=== PATIENT | female | born 1965 | race Caucasian/White ===

== ENCOUNTER 2024-09-11 13:36 | Inpatient (IN) | payer BC, SELFPAY ==
[2024-09-11] VITALS (11 sets, daily range): BP systolic 126–180; BP diastolic 78–101; PULSE 67–96; RESP 14–18; TEMP 36.6–36.7; O2SAT 95–100; BMI 44.4
--- NOTE | 2024-09-11 13:32 | XR_ITS ---
PROCEDURE INFORMATION: Exam: XR Chest Exam date and time: 09/11/2024 1:39 PM Age: 59 years old Clinical indication: Pain; Other: Cp; Additional info: Chest pain since 12 p today TECHNIQUE: Imaging protocol: Radiologic exam of the chest. Views: 1 view. COMPARISON: No relevant prior studies available. FINDINGS: Lungs: Unremarkable. No consolidation. Pleural spaces: Unremarkable. No pleural effusion. No pneumothorax. Heart/Mediastinum: Cardiomegaly Bones/joints: Unremarkable. IMPRESSION: No acute findings.
--- NOTE | 2024-09-11 13:33 | ECG_ITS ---
APPROVED REPORT Exam: Resting ECG HR:73 bpm ECG Measurements Heart Rate 73 AXES DE 327 P 44 QRSd 89 QRS 48 QT 392 T 84 QTc 419 Conclusion SINUS RHYTHM WITH FIRST DEGREE AV BLOCK LOW QRS VOLTAGE IN PRECORDIAL LEADS [QRS DEFLECTION < 1.0 mV IN CHEST LEADS] NONSPECIFIC ST & T-WAVE ABNORMALITY No STEMI Electronically signed by : MATT JOHNSON, 09/12/2024 03:59:48
[2024-09-11 13:47] LABS: Basophils # 0.1 K/mm3 (0-0.2); Eosinophils # 0.6 K/mm3 (0.0-0.4); Eosinophils % 5.7 % (0.1-12.0); Hematocrit 37.9 % (37.0-47.0); Hemoglobin 12.5 g/dL (12.2-16.2); Lymphocytes # 3.5 K/mm3 (0.7-4.5); Lymphocytes % 31.6 % (10-50); Mean Corpuscular Hemoglobin 28.5 pg (27.0-31.2); Mean Corpuscular Volume 86.3 fl (81-99); Mean Platelet Volume 10.2 fl (7.4-10.4); Monocytes # 0.8 K/mm3 (0.1-1.0); Monocytes % 6.7 % (1.7-9.3); Neutrophils # 6.1 K/mm3 (1.8-7.8); Neutrophils % 54.6 % (37.0-80.0); Platelet Count 395 K/mm3 (142-424); Red Blood Count 4.39 M/mm3 (4.20-5.40); Red Cell Distribution Width 14.8 % (11.5-17.5); White Blood Count 11.2 K/mm3 (4.8-10.8)
--- NOTE | 2024-09-11 13:48 | PC.NURSE ---
Patient refused nasal swab.
[2024-09-11 13:49] LABS: Albumin Level 3.8 g/dl (3.5-5.0); Chloride 103 mmol/L (98-107); Potassium 3.6 mmoL/L (3.5-5.1); Sodium 136 mmol/L (136-145)
[2024-09-11 13:52] LABS: Alanine Aminotransferase 103 U/L (12-78); Albumin/Globulin Ratio 1.3 (1.1-1.8); Alkaline Phosphatase 70 U/L (38-126); Anion Gap 12.6 mEq/L (5-15); Aspartate Amino Transferase 157 U/L (14-36); Bilirubin,Total 0.7 mg/dl (0.2-1.3); Blood Urea Nitrogen 14 mg/dl (7-17); Carbon Dioxide 24 mmol/L (22.0-30.0); Creatinine Clearance Estimated 40 mL/min (50-200); Estimated Glomerular Filt Rate 85 ml/min (>60); GFR (African American) 103 ML/MIN (>60); Total Protein,Serum 6.8 g/dl (6.3-8.2)
[2024-09-11 13:53] LABS: Calcium 9.4 mg/dl (8.4-10.2); Glucose 139 mg/dl (74-100); Magnesium 1.6 mg/dl (1.6-2.3)
[2024-09-11 14:04] LABS: Troponin I < 0.01 ng/ml (0.00-0.034)
--- NOTE | 2024-09-11 14:06 | HMH.EDGENADL ---
Discharge Plan Disposition Chief Complaint: Chest Pain Referrals Follow up/Referrals: Morena Williamson [Primary Care Provider] - See instructions Clinical Impressions Clinical Impression: Angina pectoris, unstable Print Language Print Language: Urdu Discharge ED Provider: Cristian Velez General Adult HPI General Chief complaint: Chest Pain Stated complaint: Chest Pain since 12p Time Seen by Provider: 09/11/24 13:49 Mode of Arrival: EMS Source of Information: Patient Description of Symptoms (Recalled from ER Triage Doc. by RN): Patient reports right sided chest pain that started approx 1200 today. States it is sharp in nature and radiates up the right side of her neck. History of Present Illness HPI narrative: Patient is a 59-year-old female with past medical history of [id number] diabetes, hypertension who presents emergency department for evaluation of chest pain. Onset was acute, 2 hours prior to arrival, substernal radiating up into her right neck and shoulder. No trauma. No infectious symptoms. No other acute complaints at this time. Of note patient has had an echocardiogram which she was told was reportedly normal and was offered a treadmill stress test which she declined because she was scared , was offered a chemical stress test which she would have to pay 1900 hrs. [id number] and cannot afford. She has been having this chest pain episodes since last summer that are usually exertional, caused her to sweat and resolve after sitting down for a while. Please note that above description of symptoms, in this electronic medical record under categorization of recalled from ER triage doctor by RN are reflective of an initial nursing assessment, however, is not reflective of my full history and physical exam that was personally taken and clarified. Consequentially, this preceding description of symptoms, which may include the patient's categorized chief complaint in the EMR, do not reflect my personal clinical impression, and the ultimate description of history of present illness and patient stated complaints should be deferred to this section of the note. Unless stated otherwise or congruent with this section of the note, additional signs, symptoms, or incongruence should be interpreted as inaccurate with my clinical impression. Related Data Allergies Allergy/AdvReac Type Severity Reaction Status Date / Time No Known Allergies Allergy Verified 09/11/24 13:32 [facility] Disclaimer: The information contained in this section may have been updated after the patient was seen, as this information can be updated by other users. Social History Smoking Status: Never smoker alcohol intake: never current occupational status: other Travel in the last 8 weeks: None ROS Obtained: Yes Systems reviewed as appropriate & no additional complaints except as documented Physical Exam General General appearance: alert and in no apparent distress Head Head exam: atraumatic and normocephalic Eye Eye exam: Present PERRL and EOMI ENT ENT exam: Present mucous membranes moist Neck Neck exam: Present normal inspection Chest Chest inspection: Present normal inspection and symmetric chest wall rise Respiratory Respiratory exam: Present normal lung sounds bilaterally; Absent respiratory distress Cardiovascular Cardiovascular exam: Present regular rate and normal rhythm Abdominal Exam Abdominal exam: Present soft; Absent tenderness Extremities Exam Extremities exam: Present normal inspection Neurological Exam Neurological exam: Present alert Psychiatric Psychiatric exam: Present normal affect Skin Skin exam: Present warm and dry Medical Decision Making Medical Records Screening: Per USPSTF and CDC recommendations, given the prevalence of disease in our region, it is our hospital?s policy to screen for HIV and viral Hepatitis for all patients aged 18 and over and those with ongoing risk factors. Hernán Inquiry Pt receiving controlled substance: No Vital Signs: 09/11/24 13:35 09/11/24 13:37 09/11/24 14:00 Temperature 97.9 F Temperature Source Oral Pulse Rate 78 73 Pulse Rate [Radial] 76 Respiratory Rate 18 17 14 Blood Pressure 136/89 Blood Pressure [Right Arm] 136/89 Blood Pressure Mean [Right Arm] 104 Blood Pressure Source Blood Pressure Source [Right Arm] Automatic Cuff Blood Pressure Position [Right Arm] Sitting 02 Sat by Pulse Oximetry 98 98 99 Oxygen Delivery Method Room Air Room Air Room Air 09/11/24 14:15 09/11/24 14:30 09/11/24 15:00 Temperature Temperature Source Pulse Rate 72 81 67 Pulse Rate [Radial] Respiratory Rate 16 14 16 Blood Pressure 180/90 H 178/101 H 126/78 Blood Pressure [Right Arm] Blood Pressure Mean [Right Arm] Blood Pressure Source Manual Cuff/ Auscultation Blood Pressure Source [Right Arm] Blood Pressure Position [Right Arm] 02 Sat by Pulse Oximetry 99 100 97 Oxygen Delivery Method Room Air Room Air Room Air Lab Data Lab Results 09/11/24 13:31: WBC 11.2 H, RBC 4.39, Hgb 12.5, Hct 37.9, MCV 86.3, MCH 28.5, MCHC 33.0, RDW 14.8, Plt Count 395, MPV 10.2, Neut % (Auto) 54.6, Lymph % (Auto) 31.6, [place] % (Auto) 6.7, Eos % (Auto) 5.7, Baso % (Auto) 1.0, Neut # (Auto) 6.1, Lymph # (Auto) 3.5, [place] # (Auto) 0.8, Eos # (Auto) 0.6 H, Baso # (Auto) 0.1, D-Dimer 0.47, Sodium 136, Potassium 3.6, Chloride 103, Carbon Dioxide 24, Anion Gap 12.6, BUN 14, Creatinine 0.70, Estimated Creat Clear 40, Estimated GFR 85, Est GFR ( Amer) 103, Glucose 139 H, Calcium 9.4, Magnesium 1.6, Total Bilirubin 0.7, AST 157 H, ALT 103 H, Alkaline Phosphatase 70, Troponin I < 0.01, Total Protein 6.8, Albumin 3.8, Globulin 3.0, Albumin/Globulin Ratio 1.3 09/11/24 13:31 09/11/24 13:31 Orders (Tests/Meds): ED MEDICATIONS Generic Name Dose Route Start Last Admin Trade Name Freq PRN Reason Stop Dose Admin Nitroglycerin/Dextrose 250 mls @ 1.5 mls/hr 09/11/24 15:45 Nitroglycerin 50mg/250ml D5w IV 10/11/24 15:44 .Q24H HARSHA Protocol 5 MCG/MIN Nitroglycerin 0.4 mg 09/11/24 14:06 09/11/24 14:26 Nitroglycerin 0.4mg Sl Tablet SL 10/11/24 14:05 0.4 mg Q5MINP PRN Administration Chest Pain Discontinued Medications Generic Name Dose Route Start Last Admin Trade Name Freq PRN Reason Stop Dose Admin Acetaminophen 1,000 mg 09/11/24 15:38 09/11/24 15:46 Acetaminophen 1,000mg/100ml Vial IV 09/11/24 15:39 1,000 mg ONCE ONE Administration Aspirin 324 mg 09/11/24 14:09/11/24 14:26 Aspirin 81mg Chewable Tablet PO 09/11/24 14:06 324 mg ONCE ONE Administration Morphine Sulfate 4 mg 09/11/24 14:09/11/24 14:26 Morphine 4mg/Ml Syringe IV 09/11/24 14:06 4 mg ONCE ONE Administration Ondansetron HCl 4 mg 09/11/24 14:05 09/11/24 14:26 Ondansetron 4mg/2ml Vial IV 09/11/24 14:06 4 mg ONCE ONE Administration ORDERS Category Date Time Status Cardiology Consult [Consult to Cardiology] [CONS] Cons 09/11/24 15:49 Active Routine CXR --portable [XR chest portable] Stat Exams 09/11/24 13:32 Completed Complete Blood Count Auto Diff AMLAB Lab 09/12/24 06:00 Ordered Complete Blood Count Auto Diff Stat Lab 09/11/24 13:31 Completed Comprehensive Metabolic Panel AMLAB Lab 09/12/24 06:00 Ordered Comprehensive Metabolic Panel Stat Lab 09/11/24 13:31 Completed D-Dimer Stat Lab 09/11/24 13:31 Completed HIV Combo Stat Lab 09/11/24 13:40 Ordered Hemoglobin A1C Stat Lab 09/11/24 15:50 Ordered Hepatitis C Ab Qual. W/ RFX Stat Lab 09/11/24 13:40 Ordered Lipid Panel AMLAB Lab 09/12/24 06:00 Ordered Magnesium AMLAB Lab 09/12/24 06:00 Ordered Magnesium Stat Lab 09/11/24 13:31 Completed TSH [Thyroid Stimulating Hormone] Stat Lab 09/11/24 15:50 Ordered Troponin I Q3H Lab 09/11/24 13:31 Completed Troponin I Q3H Lab 09/11/24 16:45 Ordered ECG Data Tracing #1: Independently inter by me rate 73, rhythm is regular, axis is normal, no ST elevation in anatomical contiguous leads, QTc 419. Medical Decision Narrative: In summary patient is a 59-year-old female past medical history described above presents emergency department for evaluation of chest pain. Patient is hemodynamically stable and nontoxic-appearing upon arrival, afebrile. Differential includes ACS, pulmonary embolism, aortic dissection, among others. Workup will be conducted with hematologic labs, chest x-ray, EKG, D-dimer. Initial inventions include aspirin, morphine, Zofran, nitroglycerin. Initial workup reviewed by me, no significant leukocytosis no LI or critical electrolyte abnormality, mild transaminitis with unknown baseline however no evidence of obstructive pattern with normal bilirubin and patient does not have abdominal pain. X-ray informally interpreted by me, low lung volumes, no large dense pulmonary opacities, formal read no acute findings. Given short duration of pain I do not expect troponins to be sufficiently sensitive to rule out ACS and given the quality of pain patient is high risk and has unstable angina. Given the patient had partially resolving symptoms on nitroglycerin patient will be started on nitroglycerin drip. Given this case was discussed with Dr. Nesbitt patient will be admitted to his service for continued evaluation at this time. Critical Care Critical Care Time Critical Care Time: Yes Attestation: On 09/11/24, the high probability of a clinically significant, sudden or life threatening deterioration of the following system(s) required my full and direct attention, intervention and personal management. The time I documented below is in addition to time spent performing reported procedures but includes the following listed in this critical care notation. Total Time Total Critical Care Time: 35
[2024-09-11 14:20] LABS: D-Dimer 0.47 ug/mL (0.0-0.5)
[2024-09-11] MEDS: ASPIRIN 81MG CHEWABLE TABLET 324 MG PO (14:26)
[2024-09-11] MEDS: MORPHINE 4MG/ML SYRINGE 4 MG IV (14:26)
[2024-09-11] MEDS: ONDANSETRON 4MG/2ML VIAL 4 MG IV (14:26)
[2024-09-11] MEDS: NITROGLYCERIN 0.4MG SL TABLET 0.4 MG SL (14:26)
[2024-09-11] MEDS: ACETAMINOPHEN 1,000MG/100ML VIAL 1000 MG IV (15:46)
--- NOTE | 2024-09-11 15:49 | EXP.HP ---
History of Present Illness *Admission Date: 09/11/24 *Reason for visit:: chest pain *History of present illness: Ms. Parker is a 59-year-old female with history of obesity, gastric bypass, diabetes controlled on metformin, hypothyroid, GERD, hypertension. She presents with worsening episodes over the past few months of chest pressure, dyspnea, palpitations with exertion. 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 Those episodes were just fast heart rate with exertion. Was being worked up by cardiology in [place] but had yet to do a stress test due to difficulty with treadmill component and cost of chemical stress test. Presents to the ED with onset of chest pain began today around noon. States that sharp in nature and radiates up the right side of her neck. Denies any nausea or vomiting. Denies any syncope. Does have sweats and pain with exertion that resolves when resting. Workup in the ER with initial troponin less than 0.01. Has an elevated heart score. EKG has nonspecific ST abnormalities but no ST elevation. Due to pressure and heart score and presentation, patient initiated on nitro drip. Cardiology consulted and recommended admission. Medicine consulted for admission. On arrival to the floor, patient is chest pain-free. No ischemic changes on telemetry. No nausea or vomiting. Stable on room air. [facility] Disclaimer: The information contained in this section may have been updated after the patient was seen, as this information can be updated by other users. Medical History (Updated 09/11/24 @ 18:25 by Oni Nesbitt MD) Asthma Bronchitis Pneumonia Migraine Hypothyroid Diabetes mellitus, type 2 Carpal tunnel syndrome on left Surgical History H/O: hysterectomy History of tonsillectomy History of cholecystectomy Gastric bypass status for obesity Family History Other Asthma Diabetes Heart failure Social History Smoking Status: Never smoker alcohol intake: never current occupational status: other Travel in the last 8 weeks: None Have you lived/traveled outside US in past 30 days?: No Contact w/someone who lives/traveled outside US past 30 days?: No Exposure to someone with infectious disease in past 14 days?: No Do you have a fever (greater than 100.4 F or 38 C)?: No Have you tested positive for COVID-19: No Exposed to someone with COVID-19 in past 14 days?: No Do you have a sore throat?: No Do you have a cough?: No Do you have any weakness?: No Are you experiencing any nausea/vomitting?: Yes Do you have any diarrhea?: No Are you experiencing any unusual bleeding?: No Do you have any muscle aches/pain?: No Do you have any abdominal pain?: No Are you experiencing loss of taste or smell?: No Review of Systems Review of Systems Review of systems (narrative): 14 point review of systems performed, pertinent positives and negatives as per HPI Meds Home Medications and Allergies Home Medications ?Medication ?Instructions ?Recorded ?Confirmed ?Type albuterol sulfate 2.5 mg/3 mL 2.5 mg inhalation Q4-6H PRN 09/11/24 09/11/24 History (0.083 %) solution for nebulization Shortness Of Breath Or Wheezing albuterol sulfate 90 mcg/actuation 2 puff inhalation Q6HP PRN 09/11/24 09/11/24 History aerosol inhaler Shortness Of Breath Or Wheezing estradiol 2 mg tablet 2 mg PO DAILY 09/11/24 09/11/24 History fluticasone 113 mcg-salmeterol 14 1 puff inhalation BID 09/11/24 09/11/24 History mcg/actuation breath activated powdr metformin 500 mg tablet 500 mg PO DAILY 09/11/24 09/11/24 History olmesartan 40 mg tablet 40 mg PO DAILY 09/11/24 09/11/24 History omeprazole 40 mg capsule,delayed 40 mg PO DAILY 09/11/24 09/11/24 History release thyroid (pork) 30 mg tablet (SAW OFFBE[employer]ER 30 mg PO DAILY 09/11/24 09/11/24 History Thyroid) New Prescriptions to Start Prescriptions: Allergies Allergy/AdvReac Type Severity Reaction Status Date / Time No Known Allergies Allergy Verified 09/11/24 13:32 Exam Data for Last 24 hours Vital signs and Labs for Last 24 Hours: Temp Pulse Resp BP Pulse Ox O2 Del Method 97.9 F 67 16 126/78 97 Room Air 09/11/24 13:37 09/11/24 15:00 09/11/24 15:00 09/11/24 15:00 09/11/24 15:00 09/11/24 15:00 Laboratory Results - last 24 hr 09/11/24 13:31: WBC 11.2 H, RBC 4.39, Hgb 12.5, Hct 37.9, MCV 86.3, MCH 28.5, MCHC 33.0, RDW 14.8, Plt Count 395, MPV 10.2, Neut % (Auto) 54.6, Lymph % (Auto) 31.6, [place] % (Auto) 6.7, Eos % (Auto) 5.7, Baso % (Auto) 1.0, Neut # (Auto) 6.1, Lymph # (Auto) 3.5, [place] # (Auto) 0.8, Eos # (Auto) 0.6 H, Baso # (Auto) 0.1, D-Dimer 0.47, Sodium 136, Potassium 3.6, Chloride 103, Carbon Dioxide 24, Anion Gap 12.6, BUN 14, Creatinine 0.70, Estimated Creat Clear 40, Estimated GFR 85, Est GFR ( Amer) 103, Glucose 139 H, Calcium 9.4, Magnesium 1.6, Total Bilirubin 0.7, AST 157 H, ALT 103 H, Alkaline Phosphatase 70, Troponin I < 0.01, Total Protein 6.8, Albumin 3.8, Globulin 3.0, Albumin/Globulin Ratio 1.3 I & O for Last 24 hours: Intake & Output 09/08/24 09/09/24 09/10/24 09/11/24 23:59 23:59 23:59 23:59 Weight 99.79 kg Constitutional Constitutional: no acute distress, morbidly obese and cooperative *Routine HEENT Exam Head: Present normocephalic Eye: Present EOMI and PERRL ENT: Present mucous membranes moist *Routine Neck Exam Neck: Present supple; Absent lymphadenopathy *Routine Respiratory Exam Respiratory: Present CTA bilaterally; Absent rhonchi, wheezes or crackles *Routine Cardiovascular Exam Cardiovascular: Present RRR *Routine Abdominal Exam Abdominal: Present soft and normoactive bowel sounds; Absent tenderness *Routine Rectal Exam Rectal:: deferred *Routine Genitalia Exam Genitalia:: deferred *Routine Extremities Exam Extremities: Absent cyanosis, clubbing or edema *Routine Skin Exam Skin: Present warm; Absent rash *Routine Neurological Exam Neurological: Present alert, oriented X3 and moving all extremities; Absent altered mental status Assessment and Plan *Assessment and plan (1) Angina pectoris, unstable: Status: Acute Category: Medical Code(s): I20.0 - Unstable angina (2) Diabetes mellitus, type 2: Status: Acute Category: Medical Code(s): E11.9 - Type 2 diabetes mellitus without complications (3) Hypothyroid: Status: Acute Category: Medical Code(s): E03.9 - Hypothyroidism, unspecified (4) GERD (gastroesophageal reflux disease): Status: Chronic Category: Medical Code(s): K21.9 - Gastro-esophageal reflux disease without esophagitis (5) Morbid obesity with BMI of 40.0-44.9, adult: Status: Chronic Category: Medical Code(s): E66.01 - Morbid (severe) obesity due to excess calories; Z68.41 - Body mass index [BMI] 40.0-44.9, adult (6) Hypertension: Status: Chronic Category: Medical Code(s): I10 - Essential (primary) hypertension Plan 59-year-old female with multiple comorbidities who presents with exertional chest pain. Discussed case with ER physician, request admission for serial troponins and cardiology evaluation. Initiated on nitroglycerin drip. I agreed to admit for further care. Necessitating inpatient care. Monitoring on telemetry. Chest pain better with nitroglycerin drip. Problems addressed as follows: Unstable angina Hypertension -Initial heart score 5, pain exertional. Initial troponin less than 0.01, 3-hour troponin jumped to 1.15. 6-hour pending. EKG with no ST elevations. -Loaded with aspirin in the ED. Continue 81 mg daily -Will initiate nitroglycerin drip due to hypertension and chest pain. Admitted to stepdown on telemetry -Cardiology consult placed, will evaluate the patient in the morning. Anticipate heart cath in the morning. Echo ordered and pending -Repeat CBC, CMP, magnesium ordered for the morning Transaminitis: - bilirubin 0.7, AST 157, ALT 103, alk phos 70. Unclear etiology. Will obtain right upper quadrant ultrasound. -History of gastric bypass. Given metabolic disease, suspect fatty liver. Patient is a nondrinker Diabetes: A1c 6.5. Only on metformin at home. Will consider Jardiance pending echo findings and cath findings. -Glucose on admission of 139, sliding scale insulin with fingersticks ACHS Hypothyroid: TSH pending. Continue [place] Thyroid 30 mg daily Obesity complicates all aspects of her care Full code Diabetic diet, n.p.o. midnight Lovenox 1 mg/kg twice daily
[2024-09-11] MEDS: NITROGLYCERIN IN 5 % DEXTROSE 250 ML 1.5 MG IV (16:19)
--- NOTE | 2024-09-11 16:45 | PC.NURSE ---
Patient used bedside commode
--- NOTE | 2024-09-11 16:55 | PC.NURSE ---
pt retrieved from ER via bed stretcher. Arrived on unit at 1705. Pt has no pain at this time. Pt in bed with call light in reach.
[2024-09-11 18:28] LABS: Hemoglobin A1C 6.5 % (4.0-6.0)
[2024-09-11 18:29] LABS: Troponin I 1.15 ng/ml (0.00-0.034)
[2024-09-11] MEDS: ENOXAPARIN 100MG/ML SYRINGE 100 MG SUBCUT (18:42)
[2024-09-11 18:43] LABS: Thyroid Stimulating Hormone 1.59 uIU/mL (0.465-4.68)
--- NOTE | 2024-09-11 18:43 | ECG_ITS ---
APPROVED REPORT Exam: Resting ECG HR:86 bpm ECG Measurements Heart Rate 86 AXES ME 161 P 191 QRSd 102 QRS 46 QT 374 T -27 QTc 418 Conclusion ECTOPIC ATRIAL RHYTHM LOW QRS VOLTAGE IN PRECORDIAL LEADS [QRS DEFLECTION < 1.0 mV IN CHEST LEADS] Isolated Q in III - new since prior ABNORMAL ECG UNCONFIRMED REPORT Electronically signed by : Hira Cruz MD 09/12/2024 08:22:16
[2024-09-11 19:04] LABS: HIV Combo NEGATIVE (Negative)
[2024-09-11 19:12] LABS: Hepatitis C Ab Qual. W/ RFX NEGATIVE (Negative)
[2024-09-11] MEDS: IRBESARTAN 300MG TABLET 300 MG PO (19:55)
[2024-09-11] MEDS: PANTOPRAZOLE 40MG TABLET 40 MG PO (19:55)
--- NOTE | 2024-09-11 20:07 | EXP.EVENT.NO ---
Patient reported having a headache about 8 out of 10. Noting that the patient is on a nitroglycerin drip Updated patient that I could give her one-time dose of IV Toradol now because it would work quicker and also have regular Tylenol as needed Patient said this would be great, nursing aware going to give at least a dose of IV Toradol now. I will keep the Toradol as needed at the present time but also have ordered p.o. Tylenol
[2024-09-11] MEDS: KETOROLAC 30MG/ML VIAL 15 MG IV (20:29)
[2024-09-12] VITALS (25 sets, daily range): BP systolic 137–196; BP diastolic 82–101; PULSE 87–111; RESP 14–20; TEMP 36.8–36.9; O2SAT 92–99; BMI 44.9
--- NOTE | 2024-09-12 | CA_ITS ---
APPROVED REPORT EXAM: Limited 2D Echocardiogram [place]mith: Radha Strong RDCS Ht: 4 ft 11 in Wt: 220lbs BSA: 1.92 BP: 126/78 mmHg Indications: ACS,CP,HTN,DM,PALPS,SOA,MORBID OBESITY LIMITED EXAM DUE TO BODY HABITUS M-Mode Dimensions RVDd 2.60 cm (0.9-2.6) LA Diam 3.37 cm (1.9-4.0) LVDd 4.35 cm (3.5-5.7) LVDs 2.39 cm (3.5-5.7) IVSd 1.11 cm (0.6-1.1) PWd 1.07 cm (0.6-1.1) EF (Teich) 76.60% FS 45.10% EDV (Teich) 85.40 mL ESV (Teich) 20.00 mL Other Information Study Quality: Technically Difficult. Technically limited study due to body habitus. Conclusion This is a limited TTE due to inability to position patient and due to patient body habitus. Limited windows are obtained. Grossly, the left ventricle is normal in size and function. There is increased LV wall thickness. Regional wall motion cannot be entirely evaluated due to technically difficult study. LVEF is 55-60%. The right ventricle is not well-visualized, but grossly appears mildly dilated with normal RV function. No evidence of significant valvular stenosis or regurgitation in the available views. There is a trivial, circumferential pericardial effusion present. Electronically signed by : Jaimie Jensen MD 09/12/2024 11:50:44
--- NOTE | 2024-09-12 04:58 | ECG_ITS ---
APPROVED REPORT Exam: Resting ECG HR:98 bpm ECG Measurements Heart Rate 98 AXES FL 227 P 24 QRSd 91 QRS 23 QT 365 T -18 QTc 420 Conclusion SINUS RHYTHM WITH FIRST DEGREE AV BLOCK LOW QRS VOLTAGE IN PRECORDIAL LEADS [QRS DEFLECTION < 1.0 mV IN CHEST LEADS] Isolated q in iii ABNORMAL ECG UNCONFIRMED REPORT Electronically signed by : Hira Cruz MD 09/15/2024 09:02:38
--- NOTE | 2024-09-12 06:00 | US_ITS ---
FINAL REPORT CLINICAL HISTORY: transaminitis, suspect fatty liver disease COMPARISON: None FINDINGS: Sonographic images of the right upper quadrant were obtained. The pancreas is partially obscured. There is increased echogenicity of the liver consistent with fatty infiltration of the liver. The gallbladder has been surgically resected. There is no evidence of biliary ductal dilatation.The common duct measures 5.6 mm. Limited images of the right kidney are unremarkable. IMPRESSION: Fatty infiltration of the liver. Post cholecystectomy, without biliary ductal dilatation. Reviewed, Interpreted and Dictated by Denver Blair MD Transcribed by Ofelia Serrato Authenticated and [facility]
[2024-09-12 06:01] LABS: Basophils # 0.1 K/mm3 (0-0.2); Basophils % 0.8 % (0.1-2.0); Eosinophils # 0.1 K/mm3 (0.0-0.4); Eosinophils % 0.8 % (0.1-12.0); Hematocrit 38.3 % (37.0-47.0); Hemoglobin 12.6 g/dL (12.2-16.2); Lymphocytes # 1.8 K/mm3 (0.7-4.5); Lymphocytes % 15.8 % (10-50); Mean Corpuscular HGB Conc 32.9 g/dL (31.8-35.4); Mean Corpuscular Hemoglobin 28.6 pg (27.0-31.2); Mean Corpuscular Volume 86.8 fl (81-99); Mean Platelet Volume 10.6 fl (7.4-10.4); Monocytes # 0.6 K/mm3 (0.1-1.0); Monocytes % 5.3 % (1.7-9.3); Neutrophils # 8.9 K/mm3 (1.8-7.8); Platelet Count 358 K/mm3 (142-424); Red Blood Count 4.41 M/mm3 (4.20-5.40); White Blood Count 11.5 K/mm3 (4.8-10.8)
[2024-09-12 06:11] LABS: Cholesterol 209 mg/dl (140-200); Triglycerides 210 mg/dl (30-150); VLDL Cholesterol 42 mg/dL (0-40)
[2024-09-12 06:12] LABS: Albumin Level 3.8 g/dl (3.5-5.0); Chloride 98 mmol/L (98-107); Chol/HDL Ratio 4.3 (1-3.5); HDL Cholesterol 49 mg/dl (40-60); Sodium 133 mmol/L (136-145)
[2024-09-12 06:14] LABS: Blood Urea Nitrogen 13 mg/dl (7-17); Creatinine Clearance Estimated 40 mL/min (50-200); Estimated Glomerular Filt Rate 85 ml/min (>60); GFR (African American) 103 ML/MIN (>60)
[2024-09-12 06:15] LABS: Alanine Aminotransferase 107 U/L (12-78); Albumin/Globulin Ratio 1.3 (1.1-1.8); Alkaline Phosphatase 50 U/L (38-126); Aspartate Amino Transferase 219 U/L (14-36); Bilirubin,Total 0.7 mg/dl (0.2-1.3); Calcium 8.9 mg/dl (8.4-10.2); Carbon Dioxide 29 mmol/L (22.0-30.0); Glucose 130 mg/dl (74-100); Magnesium 1.4 mg/dl (1.6-2.3); Total Protein,Serum 6.8 g/dl (6.3-8.2)
[2024-09-12 06:23] LABS: Direct LDL Cholesterol 114.73 mg/dL (100-129)
--- NOTE | 2024-09-12 07:28 | HMH.PHAINT1 ---
Pharmacy Intervention Comments: MEDICATION RECONCILIATION COMPLETED ON PATIENT USING EXTERNAL FILL HISTORY FROM PHARMACY. -LESLIE DONOVAN, EDUARD
[2024-09-12] MEDS: MAGNESIUM SULFATE IN WATER 2 GM/50 ML PIGGYBACK IV ×3 (08:12→10:02)
--- NOTE | 2024-09-12 09:38 | PC.NURSE ---
pt is prepped for the heart cath procedure. radial and femoral sites bilaterally are clipped and ready. call light is within reach and no needs are voiced at this time.
--- NOTE | 2024-09-12 10:25 | IR_ITS ---
APPROVED REPORT Patient Location: Inpatient Audio Director: Rodrigo Golden RT (R) PROCEDURES Selective coronary angiogram INDICATION Acute non-ST elevation myocardial infarction Informed consent was obtained prior to the procedure. COMPLICATIONS NONE Estimated Blood Loss: LESS THAN 10 ML TECHNIQUE One percent lidocaine used to anesthetize the right anterior aspect of the wrist. The right radial artery was accessed via the Seldinger technique. A 6 English sheath was placed in the right radial artery. 2.5 mg of Verapamil, 800 mcg of nitroglycerin, 1mg Lidocaine and 5000 U Heparin were given through the arterial sheath. The 6 English JL 3 guide catheter was used to perform selective coronary angiogram. At the end of the procedure the sheath was removed good hemostasis was achieved using Traclet band, patient was transferred to the postop holding area in stable condition. ANGIOGRAPHIC RESULTS The left main artery Normal The left anterior descending artery Has proximal 30 and 40% stenosis with an additional 50% stenosis proximal to a large first diagonal artery which extends into a focal concentric 90% stenosis just distal to the first diagonal artery. There are additional 50% concentric stenoses in the mid LAD. A large first diagonal artery has a proximal and mid vessel 80 to 90% stenosis The circumflex artery Is nondominant gives rise to a large first obtuse marginal artery. Just before the first obtuse marginal artery is a concentric 50% stenosis The right coronary artery Is dominant and has an ostial 60% stenosis followed by a proximal 30% and distal 50% stenosis. The posterior descending artery has a proximal hazy 70% stenosis while the posterior lateral branch has a proximal 90% stenosis just before the bifurcation into 2 medium sized marginal branches The TOPETE ventriculogram reveals Not performed The left ventricular end-diastolic pressure Not measured IMPRESSION Severe coronary artery disease requiring bypass surgery PLAN 1. Contact has been made at [facility] surgery and efforts are being made to transfer patient for surgical revascularization this admission 2. LDL less than 55 to achieve that high intensity statin 3. Continue aspirin 4. Recommend heparin drip until bypass surgery Electronically signed by : Kyler Yee MD 09/12/2024 12:45:55
--- NOTE | 2024-09-12 10:30 | P.CONCA_ITS ---
History of Present Illness History of Present Illness Consult date: 09/12/24 Requesting physician: Oni Nesbitt Consult reason: chest pain Chief complaint: Chest pain History of present illness: This is a 59-year-old white female with past medical history of obesity, gastric bypass, diabetes mellitus, hypothyroid, GERD and hypertension who presented to emergency department with complaints of intermittent chest pressure with shortness of breath off and on for the past few months. Patient reports pain started yesterday around noon and was sharp in nature radiating up to the side of her neck prompting her to go to the emergency department. Initial EKG shows sinus rhythm with a first-degree AV block at a rate of [address] and T wave abnormalities noted. Labs this follow: WBC 11.2, hemoglobin 12.5, D- dimer negative, sodium 136, potassium 3.6, creatinine 0.7, AST 157 and ALT 103, troponin 0.01 trending up to 1.15 and a normal TSH. X-ray is negative for acute cardiopulmonary findings. Patient was admitted for NSTEMI and started on a nitro drip and is currently awaiting left heart catheterization. Echocardiogram is pending. Patient denies chest pain at this time [facility] Disclaimer: The information contained in this section may have been updated after the patient was seen, as this information can be updated by other users. Medical History (Updated 09/12/24 @ 10:37 by Aurora Jennings APRN) Asthma Bronchitis Pneumonia Migraine Hypothyroid Diabetes mellitus, type 2 Carpal tunnel syndrome on left Surgical History H/O: hysterectomy History of tonsillectomy History of cholecystectomy Gastric bypass status for obesity Family History Other Asthma Diabetes Heart failure Social History Smoking Status: Never smoker alcohol intake: never current occupational status: other Travel in the last 8 weeks: None Review of Systems Review of Systems Review of systems:: pertinent systems reviewed and negative unless documented below Constitutional Constitutional: Reports system reviewed and no additional complaints, except as documented *Cardiovascular Cardiovascular: Reports chest pain *Respiratory Respiratory: Reports system reviewed and no additional complaints, except as documented *Gastrointestinal Gastrointestinal: Reports system reviewed and no additional complaints, except as documented *Neurologic Neurologic: Reports system reviewed and no additional complaints, except as documented and Denies confusion Psychiatric Psychiatric: Reports system reviewed and no additional complaints, except as documented and Denies confusion Exam Data for Last 24 hours Vital signs and Labs for Last 24 Hours: Temp Pulse Resp BP Pulse Ox O2 Del Method O2 Flow Rate 98.3 F 107 H 16 145/86 H 97 Nasal Cannula 2 09/12/24 09:05 09/12/24 09:05 09/12/24 09:05 09/12/24 09:05 09/12/24 09:05 09/12/24 09:05 09/12/24 09:05 Laboratory Results - last 24 hr 09/11/24 13:31: WBC 11.2 H, RBC 4.39, Hgb 12.5, Hct 37.9, MCV 86.3, MCH 28.5, MCHC 33.0, RDW 14.8, Plt Count 395, MPV 10.2, Neut % (Auto) 54.6, Lymph % (Auto) 31.6, Collier % (Auto) 6.7, Eos % (Auto) 5.7, Baso % (Auto) 1.0, Neut # (Auto) 6.1, Lymph # (Auto) 3.5, Collier # (Auto) 0.8, Eos # (Auto) 0.6 H, Baso # (Auto) 0.1, D- Dimer 0.47, Sodium 136, Potassium 3.6, Chloride 103, Carbon Dioxide 24, Anion Gap 12.6, BUN 14, Creatinine 0.70, Estimated Creat Clear 40, Estimated GFR 85, Est GFR ( Amer) 103, Glucose 139 H, Hemoglobin A1c 6.5 H, Calcium 9.4, Magnesium 1.6, Total Bilirubin 0.7, AST 157 H, ALT 103 H, Alkaline Phosphatase 70, Troponin I < 0.01, Total Protein 6.8, Albumin 3.8, Globulin 3.0, Albumin/Globulin Ratio 1.3, HCV Ab LIS w/Rflx PCR Qn Negative, HIV Ag/Ab Combo Qual Negative 09/11/24 17:45: Troponin I 1.15 H, TSH 1.59 09/12/24 05:31: WBC 11.5 H, RBC 4.41, Hgb 12.6, Hct 38.3, MCV 86.8, MCH 28.6, MCHC 32.9, RDW 15.0, Plt Count 358, MPV 10.6 H, Neut % (Auto) 77.0, Lymph % (Auto) 15.8, Collier % (Auto) 5.3, Eos % (Auto) 0.8, Baso % (Auto) 0.8, Neut # (Auto) 8.9 H, Lymph # (Auto) 1.8, Collier # (Auto) 0.6, Eos # (Auto) 0.1, Baso # (Auto) 0.1, Sodium 133 L, Potassium 4.0, Chloride 98, Carbon Dioxide 29, Anion Gap 10.0, BUN 13, Creatinine 0.70, Estimated Creat Clear 40, Estimated GFR 85, Est GFR ( Amer) 103, Glucose 130 H, Calcium 8.9, Magnesium 1.4 L D, Total Bilirubin 0.7, AST 219 H D, ALT 107 H, Alkaline Phosphatase 50, Total Protein 6.8, Albumin 3.8, Globulin 3.0, Albumin/Globulin Ratio 1.3, Triglycerides 210 H, Cholesterol 209 H, LDL Cholesterol Direct 114.73, VLDL Cholesterol 42 H, HDL Cholesterol 49, Cholesterol/HDL Ratio 4.3 H I & O for Last 24 hours: Intake & Output 09/09/24 09/10/24 09/11/24 09/12/24 23:59 23:59 23:59 23:59 Intake Total 360 / 360 20.275 / 20.275 Output Total 125 / 125 100 / 100 Balance 235 / 235 -79.725 / -79.725 Weight 220 lb 222 lb 9.6 oz Constitutional Constitutional: no acute distress *Routine Respiratory Exam Respiratory: Present CTA bilaterally and symmetric chest movement *Routine Cardiovascular Exam Cardiovascular: Present RRR, Normal S1 and Normal S2 *Routine Abdominal Exam Abdominal: Present soft and normoactive bowel sounds; Absent tenderness *Routine Extremities Exam Extremities: Present full ROM and normal capillary refill; Absent edema *Routine Skin Exam Skin: Present intact, dry and warm Detailed Neck Exam: Thyroids Thyroid: Absent bruit Meds Home Medications and Allergies Home Medications ?Medication ?Instructions ?Recorded ?Confirmed ?Type albuterol sulfate 2.5 mg/3 mL 2.5 mg inhalation Q4HP PRN 09/11/24 09/12/24 History (0.083 %) solution for nebulization Shortness Of Breath Or Wheezing albuterol sulfate 90 mcg/actuation 2 puff inhalation Q6HP PRN 09/11/24 09/11/24 History aerosol inhaler Shortness Of Breath Or Wheezing estradiol 2 mg tablet 2 mg PO DAILY 09/11/24 09/11/24 History fluticasone 113 mcg-salmeterol 14 1 puff inhalation BID 09/11/24 09/11/24 History mcg/actuation breath activated powdr metformin 500 mg tablet 500 mg PO DAILY 09/11/24 09/11/24 History olmesartan 40 mg tablet 40 mg PO DAILY 09/11/24 09/11/24 History omeprazole 40 mg capsule,delayed 40 mg PO DAILY 09/11/24 09/11/24 History release thyroid (pork) 30 mg tablet (TIP SCOURER 30 mg PO DAILY 09/11/24 09/11/24 History Thyroid) New Prescriptions to Start Prescriptions: Allergies Allergy/AdvReac Type Severity Reaction Status Date / Time No Known Allergies Allergy Verified 09/11/24 13:32 Assessment and Plan *Assessment and plan (1) Hypertension: Status: Chronic Category: Medical Code(s): I10 - Essential (primary) hypertension (2) Diabetes mellitus, type 2: Status: Acute Category: Medical Code(s): E11.9 - Type 2 diabetes mellitus without complications (3) Morbid obesity with BMI of 40.0-44.9, adult: Status: Chronic Category: Medical Code(s): E66.01 - Morbid (severe) obesity due to excess calories; Z68.41 - Body mass index [BMI] 40.0-44.9, adult (4) NSTEMI (non-ST elevated myocardial infarction): Status: Acute Category: Medical Code(s): I21.4 - Non-ST elevation (NSTEMI) myocardial infarction (5) Transaminitis: Status: Acute Category: Medical Code(s): R74.01 - Elevation of levels of liver transaminase levels Plan Chest pain NSTEMI Melisa score 79 Troponin 0.01 trending up to 1.15 in the setting of chest pain and shortness of breath EKG negative for STEMI Pain resolved with nitro drip D-dimer negative Preliminary echo shows a normal ejection fraction. Official read is pending. Will proceed with left heart catheterization to evaluate for coronary artery disease. Discussed risk versus benefits with patient, she is agreeable to proceed. Transaminitis Elevated AST and ALT PCP is obtaining a right upper quadrant ultrasound Patient has a history of gastric bypass Will defer to primary service Diabetes mellitus Obesity Consider addition of Jardiance or Ozempic prior to discharge CV summary 09/12/2024: Echo shows normal ejection fraction. Left heart catheterization is pending.
[2024-09-12 11:11] LABS: POC Glucose,Bedside 141 (70-110)
--- NOTE | 2024-09-12 11:51 | PC.NURSE ---
Pt down for [facility] @ this time.
[2024-09-12] MEDS: HEPARIN 1,000 UNITS/500ML NS (CATH LAB) 3000 UNIT IV (11:59)
[2024-09-12] MEDS: 0.9 % SODIUM CHLORIDE 500 ML 25 ML IV (11:59)
[2024-09-12] MEDS: diphenhydrAMINE 50MG/ML VIAL 50 MG IV (11:59)
[2024-09-12] MEDS: MIDAZOLAM HCL 1MG/ML 5ML VIAL 1 MG IV (12:04)
[2024-09-12] MEDS: NITROGLYCERIN 800MCG/8ML SYR (CATH LAB) 800 MCG IA (12:04)
[2024-09-12] MEDS: FENTANYL 100MCG/2ML VIAL 50 MCG IV (12:04)
[2024-09-12] MEDS: VERAPAMIL 2.5MG/ML 2ML VIAL 2.5 MG IV (12:05)
[2024-09-12] MEDS: HEPARIN 1,000 UNITS/ML 10ML VIAL (CATH LAB) 10000 UNIT IV (12:05)
[2024-09-12] MEDS: LIDOCAINE 1% 10ML MDV 20 ML IJ (12:05)
--- NOTE | 2024-09-12 12:17 | EXP.DC.SUM ---
General Admission date:: 09/11/24 Discharge date: 09/12/24 HPI HPI HPI: Ms. Parker is a 59-year-old female with history of obesity, gastric bypass, diabetes controlled on metformin, hypothyroid, GERD, hypertension. She presents with worsening episodes over the past few months of chest pressure, dyspnea, palpitations with exertion. 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 Those episodes were just fast heart rate with exertion. Was being worked up by cardiology in [place] but had yet to do a stress test due to difficulty with treadmill component and cost of chemical stress test. Presents to the ED with onset of chest pain began today around noon. States that sharp in nature and radiates up the right side of her neck. Denies any nausea or vomiting. Denies any syncope. Does have sweats and pain with exertion that resolves when resting. Workup in the ER with initial troponin less than 0.01. Has an elevated heart score. EKG has nonspecific ST abnormalities but no ST elevation. Due to pressure and heart score and presentation, patient initiated on nitro drip. Cardiology consulted and recommended admission. Medicine consulted for admission. On arrival to the floor, patient is chest pain-free. No ischemic changes on telemetry. No nausea or vomiting. Stable on room air. Hospital Course Hospital Course Hospital Course: 59-year-old female with multiple comorbidities who presents with exertional chest pain. Discussed case with ER physician, request admission for serial troponins and cardiology evaluation. Initiated on nitroglycerin drip and therapy with Lovenox. Evaluated by cardiology. Found to have multivessel disease necessitating transfer for CABG. Initiated on heparin drip awaiting transfer to for higher level of care. Problems addressed as follows: Unstable angina Hypertension CAD -Initial heart score 5, Melisa score 79. Pain with exertion. Initial troponin less than 0.01. Trended up to 1.15 in the setting of chest pain and shortness of breath. Initial EKG was negative for STEMI. Patient was initiated on nitroglycerin drip and Lovenox 1 mg/kg twice daily. Monitored overnight. Was taken to the [facility] for left heart cath. Findings as follows: The left main artery Normal The left anterior descending artery Has proximal 30 and 40% stenosis with an additional 50% stenosis proximal to a large first diagonal artery which extends into a focal concentric 90% stenosis just distal to the first diagonal artery. There are additional 50% concentric stenoses in the mid LAD. A large first diagonal artery has a proximal and mid vessel 80 to 90% stenosis The circumflex artery Is nondominant gives rise to a large first obtuse marginal artery. Just before the first obtuse marginal artery is a concentric 50% stenosis The right coronary artery Is dominant and has an ostial 60% stenosis followed by a proximal 30% and distal 50% stenosis. The posterior descending artery has a proximal hazy 70% stenosis while the posterior lateral branch has a proximal 90% stenosis just before the bifurcation into 2 medium sized marginal branches The TOPETE ventriculogram reveals Not performed The left ventricular end-diastolic pressure Not measured IMPRESSION Severe coronary artery disease requiring bypass surgery PLAN 1. Contact has been made at [facility] CT surgery and efforts are being made to transfer patient for surgical revascularization this admission 2. LDL less than 55 to achieve that high intensity statin 3. Continue aspirin 4. Recommend heparin drip until bypass surgery Preliminary echo shows a normal ejection fraction. Official read is pending. Transaminitis: - bilirubin 0.7, AST 157, ALT 103, alk phos 70. Unclear etiology. Hepatitis panel obtained and pending. Ultrasound obtained 09/12 showing fatty liver. Does have history of gastric bypass. Diabetes: A1c 6.5. Only on metformin at home. Recommend addition of Jardiance. Glucose well-controlled during admission. Hypothyroid: TSH 1.59. Continue [place] Thyroid 30 mg daily Obesity complicates all aspects of her care Stable to discharge to for further management. Total time spent on discharge 45 minutes in counseling, documentation, chart review, and direct care with patient. Exam Data for Last 24 hours Vital signs and Labs for Last 24 Hours: Temp Pulse Resp BP Pulse Ox O2 Del Method O2 Flow Rate 98.3 F 107 H 16 145/86 H 97 Room Air 2 09/12/24 09:05 09/12/24 09:05 09/12/24 09:05 09/12/24 09:05 09/12/24 09:05 09/12/24 11:00 09/12/24 09:05 Laboratory Results - last 24 hr 09/11/24 13:31: WBC 11.2 H, RBC 4.39, Hgb 12.5, Hct 37.9, MCV 86.3, MCH 28.5, MCHC 33.0, RDW 14.8, Plt Count 395, MPV 10.2, Neut % (Auto) 54.6, Lymph % (Auto) 31.6, [place] % (Auto) 6.7, Eos % (Auto) 5.7, Baso % (Auto) 1.0, Neut # (Auto) 6.1, Lymph # (Auto) 3.5, [place] # (Auto) 0.8, Eos # (Auto) 0.6 H, Baso # (Auto) 0.1, D-Dimer 0.47, Sodium 136, Potassium 3.6, Chloride 103, Carbon Dioxide 24, Anion Gap 12.6, BUN 14, Creatinine 0.70, Estimated Creat Clear 40, Estimated GFR 85, Est GFR ( Amer) 103, Glucose 139 H, Hemoglobin A1c 6.5 H, Calcium 9.4, Magnesium 1.6, Total Bilirubin 0.7, AST 157 H, ALT 103 H, Alkaline Phosphatase 70, Troponin I < 0.01, Total Protein 6.8, Albumin 3.8, Globulin 3.0, Albumin/Globulin Ratio 1.3, HCV Ab LIS w/Rflx PCR Qn Negative, HIV Ag/Ab Combo Qual Negative 09/11/24 17:45: Troponin I 1.15 H, TSH 1.59 09/12/24 05:31: WBC 11.5 H, RBC 4.41, Hgb 12.6, Hct 38.3, MCV 86.8, MCH 28.6, MCHC 32.9, RDW 15.0, Plt Count 358, MPV 10.6 H, Neut % (Auto) 77.0, Lymph % (Auto) 15.8, [place] % (Auto) 5.3, Eos % (Auto) 0.8, Baso % (Auto) 0.8, Neut # (Auto) 8.9 H, Lymph # (Auto) 1.8, [place] # (Auto) 0.6, Eos # (Auto) 0.1, Baso # (Auto) 0.1, Sodium 133 L, Potassium 4.0, Chloride 98, Carbon Dioxide 29, Anion Gap 10.0, BUN 13, Creatinine 0.70, Estimated Creat Clear 40, Estimated GFR 85, Est GFR ( Amer) 103, Glucose 130 H, Calcium 8.9, Magnesium 1.4 L D, Total Bilirubin 0.7, AST 219 H D, ALT 107 H, Alkaline Phosphatase 50, Total Protein 6.8, Albumin 3.8, Globulin 3.0, Albumin/Globulin Ratio 1.3, Triglycerides 210 H, Cholesterol 209 H, LDL Cholesterol Direct 114.73, VLDL Cholesterol 42 H, HDL Cholesterol 49, Cholesterol/HDL Ratio 4.3 H 09/12/24 11:04: POC Glucose 141 H I & O for Last 24 hours: Intake & Output 09/09/24 09/10/24 09/11/24 09/12/24 23:59 23:59 23:59 23:59 Intake Total 360 / 360 20.275 / 20.275 Output Total 125 / 125 100 / 100 Balance 235 / 235 -79.725 / -79.725 Weight 99.79 kg 100.97 kg Constitutional Constitutional: mild distress, morbidly obese, chronically ill appearing and cooperative *Routine HEENT Exam Head: Present normocephalic Eye: Present EOMI and PERRL ENT: Present mucous membranes moist *Routine Neck Exam Neck: Present supple; Absent lymphadenopathy *Routine Respiratory Exam Respiratory: Present CTA bilaterally; Absent respiratory distress, rhonchi, stridor or wheezes *Routine Cardiovascular Exam Cardiovascular: Present RRR *Routine Abdominal Exam Abdominal: Present soft and normoactive bowel sounds; Absent tenderness *Routine Rectal Exam Patient deferred: visual exam *Routine Exam Patient deferred: external exam *Routine Extremities Exam Extremities: Absent cyanosis, clubbing or edema *Routine Skin Exam Skin: Present warm; Absent rash *Routine Neurological Exam Neurological: Present alert, oriented X3 and moving all extremities; Absent altered mental status Routine Psychiatric Exam Psychiatric: Present normal affect Results Data Completed and Pending Labs on day of discharge: Labs from last 24 hours 09/12/24 09/12/24 09/11/24 11:04 05:31 17:45 WBC 11.5 H RBC 4.41 Hgb 12.6 Hct 38.3 MCV 86.8 MCH 28.6 MCHC 32.9 RDW 15.0 Plt Count 358 MPV 10.6 H Neut % (Auto) 77.0 Lymph % (Auto) 15.8 [place] % (Auto) 5.3 Eos % (Auto) 0.8 Baso % (Auto) 0.8 Neut # (Auto) 8.9 H Lymph # (Auto) 1.8 [place] # (Auto) 0.6 Eos # (Auto) 0.1 Baso # (Auto) 0.1 D-Dimer Sodium 133 L Potassium 4.0 Chloride 98 Carbon Dioxide 29 Anion Gap 10.0 BUN 13 Creatinine 0.70 Estimated Creat Clear 40 Estimated GFR 85 Est GFR ( Amer) 103 Glucose 130 H POC Glucose 141 H Hemoglobin A1c Calcium 8.9 Magnesium 1.4 L D Total Bilirubin 0.7 AST 219 H D ALT 107 H Alkaline Phosphatase 50 Troponin I 1.15 H Total Protein 6.8 Albumin 3.8 Globulin 3.0 Albumin/Globulin Ratio 1.3 Triglycerides 210 H Cholesterol 209 H LDL Cholesterol Direct 114.73 VLDL Cholesterol 42 H HDL Cholesterol 49 Cholesterol/HDL Ratio 4.3 H TSH 1.59 HCV Ab LIS w/Rflx PCR Qn HIV Ag/Ab Combo Qual 09/11/24 13:31 WBC 11.2 H RBC 4.39 Hgb 12.5 Hct 37.9 MCV 86.3 MCH 28.5 MCHC 33.0 RDW 14.8 Plt Count 395 MPV 10.2 Neut % (Auto) 54.6 Lymph % (Auto) 31.6 [place] % (Auto) 6.7 Eos % (Auto) 5.7 Baso % (Auto) 1.0 Neut # (Auto) 6.1 Lymph # (Auto) 3.5 [place] # (Auto) 0.8 Eos # (Auto) 0.6 H Baso # (Auto) 0.1 D-Dimer 0.47 Sodium 136 Potassium 3.6 Chloride 103 Carbon Dioxide 24 Anion Gap 12.6 BUN 14 Creatinine 0.70 Estimated Creat Clear 40 Estimated GFR 85 Est GFR ( Amer) 103 Glucose 139 H POC Glucose Hemoglobin A1c 6.5 H Calcium 9.4 Magnesium 1.6 Total Bilirubin 0.7 AST 157 H ALT 103 H Alkaline Phosphatase 70 Troponin I < 0.01 Total Protein 6.8 Albumin 3.8 Globulin 3.0 Albumin/Globulin Ratio 1.3 Triglycerides Cholesterol LDL Cholesterol Direct VLDL Cholesterol HDL Cholesterol Cholesterol/HDL Ratio TSH HCV Ab LIS w/Rflx PCR Qn Negative HIV Ag/Ab Combo Qual Negative DS: Diagnosis Discharge Diagnosis (1) Hypertension: Status: Chronic Code(s): I10 - Essential (primary) hypertension (2) Diabetes mellitus, type 2: Status: Acute Code(s): E11.9 - Type 2 diabetes mellitus without complications (3) Morbid obesity with BMI of 40.0-44.9, adult: Status: Chronic Code(s): E66.01 - Morbid (severe) obesity due to excess calories; Z68.41 - Body mass index [BMI] 40.0-44.9, adult (4) NSTEMI (non-ST elevated myocardial infarction): Status: Acute Code(s): I21.4 - Non-ST elevation (NSTEMI) myocardial infarction (5) Transaminitis: Status: Acute Code(s): R74.01 - Elevation of levels of liver transaminase levels Meds Home Medications and Allergies Home Medications ?Medication ?Instructions ?Recorded ?Confirmed ?Type albuterol sulfate 2.5 mg/3 mL 2.5 mg inhalation Q4HP PRN 09/11/24 09/12/24 History (0.083 %) solution for nebulization Shortness Of Breath Or Wheezing albuterol sulfate 90 mcg/actuation 2 puff inhalation Q6HP PRN 09/11/24 09/11/24 History aerosol inhaler Shortness Of Breath Or Wheezing estradiol 2 mg tablet 2 mg PO DAILY 09/11/24 09/11/24 History fluticasone 113 mcg-salmeterol 14 1 puff inhalation BID 09/11/24 09/11/24 History mcg/actuation breath activated powdr metformin 500 mg tablet 500 mg PO DAILY 09/11/24 09/11/24 History olmesartan 40 mg tablet 40 mg PO DAILY 09/11/24 09/11/24 History omeprazole 40 mg capsule,delayed 40 mg PO DAILY 09/11/24 09/11/24 History release thyroid (pork) 30 mg tablet (ELECT[employer]INTENANCE TECHNICIAN 30 mg PO DAILY 09/11/24 09/11/24 History Thyroid) IV with Additives 1,000 units/hr IV 09/12/24 Rx IV with Additives 10 mcg/min IV 09/12/24 Rx New Prescriptions to Start Prescriptions: IV with Additives Heparin Sodium,Porcine/D5w [Heparin 25,000 units in D5W 500mL premix] 500 ml 1,000 units/hr IV IV with Additives Nitroglycerin in 5 % Dextrose [Nitroglycerin 50mg/250mL D5W] 250 ml 10 mcg/min IV Allergies Allergy/AdvReac Type Severity Reaction Status Date / Time No Known Allergies Allergy Verified 09/11/24 13:32 Discharge Plan Disposition Patient Disposition: Xfer Short-Term Hosp Condition: Serious Discharge Order Discharge Orders: Discharge Order (Routine); Ordered 09/12/24 Ordered By: Oni Nesbitt Follow up Plan Follow up with: Tyra Gallegos APRN [Nurse Practitioner] - 09/19/24 4:15 am Morena Williamson [Primary Care Provider] - Enter time for follow up Jay Velazquez II, MD [Staff Physician] - Enter time for follow up (Fatty liver with transaminitis) Prescriptions/Medication Reconciliation: New IV with Additives Heparin Sodium,Porcine/D5w [Heparin 25,000 units in D5W 500mL premix] 500 ML 1000 units/hr IV Ordered By: Oni Nesbitt MD Last Taken: 09/12/24 13:43 20 mls/hr IV with Additives Nitroglycerin in 5 % Dextrose [Nitroglycerin 50mg/250mL D5W] 250 ML 10 mcg/min IV Ordered By: Oni Nesbitt MD Last Taken: 09/12/24 13:30 3 mls/hr Protocol: Nitroglycerin IV drip Condition: Initial dose Dose/Route: 5 mcg/min Instruction: 1.5 ml/hr Condition: Titrate by: Dose/Route: 5 mcg/min (1.5ml/hr) Instruction: Every 3 to 5 min Condition: @20mcg/min, Titrate by: Dose/Route: 10mcg/min (3ml/hr) Instruction: Every 3 to 5 min Condition: Maximum dose Dose/Route: 200 mcg/min Instruction: 60 ml/hr Protocol Text: Conc.= 200 mcg/ml Desired Titration Parameters SBP<160 Continued metformin 500 mg tablet 500 mg PO DAILY Patient Comments: TAKE 1 TABLET BY MOUTH ONCE DAILY albuterol sulfate 2.5 mg /3 mL (0.083 %) solution for nebulization 2.5 mg inhalation Q4HP PRN (Reason: Shortness Of Breath Or Wheezing) Patient Comments: USE 1 VIAL IN NEBULIZER EVERY 4 TO 6 HOURS omeprazole 40 mg capsule,delayed release(DR/EC) 40 mg PO DAILY Patient Comments: TAKE 1 CAPSULE BY MOUTH ONCE DAILY estradiol 2 mg tablet 2 mg PO DAILY Patient Comments: TAKE 1 TABLET BY MOUTH ONCE DAILY albuterol sulfate 90 mcg/actuation HFA aerosol inhaler 2 puff INHALATION Q6HP PRN (Reason: Shortness Of Breath Or Wheezing) Patient Comments: INHALE 2 PUFFS BY MOUTH EVERY 6 HOURS olmesartan 40 mg tablet 40 mg PO DAILY Patient Comments: TAKE 1 TABLET BY MOUTH ONCE DAILY thyroid (pork) [ELECTRICAL MAINTENANCE TECHNICIAN Thyroid] 30 mg tablet 30 mg PO DAILY Patient Comments: TAKE 1 TABLET BY MOUTH ONCE DAILY fluticasone propion-salmeterol 113-14 mcg/actuation aerosol powdr breath activated 1 puff INHALATION BID Patient Comments: INHALE 1 PUFF TWICE DAILY Problem Reconciliation Problems Reviewed?: Yes Patient Discharge Instructions ACTIVITY: Continue current activity DIET: continue same diet and low fat, low cholesterol Stand Alone Forms: Transfer Record Patient Instructions: Angina, DI for Cardiac Catheterization, DI for Surgical Site Infection Print Language: Cook Islander Providers Primary Care Provider: Morena Williamson Admit Provider: Oni Nesbitt Attending Provider: Oni Nesbitt
--- NOTE | 2024-09-12 12:40 | PC.NURSE ---
Report received from Natacha Blackmon RN in medical laboratory technician
--- NOTE | 2024-09-12 13:11 | P.CONPHA_ITS ---
[facility] Pharmacy Heparin Dosing Demographic Data Admission date:: 09/11/24 Date: 09/12/24 Time: 13:11 Allergies Allergy/AdvReac Type Severity Reaction Status Date / Time No Known Allergies Allergy Verified 09/11/24 13:32 Height: 1.5 m Weight: 100.97 kg Indication Medication therapy:: Heparin Current Indications:: MEDIUM DOSE PROTOCOL - PRE-OP ANTICOAGULATION FOR BYPASS Current Active Problems (Updated 09/12/24 @ 10:37 by Aurora Jennings APRN) Transaminitis (Acute) NSTEMI (non-ST elevated myocardial infarction) (Acute) Hypertension (Chronic) Morbid obesity with BMI of 40.0-44.9, adult (Chronic) GERD (gastroesophageal reflux disease) (Chronic) Diabetes mellitus, type 2 (Acute) Hypothyroid (Acute) Angina pectoris, unstable (Acute) CVA?: No Bleeding problem?: No Kidney disease?: No NE?: Yes Additional History:: NSTEMI, HYPERTENSION, TYPE 2 DIABETES MELLITUS Desired PTT range:: 50-75 seconds Comments:: BASELINE PTT: 41.6 SECONDS Labs Anticoagulation Lab Results:: 09/11/24 09/12/24 13:31 05:31 Hgb 12.5 12.6 Hct 37.9 38.3 Plt Count 395 358 Monitoring Dose Monitor 1: Date: 09/12/24 Time: 12:50 PTT Result:: BASELINE PTT: 41.6 SECONDS Infusion Rate:: INITIATE HEPARIN DRIP AT 1000 UNITS/HOUR = 20 ML/HOUR, NO BOLUS PATIENT RECEIVED 8,000 UNITS OF HEPARIN IV IN THE [employer]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 Comment:: PLATELET COUNT: 358,000 Dose Monitor 2: Date: 09/12/24 Time: 19:30 PTT Result:: NOT DRAWN, PATIENT TRANSFERRED TO AT 18:36. Core Measures Is INR > or = 2 at discharge?: No Most Recent Labs:: Laboratory Results - last 24 hr 09/11/24 13:31: WBC 11.2 H, RBC 4.39, Hgb 12.5, Hct 37.9, MCV 86.3, MCH 28.5, MCHC 33.0, RDW 14.8, Plt Count 395, MPV 10.2, Neut % (Auto) 54.6, Lymph % (Auto) 31.6, [place] % (Auto) 6.7, Eos % (Auto) 5.7, Baso % (Auto) 1.0, Neut # (Auto) 6.1, Lymph # (Auto) 3.5, [place] # (Auto) 0.8, Eos # (Auto) 0.6 H, Baso # (Auto) 0.1, D- Dimer 0.47, Sodium 136, Potassium 3.6, Chloride 103, Carbon Dioxide 24, Anion Gap 12.6, BUN 14, Creatinine 0.70, Estimated Creat Clear 40, Estimated GFR 85, Est GFR ( Amer) 103, Glucose 139 H, Hemoglobin A1c 6.5 H, Calcium 9.4, Magnesium 1.6, Total Bilirubin 0.7, AST 157 H, ALT 103 H, Alkaline Phosphatase 70, Troponin I < 0.01, Total Protein 6.8, Albumin 3.8, Globulin 3.0, Albumin/Globulin Ratio 1.3, HCV Ab LIS w/Rflx PCR Qn Negative, HIV Ag/Ab Combo Qual Negative 09/11/24 17:45: Troponin I 1.15 H, TSH 1.59 09/12/24 05:31: WBC 11.5 H, RBC 4.41, Hgb 12.6, Hct 38.3, MCV 86.8, MCH 28.6, MCHC 32.9, RDW 15.0, Plt Count 358, MPV 10.6 H, Neut % (Auto) 77.0, Lymph % (Auto) 15.8, [place] % (Auto) 5.3, Eos % (Auto) 0.8, Baso % (Auto) 0.8, Neut # (Auto) 8.9 H, Lymph # (Auto) 1.8, [place] # (Auto) 0.6, Eos # (Auto) 0.1, Baso # (Auto) 0.1, Sodium 133 L, Potassium 4.0, Chloride 98, Carbon Dioxide 29, Anion Gap 10.0, BUN 13, Creatinine 0.70, Estimated Creat Clear 40, Estimated GFR 85, Est GFR ( Amer) 103, Glucose 130 H, Calcium 8.9, Magnesium 1.4 L D, Total Bilirubin 0.7, AST 219 H D, ALT 107 H, Alkaline Phosphatase 50, Total Protein 6.8, Albumin 3.8, Globulin 3.0, Albumin/Globulin Ratio 1.3, Triglycerides 210 H, Cholesterol 209 H, LDL Cholesterol Direct 114.73, VLDL Cholesterol 42 H, HDL Cholesterol 49, Cholesterol/HDL Ratio 4.3 H 09/12/24 11:04: POC Glucose 141 H Were Heparin and Warfarin started on the same day?: No If not, why?: PATIENT TRANSFERRED ON DRIP TO .
[2024-09-12] MEDS: ONDANSETRON 4MG/2ML VIAL 4 MG IV ×2 (13:24→19:10)
[2024-09-12] MEDS: NITROGLYCERIN IN 5 % DEXTROSE 250 ML 3 MG IV (13:30)
[2024-09-12] MEDS: HEPARIN SODIUM,PORCINE/D5W 500 ML 20 UNIT IV (13:43)
[2024-09-12] MEDS: IOPAMIDOL-370 (76%);100ML BOTTLE 70 ML IV (14:03)
[2024-09-12 14:06] LABS: PTT Heparin (inpatient only) 41.6 Seconds (50-75)
[2024-09-12] MEDS: SODIUM CHLORIDE 3% 15ML NEB 3 ML IH (14:50)
--- NOTE | 2024-09-12 16:56 | PC.NURSE ---
[facility] this shift, awaiting transfer to [facility]. R radial cath site c/d/i. Pt ambulates w/ standby assistance to BSC, tolerating well. Has been up multiple times w/ pt c/o urgency/frequency. V/O for UA to be collected. Remains chest pain free, no other complaints voiced. Currently resting in bed. Nitro and Heparin gtt infusing per AUG. Call banegas w/in reach. Bed alarm in place post sedation. POC ongoing.
[2024-09-12 17:13] LABS: POC Glucose,Bedside 146 (70-110)
[2024-09-12] MEDS: HEPARIN DRIP CONSULT 1 EACH NOTAPPLIC (17:41)
--- NOTE | 2024-09-12 18:17 | PC.NURSE ---
[facility] this shift, awaiting transfer to [facility]. R radial cath site c/d/i. Pt ambulates w/ standby assistance to BSC, tolerating well. Has been up multiple times w/ pt c/o urgency/frequency. Remains chest pain free, no other complaints voiced. Currently resting in bed. Nitro and Heparin gtt infusing per AUG. Call banegas w/in reach. Bed alarm in place post sedation. POC ongoing.
--- NOTE | 2024-09-12 18:26 | PC.NURSE ---
Received call @ 1820 that pt has a bed available at . Bed Assignment: Jak Gary Manzano [place] 1 Bed 137 # to call report Pt and family updated on POC.
--- NOTE | 2024-09-12 18:47 | PC.NURSE ---
Attempted to call report @ [phone]. Nurse in huddle and unable to take report @ this time. Message left w/ call back #.
--- NOTE | 2024-09-12 18:55 | PC.NURSE ---
Report called to Brianna @ [facility]
--- NOTE | 2024-09-12 20:16 | PC.NURSE ---
patient left with EMS at 2015
--- OUTSIDE RECORDS SUMMARY | 2024-09-15 20:03 | XMS_ITS | Data Portability ---
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 Plan of Treatment Reminders Order Date Submit Date Provider Last Modified By Organization Details Last Modified Time Details Appointments None recorded. Lab CBC w/ auto diff 2022 023 [place] [facility], [address], [address], [place], [address], 3 04:08:57 CMP, serum or plasma 2022 023 [place] [facility], [address], [address], [place], [address], 3 04:08:59 amylase + lipase, serum 2022 023 [place] [facility], [address], [address], [place], [address], 3 04:09:01 lipid panel, serum 2022 023 [place] [facility], [address], [address], [place], [address], 3 04:09:00 HbA1c (hemoglobin A1c), blood 2022 023 [place] [facility], [address], [address], [place], [address], 3 06:38:12 thyroid panel, serum 2022 023 [place] [facility], [address], [address], [place], [address], 3 06:38:11 vitamin B12, serum 2022 023 [place] [facility], [address], [address], [place], [address], 3 06:38:14 vitamin D, 25-hydroxy, total, serum 2022 023 [place] [facility], [address], [address], [place], [address], 3 06:38:13 CMP, serum or plasma 2022 023 [place] [facility], [address], [address], [place], [address], 3 06:38:09 CBC w/ auto diff 2022 023 [place] [facility], [address], [address], [place], [address], 3 06:38:08 lipid panel, serum 2022 023 [place] [facility], [address], [address], [place], [address], 3 06:38:10 magnesium, serum or plasma 2022 023 [place] [facility], [address], [address], [place], [address], 3 06:38:14 Referral cardiologis t referral - Wants to establish care. Was seen by a Cardiology Clinic in [place]. 2022 023 [email or web address] 3 Anthony Cai MD, [address] [facility], [place], [address], 17:51:22 Procedures None recorded. Surgeries None recorded. Imaging None recorded. Medication Orders prednisone 20 mg tablet [email or web address] [facility] [place], [address], 11:05:55 Patient TargetsNo targets recorded. Patient Instructions Encounter Date Encounter Id Patient Instructions Last Modified By Organization Details Last Modified Time 08/20/2022 [id number] Patient will return to clinic for fasting labwork in the morning. Will call with results. Not available 08/20/2022 14:31:52 Reason for Referral Support Analyst Referral for Es sential hypertension Wants to establish care. Was seen by a Cardiology Clinic in [place]. Referring Physician: Yuli Starkey, Infectious Disease, Encounter Date: 08/20/2022 Results Created Date Observation Date Name Description Value Unit Range Abnormal Flag Note LastModifiedBy Organization Detail LastModifiedTime 08/22/1908/21/2022 CBC WITH DIFFE RENTI AL/PL ATELE T WBC 8.5 x10e3 /uL 3.4-10 .8 Not Available [facility] ([facility]) [address] [facility], [place], [address], 08/22/2022 06:38:08 08/22/1908/21/2022 CBC WITH DIFFE RENTI AL/PL ATELE T RBC 5.06 x10e6 /uL 3.77-5 .28 Not Available [facility] ([facility]) [address] [facility], [place], [address], 08/22/2022 06:38:08 08/22/19 23 08/21/2022 CBC WITH DIFFE RENTI AL/PL ATELE T hemoglobin 14.1 g/dL 11.1-1 5.9 Not Available [facility] ([facility]) [address] [facility], [place], [address], 08/22/2022 06:38:08 08/22/19 23 08/21/2022 CBC WITH DIFFE RENTI AL/PL ATELE T hematocrit 43.1 % 34.0-4 6.6 Not Available [facility] ([facility]) [address] [place], [address], 08/22/2022 06:38:08 08/22/19 23 08/21/2022 CBC WITH DIFFE RENTI AL/PL ATELE T MCV 85 fL 79-97 Not Available [facility] ([facility]) [address] [place], [address], 08/22/2022 06:38:08 08/22/19 23 08/21/2022 CBC WITH DIFFE RENTI AL/PL ATELE T MCH 27.9 pg 26.6-3 3.0 Not Available [facility] ([facility]) [address] [place], [address], 08/22/2022 06:38:08 08/22/19 23 08/21/2022 CBC WITH DIFFE RENTI AL/PL ATELE T MCHC 32.7 g/dL 31.5-3 5.7 Not Available [facility] ([facility]) [address] [place], [address], 08/22/2022 06:38:08 08/22/19 23 08/21/2022 CBC WITH DIFFE RENTI AL/PL ATELE T RDW 13.5 % 11.7-1 5.4 Not Available [facility] ([facility]) [address] [place], [address], 08/22/2022 06:38:08 08/22/19 23 08/21/2022 CBC WITH DIFFE RENTI AL/PL ATELE T platelets 421 x10e3 /uL 150-45 0 Not Available [facility] ([facility]) [address] [place], [address], 08/22/2022 06:38:08 08/22/19 23 08/21/2022 CBC WITH DIFFE RENTI AL/PL ATELE T neutrophils 57 % not estab. Not Available [facility] ([facility]) [address] [facility], [place], [address], 08/22/2022 06:38:08 08/22/19 23 08/21/2022 CBC WITH DIFFE RENTI AL/PL ATELE T lymphs 24 % not estab. Not Available [facility] ([facility]) [address] [facility], [place], [address], 08/22/2022 06:38:08 08/22/19 23 08/21/2022 CBC WITH DIFFE RENTI AL/PL ATELE T monocytes 6 % not estab. Not Available [facility] ([facility]) [address] [facility], [place], [address], 08/22/2022 06:38:08 08/22/19 23 08/21/2022 CBC WITH DIFFE RENTI AL/PL ATELE T eos 12 % not estab. Not Available [facility] ([facility]) [address] [facility], [place], [address], 08/22/2022 06:38:08 08/22/19 23 08/21/2022 CBC WITH DIFFE RENTI AL/PL ATELE T basos 1 % not estab. Not Available [facility] ([facility]) [address] [facility], [place], [address], 08/22/2022 06:38:08 08/22/19 23 08/21/2022 CBC WITH DIFFE RENTI AL/PL ATELE T immature cells PRIVATE BRANCH EXCHANGE SERVICE ADVISOR Not Available [facility] ([facility]) [address] [facility], [place], [address], 08/22/2022 06:38:08 08/22/19 23 08/21/2022 CBC WITH DIFFE RENTI AL/PL ATELE T neutrophils (absolute) 4.9 x10e3 /uL 1.4-7. 0 Not Available [facility] ([facility]) [address] [facility], [place], [address], 08/22/2022 06:38:08 08/22/19 23 08/21/2022 CBC WITH DIFFE RENTI AL/PL ATELE T lymphs (absolute) 2.1 x10e3 /uL 0.7-3. 1 Not Available [facility] ([facility]) [address] [facility], [place], [address], 08/22/2022 06:38:08 08/22/19 23 08/21/2022 CBC WITH DIFFE RENTI AL/PL ATELE T monocytes(ab solute) 0.5 x10e3 /uL 0.1-0. 9 Not Available [facility] ([facility]) [address] [place], [address], 08/22/2022 06:38:08 08/22/19 23 08/21/2022 CBC WITH DIFFE RENTI AL/PL ATELE T eos (absolute) 1.0 x10e3 /uL 0.0-0. 4 above high normal Not Available [facility] ([facility]) [address] [facility], [place], [address], 08/22/2022 06:38:08 08/22/19 23 08/21/2022 CBC WITH DIFFE RENTI AL/PL ATELE T baso (absolute) 0.1 x10e3 /uL 0.0-0. 2 Not Available [facility] ([facility]) [address] [place], [address], 08/22/2022 06:38:08 08/22/19 23 08/21/2022 CBC WITH DIFFE RENTI AL/PL ATELE T immature granulocytes 0 % not estab. Not Available [facility] ([facility]) [address] [place], [address], 08/22/2022 06:38:08 08/22/19 23 08/21/2022 CBC WITH DIFFE RENTI AL/PL ATELE T immature grans (abs) 0.0 x10e3 /uL 0.0-0. 1 Not Available [facility] ([facility]) [address] [facility], [place], [address], 08/22/2022 06:38:08 08/22/19 23 08/21/2022 CBC WITH DIFFE RENTI AL/PL ATELE T NRBC PRIVATE BRANCH EXCHANGE SERVICE ADVISOR Not Available [facility] ([facility]) [address] [facility], [place], [address], 08/22/2022 06:38:08 08/22/19 23 08/21/2022 CBC WITH DIFFE RENTI AL/PL ATELE T hematology comments: PRIVATE BRANCH EXCHANGE SERVICE ADVISOR Not Available [facility] ([facility]) [address] [facility], [place], [address], 08/22/2022 06:38:08 08/22/19 23 08/22/2022 COMP. METAB OLIC PANEL (14) glucose 93 mg/dL 70-99 Not Available [facility] ([facility]) [address] [facility], [place], [address], 08/22/2022 06:38:09 08/22/19 23 08/22/2022 COMP. METAB OLIC PANEL (14) BUN 20 mg/dL 6-24 Not Available [facility] ([facility]) [address] [facility], [place], [address], 08/22/2022 06:38:09 08/22/19 23 08/22/2022 COMP. METAB OLIC PANEL (14) creatinine 0.77 mg/dL 0.57-1 .00 Not Available [facility] ([facility]) [address] [facility], [place], [address], 08/22/2022 06:38:09 08/22/19 23 08/22/2022 COMP. METAB OLIC PANEL (14) eGFR 89 mL/mi n/1.7 3 >59 Not Available [facility] ([facility]) [address] [place] [place], [address], 08/22/2022 06:38:09 08/22/19 23 08/22/2022 COMP. METAB OLIC PANEL (14) BUN/creatini ne ratio 26 9-23 above high normal Not Available [facility] ([facility]) [address] [place] [place], [address], 08/22/2022 06:38:09 08/22/19 23 08/22/2022 COMP. METAB OLIC PANEL (14) sodium 139 mmol/ L 134-14 4 Not Available [facility] ([facility]) [address] [place], [address], 08/22/2022 06:38:09 08/22/19 23 08/22/2022 COMP. METAB OLIC PANEL (14) potassium 3.9 mmol/ L 3.5-5. 2 Not Available [facility] ([facility]) [address] [place], [address], 08/22/2022 06:38:09 08/22/19 23 08/22/2022 COMP. METAB OLIC PANEL (14) chloride 99 mmol/ L 96-106 Not Available [facility] ([facility]) [address] [place], [address], 08/22/2022 06:38:09 08/22/19 23 08/22/2022 COMP. METAB OLIC PANEL (14) carbon dioxide, total 25 mmol/ L 20-29 Not Available [facility] ([facility]) [address] [place], [address], 08/22/2022 06:38:09 08/22/19 23 08/22/2022 COMP. METAB OLIC PANEL (14) calcium 9.9 mg/dL 8.7-10 .2 Not Available [facility] ([facility]) [address] [place], [address], 08/22/2022 06:38:09 08/22/19 23 08/22/2022 COMP. METAB OLIC PANEL (14) protein, total 7.0 g/dL 6.0-8. 5 Not Available [facility] ([facility]) [address], [place], [address], 08/22/2022 06:38:09 08/22/19 23 08/22/2022 COMP. METAB OLIC PANEL (14) albumin 4.3 g/dL 3.8-4. 9 Not Available [facility] ([facility]) [address] [place], [address], 08/22/2022 06:38:09 08/22/19 23 08/22/2022 COMP. METAB OLIC PANEL (14) globulin, total 2.7 g/dL 1.5-4. 5 Not Available [facility] ([facility]) [address], [place], [address], 08/22/2022 06:38:09 08/22/19 23 08/22/2022 COMP. METAB OLIC PANEL (14) A/G ratio 1.6 1.2-2. 2 Not Available [facility] ([facility]) [address], [place], [address], 08/22/2022 06:38:09 08/22/19 23 08/22/2022 COMP. METAB OLIC PANEL (14) bilirubin, total 0.3 mg/dL 0.0-1. 2 Not Available [facility] ([facility]) [address] [place], [address], 08/22/2022 06:38:09 08/22/19 23 08/22/2022 COMP. METAB OLIC PANEL (14) alkaline phosphatase 68 IU/L 44-121 Not Available [facility]) [address], [place], [address], 08/22/2022 06:38:09 08/22/19 23 08/22/2022 COMP. METAB OLIC PANEL (14) AST (SGOT) 32 IU/L 0-40 Not Available [facility] ([facility]) [address] [place], [address], 08/22/2022 06:38:09 08/22/19 23 08/22/2022 COMP. METAB OLIC PANEL (14) ALT (SGPT) 22 IU/L 0-32 Not Available [facility] ([facility]) [address] [place], [address], 08/22/2022 06:38:09 08/22/19 23 08/22/2022 LIPID PANEL cholesterol, total 206 mg/dL 100-19 9 above high normal Not Available [facility] ([facility]) [address] [place], [address], 08/22/2022 06:38:10 08/22/19 23 08/22/2022 LIPID PANEL triglyceride s 74 mg/dL 0-149 Not Available [facility] ([facility]) [address] [place], [address], 08/22/2022 06:38:10 08/22/19 23 08/22/2022 LIPID PANEL HDL cholesterol 64 mg/dL >39 Not Available [facility]) [address] [place], [address], 08/22/2022 06:38:10 08/22/19 23 08/22/2022 LIPID PANEL VLDL cholesterol susi 13 mg/dL 5-40 Not Available [facility] ([facility]) [address] [place], [address], 08/22/2022 06:38:10 08/22/19 23 08/22/2022 LIPID PANEL LDL chol calc ([facility]) 129 mg/dL 0-99 above high normal Not Available [facility] ([facility]) [address] [facility], [place], [address], 08/22/2022 06:38:10 08/22/1908/22/2022 LIPID PANEL comment: PRIVATE BRANCH EXCHANGE SERVICE ADVISOR Not Available [facility] ([facility]) [address] [facility], [place], [address], 08/22/2022 06:38:10 08/22/19 23 08/22/2022 THYRO ID PROFI LE II TSH 3.980 uIU/m L 0.450- 4.500 Not Available [facility] ([facility]) [address] [facility], [place], [address], 08/22/2022 06:38:11 08/22/19 23 08/22/2022 THYRO ID PROFI LE II thyroxine (T4) 9.1 ug/dL 4.5-12 .0 Not Available [facility] ([facility]) [address] [facility], [place], [address], 08/22/2022 06:38:11 08/22/19 23 08/22/2022 THYRO ID PROFI LE II T3 uptake 28 % 24-39 Not Available [facility] ([facility]) [address] [facility], [place], [address], 08/22/2022 06:38:11 08/22/19 23 08/22/2022 THYRO ID PROFI LE II free thyroxine index 2.5 1.2-4. 9 Not Available [facility] ([facility]) [address] [facility], [place], [address], 08/22/2022 06:38:11 08/22/1908/22/2022 THYRO ID PROFI LE II triiodothyro nine (T3) 157 NG/dL 71-180 Not Available [facility] ([facility]) [address] [place], [address], 08/22/2022 06:38:11 08/22/19 23 08/22/2022 HEMOG LOBIN A1C hemoglobin A1C 6.0 % 4.8-5. 6 above high normal Predi abete s: 5.7 - 6.4 Diabe david: >6.4 Glyce lilliana contr ol for adult s with diabe david: <7.0 Not Available [facility] ([facility]) [address] [facility], [place], [address], 08/22/2022 06:38:12 08/22/1908/22/2022 VITAM IN D, 25-HY DROXY vitamin D, 25-hydroxy 39.9 NG/mL 30.0-1 00.0 Vitam in D defic iency has been defin ed by the Insti tute of Medic ine and an Endoc rine Socie ty pract ice guide line as a level of serum 25-OH vitam in D less than 20 ng/mL (1,2) . The Endoc rine Socie ty went on to furth er defin e vitam in D insuf ficie ncy as a level betwe en 21 and 29 ng/mL (2). 1. IOM (Inst itute of Medic ine). 2010. Dieta ry refer ence intak es for calci um and D. Deepa brewer [place]: [facility] Press . 2. Beryl rivera MF, Eliana lanier [place], Elvia off-F errar i DRAKE, et al. Evalu ation , treat ment, and preve ntion of vitam in D defic iency : an Endoc rine Socie ty clini susi pract ice guide line. JCEM. 2010; 96(7) :1911 -30. Not Available [facility] ([facility]) [address] [facility], [place], [address], 08/22/2022 06:38:13 08/22/19 23 08/22/2022 VITAM IN B12 vitamin B12 471 pg/mL 232-12 45 Not Available [facility] ([facility]) [address] [facility], [place], [address], 08/22/2022 06:38:14 08/22/1908/22/2022 MAGNE SIUM magnesium 1.8 mg/dL 1.6-2. 3 Not Available [facility] ([facility]) [address], [place], [address], 08/22/2022 06:38:14 08/22/19 23 08/21/2022 urina lysis , dipst ick Leukocytes (reference range) negati ve Not Available [facility] - [address], [place], [address], 08/21/2022 09:26:09 08/22/19 23 08/21/2022 urina lysis , dipst ick Nitrite (reference range:) negati ve Not Available [facility] - [address], [place], [address], 08/21/2022 09:26:09 08/22/19 23 08/21/2022 urina lysis , dipst ick Urobilinogen (reference range) 0.2 Not Available [facility] - [address], [place], [address], 08/21/2022 09:26:09 08/22/19 23 08/21/2022 urina lysis , dipst ick Protein (reference range) negati ve Not Available [facility] - [address], [place], [address], 08/21/2022 09:26:09 08/22/19 23 08/21/2022 urina lysis , dipst ick pH (reference range 5-8.5) 6.0 Not Available [facility] - [address], [place], [address], 08/21/2022 09:26:09 08/22/19 23 08/21/2022 urina lysis , dipst ick Blood (reference range:) negati ve Not Available [facility] - [address], [place], [address], 08/21/2022 09:26:09 08/22/19 23 08/21/2022 urina lysis , dipst ick Specific [place] (reference range) 1.030 Not Available [facility] - [address], [place], [address], 08/21/2022 09:26:09 08/22/19 23 08/21/2022 urina lysis , dipst ick Ketone (reference range) negati ve Not Available [facility] - [address], [place], [address], 08/21/2022 09:26:09 08/22/19 23 08/21/2022 urina lysis , dipst ick Bilirubin (reference range) negati ve Not Available [facility] - [address], [place], [address], 08/21/2022 09:26:09 08/22/19 23 08/21/2022 urina lysis , dipst ick Glucose (reference range) negati ve Not Available [facility] - [address], [place], [address], 08/21/2022 09:26:09 08/22/19 23 08/21/2022 urina lysis , dipst ick Color (reference range: yellow-brown ) Yellow Not Available [facility] [place] [address], [place], [address], 08/21/2022 09:26:09 03/27/20 23 03/28/2023 CBC WITH DIFFE RENTI AL/PL ATELE T WBC 8.3 x10e3 /uL 3.4-10 .8 Not Available [facility] ([facility]) [address] [facility], [place], [address], 03/28/2023 04:08:57 03/27/2003/28/2023 CBC WITH DIFFE RENTI AL/PL ATELE T RBC 4.65 x10e6 /uL 3.77-5 .28 Not Available [facility] ([facility]) [address] [facility], [place], [address], 03/28/2023 04:08:57 03/27/2003/28/2023 CBC WITH DIFFE RENTI AL/PL ATELE T hemoglobin 13.2 g/dL 11.1-1 5.9 Not Available [facility] ([facility]) [address] [facility], [place], [address], 03/28/2023 04:08:57 03/27/2003/28/2023 CBC WITH DIFFE RENTI AL/PL ATELE T hematocrit 39.7 % 34.0-4 6.6 Not Available [facility] ([facility]) [address] [facility], [place], [address], 03/28/2023 04:08:57 03/27/2003/28/2023 CBC WITH DIFFE RENTI AL/PL ATELE T MCV 85 fL 79-97 Not Available [facility] ([facility]) [address] [facility], [place], [address], 03/28/2023 04:08:57 03/27/2003/28/2023 CBC WITH DIFFE RENTI AL/PL ATELE T MCH 28.4 pg 26.6-3 3.0 Not Available [facility] ([facility]) [address] [place], [address], 03/28/2023 04:08:57 03/27/20 23 03/28/2023 CBC WITH DIFFE RENTI AL/PL ATELE T MCHC 33.2 g/dL 31.5-3 5.7 Not Available [facility] ([facility]) [address] [facility], [place], [address], 03/28/2023 04:08:57 03/27/2003/28/2023 CBC WITH DIFFE RENTI AL/PL ATELE T RDW 13.3 % 11.7-1 5.4 Not Available [facility] ([facility]) [address] [facility], [place], [address], 03/28/2023 04:08:57 03/27/2003/28/2023 CBC WITH DIFFE RENTI AL/PL ATELE T platelets 419 x10e3 /uL 150-45 0 Not Available [facility] ([facility]) [address] [facility], [place], [address], 03/28/2023 04:08:57 03/27/2003/28/2023 CBC WITH DIFFE RENTI AL/PL ATELE T neutrophils 57 % not estab. Not Available [facility] ([facility]) [address] [facility], [place], [address], 03/28/2023 04:08:57 03/27/2003/28/2023 CBC WITH DIFFE RENTI AL/PL ATELE T lymphs 25 % not estab. Not Available [facility] ([facility]) [address] [facility], [place], [address], 03/28/2023 04:08:57 03/27/2003/28/2023 CBC WITH DIFFE RENTI AL/PL ATELE T monocytes 6 % not estab. Not Available [facility] ([facility]) [address] [facility], [place], [address], 03/28/2023 04:08:57 03/27/2003/28/2023 CBC WITH DIFFE RENTI AL/PL ATELE T eos 11 % not estab. Not Available [facility] ([facility]) [address] [facility], [place], [address], 03/28/2023 04:08:57 03/27/20 23 03/28/2023 CBC WITH DIFFE RENTI AL/PL ATELE T basos 1 % not estab. Not Available [facility] ([facility]) [address] [facility], [place], [address], 03/28/2023 04:08:57 03/27/20 23 03/28/2023 CBC WITH DIFFE RENTI AL/PL ATELE T immature cells PRIVATE BRANCH EXCHANGE SERVICE ADVISOR Not Available [facility]) [address] [place], [address], 03/28/2023 04:08:57 03/27/2003/28/2023 CBC WITH DIFFE RENTI AL/PL ATELE T neutrophils (absolute) 4.7 x10e3 /uL 1.4-7. 0 Not Available [facility] ([facility]) [address] [place], [address], 03/28/2023 04:08:57 03/27/20 23 03/28/2023 CBC WITH DIFFE RENTI AL/PL ATELE T lymphs (absolute) 2.1 x10e3 /uL 0.7-3. 1 Not Available [facility] ([facility]) [address] [place], [address], 03/28/2023 04:08:57 03/27/20 23 03/28/2023 CBC WITH DIFFE RENTI AL/PL ATELE T monocytes(ab solute) 0.5 x10e3 /uL 0.1-0. 9 Not Available [facility] ([facility]) [address] [place], [address], 03/28/2023 04:08:57 03/27/20 23 03/28/2023 CBC WITH DIFFE RENTI AL/PL ATELE T eos (absolute) 0.9 x10e3 /uL 0.0-0. 4 above high normal Not Available [facility] ([facility]) [address] [place], [address], 03/28/2023 04:08:57 03/27/20 23 03/28/2023 CBC WITH DIFFE RENTI AL/PL ATELE T baso (absolute) 0.1 x10e3 /uL 0.0-0. 2 Not Available [facility] ([facility]) [address] [facility], [place], [address], 03/28/2023 04:08:57 03/27/2003/28/2023 CBC WITH DIFFE RENTI AL/PL ATELE T immature granulocytes 0 % not estab. Not Available [facility] ([facility]) [address] [facility], [place], [address], 03/28/2023 04:08:57 03/27/2003/28/2023 CBC WITH DIFFE RENTI AL/PL ATELE T immature grans (abs) 0.0 x10e3 /uL 0.0-0. 1 Not Available [facility] ([facility]) [address] [facility], [place], [address], 03/28/2023 04:08:57 03/27/2003/28/2023 CBC WITH DIFFE RENTI AL/PL ATELE T NRBC PRIVATE BRANCH EXCHANGE SERVICE ADVISOR Not Available [facility] ([facility]) [address] [facility], [place], [address], 03/28/2023 04:08:57 03/27/2003/28/2023 CBC WITH DIFFE RENTI AL/PL ATELE T hematology comments: PRIVATE BRANCH EXCHANGE SERVICE ADVISOR Not Available [facility]) [address] [facility], [place], [address], 03/28/2023 04:08:57 03/27/2003/28/2023 COMP. METAB OLIC PANEL (14) glucose 90 mg/dL 70-99 Not Available [facility] ([facility]) [address] [facility], [place], [address], 03/28/2023 04:08:59 03/27/20 23 03/28/2023 COMP. METAB OLIC PANEL (14) BUN 20 mg/dL 6-24 Not Available [facility] ([facility]) [address] [place], [address], 03/28/2023 04:08:59 03/27/20 23 03/28/2023 COMP. METAB OLIC PANEL (14) creatinine 0.79 mg/dL 0.57-1 .00 Not Available [facility] ([facility]) [address] [place], [address], 03/28/2023 04:08:59 03/27/2003/28/2023 COMP. METAB OLIC PANEL (14) eGFR 86 mL/mi n/1.7 3 >59 Not Available [facility] ([facility]) [address] [facility], [place], [address], 03/28/2023 04:08:59 03/27/20 23 03/28/2023 COMP. METAB OLIC PANEL (14) BUN/creatini ne ratio 25 9-23 above high normal Not Available [facility] ([facility]) [address] [place], [address], 03/28/2023 04:08:59 03/27/20 23 03/28/2023 COMP. METAB OLIC PANEL (14) sodium 140 mmol/ L 134-14 4 Not Available [facility] ([facility]) [address] [place], [address], 03/28/2023 04:08:59 03/27/20 23 03/28/2023 COMP. METAB OLIC PANEL (14) potassium 4.2 mmol/ L 3.5-5. 2 Not Available [facility] ([facility]) [address] [place], [address], 03/28/2023 04:08:59 03/27/20 23 03/28/2023 COMP. METAB OLIC PANEL (14) chloride 100 mmol/ L 96-106 Not Available [facility] ([facility]) [address] [place], [address], 03/28/2023 04:08:59 03/27/20 23 03/28/2023 COMP. METAB OLIC PANEL (14) carbon dioxide, total 26 mmol/ L 20-29 Not Available [facility] ([facility]) [address] [facility], [place], [address], 03/28/2023 04:08:59 03/27/20 23 03/28/2023 COMP. METAB OLIC PANEL (14) calcium 9.6 mg/dL 8.7-10 .2 Not Available [facility] ([facility]) [address] [facility], [place], [address], 03/28/2023 04:08:59 03/27/20 23 03/28/2023 COMP. METAB OLIC PANEL (14) protein, total 6.7 g/dL 6.0-8. 5 Not Available [facility] ([facility]) [address] [place], [address], 03/28/2023 04:08:59 03/27/20 23 03/28/2023 COMP. METAB OLIC PANEL (14) albumin 3.9 g/dL 3.8-4. 9 Not Available [facility] ([facility]) [address] [place], [address], 03/28/2023 04:08:59 03/27/20 23 03/28/2023 COMP. METAB OLIC PANEL (14) globulin, total 2.8 g/dL 1.5-4. 5 Not Available [facility] ([facility]) [address] [place], [address], 03/28/2023 04:08:59 03/27/20 23 03/28/2023 COMP. METAB OLIC PANEL (14) A/G ratio 1.4 1.2-2. 2 Not Available [facility] ([facility]) [address] [place], [address], 03/28/2023 04:08:59 03/27/2003/28/2023 COMP. METAB OLIC PANEL (14) bilirubin, total <0.2 mg/dL 0.0-1. 2 Not Available [facility] ([facility]) [address] [place], [address], 03/28/2023 04:08:59 03/27/2003/28/2023 COMP. METAB OLIC PANEL (14) alkaline phosphatase 54 IU/L 44-121 Not Available [facility] ([facility]) [address] [place], [address], 03/28/2023 04:08:59 03/27/20 23 03/28/2023 COMP. METAB OLIC PANEL (14) AST (SGOT) 25 IU/L 0-40 Not Available [facility] ([facility]) [address] [facility], [place], [address], 03/28/2023 04:08:59 03/27/2003/28/2023 COMP. METAB OLIC PANEL (14) ALT (SGPT) 20 IU/L 0-32 Not Available [facility] ([facility]) [address] [place], [address], 03/28/2023 04:08:59 03/27/20 23 03/28/2023 LIPID PANEL AND CHOL/ HDL RATIO cholesterol, total 182 mg/dL 100-19 9 Not Available [facility] ([facility]) [address] [place], [address], 03/28/2023 04:09:00 03/27/2003/28/2023 LIPID PANEL AND CHOL/ HDL RATIO triglyceride s 121 mg/dL 0-149 Not Available [facility] ([facility]) [address] [place], [address], 03/28/2023 04:09:00 03/27/20 23 03/28/2023 LIPID PANEL AND CHOL/ HDL RATIO HDL cholesterol 55 mg/dL >39 Not Available [facility] ([facility]) [address] [place], [address], 03/28/2023 04:09:00 03/27/20 23 03/28/2023 LIPID PANEL AND CHOL/ HDL RATIO VLDL cholesterol susi 22 mg/dL 5-40 Not Available [facility] ([facility]) [address] [place], [address], 03/28/2023 04:09:00 03/27/2003/28/2023 LIPID PANEL AND CHOL/ HDL RATIO LDL chol calc ([facility]) 105 mg/dL 0-99 above high normal Not Available [facility] ([facility]) [address] [place], [address], 03/28/2023 04:09:00 03/27/2003/28/2023 LIPID PANEL AND CHOL/ HDL RATIO comment: [employer] SERVICE ADVISOR Not Available [facility] ([facility]) [address] [place], [address], 03/28/2023 04:09:00 03/27/20 23 03/28/2023 LIPID PANEL AND CHOL/ HDL RATIO T. chol/HDL ratio 3.3 ratio 0.0-4. 4 T. Chol/ HDL Ratio Men Women 1/2 Avg.R isk 3.4 3.3 Avg.R isk 5.0 4.4 2X Avg.R isk 9.6 7.1 3X Avg.R isk 23.4 11.0 Not Available [facility] ([facility]) [address] [place], [address], 03/28/2023 04:09:00 03/27/20 23 03/28/2023 ABRAHAN+L IPASE amylase 43 U/L 31-110 Not Available [facility] ([facility]) [address] [place], [address], 03/28/2023 04:09:01 03/27/20 23 03/28/2023 ABRAHAN+L IPASE lipase 17 U/L 14-72 Not Available [facility] ([facility]) [address], [place], [address], 03/28/2023 04:09:01 Result Notes None recorded. Procedures Surgical History Date Name Laterality Status Provider Name and Address Organization Details Recorded Time 06/08/19 11 Gastric bypass for obesity completed Talya Sg [place] - [facility] - [place] & [place] 03/25/2023 10:34:54 06/08/19 10 Hysterectomy completed Talya Sg [place] [facility] [place] [facility] [place] 03/25/2023 10:36:05 06/08/18 97 excision of uvula completed [facility] [place] - [facility] - [place] & [place] 03/25/2023 10:35:23 06/08/18 97 tonsillectomy completed [facility] [place] [facility] [place] & [place] 03/25/2023 10:35:35 06/08/18 90 Carpal tunnel surgery completed [facility] [place] [facility] [place] & [place] 03/25/2023 10:36:32 cholecystectomy completed Talya Sg [place] - [facility] [place] & [place] 03/25/2023 10:34:37 Imaging Results None recorded. Procedure Notes None recorded. Medical Equipment None Reported. Allergies No known drug allergies Medications Name Sig Start Date Stop Date Status Note LastModified by Organization Details LastModified Time cyclobenzap rine 10 mg tablet Take 1 tablet(s) 3 times a day by oral route. active Not Available Not Available No t Available sucralfate 1 gram tablet TAKE 1 TABLET BY MOUTH 4 TIMES DAILY NEEDED FOR 15 DAYS active Not Available Not Available No t Available prednisone 20 mg tablet TAKE 1 TABLET BY MOUTH ONCE DAILY DIRECTED FOR 5 DAYS active Not Available Not Available No t Available omeprazole 40 mg capsule,del ayed release TAKE 1 CAPSULE BY MOUTH ONCE DAILY FOR 30 MINUTES PRIOR TO MORNING MEAL active Not Available Not Available No t Available alprazolam 0.25 mg tablet Take 1 tablet 3 times a day by oral route. active Not Available Not Available No t Available naproxen sodium 550 mg tablet TAKE 1 TABLET BY MOUTH EVERY 12 HOURS NEEDED 2022 active Not Available Not Available Not Avai lable estradiol 2 mg tablet Take 1 tablet by mouth once daily 2022 active Not Available Not Available Not Avai lable hydrochloro thiazide 25 mg tablet Take 1 tablet every day by oral route. active Not Available Not Available No t Available albuterol sulfate HFA 90 mcg/actuati on aerosol inhaler Inhale 2 puffs every 4 hours by inhalatio n route. active Not Available Not Available No t Available fluticasone propionate 50 mcg/actuati on nasal spray,suspe nsion [place] 1 spray(s) every day by intranasa l route. active Not Available Not Available No t Available omeprazole ER 40 mg capsule,ext ended release Take by oral route. 12/12 completed Not Available Not Available Not Available olmesartan 40 mg tablet Take 1 tablet by mouth once daily 2022 active Not Available Not Available Not Avai lable [employer] Thyroid 30 mg tablet Take 1 tablet by mouth once daily 2022 active Not Available Not Available Not Avai lable fluticasone 113 mcg-salmete rol 14 mcg/actuati on breath activated powdr INHALE 1 PUFF TWICE DAILY DIRECTED 2022 active Not Available Not Available Not Avai lable aspirin 81 mg capsule Take 1 capsule every day by oral route. active Not Available Not Available No t Available Vitals Date Recorded Body weight Body temperature Body mass index (BMI) Body height Oxygen saturation Oxygen saturation in Arterial blood by Pulse oximetry Heart rate Provider Name and Address Organization Details Last Updated DateTime 3 89001.8 g 97.1 [degF] 42.5 kg/m2 149.86 cm 96 % 96 % 83 /min FRANCIA LOZA [facility] & [place] 3 14:06:13 Date Recorded Body height Body mass index (BMI) Body weight Body temperature Oxygen saturation Oxygen saturation in Arterial blood by Pulse oximetry Heart rate Systolic blood pressure Diastolic blood pressure Provider Name and Address Organization Details Last Updated DateTime 3 149.86 cm 44.3 kg/m2 50609.5 3 g 97.1 [degF] 98 % 98 % 79 /min 128 mm[Hg] 96 mm[Hg] Talya Pantoja [facility] & [place] 10:32:45 Social History Question Answer Notes LastModified by Organizat ion Details LastModified Time Tobacco Smoking Status Never Smoker Talya kim, CHUNG Pantoja [facility] & [place] 03/25/2023 10:34:03 What Is Your Level Of Alcohol Consumption? 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 No Information not available 03/25/2023 Sex: Female Functional Status None recorded. Mental Status None recorded. Family History Relationship Description Onset Age of this Age Resolved Age Notes LastModified by Organization Details LastModified Time Father Myocardial infarction pt. added direct ly (03/24) [email or web address] Not available 03/24/2023 12:31:49 Father Hypertensive disorder pt. added direct ly (03/24) [email or web address] Not available 03/24/2023 12:33:16 Paternal Grandmother Myocardial infarction pt. added direct ly (03/24) [email or web address] Not available 03/24/2023 12:31:49 Mother Disorder of endocrine system pt. added direct ly (03/24) [email or web address] Not available 03/24/2023 12:32:27 Mother Hypertensive disorder pt. added direct ly (03/24) [email or web address] Not available 03/24/2023 12:33:16 Daughter Disorder of endocrine system pt. added direct ly (03/24) [email or web address] Not available 03/24/2023 12:32:27 Daughter Hypertensive disorder pt. added direct ly (03/24) [email or web address] Not available 03/24/2023 12:33:16 Daughter Headache pt. added direct ly (03/24) [email or web address] Not available 03/24/2023 12:33:34 Daughter Sleep disorder pt. added direct ly (03/24) [email or web address] Not available 03/24/2023 12:34:08 Son Sleep disorder pt. added direct ly (03/24) [email or web address] Not available 03/24/2023 12:34:08 Medical History No medical history recorded. Gynecological HistoryNo gynecological history recorded. Obstetrics History GPAL:G 0 P 0 0 0 0 Immunizations Vaccine Type Date Status Note Provider Nam e and Address Organization Details Recorded Time MMR 12/09/2007 completed FRANCIA DAGO CHUNG kim [facility] & [place] 08/20/2022 14:03:22 Hep B, adult 12/09/2007 completed FRANCIA kim CHUNG PATEL [facility] & [place] 08/20/2022 14:03:22 Past Encounters Encounter ID Performer Location Encounter Start Date Encounter Closed Date Diagnosis/Indication Diagnosis SNOMED-CT Code Diagnosis ICD10 Code Diagnosis Note [id number] Yuli Miller [address] [place] [address] 08/20/2022 13:59:34 08/23/2022 05:42:35 Essential hypertension 02946640 I10 Type 2 tamika betes mellitus 31292318 E11.9 Thyroid di sorder screening 693087328 Z13.29 [id number] Yuli Miller [address] [place] [address] 08/21/2022 08:02:28 08/21/2022 08:28:43 [id number] Yuli Miller [address] [place] [address] 03/25/2023 10:24:45 03/25/2023 11:04:29 Strain of abdominal muscle 358430517 S39.011A Advised to use heat as tolerated. Take steroids as directed. Avoid naproxen use while taking prednisone .Light stretches. Advised movement.P atient will RTC thursday for fasting lab work. [id number] Yuli Miller [address] [place] [address] 03/27/2023 10:19:31 03/27/2023 10:43:56 Health Concerns Section Related Observation LastModified by Organization Detai ls LastModified Time None Recorded Concern Status LastModified by Organization Details LastModified Time None Recorded Advance Directives Directive None Recorded Payers Encounter Date Sequence Insurance Name Policy Number Policy Castrejon Covered Member ID Castrejon Member ID Guarantor Name 08/20/2022 1 [place] [id number] 5 Catina L Elena [id number] Yrn J Elena 08/21/2022 1 [place] [id number] Catina L Elena [id number] Yrn J Elena 03/25/2023 1 [place] [id number] 5 Catina L Elena [id number] Yrn J Elena 03/27/2023 1 [place] [id number] 5 Catina L Elena [id number] Yrn J Elena Notes Date Note Type Note Provider Name and Address Organization Details Recorded Time 08/20/2022 text/html patient presents to clinic to establish care. She has been seen by [facility]. The clinic was in [place]. They are originally from [place], [place]. She has hypertension. She has Type 2 Diabetes. She had lost some weight and was no longer requiring metformin. She checks her BP every morning.Last echo showed hardening of her arteries. Dad of 42 of [place]. Paternal Grandmother of [place].She had Gastric Bypass surgery almost 20 years ago. She has gained 30 pounds back since March. Last mammogram was a couple years ago. She is due for it. Denies any family history of cancer. Her mother did have skin cancer a couple times. She has not had a colonoscopy. She is due for it. She has not had the Covid vaccines. She has not had a flu shot. She does not want either vaccine. She wears reading glasses. Her last eye exam was normal. Was in July.She is not up to date on dental visits. She has some complaints on tooth erosion today. Denies any gum pain or tooth pain. Yuli Starkey, SENSORY SCIENTIST [address], [place], [address], [place] [facility] [place] 08/21/2022 14:46:04 03/25/2023 text/html patient presents to clinic for abdominal pain. She states that 3 weeks ago she felt a right sided muscle pain. She states it got better. She states that it hurts when she lays down on it. She denies any urinary symptoms. She denies any GI symptoms. She denies any worsening with movement. Denies any worsening with food. Reports an ache with movement. She does not have a gallbladder. Yuli Starkey APRN [address], [place], [address], [place] [facility] [place] 03/25/2023 11:06:02 OBGyn Episode No OBEpisode recorded.
== END 2024-09-12 20:15 | disposition short-term general hospital (02) | DRG 281 ==
LOC: ER 14:17 → 2ND 09-12 01:45
PROVIDERS: Internal Medicine; Admitting Provider Internal Medicine Adolescent Medicine; Emergency Provider Emergency Medicine; PCP Family Medicine; Visit Provider Internal Medicine Adolescent Medicine
PROC: B2111ZZ Fluoroscopy of Multiple Coronary Arteries using Low Osmolar Contrast (ICD-10-PCS; principal; 2024-09-12 14:45)
DX: I21.4 Non-ST elevation (NSTEMI) myocardial infarction (principal); Z68.41 Body mass index [BMI] 40.0-44.9, adult; R74.01 Elevation of levels of liver transaminase levels; E11.9 Type 2 diabetes mellitus without complications; K76.0 Fatty (change of) liver, not elsewhere classified; I25.10 Atherosclerotic heart disease of native coronary artery without angina pectoris; K21.9 Gastro-esophageal reflux disease without esophagitis; E66.01 Morbid (severe) obesity due to excess calories; E03.9 Hypothyroidism, unspecified; I10 Essential (primary) hypertension; Z79.890 Hormone replacement therapy; Z79.84 Long term (current) use of oral hypoglycemic drugs; Z82.5 Family history of asthma and other chronic lower respiratory diseases; Z83.3 Family history of diabetes mellitus; Z82.49 Family history of ischemic heart disease and other diseases of the circulatory system; Z98.84 Bariatric surgery status
CPT/HCPCS: 36415; 71045; 76705; 80053; 80061; 82962; 83036; 83735; 84443; 84484; 85025; 85378; 85730; 86803; 87070; 87205; 87389; 93005; 93306; 93454; 94640; 99152; 99291; C1725; C1769; J0131; J1200; J1644; J1650; J1885; J2250; J2270; J2405; J3010; J3475; Q9967

== ENCOUNTER 2024-10-16 03:14 | Emergency (ER) | payer BC, SELFPAY ==
[2024-10-16 03:20] VITALS: BP 163/134; PULSE 168; RESP 16; TEMP 36.5; O2SAT 94; BMI 43.6
--- NOTE | 2024-10-16 03:21 | ECG_ITS ---
APPROVED REPORT Exam: Resting ECG HR:160 bpm ECG Measurements Heart Rate 160 AXES QRSd 118 QRS 31 QT 256 T -30 QTc 345 Conclusion ATRIAL FLUTTER/TACHYCARDIA WITH RAPID VENTRICULAR RESPONSE LOW QRS VOLTAGE IN PRECORDIAL LEADS [QRS DEFLECTION < 1.0 mV IN CHEST LEADS] INCOMPLETE RIGHT BUNDLE BRANCH BLOCK [90+ ms QRS DURATION, TERMINAL R IN V1/V2, 40+ ms S IN I/aVL/V4/V5/V6] PROBABLE ANTERIOR MYOCARDIAL INFARCTION , OF INDETERMINATE AGE [35 ms Q WAVE IN V3/V4] INFERIOR MYOCARDIAL INFARCTION , OF INDETERMINATE AGE [40+ ms Q WAVE AND/OR ST/T ABNORMALITY IN II/aVF] CRITICAL TEST RESULT Electronically signed by : VIVIENNE SCHWARTZ, 10/18/2024 20:51:50
--- OUTSIDE RECORDS SUMMARY | 2024-10-16 03:22 | XMS_ITS | Data Portability ---
Author Organization [facility] & AMANDA Pierre ADMIN Address [address] [place] [id number] Care Team Providers Care Business Services Officer Name Role Phone ANTHONY RAE [employer] Unavailable YULI STARKEY Primary Care Provider [phone] Assessment No assessment recorded. Plan of Treatment Reminders Order Date Submit Date Provider Last Modified By Organization Details Last Modified Time Details Appointments New Patient Visit 30 min 2024 10:00A M M MD Sally Not available Not available Not available Lab CBC w/ auto diff 2022 023 [facility], [address], [address], [place], [address], 03/28/2023 04:08:57 CMP, serum or plasma 2022 023 [facility], [address], [address], [place], [address], 03/28/2023 04:08:59 amylase + lipase, serum 2022 023 [facility], [address], [address], [place], [address], 03/28/2023 04:09:01 lipid panel, serum 2022 023 [facility], [address], [address], [place], [address], 03/28/2023 04:09:00 HbA1c (hemoglob in A1c), blood 2022 023 [facility], [address], [address], [place], [address], 08/22/2022 06:38:12 thyroid panel, serum 2022 023 [facility], [address], [address], [place], [address], 08/22/2022 06:38:11 vitamin B12, serum 2022 023 [facility], [address], [address], [place], [address], 08/22/2022 06:38:14 vitamin D, 25-hydrox y, total, serum 2022 023 [facility], [address], [address], [place], [address], 08/22/2022 06:38:13 CMP, serum or plasma 2022 023 [facility], [address], [address], [place], [address], 08/22/2022 06:38:09 CBC w/ auto diff 2022 023 [facility], [address], [address], [place], [address], 08/22/2022 06:38:08 lipid panel, serum 2022 023 [facility], [address], [address], [place], [address], 08/22/2022 06:38:10 magnesium , serum or plasma 2022 023 [facility], [address], [address], [place], [address], 08/22/2022 06:38:14 Referral cardiolog ist referral - Wants to establish care. Was seen by a Cardiolog y Clinic in [place] . 2022 023 [id number] Anthony Rae MD, [address] , [place], [address], 10/07/2022 17:51:22 Procedures None recorded. Surgeries None recorded. Imaging None recorded. Medication Orders prednison e 20 mg tablet 2022 023 [email or web address] [facility] [address] [place], [address], 03/25/2023 11:05:55 Patient TargetsNo targets recorded. Patient Instructions Encounter Date Encounter Id Patient Instructions Last Modified By Organization Details Last Modified Time 08/20/2022 [id number] Patient will return to clinic for fasting labwork in the morning. Will call with results. Not available 08/20/2022 14:31:52 Reason for Referral [employer] Referral for Es sential hypertension Wants to establish care. Was seen by a Cardiology Clinic in [place]. Referring Physician: Yuli Starkey, Infectious Disease, Encounter Date: 08/20/2022 Results Created Date Observation Date Name Description Value Unit Range Abnormal Flag Note LastModifiedBy Organization Detail LastModifiedTime 08/22/1908/21/2022 CBC WITH DIFFE RENTI AL/PL ATELE T WBC 8.5 x10e3 /uL 3.4-10 .8 Not Available [facility] ([facility]) [address] [facility], [place], [address], 08/22/2022 06:38:08 08/22/19 23 08/21/2022 CBC WITH DIFFE RENTI AL/PL ATELE T RBC 5.06 x10e6 /uL 3.77-5 .28 Not Available [facility] ([facility]) [address] [facility], [place], [address], 08/22/2022 06:38:08 08/22/19 23 08/21/2022 CBC WITH DIFFE RENTI AL/PL ATELE T hemoglobin 14.1 g/dL 11.1-1 5.9 Not Available [facility] ([facility]) [address] [place], [address], 08/22/2022 06:38:08 08/22/19 23 08/21/2022 CBC WITH DIFFE RENTI AL/PL ATELE T hematocrit 43.1 % 34.0-4 6.6 Not Available [facility] ([facility]) [address] [facility], [place], [address], 08/22/2022 06:38:08 08/22/19 23 08/21/2022 CBC WITH DIFFE RENTI AL/PL ATELE T MCV 85 fL 79-97 Not Available [facility] ([facility]) [address] [place], [address], 08/22/2022 06:38:08 08/22/19 23 08/21/2022 CBC WITH DIFFE RENTI AL/PL ATELE T MCH 27.9 pg 26.6-3 3.0 Not Available [facility] ([facility]) [address] [place], [address], 08/22/2022 06:38:08 08/22/1908/21/2022 CBC WITH DIFFE RENTI AL/PL ATELE T MCHC 32.7 g/dL 31.5-3 5.7 Not Available [facility] ([facility]) [address] [place], [address], 08/22/2022 06:38:08 08/22/19 23 08/21/2022 CBC WITH DIFFE RENTI AL/PL ATELE T RDW 13.5 % 11.7-1 5.4 Not Available [facility] ([facility]) [address] [place], [address], 08/22/2022 06:38:08 08/22/19 23 08/21/2022 CBC WITH DIFFE RENTI AL/PL ATELE T platelets 421 x10e3 /uL 150-45 0 Not Available [facility] ([facility]) [address] [facility], [place], [address], 08/22/2022 06:38:08 08/22/19 23 08/21/2022 CBC WITH DIFFE RENTI AL/PL ATELE T neutrophils 57 % not estab. Not Available [facility] ([facility]) [address] [facility], [place], [address], 08/22/2022 06:38:08 08/22/19 23 08/21/2022 CBC WITH DIFFE RENTI AL/PL ATELE T lymphs 24 % not estab. Not Available [facility] ([facility]) [address] [facility], [place], [address], 08/22/2022 06:38:08 08/22/19 23 08/21/2022 CBC WITH DIFFE RENTI AL/PL ATELE T monocytes 6 % not estab. Not Available [facility] ([facility]) [address] [facility], [place], [address], 08/22/2022 06:38:08 08/22/19 23 08/21/2022 CBC WITH DIFFE RENTI AL/PL ATELE T eos 12 % not estab. Not Available [facility] ([facility]) [address] [facility], [place], [address], 08/22/2022 06:38:08 08/22/19 23 08/21/2022 CBC WITH DIFFE RENTI AL/PL ATELE T basos 1 % not estab. Not Available [facility] ([facility]) [address] [facility], [place], [address], 08/22/2022 06:38:08 08/22/19 23 08/21/2022 CBC WITH DIFFE RENTI AL/PL ATELE T immature cells INVESTMENT ASSOCIATE Not Available [facility] ([facility]) [address] [facility], [place], [address], 08/22/2022 06:38:08 08/22/19 23 08/21/2022 CBC WITH DIFFE RENTI AL/PL ATELE T neutrophils (absolute) 4.9 x10e3 /uL 1.4-7. 0 Not Available [facility] ([facility]) [address] [facility], [place], [address], 08/22/2022 06:38:08 08/22/19 23 08/21/2022 CBC WITH DIFFE RENTI AL/PL ATELE T lymphs (absolute) 2.1 x10e3 /uL 0.7-3. 1 Not Available [facility] ([facility]) [address] [facility], [place], [address], 08/22/2022 06:38:08 08/22/19 23 08/21/2022 CBC WITH DIFFE RENTI AL/PL ATELE T monocytes(ab solute) 0.5 x10e3 /uL 0.1-0. 9 Not Available [facility] ([facility]) [address] [facility], [place], [address], 08/22/2022 06:38:08 08/22/19 23 08/21/2022 CBC WITH DIFFE RENTI AL/PL ATELE T eos (absolute) 1.0 x10e3 /uL 0.0-0. 4 above high normal Not Available [facility] ([facility]) [address] [facility], [place], [address], 08/22/2022 06:38:08 08/22/19 23 08/21/2022 CBC WITH DIFFE RENTI AL/PL ATELE T baso (absolute) 0.1 x10e3 /uL 0.0-0. 2 Not Available [facility] ([facility]) [address] [place], [address], 08/22/2022 06:38:08 08/22/19 23 08/21/2022 CBC WITH DIFFE RENTI AL/PL ATELE T immature granulocytes 0 % not estab. Not Available [facility] ([facility]) [address], [place], [address], 08/22/2022 06:38:08 08/22/19 23 08/21/2022 CBC WITH DIFFE RENTI AL/PL ATELE T immature grans (abs) 0.0 x10e3 /uL 0.0-0. 1 Not Available [facility] ([facility]) [address] [facility], [place], [address], 08/22/2022 06:38:08 08/22/19 23 08/21/2022 CBC WITH DIFFE RENTI AL/PL ATELE T NRBC INVESTMENT ASSOCIATE Not Available [facility] ([facility]) [address] [facility], [place], [address], 08/22/2022 06:38:08 08/22/19 23 08/21/2022 CBC WITH DIFFE RENTI AL/PL ATELE T hematology comments: INVESTMENT ASSOCIATE Not Available [facility] ([facility]) [address] [facility], [place], [address], 08/22/2022 06:38:08 08/22/19 23 08/22/2022 COMP. METAB OLIC PANEL (14) glucose 93 mg/dL 70-99 Not Available [facility] ([facility]) [address] [facility], [place], [address], 08/22/2022 06:38:09 08/22/19 23 08/22/2022 COMP. METAB OLIC PANEL (14) BUN 20 mg/dL 6-24 Not Available [facility] ([facility]) [address] [facility], [place], [address], 08/22/2022 06:38:09 08/22/19 23 08/22/2022 COMP. METAB OLIC PANEL (14) creatinine 0.77 mg/dL 0.57-1 .00 Not Available [facility] ([facility]) [address] [facility], [place], [address], 08/22/2022 06:38:09 08/22/19 23 08/22/2022 COMP. METAB OLIC PANEL (14) eGFR 89 mL/mi n/1.7 3 >59 Not Available [facility] ([facility]) [address] [place], [address], 08/22/2022 06:38:09 08/22/19 23 08/22/2022 COMP. METAB OLIC PANEL (14) BUN/creatini ne ratio 26 9-23 above high normal Not Available [facility] ([facility]) [address] [place], [address], 08/22/2022 06:38:09 08/22/19 23 08/22/2022 COMP. METAB OLIC PANEL (14) sodium 139 mmol/ L 134-14 4 Not Available [facility] ([facility]) [address] [place], [address], 08/22/2022 06:38:09 08/22/19 23 08/22/2022 COMP. METAB OLIC PANEL (14) potassium 3.9 mmol/ L 3.5-5. 2 Not Available [facility] ([facility]) [address] [place], [address], 08/22/2022 06:38:09 08/22/19 23 08/22/2022 COMP. METAB OLIC PANEL (14) chloride 99 mmol/ L 96-106 Not Available [facility] ([facility]) [address] [place], [address], 08/22/2022 06:38:09 08/22/19 23 08/22/2022 COMP. METAB OLIC PANEL (14) carbon dioxide, total 25 mmol/ L 20-29 Not Available [facility] ([facility]) [address] [place], [address], 08/22/2022 06:38:09 08/22/19 23 08/22/2022 COMP. METAB OLIC PANEL (14) calcium 9.9 mg/dL 8.7-10 .2 Not Available [facility] ([facility]) [address] [facility] [place], [address], 08/22/2022 06:38:09 08/22/19 23 08/22/2022 COMP. METAB OLIC PANEL (14) protein, total 7.0 g/dL 6.0-8. 5 Not Available [facility] ([facility]) [address] [facility] [place], [address], 08/22/2022 06:38:09 08/22/19 23 08/22/2022 COMP. METAB OLIC PANEL (14) albumin 4.3 g/dL 3.8-4. 9 Not Available [facility] ([facility]) [address] [place], [address], 08/22/2022 06:38:09 08/22/19 23 08/22/2022 COMP. METAB OLIC PANEL (14) globulin, total 2.7 g/dL 1.5-4. 5 Not Available [facility] ([facility]) [address] [place], [address], 08/22/2022 06:38:09 08/22/19 23 08/22/2022 COMP. METAB OLIC PANEL (14) A/G ratio 1.6 1.2-2. 2 Not Available [facility] ([facility]) [address] [place], [address], 08/22/2022 06:38:09 08/22/19 23 08/22/2022 COMP. METAB OLIC PANEL (14) bilirubin, total 0.3 mg/dL 0.0-1. 2 Not Available [facility] ([facility]) [address] [place], [address], 08/22/2022 06:38:09 08/22/19 23 08/22/2022 COMP. METAB OLIC PANEL (14) alkaline phosphatase 68 IU/L 44-121 Not Available [facility] ([facility]) [address] [place], [address], 08/22/2022 06:38:09 08/22/19 23 08/22/2022 COMP. METAB OLIC PANEL (14) AST (SGOT) 32 IU/L 0-40 Not Available [facility] ([facility]) [address] [place], [address], 08/22/2022 06:38:09 08/22/19 23 08/22/2022 COMP. METAB OLIC PANEL (14) ALT (SGPT) 22 IU/L 0-32 Not Available [facility] ([facility]) [address] [place], [address], 08/22/2022 06:38:09 08/22/19 23 08/22/2022 LIPID PANEL cholesterol, total 206 mg/dL 100-19 9 above high normal Not Available [facility] ([facility]) [address] [place], [address], 08/22/2022 06:38:10 08/22/19 23 08/22/2022 LIPID PANEL triglyceride s 74 mg/dL 0-149 Not Available [facility] ([facility]) [address] [place], [address], 08/22/2022 06:38:10 08/22/19 23 08/22/2022 LIPID PANEL HDL cholesterol 64 mg/dL >39 Not Available [facility] ([facility]) [address] [place], [address], 08/22/2022 06:38:10 08/22/19 23 08/22/2022 LIPID PANEL VLDL cholesterol susi 13 mg/dL 5-40 Not Available [facility] ([facility]) [address] [place], [address], 08/22/2022 06:38:10 08/22/19 23 08/22/2022 LIPID PANEL LDL chol calc ([facility]) 129 mg/dL 0-99 above high normal Not Available [facility] ([facility]) [address] [place], [address], 08/22/2022 06:38:10 08/22/19 23 08/22/2022 LIPID PANEL comment: INVESTMENT ASSOCIATE Not Available [facility] ([facility]) [address] [place], [address], 08/22/2022 06:38:10 08/22/19 23 08/22/2022 THYRO ID PROFI LE II TSH 3.980 uIU/m L 0.450- 4.500 Not Available [facility] ([facility]) [address] [place], [address], 08/22/2022 06:38:11 08/22/19 23 08/22/2022 THYRO ID PROFI LE II thyroxine (T4) 9.1 ug/dL 4.5-12 .0 Not Available [facility] ([facility]) [address] [place], [address], 08/22/2022 06:38:11 08/22/1908/22/2022 THYRO ID PROFI LE II T3 uptake 28 % 24-39 Not Available [facility] ([facility]) [address] [place], [address], 08/22/2022 06:38:11 08/22/19 23 08/22/2022 THYRO ID PROFI LE II free thyroxine index 2.5 1.2-4. 9 Not Available [facility] ([facility]) [address] [place], [address], 08/22/2022 06:38:11 08/22/19 23 08/22/2022 THYRO ID PROFI LE II triiodothyro nine (T3) 157 NG/dL 71-180 Not Available [facility] ([facility]) [address] [place], [address], 08/22/2022 06:38:11 08/22/19 23 08/22/2022 HEMOG LOBIN A1C hemoglobin A1C 6.0 % 4.8-5. 6 above high normal Predi abete s: 5.7 - 6.4 Diabe david: >6.4 Glyce lilliana contr ol for adult s with diabe david: <7.0 Not Available [facility] ([facility]) [address] [facility], [place], [address], 08/22/2022 06:38:12 08/22/19 23 08/22/2022 VITAM IN D, 25-HY DROXY vitamin D, [...] 1. IOM (Inst itute of Medic ine). 2009. Dieta ry refer ence intak es for calci um and D. Deepa brewer [place]: [facility] . 2. Beryl rivera MF, Eliana lanier [place], Elvia off-F errar i DRAKE, et al. Evalu ation , treat ment, and preve ntion of vitam in D defic iency : an Endoc rine Socie ty clini susi pract ice guide line. JCEM. 2010; 96(7) :1911 -30. Not Available [facility] ([facility]) [address] [facility], [place], [address], 08/22/2022 06:38:13 08/22/19 23 08/22/2022 VITAM IN B12 vitamin B12 471 pg/mL 232-12 45 Not Available [facility] ([facility]) [address] [place], [address], 08/22/2022 06:38:14 08/22/19 23 08/22/2022 MAGNE SIUM magnesium 1.8 mg/dL 1.6-2. 3 Not Available [facility] ([facility]) [address] [facility], [place], [address], 08/22/2022 06:38:14 08/22/19 23 08/21/2022 urina lysis , dipst ick Leukocytes (reference range) negati ve Not Available [facility] - [address], [place], [address], 08/21/2022 09:26:09 08/22/19 23 08/21/2022 urina lysis , dipst ick Nitrite (reference range:) negati ve Not Available [facility] - [address], [place], [address], 08/21/2022 09:26:09 08/22/19 23 08/21/2022 urina lysis , dipst ick Urobilinogen (reference range) 0.2 Not Available [address], [place], [address], 08/21/2022 09:26:09 08/22/19 23 08/21/2022 urina lysis , dipst ick Protein (reference range) negati ve Not Available [address], [place], [address], 08/21/2022 09:26:09 08/22/19 23 08/21/2022 urina lysis , dipst ick pH (reference range 5-8.5) 6.0 Not Available [facility] - [address], [place], [address], 08/21/2022 09:26:09 08/22/19 23 08/21/2022 urina lysis , dipst ick Blood (reference range:) negati ve Not Available [facility] - [address], [place], [address], 08/21/2022 09:26:09 08/22/19 23 08/21/2022 urina lysis , dipst ick Specific [place] (reference range) 1.030 Not Available [facility] - [address], [place], [address], 08/21/2022 09:26:09 08/22/19 23 08/21/2022 urina lysis , dipst ick Ketone (reference range) negati ve Not Available [facility] - [address], [place], [address], 08/21/2022 09:26:09 08/22/19 23 08/21/2022 urina lysis , dipst ick Bilirubin (reference range) negati ve Not Available [facility] - [address], [place], [address], 08/21/2022 09:26:09 08/22/19 23 08/21/2022 urina lysis , dipst ick Glucose (reference range) negati ve Not Available [facility] - [address], [place], [address], 08/21/2022 09:26:09 08/22/19 23 08/21/2022 urina lysis , dipst ick Color (reference range: yellow-brown ) Yellow Not Available [facility] - [address], [place], [address], 08/21/2022 09:26:09 03/27/20 23 03/28/2023 CBC WITH DIFFE RENTI AL/PL ATELE T WBC 8.3 x10e3 /uL 3.4-10 .8 Not Available [facility] ([facility]) [address] [place], [address], 03/28/2023 04:08:57 03/27/2003/28/2023 CBC WITH DIFFE RENTI AL/PL ATELE T RBC 4.65 x10e6 /uL 3.77-5 .28 Not Available [facility] ([facility]) [address] [place], [address], 03/28/2023 04:08:57 03/27/2003/28/2023 CBC WITH DIFFE RENTI AL/PL ATELE T hemoglobin 13.2 g/dL 11.1-1 5.9 Not Available [facility] ([facility]) [address] [place], [address], 03/28/2023 04:08:57 03/27/2003/28/2023 CBC WITH DIFFE RENTI AL/PL ATELE T hematocrit 39.7 % 34.0-4 6.6 Not Available [facility] ([facility]) [address] [place], [address], 03/28/2023 04:08:57 03/27/2003/28/2023 CBC WITH DIFFE RENTI AL/PL ATELE T MCV 85 fL 79-97 Not Available [facility] ([facility]) [address] [place], [address], 03/28/2023 04:08:57 03/27/2003/28/2023 CBC WITH DIFFE RENTI AL/PL ATELE T MCH 28.4 pg 26.6-3 3.0 Not Available [facility] ([facility]) [address] [place] [address], [address], 03/28/2023 04:08:57 03/27/2003/28/2023 CBC WITH DIFFE RENTI AL/PL ATELE T MCHC 33.2 g/dL 31.5-3 5.7 Not Available [facility] ([facility]) [address] [facility], [place], [address], 03/28/2023 04:08:57 03/27/2003/28/2023 CBC WITH DIFFE RENTI AL/PL ATELE T RDW 13.3 % 11.7-1 5.4 Not Available [facility] ([facility]) [address] [facility], [place], [address], 03/28/2023 04:08:57 03/27/2003/28/2023 CBC WITH DIFFE RENTI AL/PL ATELE T platelets 419 x10e3 /uL 150-45 0 Not Available [facility] ([facility]) [address] [facility], [place], [address], 03/28/2023 04:08:57 03/27/2003/28/2023 CBC WITH DIFFE RENTI AL/PL ATELE T neutrophils 57 % not estab. Not Available [facility] ([facility]) [address] [facility], [place], [address], 03/28/2023 04:08:57 03/27/2003/28/2023 CBC WITH DIFFE RENTI AL/PL ATELE T lymphs 25 % not estab. Not Available [facility] ([facility]) [address] [facility], [place], [address], 03/28/2023 04:08:57 03/27/2003/28/2023 CBC WITH DIFFE RENTI AL/PL ATELE T monocytes 6 % not estab. Not Available [facility] ([facility]) [address] [facility], [place], [address], 03/28/2023 04:08:57 03/27/2003/28/2023 CBC WITH DIFFE RENTI AL/PL ATELE T eos 11 % not estab. Not Available [facility] ([facility]) [address] [facility], [place], [address], 03/28/2023 04:08:57 03/27/2003/28/2023 CBC WITH DIFFE RENTI AL/PL ATELE T basos 1 % not estab. Not Available [facility] ([facility]) [address] [facility], [place], [address], 03/28/2023 04:08:57 03/27/2003/28/2023 CBC WITH DIFFE RENTI AL/PL ATELE T immature cells INVESTMENT ASSOCIATE Not Available [facility] ([facility]) [address] [facility], [place], [address], 03/28/2023 04:08:57 03/27/20 23 03/28/2023 CBC WITH DIFFE RENTI AL/PL ATELE T neutrophils (absolute) 4.7 x10e3 /uL 1.4-7. 0 Not Available [facility] ([facility]) [address] [facility], [place], [address], 03/28/2023 04:08:57 03/27/2003/28/2023 CBC WITH DIFFE RENTI AL/PL ATELE T lymphs (absolute) 2.1 x10e3 /uL 0.7-3. 1 Not Available [facility] ([facility]) [address] [place], [address], 03/28/2023 04:08:57 03/27/2003/28/2023 CBC WITH DIFFE RENTI AL/PL ATELE T monocytes(ab solute) 0.5 x10e3 /uL 0.1-0. 9 Not Available [facility] ([facility]) [address] [place], [address], 03/28/2023 04:08:57 03/27/20 23 03/28/2023 CBC WITH DIFFE RENTI AL/PL ATELE T eos (absolute) 0.9 x10e3 /uL 0.0-0. 4 above high normal Not Available [facility] ([facility]) [address] [facility], [place], [address], 03/28/2023 04:08:57 03/27/20 23 03/28/2023 CBC WITH DIFFE RENTI AL/PL ATELE T baso (absolute) 0.1 x10e3 /uL 0.0-0. 2 Not Available [facility] ([facility]) [address] [facility], [place], [address], 03/28/2023 04:08:57 03/27/2003/28/2023 CBC WITH DIFFE RENTI AL/PL ATELE T immature granulocytes 0 % not estab. Not Available [facility] ([facility]) [address] [facility], [place], [address], 03/28/2023 04:08:57 03/27/2003/28/2023 CBC WITH DIFFE RENTI AL/PL ATELE T immature grans (abs) 0.0 x10e3 /uL 0.0-0. 1 Not Available [facility] ([facility]) [address] [facility], [place], [address], 03/28/2023 04:08:57 03/27/20 23 03/28/2023 CBC WITH DIFFE RENTI AL/PL ATELE T NRBC INVESTMENT ASSOCIATE Not Available [facility] ([facility]) [address] [facility], [place], [address], 03/28/2023 04:08:57 03/27/20 23 03/28/2023 CBC WITH DIFFE RENTI AL/PL ATELE T hematology comments: INVESTMENT ASSOCIATE Not Available [facility] ([facility]) [address] [facility], [place], [address], 03/28/2023 04:08:57 03/27/20 23 03/28/2023 COMP. METAB OLIC PANEL (14) glucose 90 mg/dL 70-99 Not Available [facility] ([facility]) [address] [place], [address], 03/28/2023 04:08:59 03/27/20 23 03/28/2023 COMP. METAB OLIC PANEL (14) BUN 20 mg/dL 6-24 Not Available [facility] ([facility]) [address] [place], [address], 03/28/2023 04:08:59 03/27/20 23 03/28/2023 COMP. METAB OLIC PANEL (14) creatinine 0.79 mg/dL 0.57-1 .00 Not Available [facility] ([facility]) [address] [place], [address], 03/28/2023 04:08:59 03/27/20 23 03/28/2023 COMP. METAB OLIC PANEL (14) eGFR 86 mL/mi n/1.7 3 >59 Not Available [facility] ([facility]) [address] [place], [address], 03/28/2023 04:08:59 03/27/20 23 03/28/2023 COMP. METAB OLIC PANEL (14) BUN/creatini ne ratio 25 9-23 above high normal Not Available [facility] ([facility]) [address] [place], [address], 03/28/2023 04:08:59 03/27/20 23 03/28/2023 COMP. METAB OLIC PANEL (14) sodium 140 mmol/ L 134-14 4 Not Available [facility] ([facility]) [address] [place], [address], 03/28/2023 04:08:59 03/27/20 23 03/28/2023 COMP. METAB OLIC PANEL (14) potassium 4.2 mmol/ L 3.5-5. 2 Not Available [facility] ([facility]) [address] [place], [address], 03/28/2023 04:08:59 03/27/20 23 03/28/2023 COMP. METAB OLIC PANEL (14) chloride 100 mmol/ L 96-106 Not Available [facility] ([facility]) [address] [facility], [place], [address], 03/28/2023 04:08:59 03/27/20 23 03/28/2023 COMP. METAB OLIC PANEL (14) carbon dioxide, total 26 mmol/ L 20-29 Not Available [facility] ([facility]) [address] [facility], [place], [address], 03/28/2023 04:08:59 03/27/2003/28/2023 COMP. METAB OLIC PANEL (14) calcium 9.6 mg/dL 8.7-10 .2 Not Available [facility] ([facility]) [address] [facility], [place], [address], 03/28/2023 04:08:59 03/27/2003/28/2023 COMP. METAB OLIC PANEL (14) protein, total 6.7 g/dL 6.0-8. 5 Not Available [facility] ([facility]) [address] [facility], [place], [address], 03/28/2023 04:08:59 03/27/20 23 03/28/2023 COMP. METAB OLIC PANEL (14) albumin 3.9 g/dL 3.8-4. 9 Not Available [facility] ([facility]) [address] [facility], [place], [address], 03/28/2023 04:08:59 03/27/20 23 03/28/2023 COMP. METAB OLIC PANEL (14) globulin, total 2.8 g/dL 1.5-4. 5 Not Available [facility] ([facility]) [address] [facility], [place], [address], 03/28/2023 04:08:59 03/27/2003/28/2023 COMP. METAB OLIC PANEL (14) A/G ratio 1.4 1.2-2. 2 Not Available [facility] ([facility]) [address] [place], [address], 03/28/2023 04:08:59 03/27/20 23 03/28/2023 COMP. METAB OLIC PANEL (14) bilirubin, total <0.2 mg/dL 0.0-1. 2 Not Available [facility] ([facility]) [address] [place], [address], 03/28/2023 04:08:59 03/27/2003/28/2023 COMP. METAB OLIC PANEL (14) alkaline phosphatase 54 IU/L 44-121 Not Available [facility] ([facility]) [address] [place], [address], 03/28/2023 04:08:59 03/27/20 23 03/28/2023 COMP. METAB OLIC PANEL (14) AST (SGOT) 25 IU/L 0-40 Not Available [facility] ([facility]) [address] [place], [address], 03/28/2023 04:08:59 03/27/20 23 03/28/2023 COMP. METAB OLIC PANEL (14) ALT (SGPT) 20 IU/L 0-32 Not Available [facility] ([facility]) [address] [place], [address], 03/28/2023 04:08:59 03/27/20 23 03/28/2023 LIPID PANEL AND CHOL/ HDL RATIO cholesterol, total 182 mg/dL 100-19 9 Not Available [facility] ([facility]) [address] [place], [address], 03/28/2023 04:09:00 03/27/20 23 03/28/2023 LIPID PANEL AND CHOL/ HDL RATIO triglyceride s 121 mg/dL 0-149 Not Available [facility] ([facility]) [address] [place], [address], 03/28/2023 04:09:00 03/27/2003/28/2023 LIPID PANEL AND CHOL/ HDL RATIO HDL cholesterol 55 mg/dL >39 Not Available [facility] ([facility]) [address] [place], [address], 03/28/2023 04:09:00 03/27/2003/28/2023 LIPID PANEL AND CHOL/ HDL RATIO VLDL cholesterol susi 22 mg/dL 5-40 Not Available [facility] ([facility]) [address] [place], [address], 03/28/2023 04:09:00 03/27/2003/28/2023 LIPID PANEL AND CHOL/ HDL RATIO LDL chol calc ([facility]) 105 mg/dL 0-99 above high normal Not Available [facility] ([facility]) [address] [place], [address], 03/28/2023 04:09:00 03/27/2003/28/2023 LIPID PANEL AND CHOL/ HDL 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 chol/HDL ratio 3.3 ratio 0.0-4. 4 T. Chol/ HDL Ratio Men Women 1/2 Avg.R isk 3.4 3.3 Avg.R isk 5.0 4.4 2X Avg.R isk 9.6 7.1 3X Avg.R isk 23.4 11.0 Not Available [facility] ([facility]) [address] [place], [address], 03/28/2023 04:09:00 03/27/20 23 03/28/2023 ABRAHAN+L IPASE amylase 43 U/L 31-110 Not Available [facility] ([facility]) [address] [facility], [place], [address], 03/28/2023 04:09:01 03/27/20 23 03/28/2023 ABRAHAN+L IPASE lipase 17 U/L 14-72 Not Available [facility] ([facility]) [address] [facility], [place], [address], 03/28/2023 04:09:01 Result Notes None recorded. Procedures Surgical History Date Name Laterality Status Provider Name and Address Organization Details Recorded Time 06/08/19 11 Gastric bypass for obesity completed [facility] [place] - [facility] [place] 03/25/2023 10:34:54 06/08/19 10 Hysterectomy completed [facility] [place] [facility] [place] 03/25/2023 10:36:05 06/08/18 97 excision of uvula completed [facility] [place] [facility] [place] 03/25/2023 10:35:23 06/08/18 97 tonsillectomy completed [facility] [place] [facility] [place] 03/25/2023 10:35:35 06/08/18 90 Carpal tunnel surgery completed [facility] [place] 03/25/2023 10:36:32 cholecystectomy completed [facility] [place] [facility] [place] 03/25/2023 10:34:37 Imaging Results None recorded. Procedure Notes None recorded. Medical Equipment None Reported. Allergies No known drug allergies Medications Name Sig Start Date Stop Date Status Note LastModified by Organization Details LastModified Time cyclobenzap rine 10 mg tablet Take 1 tablet(s) 3 times a day by oral route. active Not Available Not Available No t Available metformin 500 mg tablet TAKE 1 TABLET BY MOUTH ONCE DAILY active Not Available Not Available No t Available prednisone 10 mg tablet TAKE 4 TABLETS BY MOUTH ONCE DAILY FOR 3 DAYS, THEN TAKE 3 TABLETS ONCE DAILY FOR 3 DAYS, THEN TAKE 2 TABLETS ONCE DAILY FOR 3 DAYS, THEN TAKE 1 TABLETONC E DAILY FOR 3 DAYS active Not Available Not Available No t Available albuterol sulfate 2.5 mg/3 mL (0.083 %) solution for nebulizatio n USE 1 VIAL IN NEBULIZER EVERY 4 TO 6 HOURS active Not Available Not Available No t Available azithromyci n 250 mg tablet TAKE 2 TABLETS BY MOUTH ON DAY 1, AND THEN TAKE 1 TABLET BY MOUTH ONCE A DAY ON DAY 2 THROUGH DAY 5 active Not Available Not Available No t Available sucralfate 1 gram tablet TAKE 1 TABLET BY MOUTH 4 TIMES DAILY NEEDED FOR 15 DAYS active Not Available Not Available No t Available prednisone 20 mg tablet TAKE 1 TABLET BY MOUTH ONCE DAILY FOR 5 DAYS active Not Available Not Available No t Available omeprazole 40 mg capsule,del ayed release TAKE 1 CAPSULE BY MOUTH ONCE DAILY active Not Available Not Available No t Available alprazolam 0.25 mg tablet Take 1 tablet 3 times a day by oral route. active Not Available Not Available No t Available naproxen sodium 550 mg tablet TAKE 1 TABLET BY MOUTH TWICE DAILY active Not Available Not Available No t Available estradiol 2 mg tablet TAKE 1 TABLET BY MOUTH ONCE DAILY active Not Available Not Available No t Available hydrochloro thiazide 25 mg tablet Take 1 tablet every day by oral route. active Not Available Not Available No t Available albuterol sulfate HFA 90 mcg/actuati on aerosol inhaler INHALE 2 PUFFS BY MOUTH EVERY 6 HOURS active Not Available Not Available No t Available fluticasone propionate 50 mcg/actuati on nasal spray,suspe nsion [place] 1 spray(s) every day by intranasa l route. active Not Available Not Available No t Available omeprazole ER 40 mg capsule,ext ended release Take by oral route. 12/12 completed Not Available Not Available Not Available olmesartan 40 mg tablet TAKE 1 TABLET BY MOUTH ONCE DAILY active Not Available Not Available No t Available INVESTMENT ASSOCIATE Thyroid 30 mg tablet TAKE 1 TABLET BY MOUTH ONCE DAILY active Not Available Not Available No t Available fluticasone 113 mcg-salmete rol 14 mcg/actuati on breath activated powdr INHALE 1 PUFF TWICE DAILY active Not Available Not Available No t Available aspirin 81 mg capsule Take 1 capsule every day by oral route. active Not Available Not Available No t Available Vitals Date Recorded Body weight Body temperature Body mass index (BMI) Body height Oxygen saturation Oxygen saturation in Arterial blood by Pulse oximetry Heart rate Provider Name and Address Organization Details Last Updated DateTime 3 95098.8 g 97.1 [degF] 42.5 kg/m2 149.86 cm 96 % 96 % 83 /min FRANCIA Pantoja [facility] & [place] 3 14:06:13 Date Recorded Body height Body mass index (BMI) Body weight Body temperature Oxygen saturation Oxygen saturation in Arterial blood by Pulse oximetry Heart rate Systolic blood pressure Diastolic blood pressure Provider Name and Address Organization Details Last Updated DateTime 3 149.86 cm 44.3 kg/m2 06202.5 3 g 97.1 [degF] 98 % 98 % 79 /min 128 mm[Hg] 96 mm[Hg] [facility] [place] 3 10:32:45 Social History Question Answer Notes LastModified by Organizat ion Details LastModified Time Tobacco Smoking Status Never Smoker Talya kim, [facility] [place] 03/25/2023 10:34:03 What Is Your Level Of Alcohol Consumption? 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 [email or web address] Information not available 09/23/2024 Do You Use Any Illicit Or Recreational [...] Organization Details Recorded Time MMR 12/09/2007 completed [facility] [place] 08/20/2022 14:03:22 Hep B, adult 12/09/2007 completed [facility] [place] 08/20/2022 14:03:22 Past Encounters Encounter ID Performer Location Encounter Start Date Encounter Closed Date Diagnosis/Indication Diagnosis SNOMED-CT Code Diagnosis ICD10 Code Diagnosis Note [id number] Yuli Miller [address] [place] [address] 08/20/2022 13:59:34 08/23/2022 05:42:35 Essential hypertension 92347426 I10 Type 2 tamika betes mellitus 55847396 E11.9 Thyroid di sorder screening 038235822 Z13.29 [id number] Yuli Miller [address] [place] [address] 08/21/2022 08:02:28 08/21/2022 08:28:43 [id number] Yuli Miller [address] [place] [address] 03/25/2023 10:24:45 03/25/2023 11:04:29 Strain of abdominal muscle 441520630 S39.011A Advised to use heat as tolerated. Take steroids as directed. Avoid naproxen use while taking prednisone .Light stretches. Advised movement.P atient will RTC thursday for fasting lab work. 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 [facility] [address] [place] [address] 03/27/2023 10:19:31 03/27/2023 10:43:56 Health Concerns Section Related Observation LastModified by Organization Detai ls LastModified Time None Recorded Concern Status LastModified by Organization Details LastModified Time None Recorded Advance Directives Directive None Recorded Payers Insurance Date Sequence Insurance Name Policy Number Policy Castrejon Covered Member ID Castrejon Member ID Guarantor Name 03/31/2023 1 [employer]: [place] (PPO) [id number] Catina Parker [id number] Catina Parker Notes Date Note Type Note Provider Name and Address Organization Details Recorded Time 08/20/2022 text/html patient presents to clinic to establish care. She has been seen by [facility]. The clinic was in [place]. They are originally from [place], [place]. She has hypertension. She has Type 2 Diabetes. She had lost some weight and was no longer requiring metformin. She checks her BP every morning.Last echo showed hardening of her arteries. Dad of 42 of [place]. Paternal Grandmother of [place].She had Gastric Bypass surgery almost 20 years [...] gum pain or tooth pain. Yuli Starkey, BUHR MILL OPERATOR [address], [place], [address], [facility] [place] 08/21/2022 14:46:04 03/25/2023 text/html patient presents to [...] She does not have a gallbladder. Yuli Starkey, BUHR MILL OPERATOR [address] [facility], [place], [address], [place] - [facility] - [place] & [place] 03/25/2023 11:06:02 OBGyn Episode No OBEpisode recorded.
--- NOTE | 2024-10-16 03:30 | ECG_ITS ---
APPROVED REPORT Exam: Resting ECG HR:118 bpm ECG Measurements Heart Rate 118 [address] [place] 182 P 54 QRSd 96 QRS 22 QT 341 T 35 QTc 411 Conclusion SINUS TACHYCARDIA LOW QRS VOLTAGE IN PRECORDIAL LEADS [QRS DEFLECTION < 1.0 mV IN CHEST LEADS] INCOMPLETE RIGHT BUNDLE BRANCH BLOCK [90+ ms QRS DURATION, TERMINAL R IN V1/V2, 40+ ms S IN I/aVL/V4/V5/V6] PROBABLE INFERIOR MYOCARDIAL INFARCTION , OF INDETERMINATE AGE [35 ms Q WAVE IN II/aVF] ABNORMAL ECG UNCONFIRMED REPORT Electronically signed by : ELZBIETA VILLEDA, 10/16/2024 23:42:24
--- NOTE | 2024-10-16 03:32 | XR_ITS ---
PROCEDURE INFORMATION: Exam: XR Chest Exam date and time: 10/16/2024 3:38 AM Age: 59 years old Clinical indication: Other: Svt, recent cabg TECHNIQUE: Imaging protocol: Radiologic exam of the chest. Views: 1 view. COMPARISON: CR XR CHEST PORTABLE 09/11/2024 1:39 PM FINDINGS: Lungs: Unremarkable. No consolidation. Pleural spaces: Elevation right hemidiaphragm. No pleural effusion. No pneumothorax. Heart/Mediastinum: Unremarkable. No cardiomegaly. Postsurgical change median sternotomy. Bones/joints: Unremarkable. IMPRESSION: No acute findings.
--- NOTE | 2024-10-16 03:34 | ED_ITS ---
Discharge Plan Disposition Patient Disposition: Home, Self-Care Prescriptions Prescriptions: No Action metformin 500 mg tablet 500 mg PO DAILY Patient Comments: TAKE 1 TABLET BY MOUTH ONCE DAILY albuterol sulfate 2.5 mg /3 mL (0.083 %) solution for nebulization 2.5 mg inhalation Q4HP PRN (Reason: Shortness Of Breath Or Wheezing) Patient Comments: USE 1 VIAL IN NEBULIZER EVERY 4 TO 6 HOURS omeprazole 40 mg capsule,delayed release(DR/EC) 40 mg PO DAILY Patient Comments: TAKE 1 CAPSULE BY MOUTH ONCE DAILY estradiol 2 mg tablet 2 mg PO DAILY Patient Comments: TAKE 1 TABLET BY MOUTH ONCE DAILY albuterol sulfate 90 mcg/actuation HFA aerosol inhaler 2 puff INHALATION Q6HP PRN (Reason: Shortness Of Breath Or Wheezing) Patient Comments: INHALE 2 PUFFS BY MOUTH EVERY 6 HOURS olmesartan 40 mg tablet 40 mg PO DAILY Patient Comments: TAKE 1 TABLET BY MOUTH ONCE DAILY thyroid (pork) [COUNTY ORDINARY Thyroid] 30 mg tablet 30 mg PO DAILY Patient Comments: TAKE 1 TABLET BY MOUTH ONCE DAILY fluticasone propion-salmeterol 113-14 mcg/actuation aerosol powdr breath activated 1 puff INHALATION BID Patient Comments: INHALE 1 PUFF TWICE DAILY IV with Additives Heparin Sodium,Porcine/D5w [Heparin 25,000 units in D5W 500mL premix] 500 ML 1000 units/hr IV Ordered By: Oni Nesbitt MD Last Taken: Unknown IV with Additives Nitroglycerin in 5 % Dextrose [Nitroglycerin 50mg/250mL D5W] 250 ML 10 mcg/min IV Ordered By: Oni Nesbitt MD Last Taken: Unknown Protocol: Nitroglycerin IV drip Condition: Initial dose Dose/Route: 5 mcg/min Instruction: 1.5 ml/hr Condition: Titrate by: Dose/Route: 5 mcg/min (1.5ml/hr) Instruction: Every 3 to 5 min Condition: @20mcg/min, Titrate by: Dose/Route: 10mcg/min (3ml/hr) Instruction: Every 3 to 5 min Condition: Maximum dose Dose/Route: 200 mcg/min Instruction: 60 ml/hr Protocol Text: Conc.= 200 mcg/ml Desired Titration Parameters SBP<160 Referrals Follow up/Referrals: Provider,Referral, [Primary Care Provider] - See instructions Activity Restrictions/Add. Instructions Additional Instructions/Restrictions: Please follow-up with your cardiology team and primary care doctor. Please return to the emergency department if you develop any new or worsening symptoms or become concerned for your health. Clinical Impressions Clinical Impression: Paroxysmal supraventricular tachycardia Print Language Print Language: Northern Irish Discharge ED Provider: Pavan Bess General Adult HPI General Chief complaint: Arrhythmia/Palpitations Stated complaint: racing heart Time Seen by Provider: 10/16/24 03:34 History of Present Illness HPI narrative: 59-year-old female with history of recent 5 vessel CABG presents for tachycardia. She reports that her heart has been racing since 6 PM yesterday, approximately 10 hours ago. She reports no chest pain or shortness of breath. She reports that she is been eating and drinking normally. Denies any fever chills or systemic symptoms. She reports that she has had some tachycardia in the past but this is faster and longer than normal. Related Data Home Medications ?Medication ?Instructions ?Recorded ?Confirmed albuterol sulfate 2.5 mg/3 mL 2.5 mg inhalation Q4HP PRN 09/11/24 09/12/24 (0.083 %) solution for nebulization Shortness Of Breath Or Wheezing albuterol sulfate 90 mcg/actuation 2 puff inhalation Q6HP PRN 09/11/24 09/11/24 aerosol inhaler Shortness Of Breath Or Wheezing estradiol 2 mg tablet 2 mg PO DAILY 09/11/24 09/11/24 fluticasone 113 mcg-salmeterol 14 1 puff inhalation BID 09/11/24 09/11/24 mcg/actuation breath activated powdr metformin 500 mg tablet 500 mg PO DAILY 09/11/24 09/11/24 olmesartan 40 mg tablet 40 mg PO DAILY 09/11/24 09/11/24 omeprazole 40 mg capsule,delayed 40 mg PO DAILY 09/11/24 09/11/24 release thyroid (pork) 30 mg tablet (COUNTY ORDINARY 30 mg PO DAILY 09/11/24 09/11/24 Thyroid) Previous Rx's ?Medication ?Instructions ?Recorded IV with Additives 1,000 units/hr IV 09/12/24 IV with Additives 10 mcg/min IV 09/12/24 Allergies Allergy/AdvReac Type Severity Reaction Status Date / Time No Known Allergies Allergy Verified 09/11/24 13:32 [facility] Disclaimer: The information contained in this section may have been updated after the patient was seen, as this information can be updated by other users. Medical History (Updated 10/16/24 @ 04:30 by Pavan Bess MD) Asthma Bronchitis Pneumonia Migraine Hypothyroid Diabetes mellitus, type 2 Carpal tunnel syndrome on left Surgical History H/O: hysterectomy History of tonsillectomy History of cholecystectomy Gastric bypass status for obesity Family History Other Asthma Diabetes Heart failure Social History Smoking Status: Never smoker alcohol intake: never current occupational status: other Travel in the last 8 weeks?: None Have you lived/traveled outside US in past 30 days?: No Contact w/someone who lives/traveled outside US past 30 days?: No Exposure to someone with infectious disease in past 14 days?: No Do you have a fever (greater than 100.4 F or 38 C)?: No Have you tested positive for COVID-19?: No Exposed to someone with COVID-19 in past 14 days?: No Do you have a sore throat?: No Do you have a cough?: No Do you have any weakness?: No Do you have any diarrhea?: No Are you experiencing any unusual bleeding?: No Do you have any muscle aches/pain?: No Do you have any abdominal pain?: No Are you experiencing loss of taste or smell?: No Other Medical History Have you received the Flu Vaccine for this season: No Have you received the Pneumonia Vaccine: No ROS Obtained: Yes All systems reviewed & no additional complaints except as documented Physical Exam General General appearance: alert and in no apparent distress Head Head exam: atraumatic and normocephalic Eye Eye exam: Present normal appearance, PERRL and EOMI ENT ENT exam: Present normal oropharynx and normal external ear exam Neck Neck exam: Present normal inspection and full ROM Chest Chest inspection: Present symmetric chest wall rise and other (Healing incision); Absent tenderness Respiratory Respiratory exam: Present normal lung sounds bilaterally; Absent respiratory distress Cardiovascular Cardiovascular exam: Present tachycardia Abdominal Exam Abdominal exam: Present soft; Absent distention, tenderness or guarding Extremities Exam Extremities exam: Present normal inspection; Absent edema or joint swelling Back Exam Back exam: Present normal inspection; Absent tenderness Neurological Exam Neurological exam: Present alert and oriented X3; Absent motor sensory deficit Psychiatric Psychiatric exam: Present normal affect and normal mood Skin Skin exam: Present warm, dry and normal color Lymphatic Lymphatic Findings: no adenopathy Medical Decision Making Medical Records Medical records reviewed: Yes I reviewed the patient's medical records. Screening: Per USPSTF and CDC recommendations, given the prevalence of disease in our region, it is our hospital?s policy to screen for HIV and viral Hepatitis for all patients aged 18 and over and those with ongoing risk factors. Hernán Inquiry Pt receiving controlled substance: No Hernán was queried for this patient: No Vital Signs: 10/16/24 03:20 10/16/24 04:00 10/16/24 04:42 Temperature 97.7 F 98 F Temperature Source Oral Pulse Rate 103 H 103 H Pulse Rate [Radial] 168 H Respiratory Rate 16 11 L 16 Blood Pressure 141/101 H 164/86 H Blood Pressure [Right Arm] 163/134 H Blood Pressure Mean [Right Arm] 143 Blood Pressure Position Sitting Blood Pressure Position [Right Arm] Sitting 02 Sat by Pulse Oximetry 94 L 96 Oxygen Delivery Method Room Air Room Air Lab Data Lab results reviewed: Yes I reviewed the patient's lab results. Lab Results 10/16/24 03:25: WBC 10.5, RBC 3.99 L, Hgb 10.5 L, Hct 33.4 L, MCV 83.7, MCH 26.3 L, MCHC 31.4 L, RDW 15.9, Plt Count 536 H, MPV 9.7, Neut % (Auto) 51.2, Lymph % (Auto) 25.7, [place] % (Auto) 7.3, Eos % (Auto) 14.5 H, Baso % (Auto) 1.1, Neut # (Auto) 5.4, Lymph # (Auto) 2.7, [place] # (Auto) 0.8, Eos # (Auto) 1.5 H, Baso # (Auto) 0.1, Sodium 138, Potassium 3.3 L, Chloride 105, Carbon Dioxide 26, Anion Gap 10.3, BUN 17, Creatinine 0.80, Estimated Creat Clear 40, Estimated GFR 73, Est GFR ( Amer) 88, Glucose 156 H, Calcium 9.3, Magnesium 1.5 L, Total Bilirubin 0.4, AST 39 H, ALT 32, Alkaline Phosphatase 81, Troponin I 0.01, Total Protein 7.1, Albumin 4.2, Globulin 2.9, Albumin/Globulin Ratio 1.4 10/16/24 03:25 10/16/24 03:25 Orders (Tests/Meds): ED MEDICATIONS Discontinued Medications Generic Name Dose Route Start Last Admin Trade Name Freq PRN Reason Stop Dose Admin Magnesium Sulfate 2 gm in 50 mls @ 150 mls/hr 10/16/24 03:44 10/16/24 04:04 Magnesium Sulfate 2gm/50ml Premix IV 10/16/24 04:03 150 mls/hr ONCE ONE Administration Potassium Chloride 40 meq 10/16/24 03:44 10/16/24 04:05 Potassium Chloride 20meq Tab PO 10/16/24 03:45 40 meq ONCE ONE Administration ORDERS Category Date Time Status CXR --portable [XR chest portable] Stat Exams 10/16/24 03:32 Completed CBC w/Auto Diff [Complete Blood Count Auto Diff] Stat Lab 10/16/24 03:25 Completed CMP [Comprehensive Metabolic Panel] Stat Lab 10/16/24 03:25 Completed Magnesium Stat Lab 10/16/24 03:25 Completed Troponin I Q3H Lab 10/16/24 03:25 Completed ECG Data Tracing #1: I reviewed this ECG and interpreted as documented below: SVT with ventricular rate of 160. Less than [address] depression in the high lateral leads. Relatively low voltage QRS. ECG initial impression date: 10/16/24 ECG initial impression time: 03:21 Tracing #2: I reviewed this ECG and interpreted as documented below: Sinus tachycardia with ventricular rate of 118. Occasional PVCs noted. No significant ST changes. Previously noted SVT is resolved. ECG initial impression date: 10/16/24 ECG initial impression time: 03:28 HEART Score History (anamnesis): Slightly suspicious ECG: Non-specific disturbance Age: 45-65 years Risk factors: Atherosclerosis history Troponin: </= normal limit HEART Score: 4 Medical Decision Narrative: 59-year-old female with history of 5 vessel CABG 3 weeks ago presents for tachycardia. Found to be in SVT on arrival.. History was obtained via interactive discussion with patient, chart review. On arrival, patient is [afebrile, normotensive, satting appropriately, alert, oriented x4, GCS 15], moving all extremities spontaneously. Full physical exam performed and significant for no significant physical exam abnormalities besides SVT with rate of 160. Vagal maneuvers were performed with successful return to sinus tachycardia with rate of 118. Differential includes but is not limited to SVT, A-fib RVR, electrolyte derangement, NSTEMI.. Workup initiated including CBC CMP mag troponin EKG chest x-ray. On re-evaluation, patient [remains afebrile, HD stable.] Remains in sinus rhythm and completely asymptomatic. Laboratory workup independently interpreted by me and significant for mild hypokalemia and hypomagnesemia which were repleted p.o. and IV respectively, negative initial troponin (since she was in an abnormal rhythm for the last 10 or so hours, I do not think a second troponin was indicated).. Imaging independently interpreted by me and significant for clear lungs bilaterally without focal opacity.. See radiology read for full review of final results. Admission was considered, but deemed unnecessary due to negative, normal vital signs. Given patient history, exam and workup, patient's presentation most likely represents paroxysmal SVT that resolved with vagal maneuvers. Patient was instructed to follow-up with her team for further assessment. Strict return precautions given. Procedures Risk/Benefits of Procedure(s) Were Explained: Yes Critical Care Critical Care Time Critical Care Time: Yes Attestation: On 10/16/24, the high probability of a clinically significant, sudden or life threatening deterioration of the following system(s) required my full and direct attention, intervention and personal management. The time I documented below is in addition to time spent performing reported procedures but includes the following listed in this critical care notation. Total Time Total Critical Care Time: 45
[2024-10-16 03:38] LABS: Basophils # 0.1 K/mm3 (0-0.2); Basophils % 1.1 % (0.1-2.0); Eosinophils # 1.5 Kmm3 (0.0-0.4); Eosinophils % 14.5 % (0.1-12.0); Hematocrit 33.4 % (37.0-47.0); Hemoglobin 10.5 g/dL (12.2-16.2); Immature Granulocytes # 0.02 10^3uL; Immature Granulocytes % 0.2 %; Lymphocytes # 2.7 K/mm3 (0.7-4.5); Lymphocytes % 25.7 % (10-50); Mean Corpuscular HGB Conc 31.4 g/dL (31.8-35.4); Mean Corpuscular Hemoglobin 26.3 pg (27.0-31.2); Mean Corpuscular Volume 83.7 fl (81-99); Mean Platelet Volume 9.7 fl (7.4-10.4); Monocytes # 0.8 K/mm3 (0.1-1.0); Monocytes % 7.3 % (1.7-9.3); Neutrophils # 5.4 K/mm3 (1.8-7.8); Neutrophils % 51.2 % (37.0-80.0); Nucleated Red Blood Cells # 0 10^3/uL; Nucleated Red Blood Cells % 0 %; Platelet Count 536 K/mm3 (142-424); Red Blood Count 3.99 M/mm3 (4.20-5.40); Red Cell Distribution Width 15.9 % (11.5-17.5); Red Cell Distribution Width-SD 47.9 fL; White Blood Count 10.5 K/mm3 (4.8-10.8)
[2024-10-16 03:39] LABS: Albumin Level 4.2 g/dl (3.5-5.0); Chloride 105 mmol/L (98-107); Potassium 3.3 mmoL/L (3.5-5.1); Sodium 138 mmol/L (136-145)
--- NOTE | 2024-10-16 03:40 | PC.NURSE ---
7852 vagel maneuver complete with this RN, Fanny Ferreira, Pavan Bess at bedside with successful conversion to sinus tach
[2024-10-16 03:42] LABS: Alanine Aminotransferase 32 U/L (12-78); Albumin/Globulin Ratio 1.4 (1.1-1.8); Alkaline Phosphatase 81 U/L (38-126); Anion Gap 10.3 mEq/L (5-15); Aspartate Amino Transferase 39 U/L (14-36); Bilirubin,Total 0.4 mg/dl (0.2-1.3); Blood Urea Nitrogen 17 mg/dl (7-17); Calcium 9.3 mg/dl (8.4-10.2); Carbon Dioxide 26 mmol/L (22.0-30.0); Creatinine Clearance Estimated 40 mL/min (50-200); Estimated Glomerular Filt Rate 73 ml/min (>60); GFR (African American) 88 ML/MIN (>60); Globulin 2.9 g/dL (1.3-3.2); Glucose 156 mg/dl (74-100); Total Protein,Serum 7.1 g/dl (6.3-8.2)
[2024-10-16 03:43] LABS: Magnesium 1.5 mg/dl (1.6-2.3)
[2024-10-16 04:00] VITALS: BP 141/101; PULSE 103; RESP 11; O2SAT 96
[2024-10-16 04:00] LABS: Troponin I 0.01 ng/ml (0.00-0.034)
[2024-10-16] MEDS: MAGNESIUM SULFATE IN WATER 2 GM/50 ML PIGGYBACK IV (04:04)
[2024-10-16] MEDS: POTASSIUM CHLORIDE 20MEQ TAB 40 MEQ PO (04:05)
[2024-10-16 04:42] VITALS: BP 164/86; PULSE 103; RESP 16; TEMP 36.6; O2SAT 94
== END 2024-10-16 04:43 | disposition home or self-care (01) ==
PROVIDERS: Emergency Provider Emergency Medicine
DX: I47.10 Supraventricular tachycardia, unspecified (principal); E87.6 Hypokalemia; E83.42 Hypomagnesemia; I10 Essential (primary) hypertension
CPT/HCPCS: 71045; 80053; 83735; 84484; 85025; 93005; 96365; 96366; 99291; J3475

== ENCOUNTER 2024-11-28 18:00 | Inpatient (IN) | payer BC, SELFPAY ==
--- OUTSIDE RECORDS SUMMARY | 2024-11-01 08:35 | XMS_ITS | Encounter Summary ---
Author Organization Healthcare Address [address] [place] [address] Care Team Providers Care Miniature Set Builder Name Role Phone Morena Williamson Primary Care Provider [phone] Encounter Details Date Type Department Care Team (Latest Contact Info) Description 11/01/2024 8:35 AM EDT - 11/01/2024 11:59 PM EDT [facility] Encounter [place] [facility] [address] [place] [id number] Coronary artery disease of [place] artery of [place] heart with stable angina pectoris ([facility]) Discharge Disposition: Home or Self Care Social History Tobacco Use Types Packs/Day Years Used Date Smoking Tobacco: Never Smokeless Tobacco: Never Alcohol Use Standard Drinks/Week Comments Never 0 (1 standard drink = 0.6 oz pur e alcohol) Humiliation, Afraid, Rape, and Kick questionnair e Answer Date Recorded Within the last year, have y ou been afraid of your partner or ex-partner? No 09/13/2024 Within the last year, have y ou been humiliated or emotionally abused in other ways by your partner or ex-partner? No Within the last year, have y ou been kicked, hit, slapped, or otherwise physically hurt by your partner or ex-partner? No 09/13/2024 Within the last year, have y ou been raped or forced to have any kind of sexual activity by your partner or ex-partner? No 09/13/2024 Social Connection and Isolation Panel Answer Date Recorded In a typical week, how many times do you talk on the phone with family, friends, or neighbors? More than three times a week 09/13/2024 How often do you get togethe r with friends or relatives? More than three times a week 09/13/2024 How often do you attend chur ch or pentecostalism services? Never 09/13/2024 Do you belong to any clubs o r organizations such as holiness groups, unions, fraternal or athletic groups, or school groups? No 09/13/2024 How often do you attend meet ings of the clubs or organizations you belong to? Never 09/13/2024 Are you , , di vorced, , never , or living with a partner? 09/13/2024 AUDIT-C Answer Date Recorded Q1: How often do you have a drink containing alcohol? Never 09/13/2024 Q2: How many drinks containi ng alcohol do you have on a typical day when you are drinking? Patient does not drink Q3: How often do you have si x or more drinks on one occasion? Never 09/13/2024 Overall Financial Resource Strain (CARDIA) Answe r Date Recorded How hard is it for you to pa y for the very basics like food, housing, medical care, and heating? Not very hard 09/13/2024 PHQ-2 Answer Date Recorded Patient Health Questionnaire-2 Score 1 09/13/2024 [facility] - Occupational Stress Questionnaire Answer Date Recorded Do you feel stress - tense, restless, nervous, or anxious, or unable to sleep at night because your mind is troubled all the time - these days? Only a little 09/13/2024 Exercise Vital Sign Answer Date Recorde d On average, how many days pe r week do you engage in moderate to strenuous exercise (like a brisk walk)? 7 days 09/13/2024 On average, how many minutes do you engage in exercise at this level? 20 min 09/13/2024 Hunger Vital Sign Answer Date Recorded Within the past 12 months, y ou worried that your food would run out before you got the money to buy more. Never true 09/14/19 25 Within the past 12 months, t he food you bought just didn't last and you didn't have money to get more. Never true 09/13/2024 PRAPARE - Transportation Answer Date Re corded In the past 12 months, has l ack of transportation kept you from medical appointments or from getting medications? No 01/2025 In the past 12 months, has l ack of transportation kept you from meetings, work, or from getting things needed for daily living? No 09/13/2024 PHQ-9 Answer Date Recorded Patient Health Questionnaire-9 Score 2 09/13/2024 Housing Stability Vital Sign Answer Manish e Recorded In the last 12 months, was t here a time when you were not able to pay the mortgage or rent on time? No 09/13/2024 Number of Times Moved in the Last Year Not on fi le 09/13/2024 At any time in the past 12 m [facility], were you homeless or living in a [place] [facility] [place] facility (including now)? No 09/13/2024 Utilities Answer Date Recorded In the past 12 months has th e [employer], gas, oil, or water company threatened to shut off services in your home? No 09/13/2024 Comments No Sex and Gender Information Value Date Recorded Sex Assigned at Not on file Legal Sex Female 8:55 PM EDT Gender Identity Not on file Sexual Orientation Not on file documented as of this encounter Medications at Time of Discharge albuterol 108 (90 Base) MCG/ACT inhaler Inhale 2 puffs every 4 to 6 hours as needed. aspirin 81 MG EC tablet Take 1 tablet by mouth every evening. atorvastatin (Lipitor) 80 MG tablet Take 1 tablet by mouth nightly. 90 tablet 09/24/2024 coenzyme Q-10 100 MG capsule Take 1 capsule by mouth every evening. estradiol (Estrace) 2 MG tablet Take 1 tablet by mouth every evening. Fluticasone-Salme terol 113-14 MCG/ACT aerosol powder Inhale 1 puff daily. metFORMIN (Glucophage) 500 MG tablet Take 1 tablet by mouth every evening. methocarbamol (Robaxin) 750 MG tablet Take 1 tablet by mouth 4 (four) times a day. 30 tablet 09/24/2024 metoprolol tartrate (Lopressor) 25 MG tablet Take 1 tablet by mouth 2 (two) times a day. 180 tablet 09/24/2024 multivitamin (Theragran-M) tablet Take 1 tablet by mouth every evening. naproxen sodium (Anaprox) 550 MG tablet Take 1 tablet by mouth 2 times a day. omeprazole (PriLOSEC) [address] capsule TAKE 1 CAPSULE BY MOUTH ONCE DAILY FOR 30 MINUTES PRIOR TO MORNING MEAL thyroid (Niva Thyroid) 30 MG tablet Take 1 tablet by mouth every evening. Vitamins-Lipotrop ics (Lipoflavonoid) tablet Take 1 tablet by mouth every evening. documented as of this encounter Plan of Treatment Not on file documented as of this encounter Procedures Procedure Name Priority Date/Time Associated Diagnosis Comments XR CHEST 2 VIEWS Routine 11/01/2024 8:44 AM EDT Coronary artery disease of [place] artery of [place] tribe heart with stable angina pectoris ([facility]) documented in this encounter Results * XR Chest 2 Views (11/01/2024 8:44 AM EDT) Anatomical Region Laterality Modality Chest Digital Radiogra phy Impressions 11/01/2024 12:02 PM EDT No acute findings. CRITICAL RESULT: No. COMMUNICATION: Per this written report. By electronically signing this report, I, the attending physician, attest that I have personally reviewed the images/data for the above examination(s) and agree with the final edited report. Drafted by Toby Mckeon MD on 11/01/2024 9:51 AM Final report signed by Hira Steel MD on 11/01/2024 12:02 PM Narrative 11/01/2024 12:02 PM EDT CLINICAL INDICATION: cad TECHNIQUE: XR CHEST 2 VIEWS COMPARISON: September 24, 2024 FINDINGS: Stable cardiomediastinal silhouette. No new consolidation. No pneumothorax or pleural effusion. Procedure Note Hira Steel MD - 11/01/2024 CLINICAL INDICATION: cad TECHNIQUE: XR CHEST 2 VIEWS COMPARISON: September 24, 2024 FINDINGS: Stable cardiomediastinal silhouette. No new consolidation. No pneumothoraxor pleural effusion. IMPRESSION: No acute findings. CRITICAL RESULT: No. COMMUNICATION: Per this written report. By electronically signing this report, I, the attending physician, attestthat I have personally reviewed the images/data for the aboveexamination(s) and agree with the final edited report. 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
--- OUTSIDE RECORDS SUMMARY | 2024-11-01 08:35 | XMS_ITS | Encounter Summary ---
Author Organization Healthcare Address [address] [place] [address] Care Team Providers Care [employer] Name Role Phone Morena Williamson Primary Care Provider [phone] Encounter Details Date Type Department Care Team (Latest Contact Info) Description 11/01/2024 8:35 AM EDT - 11/01/2024 11:59 PM EDT [facility] Encounter [facility] [address], [address] [place] [phone] Coronary artery disease of [place] artery of [place] heart with stable angina pectoris ([facility]) Discharge Disposition: Home or Self Care Social [...] often do you attend chur ch or islam services? Never 09/13/2024 Do you belong to any clubs o r organizations such as mormon groups, unions, fraternal or athletic groups, or [...] Recorded Patient Health Questionnaire-2 Score 1 09/13/2024 [facility] - Occupational Stress [...] any time in the past 12 m [facility], were you homeless or living in a correction (including now)? No 09/13/2024 Utilities Answer Date Recorded In the past 12 months has th e [employer], gas, oil, or water company threatened to [...] 8:44 AM EDT Coronary artery disease of [place] artery of [place] heart with stable angina pectoris ([facility]) documented in this encounter Results * XR [...] Visit Diagnoses Diagnosis Coronary artery disease of [place] artery of [place] heart with stable angina pectoris (CMS/HCC) documented [...] documented as of this encounter Care Teams [employer] Relationship Specialty Start Date End Date Morena Williamson DO [address] [place] [address] PCP - General 08/13/24 documented as of this encounter
--- OUTSIDE RECORDS SUMMARY | 2024-11-01 09:45 | XMS_ITS | Encounter Summary ---
Author Organization Healthcare Address [address] 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 Never 09/13/2024 Do you belong to any clubs o r organizations such as latter day groups, unions, fraternal or athletic groups, or [...] Recorded Patient Health Questionnaire-2 Score 1 09/13/2024 [facility] - Occupational Stress [...] any time in the past 12 m [facility], were you homeless or living in a assisted (including now)? No 09/13/2024 Utilities Answer Date Recorded In the past 12 months has th e electric, gas, oil, or water company threatened to shut off services in your home? No 09/13/2024 Comments No Sex and Gender Information Value Date Recorded Sex Assigned at Not on file Legal Sex Female 8:55 PM EDT Gender Identity Not on file Sexual Orientation Not on file documented as of this encounter Last Filed Vital Signs Vital Sign Reading Time Taken Comments Blood Pressure 150/101 11/01/2024 9:24 AM EDT Pulse 110 11/01/2024 9:24 AM EDT Temperature - - Respiratory Rate - - Oxygen Saturation 97% 11/01/2024 9:24 AM EDT Inhaled Oxygen Concentration - - Weight 96.9 kg (213 lb 10 oz) 11/01/2024 9:24 AM EDT Height - - Body Mass Index 43.15 09/12/2024 9:35 PM EDT documented in this encounter Miscellaneous Notes * Progress Notes - Mai Ceballos MD - 11/01/2024 9:45 AM EDT Reason for visit / Chief Complaint: Post-operative visit History of present illness: Catina Parker is a 59 y.o. female with NSTEMI, mvCAD, HTN, obesity (BMI 43), SHAHEED, anemia, COPD, asthma, and HLD, s/p CABG x5 (JC to LAD, RSV to OM, RSV to D, RSV to PDA to PL sequentially) and BLE ASIFVDeisy presents for post-operative visit. She is doing very well. She went to the ED in [facility] on Mother's day that broke using a Valsalva maneuver. She says her heart rate went up to 150s- 160s while in SVT. She has been eating welland BP well controlled with SBP 479u=333x with a few recordings in 160s since surgery. She is on asa, atorvastatin , and metoprolol. She has been increasing her activity during the week and around the house. She has no complaints of pain. She is scheduled to see her finance advisor in [place] in November and cardiac rehab reached out to her but she will call them back. She has not yet made an appointment with her PCP. Medical History Past Medical History: Diagnosis Date H/O: pneumonia 09/13/2024 Hypercholesteremia 09/13/2024 Hypertriglyceridemia 09/13/2024 On mechanically assisted ventilation ([facility]) 09/19/2024 - arrived intubated post-op - fast track extubation as able Surgical History Surgical History[1] Social History: Tobacco: Tobacco Use: Low Risk (11/01/2024) Patient History Smoking Tobacco Use: Never Smokeless Tobacco Use: Never Passive Exposure: Not on file Alcohol: Alcohol Use: Not At Risk (09/13/2024) AUDIT-C Frequency of Alcohol Consumption: Never Average Number of Drinks: Patient does not drink Frequency of Binge Drinking: Never Illicit drug use: Social History Substance and Sexual Activity Drug Use Never Family History: family history is not on file. Allergies: Allergies[2] Medications: Prior to Admission medications Medication Sig Start Date End Date Taking? Authorizing Provider albuterol 108 (90 Base) MCG/ACT inhaler Inhale 2 puffs every 4 to 6 hours as needed. Yes Stacey Strickland MD aspirin 81 MG EC tablet Take 1 tablet by mouth every evening. Yes Stacey Strickland MD atorvastatin (Lipitor) 80 MG tablet Take 1 tablet by mouth nightly. 09/24/24 Yes Herman Childers PA coenzyme Q-10 100 MG capsule Take 1 capsule by mouth every evening. Yes Stacey Strickland MD estradiol (Estrace) 2 MG tablet Take 1 tablet by mouth every evening. Yes Provider Historical, MD Fluticasone-Salmeterol 113-14 MCG/ACT aerosol powder Inhale 1 puff daily. Yes Stacey Strickland MD metFORMIN (Glucophage) 500 MG tablet Take 1 tablet by mouth every evening. Yes Stacey Strickland MD methocarbamol (Robaxin) 750 MG tablet Take 1 tablet by mouth 4 (four) times a day. 09/24/24 Yes Herman Childers PA metoprolol tartrate (Lopressor) 25 MG tablet Take 1 tablet by mouth 2 (two) times a day. 09/24/24 Yes Herman Childers PA multivitamin (Theragran-M) tablet Take 1 tablet by mouth every evening. Yes Stacey Strickland MD omeprazole (PriLOSEC) [address] capsule TAKE 1 CAPSULE BY MOUTH ONCE DAILY FOR 30 MINUTES PRIOR TO MORNING MEAL Yes Stacey Strickland MD thyroid (Niva Thyroid) 30 MG tablet Take 1 tablet by mouth every evening. Yes Stacey Strickland MD Vitamins-Lipotropics (Lipoflavonoid) tablet Take 1 tablet by mouth every evening. Yes Stacey Strickland MD naproxen sodium (Anaprox) 550 MG tablet Take 1 tablet by mouth 2 times a day. ProviderStacey MD Review of systems: ROS Visit Vitals BP (!) 150/101 Pulse 110 SpO2 97% Physical exam: GENERAL: WD, WN, NAD. EYES: No scleral icterus or conjunctivitis HENT: Atraumatic, normocephalic, nares patent, mucus membranes moist NECK: Supple, no JVD, no evidence of bruit bilaterally RESP/CHEST: Symmetric expansion; non labored. CTA bilaterally. Sternum Stable CARD: RRR, S1/S2 distinct. No murmur, rubs, or gallop. cap refill < 2 secs Extremities: No edema. No cyanosis or clubbing. Pedal pulses palpable +2. GI: No organomegaly or masses. Soft, Nontender, nondistended. BS present and normoactive x 4 quadrants SKIN: No rash, sores, lesions or subcutaneous nodules. Midsternal incision CDI NEURO: AAOx3. Motor intact and no focal deficits PSYCH: Mood and affect congruent and appropriate to situation. Sternal Incision: well-healing Leg Incission: well-healing wihtout sings infection Labs in last 18 hours CBC WBC 11.80 (H) Hb 10.1 (L) Plt 684 (H) Hct 34.0 ANC ?? INR ??, PTT ??, Anti-Xa ?? BMP Na ?? Cl ?? BUN ?? Glu ?? K ?? Co2 ?? Cr ?? Ca ?? iCa ?? Mg ??, Phos ?? Lactate ?? LFT AST ?? AlkPhos ?? T Prot ?? ALK ?? Bili ?? Alb ?? D.Bili ?? Impression: 59 y.o. female with NSTERMI, mvCAD, HTN, obesity (BMI 43), SHAHEED, anemia, COPD, asthma, and HLD, s/p CABG x5 (JC to LAD, RSV to OM, RSV to D, RSV to PDA to PL sequentially) and BLE ESVH presents for post-operative visit. She is doing very well. She went to the ED in [facility] on Mother's day that broke using a Valsalva maneuver. She says her heart rate went up to 150s- 160s while in SVT. She has been eating welland BP well controlled with SBP 969k=[id number] with a few recordings in 160s since surgery. She is on asa, atorvastatin , and metoprolol. She has been increasing her activity during the week and around the house. She has no complaints of pain. She is scheduled to see her finance advisor in [place] in November and cardiac rehab reached out to her but she will call them back. She has not yet made an appointment with her PCP. 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 ([facility]) Expected: 11/01/2024, Expires: 10/28/2025 Magnesium, Plasma Lab Routine 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 ([facility]) Expected: 11/01/2024 (Approximate), Expires: 05/04/2026 documented as of this encounter Results * (ABNORMAL) Basic Metabolic Panel, Plasma (11/01/2024 8:54 AM EDT) Glucose, Plasma 134(H) 74 - 99 mg/dL 11/01/2024 10:32 AM EDT [facility] BUN, Plasma 16 8 - 23 mg/dL 11/01/2024 10:32 AM EDT [facility] Creatinine, Plasma 0.81 0.60 - 1.10 mg/dL 11/01/2024 10:32 AM EDT [facility] BUN/Creatinine Ratio 20 11/01/2024 10:32 AM EDT [facility] Sodium, Plasma 140 136 - 145 mmol/L 11/01/2024 10:32 AM EDT [facility] Potassium, Plasma 3.1(L) 3.6 - 4.9 mmol/L 11/01/2024 10:32 AM EDT [facility] Chloride, Plasma 100 97 - 107 mmol/L 11/01/2024 10:32 AM EDT [facility] CO2, Plasma 25 22 - 29 mmol/L 11/01/2024 10:32 AM EDT [facility] Anion Gap 15 6 - 16 mmol/L 11/01/2024 10:32 AM EDT [facility] Total Calcium, Plasma 9.6 8.9 - 10.2 mg/dL 11/01/2024 10:32 AM EDT [facility] eGFRcr 82.7 mL/min/1.7 3m*2 11/01/2024 10:32 AM EDT [facility] Comment:Reported eGFRcr in m L/min/1.73m2 is based the CKD-EPI 2020 equation that does not use a race coefficient. Blood Venous blood specimen / Unknown Venipuncture / Unknown 11/01/2024 8:54 AM EDT 11/01/2024 8:54 AM EDT us Mai Ceballos MD LAB BLOOD ORDERABLES Silva l Result [facility] [address] [place] [address] * (ABNORMAL) CBC W/O Differential (11/01/2024 8:54 AM EDT) WBC Count 11.80(H) 3.70 - 10.30 10*3/uL LAB HEMATOLOGY METHOD 11/01/2024 9:38 AM EDT [facility] RBC Count 4.10 3.90 - 5.20 10*6/uL LAB HEMATOLOGY METHOD 11/01/2024 9:38 AM EDT [facility] HGB 10.1(L) 11.2 - 15.7 g/dL LAB HEMATOLOGY METHOD 11/01/2024 9:38 AM EDT [facility] HCT 34.0 34.0 - 45.0 % LAB HEMATOLOGY METHOD 11/01/2024 9:38 AM EDT [facility] Platelet Count 684(H) 155 - 369 10*3/uL LAB HEMATOLOGY METHOD 11/01/2024 9:38 AM EDT [facility] MCV 83 79 - 98 fL LAB HEMATOLOGY METHOD 11/01/2024 9:38 AM EDT [facility] MCH 24.6(L) 26.0 - 32.0 pg LAB HEMATOLOGY METHOD 11/01/2024 9:38 AM EDT [facility] MCHC 29.7(L) 30.7 - 35.5 g/dL LAB HEMATOLOGY METHOD 11/01/2024 9:38 AM EDT [facility] RDW 16.7(H) 11.5 - 14.5 % LAB HEMATOLOGY METHOD 11/01/2024 9:38 AM EDT [facility] MPV 10.3 8.8 - 12.5 fL LAB HEMATOLOGY METHOD 11/01/2024 9:38 AM EDT [facility] nRBC 0.0 <=0.0 per 100 WBCs LAB HEMATOLOGY METHOD 11/01/2024 9:38 AM EDT [facility] Blood Venous blood specimen / Unknown Venipuncture / Unknown 11/01/2024 8:54 AM EDT 11/01/2024 8:54 AM EDT us Mai Ceballos MD LAB BLOOD ORDERABLES Silva l Result [facility] [address] [place] [address] * XR Chest 2 Views (11/01/2024 8:44 [...] Steel MD on 11/01/2024 12:02 PM Mai Ceballos MD IMG XR PROCEDURES Final R esult documented in this encounter Visit Diagnoses Diagnosis 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
--- OUTSIDE RECORDS SUMMARY | 2024-11-01 09:45 | XMS_ITS | Encounter Summary ---
Author Organization Healthcare Address [address] 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 Never 09/13/2024 Do you belong to any clubs o r organizations such as worship groups, unions, fraternal or athletic groups, or [...] Recorded Patient Health Questionnaire-2 Score 1 09/13/2024 [facility] Occupat ional Health - [...] any time in the past 12 m [facility], were you homeless or living in a group home (including now)? No 09/13/2024 Utilities Answer Date [...] COPD, asthma, and HLD, s/p CABG x5 (CJ to LAD, RSV to OM, RSV to D, RSV to PDA to PL sequentially) and BLE ASIFVDeisy presents for post-operative visit. She is doing very well. She went to the ED in [facility] on Mother's day that broke using a Valsalva maneuver. She says her heart rate went up to 150s- 160s while in SVT. She has been eating welland BP well controlled with SBP 607v=926x with a few recordings in 160s since surgery. She is on asa, atorvastatin , and metoprolol. She has been increasing her activity during the week and around the house. She has no complaints of pain. She is scheduled to see her track laminating machine tender in [place] in November and cardiac rehab reached out to her but she will call them back. She has not yet made an appointment with her PCP. Medical History Past Medical History: Diagnosis Date H/O: pneumonia 09/13/2024 Hypercholesteremia 09/13/2024 Hypertriglyceridemia 09/13/2024 On mechanically assisted ventilation ([facility] 09/19/2024 - arrived intubated post-op [...] well. She went to the ED in [facility] on Mother's day that broke using a Valsalva maneuver. She says her heart rate went up to 150s- 160s while in SVT. She has been eating welland BP well controlled with SBP 757b=238k with a few recordings in 160s since surgery. She is on asa, atorvastatin , and metoprolol. She has been increasing her activity during the week and around the house. She has no complaints of pain. 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 ([facility]) Expected: 11/01/2024 (Approximate), Expires: 05/04/2026 documented as of this encounter Results * (ABNORMAL) Basic Metabolic Panel, Plasma (11/01/2024 8:54 AM EDT) Glucose, Plasma 134(H) 74 - 99 mg/dL 11/01/2024 10:32 AM EDT [facility] BUN, Plasma 16 8 - 23 mg/dL 11/01/2024 10:32 AM EDT [facility] Creatinine, Plasma 0.81 0.60 - 1.10 mg/dL 11/01/2024 10:32 AM EDT [facility] BUN/Creatinine Ratio 20 11/01/2024 10:32 AM EDT [facility] Sodium, Plasma 140 136 - 145 mmol/L 11/01/2024 10:32 AM EDT [facility] Potassium, Plasma 3.1(L) 3.6 - 4.9 mmol/L 11/01/2024 10:32 AM EDT [facility] Chloride, Plasma 100 97 - 107 mmol/L 11/01/2024 10:32 AM EDT [facility] CO2, Plasma 25 22 - 29 mmol/L 11/01/2024 10:32 AM EDT [facility] Anion Gap 15 6 - 16 mmol/L 11/01/2024 10:32 AM EDT [facility] Total Calcium, Plasma 9.6 8.9 - 10.2 mg/dL 11/01/2024 10:32 AM EDT [facility] eGFRcr 82.7 mL/min/1.7 3m*2 11/01/2024 10:32 AM EDT [facility] Comment:Reported eGFRcr in m L/min/1.73m2 is based the CKD-EPI 2020 equation that does not use a race coefficient. Blood Venous blood specimen / Unknown Venipuncture / Unknown 11/01/2024 8:54 AM EDT 11/01/2024 8:54 AM EDT us Mai Ceballos MD LAB BLOOD ORDERABLES Silva l Result [facility] [address] [place] [address] * (ABNORMAL) CBC W/O Differential (11/01/2024 8:54 AM EDT) WBC Count 11.80(H) 3.70 - 10.30 10*3/uL LAB HEMATOLOGY METHOD 11/01/2024 9:38 AM EDT [facility] RBC Count 4.10 3.90 - 5.20 10*6/uL LAB HEMATOLOGY METHOD 11/01/2024 9:38 AM EDT [facility] HGB 10.1(L) 11.2 - 15.7 g/dL LAB HEMATOLOGY METHOD 11/01/2024 9:38 AM EDT [facility] HCT 34.0 34.0 - 45.0 % LAB HEMATOLOGY METHOD 11/01/2024 9:38 AM EDT [facility] Platelet Count 684(H) 155 - 369 10*3/uL LAB HEMATOLOGY METHOD 11/01/2024 9:38 AM EDT [facility] MCV 83 79 - 98 fL LAB HEMATOLOGY METHOD 11/01/2024 9:38 AM EDT [facility] MCH 24.6(L) 26.0 - 32.0 pg LAB HEMATOLOGY METHOD 11/01/2024 9:38 AM EDT [facility] MCHC 29.7(L) 30.7 - 35.5 g/dL LAB HEMATOLOGY METHOD 11/01/2024 9:38 AM EDT [facility] RDW 16.7(H) 11.5 - 14.5 % LAB HEMATOLOGY METHOD 11/01/2024 9:38 AM EDT [facility] MPV 10.3 8.8 - 12.5 fL LAB HEMATOLOGY METHOD 11/01/2024 9:38 AM EDT [facility] nRBC 0.0 <=0.0 per 100 WBCs LAB HEMATOLOGY METHOD 11/01/2024 9:38 AM EDT [facility] Blood Venous blood specimen / Unknown Venipuncture / Unknown 11/01/2024 8:54 AM EDT 11/01/2024 8:54 AM EDT us Mai Ceballos MD LAB BLOOD ORDERABLES Silva l Result [facility] [address] [place] [address] * XR Chest 2 Views (11/01/2024 8:44 [...] Visit Diagnoses Diagnosis 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
[2024-11-28] VITALS (7 sets, daily range): BP systolic 144–173; BP diastolic 84–107; PULSE 106–118; RESP 18–20; TEMP 36.6–37.8; O2SAT 89–98; BMI 42.6; BMI 42.7
--- NOTE | 2024-11-28 18:02 | ECG_ITS ---
APPROVED REPORT Exam: Resting ECG HR:113 bpm ECG Measurements Heart Rate 113 AXES NC 177 P 54 QRSd 101 QRS 65 QT 315 T 36 QTc 382 Conclusion SINUS TACHYCARDIA POSSIBLE LEFT ATRIAL ENLARGEMENT [-0.1mV P-WAVE IN V1/V2] LOW QRS VOLTAGE IN PRECORDIAL LEADS [QRS DEFLECTION < 1.0 mV IN CHEST LEADS] INCOMPLETE RIGHT BUNDLE BRANCH BLOCK [90+ ms QRS DURATION, TERMINAL R IN V1/V2, 40+ ms S IN I/aVL/V4/V5/V6] PROBABLE ANTERIOR MYOCARDIAL INFARCTION , PROBABLY OLD [35 ms Q WAVE IN V3/V4] POSSIBLE INFERIOR MYOCARDIAL INFARCTION , OF INDETERMINATE AGE [30 ms Q WAVE IN II/aVF] No STEMI Electronically signed by : KATE PRICE, 11/28/2024 21:19:02
--- OUTSIDE RECORDS SUMMARY | 2024-11-28 18:06 | XMS_ITS | Encounter Summary ---
Author Organization Healthcare Address [address] [place] [address] Care Team Providers Care Roster Clerk Name Role Phone Morena Williamson DO Primary Care Provider [phone] Encounter Details Date Type Department Care Team (Latest Contact Info) Description 11/01/2024 Travel Social History Tobacco Use Types Packs/Day Years [...] 09/13/2024 How often do you attend chur or spiritism services? Never 09/13/2024 Do you belong to any clubs o r organizations such as tenriism groups, unions, fraternal or athletic groups, or [...] Recorded Patient Health Questionnaire-2 Score 1 09/13/2024 [facility] - Occupational Stress Questionnaire Answer Date Recorded [...] any time in the past 12 m [facility], were you homeless or living in a residential (including now)? No 09/13/2024 Utilities Answer Date [...] on file documented as of this encounter Plan of Treatment Not on file documented as of this encounter Visit Diagnoses Not on filedocumented in this encounter Additional Health Concerns Assessment Noted Time PHQ-9 Depression Total Score: 2 09/14/19 25 1:41 PM EDT A fall risk assessment has been complete d for the patient 11/01/2024 9:34 AM EDT A Body Mass Index follow-up plan has been documented for the patient 11/01/2024 11:14 AM EDT documented as of this encounter Care Teams Roster Clerk Relationship Specialty Start Date End Date Morena Williamson DO [address] [place] [address] [place] [address] PCP - General 08/13/24 documented as of this encounter
--- OUTSIDE RECORDS SUMMARY | 2024-11-28 18:07 | XMS_ITS | Encounter Summary ---
Author Organization Healthcare Address [address] [id number] Care Team Providers Care Staff Interpreter Name Role Phone AlvaroMorena reyes DO Primary Care Provider [phone] Encounter Details Date Type Department Care Team (Late st Contact Info) Description 11/03/2024 Telephone [facility] [address], [address] [place] [address] Kemi Sullivan RN [id number] [address] [place] [id number] Social History Tobacco Use Types Packs/Day Years [...] often do you attend chur ch or rastafari services? Never 09/13/2024 Do you belong to any clubs o r organizations such as anabaptism groups, unions, fraternal or athletic groups, or [...] Questionnaire-2 Score 1 09/13/2024 [facility] of Occupat ional Health - [...] any time in the past 12 m [facility], were you homeless or living in a mcc (including now)? No 09/13/2024 Utilities Answer Date [...] on file documented as of this encounter Miscellaneous Notes * Telephone Encounter - Kemi Sullivan RN - 11/03/2024 2:57 PM EDT Potassium 3.1, pt has OTC potassium supplements she is starting and will f/u with her PCP on Thursday, Labs routed to PCP documented in this encounter Plan of Treatment Not on [...] documented as of this encounter Care Teams Staff Interpreter Relationship Specialty Start Date End Date Morena Williamson DO [address] [place], [place] [address] [place] [address] PCP - General 08/13/24 documented as of this encounter
--- OUTSIDE RECORDS SUMMARY | 2024-11-28 18:07 | XMS_ITS | Data Portability ---
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 Plan of Treatment Reminders Order Date Submit Date Provider Last Modified By Organization Details Last Modified Time Details Appointments OV EST 15 2024 09:30A Meghann Zavala MD Not available Not available Not available Lab CBC w/ auto diff 2022 023 [facility], [address], [address], [place], [address], 03/28/2023 04:08:57 CMP, serum or plasma 2022 023 [facility], [address], [address], [place], [address], 03/28/2023 04:08:59 amylase + lipase, serum 2022 023 [facility], [address], [address], [place], [address], 03/28/2023 04:09:01 lipid panel, serum 2022 023 [facility], [address], [address], [place], [address], 03/28/2023 04:09:00 HbA1c (hemoglob in A1c), blood 2022 023 [facility], [address], [address], [place], [address], 08/22/2022 06:38:12 thyroid panel, serum 2022 023 [facility], [address], [address], [place], [address], 08/22/2022 06:38:11 vitamin B12, serum 2022 023 [facility], [address], [address], [place], [address], 08/22/2022 06:38:14 vitamin D, 25-hydrox y, total, serum 2022 023 [facility], [address], [address], [place], [address], 08/22/2022 06:38:13 CMP, serum or plasma 2022 023 [facility], [address], [address], [place], [address], 08/22/2022 06:38:09 CBC w/ auto diff 2022 023 [facility], [address], [address], [place], [address], 08/22/2022 06:38:08 lipid panel, serum 2022 023 [facility], [address], [address], [place], [address], 08/22/2022 06:38:10 magnesium , serum or plasma 2022 023 [facility], [address], [address], [place], [address], 08/22/2022 06:38:14 Referral cardiolog ist referral - Wants to establish care. Was seen by a Cardiolog y Clinic in [place] . 2022 023 [email or web address] Anthony Cai MD, [address] [facility], [place], [address], 10/07/2022 17:51:22 Procedures None recorded. Surgeries None recorded. Imaging None recorded. Medication Orders prednison e 20 mg tablet 2022 023 [facility], [address] [place], [address], 11/25/2024 09:54:07 Patient TargetsNo targets recorded. Patient Instructions Encounter Date Encounter Id Patient Instructions Last Modified By Organization Details Last Modified Time 08/20/2022 [id number] Patient will return to clinic for fasting labwork in the morning. Will call with results. [email or web address] Not available 08/20/2022 14:31:52 Reason for Referral Rackman Referral for Es sential hypertension Wants to establish care. Was seen by a Cardiology Clinic in [place]. Referring Physician: Elsi Antoine, Infectious Disease, Encounter Date: 08/20/2022 Results Created Date Observation Date Name Description Value Unit Range Abnormal Flag Note LastModifiedBy Organization Detail LastModifiedTime 08/22/1908/21/2022 CBC WITH DIFFE RENTI AL/PL ATELE T WBC 8.5 x10e3 /uL 3.4-10 .8 Not Available [facility] ([facility]) [address] [facility], [place], [address], 08/22/2022 06:38:08 08/22/19 23 08/21/2022 CBC WITH DIFFE RENTI AL/PL ATELE T RBC 5.06 x10e6 /uL 3.77-5 .28 Not Available [facility] ([facility]) [address] [facility], [place], [address], 08/22/2022 06:38:08 08/22/19 23 08/21/2022 CBC WITH DIFFE RENTI AL/PL ATELE T hemoglobin 14.1 g/dL 11.1-1 5.9 Not Available [facility] ([facility]) [address] [place], [address], 08/22/2022 06:38:08 08/22/19 23 08/21/2022 CBC WITH DIFFE RENTI AL/PL ATELE T hematocrit 43.1 % 34.0-4 6.6 Not Available [facility] ([facility]) [address] [facility], [place], [address], 08/22/2022 06:38:08 08/22/19 23 08/21/2022 CBC WITH DIFFE RENTI AL/PL ATELE T MCV 85 fL 79-97 Not Available [facility] ([facility]) [address] [place], [address], 08/22/2022 06:38:08 08/22/19 23 08/21/2022 CBC WITH DIFFE RENTI AL/PL ATELE T MCH 27.9 pg 26.6-3 3.0 Not Available [facility] ([facility]) [address] [place], [address], 08/22/2022 06:38:08 08/22/19 23 08/21/2022 CBC WITH DIFFE RENTI AL/PL ATELE T MCHC 32.7 g/dL 31.5-3 5.7 Not Available [facility] ([facility]) [address] [place], [address], 08/22/2022 06:38:08 08/22/19 23 08/21/2022 CBC WITH DIFFE RENTI AL/PL ATELE T RDW 13.5 % 11.7-1 5.4 Not Available [facility] ([facility]) [address] [place], [address], 08/22/2022 06:38:08 08/22/19 23 08/21/2022 CBC WITH DIFFE RENTI AL/PL ATELE T platelets 421 x10e3 /uL 150-45 0 Not Available [facility] ([facility]) [address] [facility], [place], [address], 08/22/2022 06:38:08 08/22/19 23 08/21/2022 CBC WITH DIFFE RENTI AL/PL ATELE T neutrophils 57 % not estab. Not Available [facility] ([facility]) [address] [facility], [place], [address], 08/22/2022 06:38:08 08/22/19 23 08/21/2022 CBC WITH DIFFE RENTI AL/PL ATELE T lymphs 24 % not estab. Not Available [facility] ([facility]) [address] [facility], [place], [address], 08/22/2022 06:38:08 08/22/19 23 08/21/2022 CBC WITH DIFFE RENTI AL/PL ATELE T monocytes 6 % not estab. Not Available [facility] ([facility]) [address] [facility], [place], [address], 08/22/2022 06:38:08 08/22/19 23 08/21/2022 CBC WITH DIFFE RENTI AL/PL ATELE T eos 12 % not estab. Not Available [facility] ([facility]) [address] [facility], [place], [address], 08/22/2022 06:38:08 08/22/19 23 08/21/2022 CBC WITH DIFFE RENTI AL/PL ATELE T basos 1 % not estab. Not Available [facility] ([facility]) [address] [facility], [place], [address], 08/22/2022 06:38:08 08/22/19 23 08/21/2022 CBC WITH DIFFE RENTI AL/PL ATELE T immature cells LEAD PAINTER Not Available [facility] ([facility]) [address] [facility], [place], [address], 08/22/2022 06:38:08 08/22/19 23 08/21/2022 CBC WITH DIFFE RENTI AL/PL ATELE T neutrophils (absolute) 4.9 x10e3 /uL 1.4-7. 0 Not Available [facility] ([facility]) [address] [facility], [place], [address], 08/22/2022 06:38:08 08/22/19 23 08/21/2022 CBC WITH DIFFE RENTI AL/PL ATELE T lymphs (absolute) 2.1 x10e3 /uL 0.7-3. 1 Not Available [facility] ([facility]) [address] [place], [address], 08/22/2022 06:38:08 08/22/19 23 08/21/2022 CBC WITH DIFFE RENTI AL/PL ATELE T monocytes(ab solute) 0.5 x10e3 /uL 0.1-0. 9 Not Available [facility] ([facility]) [address] [facility], [place], [address], 08/22/2022 06:38:08 08/22/19 23 08/21/2022 CBC WITH DIFFE RENTI AL/PL ATELE T eos (absolute) 1.0 x10e3 /uL 0.0-0. 4 above high normal Not Available [facility] ([facility]) [address] [facility], [place], [address], 08/22/2022 06:38:08 08/22/19 23 08/21/2022 CBC WITH DIFFE RENTI AL/PL ATELE T baso (absolute) 0.1 x10e3 /uL 0.0-0. 2 Not Available [facility] ([facility]) [address] [place], [address], 08/22/2022 06:38:08 08/22/19 23 08/21/2022 CBC WITH DIFFE RENTI AL/PL ATELE T immature granulocytes 0 % not estab. Not Available [facility] ([facility]) [address] [facility], [place], [address], 08/22/2022 06:38:08 08/22/19 23 08/21/2022 CBC WITH DIFFE RENTI AL/PL ATELE T immature grans (abs) 0.0 x10e3 /uL 0.0-0. 1 Not Available [facility] ([facility]) [address] [facility], [place], [address], 08/22/2022 06:38:08 08/22/19 23 08/21/2022 CBC WITH DIFFE RENTI AL/PL ATELE T NRBC LEAD PAINTER Not Available [facility] ([facility]) [address] [facility], [place], [address], 08/22/2022 06:38:08 08/22/19 23 08/21/2022 CBC WITH DIFFE RENTI AL/PL ATELE T hematology comments: LEAD PAINTER Not Available [facility] ([facility]) [address] [facility], [place], [address], 08/22/2022 06:38:08 08/22/19 23 08/22/2022 COMP. METAB OLIC PANEL (14) glucose 93 mg/dL 70-99 Not Available [facility] ([facility]) [address] [facility], [place], [address], 08/22/2022 06:38:09 08/22/19 23 08/22/2022 COMP. METAB OLIC PANEL (14) BUN 20 mg/dL 6-24 Not Available [facility] ([facility]) [address] [facility], [place], [address], 08/22/2022 06:38:09 08/22/19 23 08/22/2022 COMP. METAB OLIC PANEL (14) creatinine 0.77 mg/dL 0.57-1 .00 Not Available [facility] ([facility]) [address] [facility], [place], [address], 08/22/2022 06:38:09 08/22/19 23 08/22/2022 COMP. METAB OLIC PANEL (14) eGFR 89 mL/mi n/1.7 3 >59 Not Available [facility] ([facility]) [address] [place], [address], 08/22/2022 06:38:09 08/22/19 23 08/22/2022 COMP. METAB OLIC PANEL (14) BUN/creatini ne ratio 26 9-23 above high normal Not Available [facility] ([facility]) [address] [place], [address], 08/22/2022 06:38:09 08/22/19 23 08/22/2022 COMP. METAB OLIC PANEL (14) sodium 139 mmol/ L 134-14 4 Not Available [facility] ([facility]) [address] [place], [address], 08/22/2022 06:38:09 08/22/19 23 08/22/2022 COMP. METAB OLIC PANEL (14) potassium 3.9 mmol/ L 3.5-5. 2 Not Available [facility] ([facility]) [address] [place], [address], 08/22/2022 06:38:09 08/22/19 23 08/22/2022 COMP. METAB OLIC PANEL (14) chloride 99 mmol/ L 96-106 Not Available [facility] ([facility]) [address] [place], [address], 08/22/2022 06:38:09 08/22/19 23 08/22/2022 COMP. METAB OLIC PANEL (14) carbon dioxide, total 25 mmol/ L 20-29 Not Available [facility] ([facility]) [address] [place], [address], 08/22/2022 06:38:09 08/22/19 23 08/22/2022 COMP. METAB OLIC PANEL (14) calcium 9.9 mg/dL 8.7-10 .2 Not Available [facility] ([facility]) [address] [facility] [place], [address], 08/22/2022 06:38:09 08/22/19 23 08/22/2022 COMP. METAB OLIC PANEL (14) protein, total 7.0 g/dL 6.0-8. 5 Not Available [facility] ([facility]) [address] [facility] [place], [address], 08/22/2022 06:38:09 08/22/19 23 08/22/2022 COMP. METAB OLIC PANEL (14) albumin 4.3 g/dL 3.8-4. 9 Not Available [facility] ([facility]) [address] [facility] [place], [address], 08/22/2022 06:38:09 08/22/19 23 08/22/2022 COMP. METAB OLIC PANEL (14) globulin, total 2.7 g/dL 1.5-4. 5 Not Available [facility] ([facility]) [address] [facility] [place], [address], 08/22/2022 06:38:09 08/22/19 23 08/22/2022 COMP. METAB OLIC PANEL (14) A/G ratio 1.6 1.2-2. 2 Not Available [facility] ([facility]) [address] [facility] [place], [address], 08/22/2022 06:38:09 08/22/19 23 08/22/2022 COMP. METAB OLIC PANEL (14) bilirubin, total 0.3 mg/dL 0.0-1. 2 Not Available [facility] ([facility]) [address] [facility] [place], [address], 08/22/2022 06:38:09 08/22/19 23 08/22/2022 COMP. METAB OLIC PANEL (14) alkaline phosphatase 68 IU/L 44-121 Not Available [facility] ([facility]) [address] [facility] [place], [address], 08/22/2022 06:38:09 08/22/19 23 08/22/2022 COMP. METAB OLIC PANEL (14) AST (SGOT) 32 IU/L 0-40 Not Available [facility] ([facility]) [address] [facility] [place], [address], 08/22/2022 06:38:09 08/22/19 23 08/22/2022 COMP. METAB OLIC PANEL (14) ALT (SGPT) 22 IU/L 0-32 Not Available [facility] ([facility]) [address] [facility] [place], [address], 08/22/2022 06:38:09 08/22/19 23 08/22/2022 LIPID PANEL cholesterol, total 206 mg/dL 100-19 9 above high normal Not Available [facility] ([facility]) [address] [facility] [place], [address], 08/22/2022 06:38:10 08/22/19 23 08/22/2022 LIPID PANEL triglyceride s 74 mg/dL 0-149 Not Available [facility] ([facility]) [address] [facility] [place], [address], 08/22/2022 06:38:10 08/22/19 23 08/22/2022 LIPID PANEL HDL cholesterol 64 mg/dL >39 Not Available [facility] ([facility]) [address] [facility] [place], [address], 08/22/2022 06:38:10 08/22/19 23 08/22/2022 LIPID PANEL VLDL cholesterol susi 13 mg/dL 5-40 Not Available [facility] ([facility]) [address] [facility] [place], [address], 08/22/2022 06:38:10 08/22/19 23 08/22/2022 LIPID PANEL LDL chol calc ([facility]) 129 mg/dL 0-99 above high normal Not Available [facility] ([facility]) [address] [place], [address], 08/22/2022 06:38:10 08/22/19 23 08/22/2022 LIPID PANEL comment: LEAD PAINTER Not Available [facility] ([facility]) [address] [place], [address], 08/22/2022 06:38:10 08/22/19 23 08/22/2022 THYRO ID PROFI LE II TSH 3.980 uIU/m L 0.450- 4.500 Not Available [facility] ([facility]) [address] [place], [address], 08/22/2022 06:38:11 08/22/19 23 08/22/2022 THYRO ID PROFI LE II thyroxine (T4) 9.1 ug/dL 4.5-12 .0 Not Available [facility] ([facility]) [address] [place], [address], 08/22/2022 06:38:11 08/22/19 23 08/22/2022 THYRO ID PROFI LE II T3 uptake 28 % 24-39 Not Available [facility] ([facility]) [address] [place], [address], 08/22/2022 06:38:11 08/22/1908/22/2022 THYRO ID PROFI LE II free thyroxine index 2.5 1.2-4. 9 Not Available [facility] ([facility]) [address] [place], [address], 08/22/2022 06:38:11 08/22/19 23 08/22/2022 THYRO ID PROFI LE II triiodothyro nine (T3) 157 NG/dL 71-180 Not Available [facility] ([facility]) [address] [place], [address], 08/22/2022 06:38:11 08/22/19 23 08/22/2022 HEMOG LOBIN A1C hemoglobin A1C 6.0 % 4.8-5. 6 above high normal Predi abete s: 5.7 - 6.4 Diabe david: >6.4 Glyce lilliana contr ol for adult s with diabe david: <7.0 Not Available [facility] ([facility]) [address] [facility], [place], [address], 08/22/2022 06:38:12 08/22/19 23 08/22/2022 VITAM IN [...] um and D. Deepa brewer [place]: [facility] . 2. Beryl rivera [place], Eliana lanier [place], Elvia off-F errar i DRAKE, et al. Evalu ation , treat ment, and preve ntion of vitam in D defic iency : an Endoc rine Socie ty clini susi pract ice guide line. JCEM. 2010; 96(7) :1911 -30. Not Available [facility] ([facility]) [address] [facility], [place], [address], 08/22/2022 06:38:13 08/22/19 23 08/22/2022 VITAM IN B12 vitamin B12 471 pg/mL 232-12 45 Not Available [facility] ([facility]) [address] [facility], [place], [address], 08/22/2022 06:38:14 08/22/19 23 08/22/2022 MAGNE SIUM magnesium 1.8 mg/dL 1.6-2. 3 Not Available [facility] ([facility]) [address], [place], [address], 08/22/2022 06:38:14 08/22/19 23 08/21/2022 urina lysis , dipst ick Leukocytes (reference range) negati ve Not Available [facility] - [address], [place], [address], 08/21/2022 09:26:09 08/22/19 23 08/21/2022 urina lysis , dipst ick Nitrite (reference range:) negati ve Not Available [facility] - [address], [place], [address], 08/21/2022 09:26:09 08/22/19 23 08/21/2022 urina lysis , dipst ick Urobilinogen (reference range) 0.2 Not Available [address], [place], [address], 08/21/2022 09:26:09 08/22/19 23 08/21/2022 urina lysis , dipst ick Protein (reference range) negati ve Not Available [address], [place], [address], 08/21/2022 09:26:09 08/22/19 23 08/21/2022 urina lysis , dipst ick pH (reference range 5-8.5) 6.0 Not Available [facility] - [address], [place], [address], 08/21/2022 09:26:09 08/22/19 23 08/21/2022 urina lysis , dipst ick Blood (reference range:) negati ve Not Available [facility] - [address], [place], [address], 08/21/2022 09:26:09 08/22/19 23 08/21/2022 urina lysis , dipst ick Specific [place] (reference range) 1.030 Not Available [facility] - [address], [place], [address], 08/21/2022 09:26:09 08/22/19 23 08/21/2022 urina lysis , dipst ick Ketone (reference range) negati ve Not Available [facility] - [address], [place], [address], 08/21/2022 09:26:09 08/22/19 23 08/21/2022 urina lysis , dipst ick Bilirubin (reference range) negati ve Not Available [facility] - [address], [place], [address], 08/21/2022 09:26:09 08/22/19 23 08/21/2022 urina lysis , dipst ick Glucose (reference range) negati ve Not Available [facility] - [address], [place], [address], 08/21/2022 09:26:09 08/22/19 23 08/21/2022 urina lysis , dipst ick Color (reference range: yellow-brown ) Yellow Not Available [facility] - [address], [place], [address], 08/21/2022 09:26:09 03/27/20 23 03/28/2023 CBC WITH DIFFE RENTI AL/PL ATELE T WBC 8.3 x10e3 /uL 3.4-10 .8 Not Available [facility] ([facility]) [address] [place], [address], 03/28/2023 04:08:57 03/27/2003/28/2023 CBC WITH DIFFE RENTI AL/PL ATELE T RBC 4.65 x10e6 /uL 3.77-5 .28 Not Available [facility] ([facility]) [address] [place], [address], 03/28/2023 04:08:57 03/27/2003/28/2023 CBC WITH DIFFE RENTI AL/PL ATELE T hemoglobin 13.2 g/dL 11.1-1 5.9 Not Available [facility] ([facility]) [address] [place], [address], 03/28/2023 04:08:57 03/27/2003/28/2023 CBC WITH DIFFE RENTI AL/PL ATELE T hematocrit 39.7 % 34.0-4 6.6 Not Available [facility] ([facility]) [address] [place], [address], 03/28/2023 04:08:57 03/27/2003/28/2023 CBC WITH DIFFE RENTI AL/PL ATELE T MCV 85 fL 79-97 Not Available [facility] ([facility]) [address] [place], [address], 03/28/2023 04:08:57 03/27/2003/28/2023 CBC WITH DIFFE RENTI AL/PL ATELE T MCH 28.4 pg 26.6-3 3.0 Not Available [facility] ([facility]) [address] [place], [address], 03/28/2023 04:08:57 03/27/2003/28/2023 CBC WITH DIFFE RENTI AL/PL ATELE T MCHC 33.2 g/dL 31.5-3 5.7 Not Available [facility] ([facility]) [address] [facility], [place], [address], 03/28/2023 04:08:57 03/27/2003/28/2023 CBC WITH DIFFE RENTI AL/PL ATELE T RDW 13.3 % 11.7-1 5.4 Not Available [facility] ([facility]) [address] [facility], [place], [address], 03/28/2023 04:08:57 03/27/2003/28/2023 CBC WITH DIFFE RENTI AL/PL ATELE T platelets 419 x10e3 /uL 150-45 0 Not Available [facility] ([facility]) [address] [facility], [place], [address], 03/28/2023 04:08:57 03/27/2003/28/2023 CBC WITH DIFFE RENTI AL/PL ATELE T neutrophils 57 % not estab. Not Available [facility] ([facility]) [address] [facility], [place], [address], 03/28/2023 04:08:57 03/27/2003/28/2023 CBC WITH DIFFE RENTI AL/PL ATELE T lymphs 25 % not estab. Not Available [facility] ([facility]) [address] [facility], [place], [address], 03/28/2023 04:08:57 03/27/2003/28/2023 CBC WITH DIFFE RENTI AL/PL ATELE T monocytes 6 % not estab. Not Available [facility] ([facility]) [address] [facility], [place], [address], 03/28/2023 04:08:57 03/27/20 23 03/28/2023 CBC WITH DIFFE RENTI AL/PL ATELE T eos 11 % not estab. Not Available [facility] ([facility]) [address] [facility], [place], [address], 03/28/2023 04:08:57 03/27/2003/28/2023 CBC WITH DIFFE RENTI AL/PL ATELE T basos 1 % not estab. Not Available [facility] ([facility]) [address] [facility], [place], [address], 03/28/2023 04:08:57 03/27/2003/28/2023 CBC WITH DIFFE RENTI AL/PL ATELE T immature cells LEAD PAINTER Not Available [facility] ([facility]) [address] [facility], [place], [address], 03/28/2023 04:08:57 03/27/20 23 03/28/2023 CBC WITH DIFFE RENTI AL/PL ATELE T neutrophils (absolute) 4.7 x10e3 /uL 1.4-7. 0 Not Available [facility] ([facility]) [address] [facility], [place], [address], 03/28/2023 04:08:57 03/27/2003/28/2023 CBC WITH DIFFE RENTI AL/PL ATELE T lymphs (absolute) 2.1 x10e3 /uL 0.7-3. 1 Not Available [facility] ([facility]) [address] [place], [address], 03/28/2023 04:08:57 03/27/2003/28/2023 CBC WITH DIFFE RENTI AL/PL ATELE T monocytes(ab solute) 0.5 x10e3 /uL 0.1-0. 9 Not Available [facility] ([facility]) [address] [place], [address], 03/28/2023 04:08:57 03/27/20 23 03/28/2023 CBC WITH DIFFE RENTI AL/PL ATELE T eos (absolute) 0.9 x10e3 /uL 0.0-0. 4 above high normal Not Available [facility] ([facility]) [address] [facility], [place], [address], 03/28/2023 04:08:57 03/27/20 23 03/28/2023 CBC WITH DIFFE RENTI AL/PL ATELE T baso (absolute) 0.1 x10e3 /uL 0.0-0. 2 Not Available [facility] ([facility]) [address] [facility], [place], [address], 03/28/2023 04:08:57 03/27/2003/28/2023 CBC WITH DIFFE RENTI AL/PL ATELE T immature granulocytes 0 % not estab. Not Available [facility] ([facility]) [address] [facility], [place], [address], 03/28/2023 04:08:57 03/27/2003/28/2023 CBC WITH DIFFE RENTI AL/PL ATELE T immature grans (abs) 0.0 x10e3 /uL 0.0-0. 1 Not Available [facility] ([facility]) [address] [facility], [place], [address], 03/28/2023 04:08:57 03/27/20 23 03/28/2023 CBC WITH DIFFE RENTI AL/PL ATELE T NRBC LEAD PAINTER Not Available [facility] ([facility]) [address] [facility], [place], [address], 03/28/2023 04:08:57 03/27/20 23 03/28/2023 CBC WITH DIFFE RENTI AL/PL ATELE T hematology comments: LEAD PAINTER Not Available [facility] ([facility]) [address] [facility], [place], [address], 03/28/2023 04:08:57 03/27/20 23 03/28/2023 COMP. METAB OLIC PANEL (14) glucose 90 mg/dL 70-99 Not Available [facility] ([facility]) [address] [facility] [place], [address], 03/28/2023 04:08:59 03/27/20 23 03/28/2023 COMP. METAB OLIC PANEL (14) BUN 20 mg/dL 6-24 Not Available [facility] ([facility]) [address] [facility] [place], [address], 03/28/2023 04:08:59 03/27/20 23 03/28/2023 COMP. METAB OLIC PANEL (14) creatinine 0.79 mg/dL 0.57-1 .00 Not Available [facility] ([facility]) [address] [facility] [place], [address], 03/28/2023 04:08:59 03/27/20 23 03/28/2023 COMP. METAB OLIC PANEL (14) eGFR 86 mL/mi n/1.7 3 >59 Not Available [facility] ([facility]) [address] [place], [address], 03/28/2023 04:08:59 03/27/20 23 03/28/2023 COMP. METAB OLIC PANEL (14) BUN/creatini ne ratio 25 9-23 above high normal Not Available [facility] ([facility]) [address] [place], [address], 03/28/2023 04:08:59 03/27/20 23 03/28/2023 COMP. METAB OLIC PANEL (14) sodium 140 mmol/ L 134-14 4 Not Available [facility] ([facility]) [address] [place], [address], 03/28/2023 04:08:59 03/27/20 23 03/28/2023 COMP. METAB OLIC PANEL (14) potassium 4.2 mmol/ L 3.5-5. 2 Not Available [facility] ([facility]) [address] [place], [address], 03/28/2023 04:08:59 03/27/20 23 03/28/2023 COMP. METAB OLIC PANEL (14) chloride 100 mmol/ L 96-106 Not Available [facility] ([facility]) [address] [facility], [place], [address], 03/28/2023 04:08:59 03/27/20 23 03/28/2023 COMP. METAB OLIC PANEL (14) carbon dioxide, total 26 mmol/ L 20-29 Not Available [facility] ([facility]) [address] [facility], [place], [address], 03/28/2023 04:08:59 03/27/2003/28/2023 COMP. METAB OLIC PANEL (14) calcium 9.6 mg/dL 8.7-10 .2 Not Available [facility] ([facility]) [address] [facility], [place], [address], 03/28/2023 04:08:59 03/27/2003/28/2023 COMP. METAB OLIC PANEL (14) protein, total 6.7 g/dL 6.0-8. 5 Not Available [facility] ([facility]) [address] [facility], [place], [address], 03/28/2023 04:08:59 03/27/20 23 03/28/2023 COMP. METAB OLIC PANEL (14) albumin 3.9 g/dL 3.8-4. 9 Not Available [facility] ([facility]) [address] [facility], [place], [address], 03/28/2023 04:08:59 03/27/2003/28/2023 COMP. METAB OLIC PANEL (14) globulin, total 2.8 g/dL 1.5-4. 5 Not Available [facility] ([facility]) [address] [facility], [place], [address], 03/28/2023 04:08:59 03/27/2003/28/2023 COMP. METAB OLIC PANEL (14) A/G ratio 1.4 1.2-2. 2 Not Available [facility] ([facility]) [address] [place], [address], 03/28/2023 04:08:59 03/27/20 23 03/28/2023 COMP. METAB OLIC PANEL (14) bilirubin, total <0.2 mg/dL 0.0-1. 2 Not Available [facility] ([facility]) [address] [place], [address], 03/28/2023 04:08:59 03/27/2003/28/2023 COMP. METAB OLIC PANEL (14) alkaline phosphatase 54 IU/L 44-121 Not Available [facility] ([facility]) [address] [facility], [place], [address], 03/28/2023 04:08:59 03/27/20 23 03/28/2023 COMP. METAB OLIC PANEL (14) AST (SGOT) 25 IU/L 0-40 Not Available [facility] ([facility]) [address] [place], [address], 03/28/2023 04:08:59 03/27/20 23 03/28/2023 COMP. METAB OLIC PANEL (14) ALT (SGPT) 20 IU/L 0-32 Not Available [facility] ([facility]) [address] [place], [address], 03/28/2023 04:08:59 03/27/20 23 03/28/2023 LIPID PANEL AND CHOL/ HDL RATIO cholesterol, total 182 mg/dL 100-19 9 Not Available [facility] ([facility]) [address] [place], [address], 03/28/2023 04:09:00 03/27/20 23 03/28/2023 LIPID PANEL AND CHOL/ HDL RATIO triglyceride s 121 mg/dL 0-149 Not Available [facility] ([facility]) [address] [place], [address], 03/28/2023 04:09:00 03/27/2003/28/2023 LIPID PANEL AND CHOL/ HDL RATIO HDL cholesterol 55 mg/dL >39 Not Available [facility] ([facility]) [address] [place], [address], 03/28/2023 04:09:00 03/27/20 23 03/28/2023 LIPID PANEL AND CHOL/ HDL RATIO VLDL cholesterol susi 22 mg/dL 5-40 Not Available [facility] ([facility]) [address] [place], [address], 03/28/2023 04:09:00 03/27/2003/28/2023 LIPID PANEL AND CHOL/ HDL RATIO LDL chol calc ([facility]) 105 mg/dL 0-99 above high normal Not Available [facility] ([facility]) [address] [place], [address], 03/28/2023 04:09:00 03/27/2003/28/2023 LIPID PANEL AND CHOL/ HDL 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 chol/HDL ratio 3.3 ratio 0.0-4. 4 T. Chol/ HDL Ratio Men Women 1/2 Avg.R isk 3.4 3.3 Avg.R isk 5.0 4.4 2X Avg.R isk 9.6 7.1 3X Avg.R isk 23.4 11.0 Not Available [facility] ([facility]) [address] [place], [address], 03/28/2023 04:09:00 03/27/20 23 03/28/2023 ABRAHAN+L IPASE amylase 43 U/L 31-110 Not Available [facility] ([facility]) [address] [facility], [place], [address], 03/28/2023 04:09:01 03/27/20 23 03/28/2023 ABRAHAN+L IPASE lipase 17 U/L 14-72 Not Available [facility] ([facility]) [address] [facility], [place], [address], 03/28/2023 04:09:01 11/26/19 25 elect rocjanine diogr am No observ ation record ed. [email or web address] [address] [place], [place], [address], 11/25/2024 10:06:59 Result Notes None recorded. Procedures Surgical History Date Name Laterality Status Provider Name and Address Organization Details Recorded Time 06/08/19 11 Gastric bypass for obesity completed Talya Sg [place] - [facility] 03/25/2023 10:34:54 06/08/19 10 Hysterectomy completed Talya Sg [place] - [facility] 03/25/2023 10:36:05 06/08/18 97 excision of uvula completed Talya Sg [place] - [facility] 03/25/2023 10:35:23 06/08/18 97 tonsillectomy completed Talya Sg [place] - [facility] [place] 03/25/2023 10:35:35 06/08/18 90 Carpal tunnel surgery completed Talya Sg [place] - [facility] [place] 03/25/2023 10:36:32 cholecystectomy completed Talya Sg [place] - [facility] [place] 03/25/2023 10:34:37 Imaging Results None recorded. Procedure Notes None recorded. Medical Equipment None Reported. Allergies No known drug allergies Medications Name Sig Start Date Stop Date Status Note LastModified by Organization Details LastModified Time cyclobenzap rine 10 mg tablet Take 1 tablet 3 times a day by oral route. 11/25 completed Not Available Not Available Not Available metformin 500 mg tablet TAKE 1 TABLET BY MOUTH ONCE DAILY active Not Available Not Available No t Available atorvastati n 80 mg tablet Take 1 tablet every day by oral route. active Not Available Not Available No t Available ascorbic acid (vitamin C) 1,000 mg tablet TAKE 1 TABLET BY MOUTH ONCE DAILY active Not Available Not Available No t Available prednisone 10 mg tablet TAKE 4 TABLETS BY MOUTH ONCE DAILY FOR 3 DAYS, THEN TAKE 3 TABLETS ONCE DAILY FOR 3 DAYS, THEN TAKE 2 TABLETS ONCE DAILY FOR 3 DAYS, THEN TAKE 1 TABLETONC E DAILY FOR 3 DAYS 11/25 completed Not Available Not Available Not Available albuterol sulfate 2.5 mg/3 mL (0.083 %) solution for nebulizatio n USE 1 VIAL IN NEBULIZER EVERY 4 TO 6 HOURS 11/25 completed Not Available Not Available Not Available Coreg 3.125 mg tablet Take 1 tablet twice a day by oral route. 2024 active Not Available Not Available Not Avai lable azithromyci n 250 mg tablet TAKE 2 TABLETS BY MOUTH ON DAY 1, AND THEN TAKE 1 TABLET BY MOUTH ONCE A DAY ON DAY 2 THROUGH DAY 5 11/25 completed Not Available Not Available Not Available sucralfate 1 gram tablet TAKE 1 TABLET BY MOUTH 4 TIMES DAILY NEEDED FOR 15 DAYS 11/25 completed Not Available Not Available Not Available prednisone 20 mg tablet TAKE 1 TABLET BY MOUTH ONCE DAILY FOR 5 DAYS 11/25 completed Not Available Not Available Not Available omeprazole 40 mg capsule,del ayed release TAKE 1 CAPSULE BY MOUTH ONCE DAILY active Not Available Not Available No t Available alprazolam 0.25 mg tablet Take 1 tablet 3 times a day by oral route. 11/25 completed Not Available Not Available Not Available naproxen sodium 550 mg tablet TAKE 1 TABLET BY MOUTH TWICE DAILY 11/25 completed Not Available Not Available Not Available estradiol 2 mg tablet TAKE 1 TABLET BY MOUTH ONCE DAILY active Not Available Not Available No t Available hydrochloro thiazide 25 mg tablet Take 1 tablet every day by oral route. 11/25 completed Not Available Not Available Not Available albuterol sulfate HFA 90 mcg/actuati on aerosol inhaler INHALE 2 PUFFS BY MOUTH EVERY 6 HOURS active Not Available Not Available No t Available fluticasone propionate 50 mcg/actuati on nasal spray,suspe nsion Alcova 1 spray every day by intranasa l route. 11/25 completed Not Available Not Available Not Available omeprazole ER 40 mg capsule,ext ended release Take by oral route. 12/12 completed Not Available Not Available Not Available olmesartan 40 mg tablet TAKE 1 TABLET BY MOUTH ONCE DAILY 11/25 completed Not Available Not Available Not Available Co Q-10 100 mg capsule Take by oral route. active Not Available Not Available No t Available FeroSul 325 mg (65 mg iron) tablet TAKE 1 TABLET BY MOUTH ONCE DAILY active Not Available Not Available No t Available LE[employer] Thyroid 30 mg tablet TAKE 1 TABLET [...] Address Organization Details Last Updated DateTime 3 30951.8 g 97.1 [degF] 42.5 kg/m2 149.86 cm 96 % 96 % 83 /min FRANCIA LOZA [facility] [place] 3 14:06:13 Date Recorded Body weight Body mass index (BMI) Body height Oxygen saturation Oxygen saturation in Arterial blood by Pulse oximetry Heart rate Systolic blood pressure Diastolic blood pressure Provider Name and Address Organization Details Last Updated DateTime 5 70775.7 7 g 43.2 kg/m2 149.86 cm 97 % 97 % 50 /min 156 mm[Hg] 85 mm[Hg] Chela Gerardo [facility] [place] 5 09:58:36 Date Recorded Body height Body mass index (BMI) Body weight Body temperature Oxygen saturation Oxygen saturation in Arterial blood by Pulse oximetry Heart rate Systolic blood pressure Diastolic blood pressure Provider Name and Address Organization Details Last Updated DateTime 3 149.86 cm 44.3 kg/m2 25917.5 3 g 97.1 [degF] 98 % 98 % 79 /min 128 mm[Hg] 96 mm[Hg] Talya Bettencourt [place] - [facility] [place] [facility] [place] 10:32:45 Social History None recorded. Functional Status Question Answer Note LastModified by Organizat ion Details LastModified Time Do you use any illicit or recreational drugs? No Information not available 03/25/2023 What is your level of alcohol consumption? 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 Family History Relationship [...] Details Recorded Time MMR 12/09/2007 completed FRANCIA CISNEROSNIN CHUNG kim - [facility] - [place] [facility] [place] 08/20/2022 14:03:22 Hep B, adult 12/09/2007 completed FRANCIA CISNEROSNIN julio, [facility] PAT[facility] - [place] [facility] [place] 08/20/2022 14:03:22 Past Encounters Encounter ID Performer Location Encounter Start Date Encounter Closed Date Diagnosis/Indication Diagnosis SNOMED-CT Code Diagnosis ICD10 Code Diagnosis Note [id number] Elsi [facility] [address] [place] [address] 08/20/2022 13:59:34 08/23/2022 05:42:35 Essential hypertension 17458925 I10 Type 2 tamika betes mellitus 68231980 E11.9 Thyroid di sorder screening 235864777 Z13.29 [id number] Elsi [facility] [address] [place] [address] 08/21/2022 08:02:28 08/21/2022 08:28:43 [id number] Elsi Miller [address] [place] [address] 03/25/2023 10:24:45 03/25/2023 11:04:29 Strain of abdominal muscle 788859416 S39.011A Advised to use heat as tolerated. Take steroids as directed. Avoid naproxen use while taking prednisone .Light stretches. Advised movement.P atient will RTC thursday for fasting lab work. [id number] Elsisonali [facility] [address] [place] [address] 03/27/2023 10:19:31 03/27/2023 10:43:56 [id number] Bea Zavala MD [address] [place] [address] 11/25/2024 09:46:43 11/25/2024 10:22:33 History of coronary artery bypass grafting 433623935 Z95.1 Hypertensive disorder 38 405692 I10 Health Concerns Section Related Observation LastModified by Organization Detai ls LastModified Time None Recorded Concern Status LastModified by Organization Details LastModified Time None Recorded Advance Directives Directive None Recorded Payers Insurance Date Sequence Insurance Name Policy Number Policy Castrejon Covered Member ID Castrejon Member ID Guarantor Name 11/22/2024 1 [place] [id number] Catina Parker [id number] Catina Fergusonliff Notes Date Note Type Note Provider Name and Address Organization Details Recorded Time 08/20/2022 text/html patient presents to clinic to establish care. She has been seen by [facility]. The clinic was in [place]. They are originally from [place], [place]. She has hypertension. She has Type 2 Diabetes. She had lost some weight and was no longer requiring metformin. She checks her BP every morning.Last echo showed hardening of her arteries. Dad of 42 of [place]. Paternal Grandmother of [place].She had Gastric Bypass surgery almost 20 years [...] Denies any gum pain or tooth pain. Elsi Antoine, [employer] [address] [facility], [place], [address], [place] - [facility] - [place] [facility] [place] 08/21/2022 14:46:04 03/25/2023 text/html patient presents to [...] movement. She does not have a gallbladder. Elsi Antoine, [employer] [address], [place], [address], [facility] - [place] - [place] [facility] [place] 03/25/2023 11:06:02 OBGyn Episode No OBEpisode recorded.
--- OUTSIDE RECORDS SUMMARY | 2024-11-28 18:07 | XMS_ITS | Clinical Summary ---
Author Organization Healthcare Address [address] [place] [address] Care Team Providers Care Bed Laster Name Role Phone Morena Williamson Primary Care Provider [phone] Allergies No known active allergies Medications aspirin 81 MG EC tablet Take 1 tablet by mouth every evening. Active omeprazole (PriLOSEC) [address] capsule TAKE 1 CAPSULE BY MOUTH ONCE DAILY FOR 30 MINUTES PRIOR TO MORNING MEAL Active albuterol 108 (90 Base) MCG/ACT inhaler Inhale 2 puffs every 4 to 6 hours as needed. Active multivitamin (Theragran-M) tablet Take 1 tablet by mouth every evening. Active coenzyme Q-10 100 MG capsule Take 1 capsule by mouth every evening. Active Vitamins-Lipotr opics (Lipoflavonoid) tablet Take 1 tablet by mouth every evening. Active metFORMIN (Glucophage) 500 MG tablet Take 1 tablet by mouth every evening. Active thyroid (Niva Thyroid) 30 MG tablet Take 1 tablet by mouth every evening. Active estradiol (Estrace) 2 MG tablet Take 1 tablet by mouth every evening. Active Fluticasone-Shahid meterol 113-14 MCG/ACT aerosol powder Inhale 1 puff daily. Active atorvastatin (Lipitor) 80 MG tablet Take 1 tablet by mouth nightly. 90 tablet 09/24/2024 Active methocarbamol (Robaxin) 750 MG tablet Take 1 tablet by mouth 4 (four) times a day. 30 tablet 09/24/2024 Active metoprolol tartrate (Lopressor) 25 MG tablet Take 1 tablet by mouth 2 (two) times a day. 180 tablet 09/24/2024 Active naproxen sodium (Anaprox) 550 MG tablet Take 1 tablet by mouth 2 times a day. Active Active Problems Problem Noted Date Diagnosed Date Elevated creatine kinase 09/21/2024 Overview (09/23/2024): Trend Improving On supplemental oxygen by nasal cannula 09/21/19 25 Overview (09/21/2024): - extubated post surgery to HFNC, wean as able S/P CABG x 5 09/19/2024 Overview (09/23/2024): - s/p CABG x5 w/ Dr. Henry on 09/19 (JC to LAD, RSV to OM, RSV to D, RSV to PDA to PL sequentially) - asa/statin/Bblocker Electrolyte abnormality 09/19/2024 Overview (09/19/2024): - monitor and replace prn Post-op pain 09/19/2024 Overview (09/19/2024): - [facility] Acute blood loss anemia 09/19/2024 Overview (09/19/2024): - likely in setting of post-op - transfuse Hgb < 8 - CTM Thrombocytosis 09/17/2024 Class III obesity with body mass index (BMI) of 40.0 or higher 09/15/2024 Overview (09/19/2024): - complicates all aspects of care CAD (coronary artery disease) 09/13/2024 Overview (09/23/2024): - now s/p 5vCABG with Dr. Henry -ASA, Statin, Starting 12.5 Metoprolol Leukocytosis 09/13/2024 Overview (09/19/2024): - likely reactive post-op - CTM with daily labs Transaminitis 09/13/2024 Atrioventricular block, first degree 09/13/2024 Hypertension 09/13/2024 Overview (09/20/2024): - on inotropes still, start bblocker when able - restart home meds when able Hyperlipidemia 09/13/2024 Overview (09/21/2024): - Atorvastatin Medically noncompliant 09/13/2024 GERD (gastroesophageal reflux disease) Overview (09/20/2024): - Continue PO protonix SHAHEED (obstructive sleep apnea) 09/13/2024 Overview (09/20/2024): - wears home CPAP, ordered nightly while inpatient Asthma 09/13/2024 Overview (09/20/2024): - restarted home inhalers Hypothyroid 09/13/2024 Overview (09/20/2024): - resume home thyroid meds Type 2 diabetes mellitus, wi thout long-term current use of insulin 09/13/2024 Overview (09/20/2024): - on insulin gtt post-op - transitioned to SSI NSTEMI (non-ST elevated myocardial infarction) 0 09/12/2024 Overview (09/20/2024): 09/19: 5vCABG with Dr. Henry Palpitations 01/05/2024 Resolved Problems Problem Noted Date Diagnosed Date Resolved Date On mechanically assisted ventilation 09/19/2024 09/20/2024 Overview (09/19/2024): - arrived intubated post-op - fast track extubation as able Low cardiac output syndrome 09/19/2024 09/23/2024 Overview (09/21/2024): - arrived on Epi and Milrinone with Biventricular failure post CABG Milrinone halved 09/21 Hypomagnesemia 09/17/2024 09/19/2024 H/O: pneumonia 09/13/2024 09/20/2024 Encounters Date Type Department Care Team Description 11/03/2024 Telephone [facility] Cardiothoracic [address], [address] [place] [address] Kemi Sullivan RN 11/01/2024 9:45 AM EDT Office Visit [facility] Cardiothoracic [address], [address] [place] [address] Mai Ceballos MD Coronary artery disease of bois forte artery of bois forte heart with stable angina pectoris (CMS/HCC) (Primary Dx) 11/01/2024 8:35 AM EDT - 11/01/2024 11:59 PM EDT Hospital Encounter [facility] Radiology [address], [address] [place] [address] Coronary artery disease of bois forte artery of bois forte heart with stable angina pectoris (CMS/HCC) Discharge Disposition: Home or Self Care 11/01/2024 Travel 09/26/2024 Telephone [facility] [address] [place] [address] Keira Oro 09/24/2024 Travel 09/23/2024 Travel 09/22/2024 Travel 09/21/2024 Travel 09/20/2024 Travel 09/19/2024 7:35 AM EDT Anesthesia Event [facility] [address] [place] [address] Jane Back MD McClanahan, Easton D, DO 09/19/2024 7:30 AM EDT - 09/19/2024 2:55 PM EDT Surgery [facility] [address] [place] [address] Mai Ceballos MD CABG, 2 OR MORE VESSELS 09/19/2024 Orders Only External Location [address] [place] [address] Provider, External 09/19/2024 Travel 09/18/2024 Travel 09/16/2024 Travel 09/14/2024 Travel 09/13/2024 Travel 09/12/2024 9:23 PM EDT - 09/24/2024 2:46 PM EDT Hospital Encounter [facility] [address] [place] [address] [facility] Hypomagnesemia (Primary Dx); Type 2 diabetes mellitus with other specified complication, without long-term current use of insulin ([facility]); SHAHEED (obstructive sleep apnea); H/O: pneumonia; Hypercholesteremia; Atrioventricular block, first degree; Angina pectoris; Thrombocytosis; Acquired hypothyroidism; Gastroesophageal reflux disease, unspecified whether esophagitis present; Medically noncompliant; Hyperlipidemia, unspecified hyperlipidemia type; Transaminitis; Coronary artery disease of bois forte artery of bois forte heart with stable angina pectoris ([facility]); Class III obesity with body mass index (BMI) of 40.0 or higher ([facility]); Asthma, unspecified asthma severity, unspecified whether complicated, unspecified whether persistent; Class 3 severe obesity due to excess calories with serious comorbidity and body mass index (BMI) of 40.0 to 44.9 in adult; Hypertriglyceridemia; Primary hypertension; Leukocytosis, unspecified type; NSTEMI (non-ST elevated myocardial infarction) ([facility]); Anemia, unspecified type; Post-op pain; Electrolyte abnormality; Low cardiac output syndrome ([facility]); On mechanically assisted ventilation ([facility]); S/P CABG x 5; On supplemental oxygen by nasal cannula; Class 3 severe obesity with serious comorbidity and body mass index (BMI) of 40.0 to 44.9 in adult, unspecified obesity type Discharge Disposition: Home or Self Care 09/12/2024 Travel from Last 3 Months Immunizations Immunization Administration Dates Next Due Hep B, adult 12/09/2007 MMR 12/09/2007 Social History Tobacco Use Types Packs/Day Years Used Date Smoking Tobacco: Never Smokeless Tobacco: Never Tobacco Cessation:Counseling Given: Not Answered Alcohol Use Standard Drinks/Week Comments Never 0 [...] often do you attend chur ch or zoroastrian services? Never 09/13/2024 Do you belong to any clubs o r organizations such as shinto groups, unions, fraternal or athletic groups, or [...] Recorded Patient Health Questionnaire-2 Score 1 09/13/2024 [facility] - Occupational [...] any time in the past 12 m [facility], were you homeless or living in a snf (including now)? No 09/13/2024 Utilities Answer Date Recorded In the past 12 months has th e electric, gas, oil, or water company threatened to shut off services in your home? No 09/13/2024 Comments No Sex and Gender Information Value Date Recorded Sex Assigned at Not on file Legal Sex Female 8:55 PM EDT Gender Identity Not on file Sexual Orientation Not on file Last Filed Vital Signs Vital Sign Reading Time Taken Comments Blood Pressure 150/101 11/01/2024 9:24 AM EDT Pulse 110 11/01/2024 9:24 AM EDT Temperature 37 C (98.6 F) 09/24/2024 12:15 PM EDT Respiratory Rate 18 09/24/2024 12:15 PM EDT Oxygen Saturation 97% 11/01/2024 9:24 AM EDT Inhaled Oxygen Concentration - - Weight 96.9 kg (213 lb 10 oz) 11/01/2024 9:24 AM EDT Height 149.9 cm (4' 11 ) 09/12/2024 9:35 PM EDT Body Mass Index 43.15 09/12/2024 9:35 PM EDT Plan of Treatment Health Maintenance Due Date Last Done Comments [facility]-HIV Screening 1965 [facility]-Hepatitis C Screening 1963 [facility]-Infant/Child/Adol SDOH Screenings 1963 Diabetes: Dental Exam 1973 [facility]-DTaP,Tdap,and Td Vaccine s (1 - Tdap) 1982 [facility]-Pneumococcal Vaccine: 50 + Years (1 of 2 - PCV) 1982 CT Colonography 2008 Colonoscopy 2008 FIT-DNA 2008 FIT 2008 FOBT 2008 Sigmoidoscopy 2008 [facility]-Colorectal Cancer Screening 2008 [facility]-Breast Cancer Screening 2013 [facility]-Zoster Vaccines (1 of 2) 2013 [facility]-RSV Vaccine: 60+ Years o r (1 - Risk 60-74 years 1-dose series) 2023 [id number] Vaccine ( - 2023- season) 2024 [facility]-Influenza Vaccine (Seaso n Ended) 2025 [facility]-Diabetes: Hemoglobin A1C 03/12/2025 09/12/2024 [facility]- SDOH Screenings 03/15/2025 [facility]-Adult SDOH Screenings 03/15/2025 09/13/2024 [facility]-Depression Screening 09/13/2025 025, 09/13/2024 [facility]-Obesity Intervention Completed 025, 09/12/2024 HPV Vaccines Aged Out No longer eligi ble based on patient's age to complete this topic [facility]-HIB Vaccines Aged Out No longer e ligible based on patient's age to complete this topic [facility]-Hepatitis A Vaccines Aged Out No longer eligible based on patient's age to complete this topic [facility]-IPV Vaccines Aged Out No longer e ligible based on patient's age to complete this topic [facility]-Rotavirus Vaccines Aged Out No lo nger eligible based on patient's age to complete this topic Procedures Procedure Name Priority Date/Time Associated Diagnosis Comments CBC W/O DIFFERENTIAL Routine 11/01/2024 8:54 AM EDT Coronary artery disease of bois forte artery of bois forte heart with stable angina pectoris (CMS/HCC) BASIC METABOLIC PANEL, PLASMA Routine 11/01/2024 8:54 AM EDT Coronary artery disease of bois forte artery of bois forte heart with stable angina pectoris (CMS/HCC) XR CHEST 2 VIEWS Routine 11/01/2024 8:44 AM EDT Coronary artery disease of bois forte artery of bois forte heart with stable angina pectoris (CMS/HCC) POCT GLUCOSE METER UNSOLICITED RESULTS Routine 09/24/2024 12:17 PM EDT POCT GLUCOSE METER UNSOLICITED RESULTS Routine 09/24/2024 8:29 AM EDT XR CHEST 1 VIEW Routine 09/24/2024 5:42 AM EDT BASIC METABOLIC PANEL, PLASMA Routine 09/24/2024 2:42 AM EDT CBC W/O DIFFERENTIAL Routine 09/24/2024 2:42 AM EDT PHOSPHORUS, PLASMA Routine 09/24/2024 2: 42 AM EDT MAGNESIUM, PLASMA Routine 09/24/2024 2:4 2 AM EDT POCT GLUCOSE METER UNSOLICITED RESULTS Routine 09/23/2024 8:11 PM EDT POCT GLUCOSE METER UNSOLICITED RESULTS Routine 09/23/2024 4:57 PM EDT POCT GLUCOSE METER UNSOLICITED RESULTS Routine 09/23/2024 8:02 AM EDT OXYGEN THERAPY Routine 09/23/2024 8:00 AM EDT NON-INVASIVE VENTILATION Routine 09/23/2024 8:00 AM EDT XR CHEST 1 VIEW Routine 09/23/2024 2:58 AM EDT PHOSPHORUS, PLASMA Routine 09/23/2024 1: 46 AM EDT MAGNESIUM, PLASMA Routine 09/23/2024 1:4 6 AM EDT CBC W/O DIFFERENTIAL Routine 09/23/2024 1:46 AM EDT BASIC METABOLIC PANEL, PLASMA Routine 09/23/2024 1:46 AM EDT CREATINE KINASE, TOTAL, PLASMA Routine 09/23/2024 1:46 AM EDT POCT GLUCOSE METER UNSOLICITED RESULTS Routine 09/22/2024 8:26 PM EDT OXYGEN THERAPY Routine 09/22/2024 8:00 PM EDT NON-INVASIVE VENTILATION Routine 09/22/2024 8:00 PM EDT POCT GLUCOSE METER UNSOLICITED RESULTS Routine 09/22/2024 4:35 PM EDT BLOOD GAS PANEL, VENOUS STAT 09/22/2024 1:15 PM EDT POCT GLUCOSE METER UNSOLICITED RESULTS Routine 09/22/2024 11:34 AM EDT POCT GLUCOSE METER UNSOLICITED RESULTS Routine 09/22/2024 8:03 AM EDT OXYGEN THERAPY Routine 09/22/2024 8:00 AM EDT NON-INVASIVE VENTILATION Routine 09/22/2024 8:00 AM EDT XR CHEST 1 VIEW Routine 09/22/2024 2:23 AM EDT BLOOD GAS PANEL WITH OXIMETRY, MIXED VENOUS Pending Discharge 09/22/2024 2:16 AM EDT CBC W/O DIFFERENTIAL Routine 09/22/2024 2:16 AM EDT BASIC METABOLIC PANEL, PLASMA Routine 09/22/2024 2:16 AM EDT CREATINE KINASE, TOTAL, PLASMA Routine 09/22/2024 2:16 AM EDT PHOSPHORUS, PLASMA Routine 09/22/2024 2: 16 AM EDT MAGNESIUM, PLASMA Routine 09/22/2024 2:1 6 AM EDT POCT GLUCOSE METER UNSOLICITED RESULTS Routine 09/21/2024 8:52 PM EDT OXYGEN THERAPY Routine 09/21/2024 8:00 PM EDT NON-INVASIVE VENTILATION Routine 09/21/2024 8:00 PM EDT POCT GLUCOSE METER UNSOLICITED RESULTS Routine 09/21/2024 5:11 PM EDT DC CRITICAL CARE, E/M 30-74 MINUTES Routine 09/21/2024 4:28 PM EDT Type 2 diabetes mellitus with other specified complication, without long-term current use of insulin ([facility]) Coronary artery disease of bo[place] forte artery of bois forte heart with stable angina pectoris ([facility]) Electrolyte abnormality S/P CABG x 5 On supplemental oxygen by nasal cannula BLOOD GAS PANEL WITH OXIMETRY, MIXED VENOUS Routine 09/21/2024 1:14 PM EDT CREATINE KINASE, TOTAL, PLASMA Routine 09/21/2024 12:38 PM EDT RENAL FUNCTION PANEL, PLASMA Routine 09/21/2024 12:38 PM EDT POCT GLUCOSE METER UNSOLICITED RESULTS Routine 09/21/2024 11:36 AM EDT OXYGEN THERAPY Routine 09/21/2024 8:00 AM EDT NON-INVASIVE VENTILATION Routine 09/21/2024 8:00 AM EDT POCT GLUCOSE METER UNSOLICITED RESULTS Routine 09/21/2024 7:51 AM EDT BLOOD GAS PANEL WITH OXIMETRY, MIXED VENOUS Routine 09/21/2024 3:38 AM EDT XR CHEST 1 VIEW Routine 09/21/2024 3:11 AM EDT EXTRA TUBE LAVENDER TOP Routine 09/21/2024 1:06 AM EDT EXTRA TUBE LIGHT GREEN TOP Routine 09/21/2024 1:06 AM EDT EXTRA TUBES Routine 09/21/2024 1:06 AM EDT LACTATE, VENOUS Routine 09/21/2024 1:06 AM EDT CREATINE KINASE, TOTAL, PLASMA Routine 09/21/2024 1:06 AM EDT PHOSPHORUS, PLASMA Routine 09/21/2024 1: 06 AM EDT MAGNESIUM, PLASMA Routine 09/21/2024 1:0 6 AM EDT CBC W/O DIFFERENTIAL Routine 09/21/2024 1:06 AM EDT BASIC METABOLIC PANEL, PLASMA Routine 09/21/2024 1:06 AM EDT PEP THERAPY Routine 09/21/2024 12:00 AM EDT POCT GLUCOSE METER UNSOLICITED RESULTS Routine 09/20/2024 8:51 PM EDT OXYGEN THERAPY Routine 09/20/2024 8:00 PM EDT NON-INVASIVE VENTILATION Routine 09/20/2024 8:00 PM EDT PEP THERAPY Routine 09/20/2024 8:00 PM EDT OXYGEN THERAPY Routine 09/20/2024 6:56 PM EDT OXYGEN THERAPY Routine 09/20/2024 6:56 PM EDT POCT GLUCOSE METER UNSOLICITED RESULTS Routine 09/20/2024 5:22 PM EDT PEP THERAPY Routine 09/20/2024 4:00 PM EDT BLOOD GAS PANEL WITH OXIMETRY, MIXED VENOUS Routine 09/20/2024 2:47 PM EDT DC CRITICAL CARE, E/M 30-74 MINUTES Routine 09/20/2024 2:16 PM EDT Type 2 diabetes mellitus with other specified complication, without long-term current use of insulin ([facility]) SHAHEED (obstructive sleep apnea) Acquired hypothyroidism Gastroesophageal reflux disease, unspecified whether esophagitis present Hyperlipidemia, unspecified hyperlipidemia type Coronary artery disease of bois forte artery of bois forte heart with stable angina pectoris ([facility]) Asthma, unspecified asthma severity, unspecified whether complicated, unspecified whether persistent Class 3 severe obesity due to excess calories with serious comorbidity and body mass index (BMI) of 40.0 to 44.9 in adult Hypertriglyceridemia Primary hypertension Leukocytosis, unspecified type Anemia, unspecified type Post-op pain Electrolyte abnormality Low cardiac output syndrome ([facility]) S/P CABG x 5 On supplemental oxygen by nasal cannula Class 3 severe obesity with serious comorbidity and body mass index (BMI) of 40.0 to 44.9 in adult, unspecified obesity type CREATINE KINASE, TOTAL, PLASMA STAT 09/20/2024 2:07 PM EDT LACTATE, VENOUS Routine 09/20/2024 2:07 PM EDT MAGNESIUM, PLASMA Routine 09/20/2024 2:0 7 PM EDT RENAL FUNCTION PANEL, PLASMA Routine 09/20/2024 2:07 PM EDT HEMOGLOBIN AND HEMATOCRIT, BLOOD Routine 09/20/2024 2:07 PM EDT POCT GLUCOSE METER UNSOLICITED RESULTS Routine 09/20/2024 12:05 PM EDT PEP THERAPY Routine 09/20/2024 12:00 PM EDT POCT GLUCOSE METER UNSOLICITED RESULTS Routine 09/20/2024 10:22 AM EDT NON-INVASIVE VENTILATION Routine 09/20/2024 9:20 AM EDT NON-INVASIVE VENTILATION Routine 09/20/2024 9:20 AM EDT NON-INVASIVE VENTILATION Routine 09/20/2024 9:20 AM EDT PEP THERAPY Routine 09/20/2024 9:00 AM EDT POCT GLUCOSE METER UNSOLICITED RESULTS Routine 09/20/2024 8:24 AM EDT PEP THERAPY Routine 09/20/2024 7:30 AM EDT PEP THERAPY Routine 09/20/2024 7:30 AM EDT PEP THERAPY Routine 09/20/2024 7:30 AM EDT PEP THERAPY Routine 09/20/2024 7:30 AM EDT PEP THERAPY Routine 09/20/2024 7:30 AM EDT POCT GLUCOSE METER UNSOLICITED RESULTS Routine 09/20/2024 5:55 AM EDT POCT GLUCOSE METER UNSOLICITED RESULTS Routine 09/20/2024 4:34 AM EDT ECG ADULT Routine 09/20/2024 4:01 AM EDT BLOOD GAS PANEL WITH OXIMETRY, MIXED VENOUS Routine 09/20/2024 3:56 AM EDT BLOOD GAS PANEL, ARTERIAL Routine 09/20/2024 3:54 AM EDT PHOSPHORUS, PLASMA Routine 09/20/2024 3: 53 AM EDT MAGNESIUM, PLASMA Routine 09/20/2024 3:5 3 AM EDT BASIC METABOLIC PANEL, PLASMA Routine 09/20/2024 3:53 AM EDT CBC W/O DIFFERENTIAL Routine 09/20/2024 3:53 AM EDT POTASSIUM, PLASMA Timed 09/20/2024 3:5 3 AM EDT HEMATOCRIT, BLOOD Timed 09/20/2024 3:5 3 AM EDT HEMOGLOBIN Timed 09/20/2024 3:53 AM EDT POCT GLUCOSE METER UNSOLICITED RESULTS Routine 09/20/2024 3:17 AM EDT XR CHEST 1 VIEW Routine 09/20/2024 2:24 AM EDT OXYGEN THERAPY Routine 09/20/2024 2:15 AM EDT EXTUBATION Routine 09/20/2024 1:50 AM EDT POCT GLUCOSE METER UNSOLICITED RESULTS Routine 09/20/2024 12:07 AM EDT POTASSIUM, PLASMA Timed 09/19/2024 11:56 PM EDT HEMATOCRIT, BLOOD Timed 09/19/2024 11:56 PM EDT HEMOGLOBIN Timed 09/19/2024 11:56 PM EDT BLOOD GAS PANEL, ARTERIAL Timed 09/19/2024 11:55 PM EDT POCT GLUCOSE METER UNSOLICITED RESULTS Routine 09/19/2024 10:18 PM EDT BASIC METABOLIC PANEL, PLASMA Routine 09/19/2024 9:10 PM EDT CBC W/O DIFFERENTIAL Routine 09/19/2024 9:10 PM EDT POTASSIUM, PLASMA Timed 09/19/2024 9:1 0 PM EDT HEMATOCRIT, BLOOD Timed 09/19/2024 9:1 0 PM EDT HEMOGLOBIN Timed 09/19/2024 9:10 PM EDT BLOOD GAS PANEL, ARTERIAL Timed 09/19/2024 9:10 PM EDT POCT GLUCOSE METER UNSOLICITED RESULTS Routine 09/19/2024 8:02 PM EDT ANURADHA AURIS SURVEILLANCE BY PCR Routine 09/19/2024 6:24 PM EDT MULTI DRUG RESISTANCE TEST Routine 09/19/2024 6:24 PM EDT XR CHEST 1 VIEW STAT 09/19/2024 6:10 PM EDT BLOOD GAS PANEL, ARTERIAL STAT 09/19/2024 5:49 PM EDT APTT STAT 09/19/2024 5:48 PM EDT PROTHROMBIN TIME(PT) / INR STAT 09/19/2024 5:48 PM EDT PHOSPHORUS, PLASMA STAT 09/19/2024 5: 48 PM EDT MAGNESIUM, PLASMA STAT 09/19/2024 5:4 8 PM EDT BASIC METABOLIC PANEL, PLASMA STAT 09/19/2024 5:48 PM EDT CBC W/O DIFFERENTIAL STAT 09/19/2024 5:48 PM EDT DC CRITICAL CARE, ADDL 30 MIN Routine 09/19/2024 5:40 PM EDT Type 2 diabetes mellitus with other specified complication, without long-term current use of insulin ([facility]) SHAHEED (obstructive sleep apnea) Hyperlipidemia, unspecified hyperlipidemia type Coronary artery disease of bois forte artery of bois forte heart with stable angina pectoris ([facility]) Class III obesity with body mass index (BMI) of 40.0 or higher ([facility]) Asthma, unspecified asthma severity, unspecified whether complicated, unspecified whether persistent Primary hypertension Leukocytosis, unspecified type Anemia, unspecified type Post-op pain Electrolyte abnormality Low cardiac output syndrome ([facility]) On mechanically assisted ventilation ([facility]) S/P CABG x 5 ECG ADULT STAT 09/19/2024 5:24 PM EDT PEP THERAPY Routine 09/19/2024 5:06 PM EDT PEP THERAPY Routine 09/19/2024 5:06 PM EDT PEP THERAPY Routine 09/19/2024 5:06 PM EDT POCT ARTERIAL BLOOD GAS GEM UNSOLICITED RESULTS Routine 09/19/2024 4:27 PM EDT QPLUS Routine 09/19/2024 3:24 PM EDT POCT ARTERIAL BLOOD GAS GEM UNSOLICITED RESULTS Routine 09/19/2024 3:23 PM EDT POCT ACT UNSOLICITED RESULTS Routine 09/19/2024 3:21 PM EDT POCT ARTERIAL BLOOD GAS GEM UNSOLICITED RESULTS Routine 09/19/2024 2:36 PM EDT POCT ACT UNSOLICITED RESULTS Routine 09/19/2024 2:31 PM EDT POCT ARTERIAL BLOOD GAS GEM UNSOLICITED RESULTS Routine 09/19/2024 2:05 PM EDT POCT ACT UNSOLICITED RESULTS Routine 09/19/2024 2:02 PM EDT POCT ARTERIAL BLOOD GAS GEM UNSOLICITED RESULTS Routine 09/19/2024 1:34 PM EDT POCT ACT UNSOLICITED RESULTS Routine 09/19/2024 1:30 PM EDT POCT ARTERIAL BLOOD GAS GEM UNSOLICITED RESULTS Routine 09/19/2024 1:05 PM EDT POCT ACT UNSOLICITED RESULTS Routine 09/19/2024 1:00 PM EDT POCT ARTERIAL BLOOD GAS GEM UNSOLICITED RESULTS Routine 09/19/2024 12:31 PM EDT POCT ACT UNSOLICITED RESULTS Routine 09/19/2024 12:27 PM EDT POCT ARTERIAL BLOOD GAS GEM UNSOLICITED RESULTS Routine 09/19/2024 11:59 AM EDT POCT ACT UNSOLICITED RESULTS Routine 09/19/2024 11:51 AM EDT POCT ACT UNSOLICITED RESULTS Routine 09/19/2024 11:38 AM EDT POCT ACT UNSOLICITED RESULTS Routine 09/19/2024 11:27 AM EDT POCT ACT UNSOLICITED RESULTS Routine 09/19/2024 11:18 AM EDT POCT VENOUS BLOOD GAS GEM UNSOLICITED RESULTS Routine 09/19/2024 11:14 AM EDT POCT ACT UNSOLICITED RESULTS Routine 09/19/2024 11:07 AM EDT PB POINT OF CARE IMAGING PLACEHOLDER Routine 09/19/2024 9:43 AM EDT DC INSERT/PLACE FLOW DIRECT CATH Routine 09/19/2024 9:43 AM EDT ANESTHESIA ULTRASOUND GUIDED Routine 09/19/2024 9:43 AM EDT PB ANESTHESIA NON-TIMED PROCEDURE PLACEHOLDER Routine 09/19/2024 9:43 AM EDT DC AN CENTRAL LINE TRIPLE LUMEN Routine 09/19/2024 9:43 AM EDT PB POINT OF CARE IMAGING PLACEHOLDER Routine 09/19/2024 9:41 AM EDT PB ANESTHESIA NON-TIMED PROCEDURE PLACEHOLDER Routine 09/19/2024 9:41 AM EDT ANESTHESIA PERIPHERAL IV PLACEMENT Routine 09/19/2024 9:39 AM EDT POCT ARTERIAL BLOOD GAS GEM UNSOLICITED RESULTS Routine 09/19/2024 8:52 AM EDT POCT ACT UNSOLICITED RESULTS Routine 09/19/2024 8:46 AM EDT PB ANESTHESIA PLACEHOLDER Routine 09/19/2024 8:23 AM EDT DC AN ELECTIVE ENDOTRACHEAL AIRWAY Routine 09/19/2024 8:23 AM EDT PREPARE RBC STAT 09/19/2024 7:49 AM EDT CABG, 2 OR MORE VESSELS 09/19/2024 7:19 AM EDT Hypomagnesemia Type 2 diabetes mellitus with other specified complication, without long-term current use of insulin ([facility]) SHAHEED (obstructive sleep apnea) H/O: pneumonia Hypercholesteremia Atrioventricular block, first degree Angina pectoris Thrombocytosis Acquired hypothyroidism Gastroesophageal reflux disease, unspecified whether esophagitis present Medically noncompliant Hyperlipidemia, unspecified hyperlipidemia type Transaminitis Coronary artery disease of bois forte artery of bois forte heart with stable angina pectoris ([facility]) Morbid obesity with body mass index (BMI) of 40.0 or higher ([facility]) Asthma, unspecified asthma severity, unspecified whether complicated, unspecified whether persistent Class 3 severe obesity due to excess calories with serious comorbidity and body mass index (BMI) of 40.0 to 44.9 in adult Hypertriglyceridemia Primary hypertension Leukocytosis, unspecified type NSTEMI (non-ST elevated myocardial infarction) ([facility]) POCT GLUCOSE METER UNSOLICITED RESULTS Routine 09/19/2024 6:31 AM EDT EXTRA TUBE LIGHT GREEN TOP Routine 09/19/2024 12:03 AM EDT EXTRA TUBES Routine 09/19/2024 12:03 AM EDT CBC W/O DIFFERENTIAL Routine 09/19/2024 12:03 AM EDT POC ULTRASOUND 09/19/2024 POCT GLUCOSE METER UNSOLICITED RESULTS Routine 09/18/2024 8:39 PM EDT POCT GLUCOSE METER UNSOLICITED RESULTS Routine 09/18/2024 5:02 PM EDT ANTI XA LEVEL UNFRACTIONATED HEPARIN Timed 09/18/2024 2:30 PM EDT TYPE AND SCREEN Routine 09/18/2024 2:30 PM EDT XR CHEST 2 VIEWS Routine 09/18/2024 12:40 PM EDT ANTI XA LEVEL UNFRACTIONATED HEPARIN Timed 09/18/2024 8:36 AM EDT POCT GLUCOSE METER UNSOLICITED RESULTS Routine 09/18/2024 8:21 AM EDT NON-INVASIVE VENTILATION Routine 09/18/2024 8:00 AM EDT OXYGEN THERAPY Routine 09/18/2024 8:00 AM EDT ANTI XA LEVEL UNFRACTIONATED HEPARIN Timed 09/18/2024 12:57 AM EDT MAGNESIUM, PLASMA Routine 09/18/2024 12:57 AM EDT COMPREHENSIVE METABOLIC PANEL, PLASMA Routine 09/18/2024 12:57 AM EDT CBC W/O DIFFERENTIAL Routine 09/18/2024 12:57 AM EDT POCT GLUCOSE METER UNSOLICITED RESULTS Routine 09/17/2024 8:42 PM EDT NON-INVASIVE VENTILATION Routine 09/17/2024 8:00 PM EDT OXYGEN THERAPY Routine 09/17/2024 8:00 PM EDT POCT GLUCOSE METER UNSOLICITED RESULTS Routine 09/17/2024 5:17 PM EDT POCT GLUCOSE METER UNSOLICITED RESULTS Routine 09/17/2024 12:38 PM EDT POCT GLUCOSE METER UNSOLICITED RESULTS Routine 09/17/2024 8:22 AM EDT NON-INVASIVE VENTILATION Routine 09/17/2024 8:00 AM EDT OXYGEN THERAPY Routine 09/17/2024 8:00 AM EDT ANTI XA LEVEL UNFRACTIONATED HEPARIN Timed 09/17/2024 1:24 AM EDT MAGNESIUM, PLASMA Routine 09/17/2024 1:2 4 AM EDT BASIC METABOLIC PANEL, PLASMA Routine 09/17/2024 1:24 AM EDT CBC W/O DIFFERENTIAL Routine 09/17/2024 1:24 AM EDT POCT GLUCOSE METER UNSOLICITED RESULTS Routine 09/16/2024 8:31 PM EDT NON-INVASIVE VENTILATION Routine 09/16/2024 8:00 PM EDT OXYGEN THERAPY Routine 09/16/2024 8:00 PM EDT POCT GLUCOSE METER UNSOLICITED RESULTS Routine 09/16/2024 5:[address] CHEST WO IV CONTRAST Routine 09/16/2024 4:54 PM EDT POCT GLUCOSE METER UNSOLICITED RESULTS Routine 09/16/2024 12:45 PM EDT POCT GLUCOSE METER UNSOLICITED RESULTS Routine 09/16/2024 8:36 AM EDT OXYGEN THERAPY Routine 09/16/2024 8:00 AM EDT ANTI XA LEVEL UNFRACTIONATED HEPARIN Routine 09/16/2024 5:34 AM EDT CBC W/O DIFFERENTIAL Routine 09/16/2024 5:34 AM EDT POCT GLUCOSE METER UNSOLICITED RESULTS Routine 09/15/2024 8:11 PM EDT NON-INVASIVE VENTILATION Routine 09/15/2024 8:00 PM EDT OXYGEN THERAPY Routine 09/15/2024 8:00 PM EDT POCT GLUCOSE METER UNSOLICITED RESULTS Routine 09/15/2024 5:09 PM EDT POCT GLUCOSE METER UNSOLICITED RESULTS Routine 09/15/2024 12:43 PM EDT POCT GLUCOSE METER UNSOLICITED RESULTS Routine 09/15/2024 8:52 AM EDT NON-INVASIVE VENTILATION Routine 09/15/2024 8:00 AM EDT OXYGEN THERAPY Routine 09/15/2024 8:00 AM EDT ANTI XA LEVEL UNFRACTIONATED HEPARIN Timed 09/15/2024 5:08 AM EDT CBC W/O DIFFERENTIAL Routine 09/15/2024 5:08 AM EDT ANTI XA LEVEL UNFRACTIONATED HEPARIN Timed 09/14/2024 9:44 PM EDT POCT GLUCOSE METER UNSOLICITED RESULTS Routine 09/14/2024 8:23 PM EDT NON-INVASIVE VENTILATION Routine 09/14/2024 8:00 PM EDT OXYGEN THERAPY Routine 09/14/2024 8:00 PM EDT POCT GLUCOSE METER UNSOLICITED RESULTS Routine 09/14/2024 6:11 PM EDT ANTI XA LEVEL UNFRACTIONATED HEPARIN Timed 09/14/2024 12:48 PM EDT POCT GLUCOSE METER UNSOLICITED RESULTS Routine 09/14/2024 11:56 AM EDT ECHO, ADULT TRANSTHORACIC COMPLETE Routine 09/14/2024 10:22 AM EDT POCT GLUCOSE METER UNSOLICITED RESULTS Routine 09/14/2024 8:55 AM EDT NON-INVASIVE VENTILATION Routine 09/14/2024 8:00 AM EDT OXYGEN THERAPY Routine 09/14/2024 8:00 AM EDT ANTI XA LEVEL UNFRACTIONATED HEPARIN Timed 09/14/2024 6:23 AM EDT MAGNESIUM, PLASMA Routine 09/14/2024 12:07 AM EDT COMPREHENSIVE METABOLIC PANEL, PLASMA Routine 09/14/2024 12:07 AM EDT CBC W/O DIFFERENTIAL Routine 09/14/2024 12:07 AM EDT ANTI XA LEVEL UNFRACTIONATED HEPARIN Timed 09/14/2024 12:07 AM EDT POCT GLUCOSE METER UNSOLICITED RESULTS Routine 09/13/2024 8:15 PM EDT NON-INVASIVE VENTILATION Routine 09/13/2024 8:00 PM EDT OXYGEN THERAPY Routine 09/13/2024 8:00 PM EDT ANTI XA LEVEL UNFRACTIONATED HEPARIN Timed 09/13/2024 5:48 PM EDT POCT GLUCOSE METER UNSOLICITED RESULTS Routine 09/13/2024 5:23 PM EDT POCT GLUCOSE METER UNSOLICITED RESULTS Routine 09/13/2024 12:39 PM EDT VAS US CAROTID DUPLEX BILATERAL Routine 09/13/2024 11:15 AM EDT VAS US VENOUS DUPLEX LOWER EXTREMITY BILATERAL Routine 09/13/2024 11:02 AM EDT HC EVAL OF BRONCHOSPASM Routine 09/13/2024 10:36 AM EDT ANTI XA LEVEL UNFRACTIONATED HEPARIN Timed 09/13/2024 9:09 AM EDT POCT GLUCOSE METER UNSOLICITED RESULTS Routine 09/13/2024 8:27 AM EDT NON-INVASIVE VENTILATION Routine 09/13/2024 8:00 AM EDT OXYGEN THERAPY Routine 09/13/2024 8:00 AM EDT ECG ADULT STAT 09/12/2024 11:52 PM EDT CBC W/O DIFFERENTIAL Routine 09/12/2024 11:22 PM EDT ANTI XA LEVEL UNFRACTIONATED HEPARIN Timed 09/12/2024 11:21 PM EDT NON-INVASIVE VENTILATION Routine 09/12/2024 11:09 PM EDT NON-INVASIVE VENTILATION Routine 09/12/2024 11:09 PM EDT NON-INVASIVE VENTILATION Routine 09/12/2024 11:09 PM EDT XR CHEST 1 VIEW STAT 09/12/2024 9:56 PM EDT PROTHROMBIN TIME(PT) / INR Add-On 09/12/2024 9:50 PM EDT HEMOGLOBIN A1C Add-On 09/12/2024 9:50 PM EDT EXTRA TUBE LIGHT BLUE TOP Routine 09/12/2024 9:50 PM EDT EXTRA TUBES Routine 09/12/2024 9:50 PM EDT N-TERMINAL PROBNP, PLASMA STAT 09/12/2024 9:50 PM EDT MAGNESIUM, PLASMA STAT 09/12/2024 9:5 0 PM EDT COMPREHENSIVE METABOLIC PANEL, PLASMA STAT 09/12/2024 9:50 PM EDT CBC W/O DIFFERENTIAL STAT 09/12/2024 9:50 PM EDT OXYGEN THERAPY Routine 09/12/2024 9:35 PM EDT OXYGEN THERAPY Routine 09/12/2024 9:35 PM EDT OXYGEN THERAPY Routine 09/12/2024 9:35 PM EDT from Last 3 Months Results * (ABNORMAL) CBC W/O Differential (11/01/2024 8:54 AM EDT) Only the most recent of16 resultswithin the time period is included. [facility] Signature WBC Count 11.80(H) 3.70 - 10.30 10*3/uL LAB HEMATOLOGY METHOD 11/01/2024 9:38 AM EDT [facility] RBC Count 4.10 3.90 - 5.20 10*6/uL LAB HEMATOLOGY METHOD 11/01/2024 9:38 AM EDT [facility] HGB 10.1(L) 11.2 - 15.7 g/dL LAB HEMATOLOGY METHOD 11/01/2024 9:38 AM EDT [facility] HCT 34.0 34.0 - 45.0 % LAB HEMATOLOGY METHOD 11/01/2024 9:38 AM EDT [facility] Platelet Count 684(H) 155 - 369 10*3/uL LAB HEMATOLOGY METHOD 11/01/2024 9:38 AM EDT [facility] MCV 83 79 - 98 fL LAB HEMATOLOGY METHOD 11/01/2024 9:38 AM EDT [facility] MCH 24.6(L) 26.0 - 32.0 pg LAB HEMATOLOGY METHOD 11/01/2024 9:38 AM EDT [facility] MCHC 29.7(L) 30.7 - 35.5 g/dL LAB HEMATOLOGY METHOD 11/01/2024 9:38 AM EDT [facility] RDW 16.7(H) 11.5 - 14.5 % LAB HEMATOLOGY METHOD 11/01/2024 9:38 AM EDT [facility] MPV 10.3 8.8 - 12.5 fL LAB HEMATOLOGY METHOD 11/01/2024 9:38 AM EDT [facility] nRBC 0.0 <=0.0 per 100 WBCs LAB HEMATOLOGY METHOD 11/01/2024 9:38 AM EDT [facility] Blood Venous blood specimen / Unknown Venipuncture / Unknown 11/01/2024 8:54 AM EDT 11/01/2024 8:54 AM EDT us Mai Ceballos MD LAB BLOOD ORDERABLES Silva agosto Result [facility] [address] [place] [address] * (ABNORMAL) Basic Metabolic Panel, Plasma (11/01/2024 8:54 AM EDT) Only the most recent of9 resultswithin the time period is included. Glucose, Plasma 134(H) 74 - 99 mg/dL 11/01/2024 10:32 AM EDT [facility] BUN, Plasma 16 8 - 23 mg/dL 11/01/2024 10:32 AM EDT [facility] Creatinine, Plasma 0.81 0.60 - 1.10 mg/dL 11/01/2024 10:32 AM EDT [facility] BUN/Creatinine Ratio 20 11/01/2024 10:32 AM EDT [facility] Sodium, Plasma 140 136 - 145 mmol/L 11/01/2024 10:32 AM EDT [facility] Potassium, Plasma 3.1(L) 3.6 - 4.9 mmol/L 11/01/2024 10:32 AM EDT [facility] Chloride, Plasma 100 97 - 107 mmol/L 11/01/2024 10:32 AM EDT [facility] CO2, Plasma 25 22 - 29 mmol/L 11/01/2024 10:32 AM EDT [facility] Anion Gap 15 6 - 16 mmol/L 11/01/2024 10:32 AM EDT [facility] Total Calcium, Plasma 9.6 8.9 - 10.2 mg/dL 11/01/2024 10:32 AM EDT [facility] eGFRcr 82.7 mL/min/1.7 3m*2 11/01/2024 10:32 AM EDT [facility] Comment:Reported eGFRcr in m L/min/1.73m2 is based the CKD-EPI 2020 equation that does not use a race coefficient. Blood Venous blood specimen / Unknown Venipuncture / Unknown 11/01/2024 8:54 AM EDT 11/01/2024 8:54 AM EDT us Mai Ceballos MD LAB BLOOD ORDERABLES Silva l Result [facility] [address] [place] [address] * XR Chest 2 Views (11/01/2024 8:44 AM EDT) Only the most recent of2 resultswithin the time period is included. Anatomical Region Laterality Modality Chest Digital Radiogra [...] DONALD IMG XR PROCEDURES Final R esult * (ABNORMAL) POCT glucose meter (09/24/2024 12:17 PM EDT) Only the most recent of48 resultswithin the time period is included. POCT Glucose 121(H) 74 - 99 mg/dL 09/24/2024 12:25 PM EDT [facility] Comment:Accuracy of a glucos e result obtained from a capillary whole blood specimen relies upon adequate, non-compromised capillary blood flow. If the capillary glucose result is not consistent with the patient's clinical signs and symptoms, glucose testing should be repeated with either an arterial or venous sample on the glucometer or sent to the main labortory for testing. Comment 09/24/2024 12:25 PM EDT [facility] Director Of Healthcare Systems ID Vivian Miranda 12:25 PM EDT [facility] Device ID [id number] 09/24/2024 12:25 PM EDT [facility] Specimen Type POC Capillary 09/24/2024 12:25 PM EDT [facility] Blood Capillary blood specimen / Unknown 09/24/2024 12:17 PM EDT 09/24/2024 12:25 PM EDT Mai Ceballos MD LAB POINT OF CARE TEST DOCKED DEVICE UNSOLICITED RESULTS Final Result [facility] [address] [place] [id number] * XR Chest 1 View (09/24/2024 5:42 AM EDT) Only the most recent of7 resultswithin the time period is included. Anatomical Region Laterality Modality Chest Digital Radiogra phy Impressions 09/24/2024 6:55 AM EDT Stable exam. CRITICAL RESULT: No. COMMUNICATION: Per this written report Drafted by Hira Steel MD on 09/24/2024 6:54 AM Final report signed by Hira Steel MD on 09/24/2024 6:55 AM Narrative 09/24/2024 6:55 AM EDT CLINICAL INDICATION: eval lung tian TECHNIQUE: XR CHEST 1 VIEW COMPARISON: September 23, 2024 FINDINGS: Mediastinal and cardiac contours are stable. No overt edema. Basal atelectasis. Procedure Note Hira Steel MD - 09/24/2024 CLINICAL INDICATION: eval lung tian TECHNIQUE: XR CHEST 1 VIEW COMPARISON: September 23, 2024 FINDINGS: Mediastinal and cardiac contours are stable. No overt edema. Basalatelectasis. IMPRESSION: Stable exam. CRITICAL RESULT: No. COMMUNICATION: Per this written report Drafted by Hira Steel MD on 09/24/2024 6:54 AM Final report signed by Hira Steel MD on 09/24/2024 6:55 AM Vladimir BERRY IMG XR PROCEDURES Final Resu lt * (ABNORMAL) Phosphorus, Plasma (09/24/2024 2:42 AM EDT) Only the most recent of6 resultswithin the time period is included. Phosphorus, Plasma 2.3(L) 2.5 - 4.5 mg/dL 09/24/2024 4:20 AM EDT [facility] Blood Venous blood specimen / Unknown Venipuncture / Unknown 09/24/2024 2:42 AM EDT 09/24/2024 3:49 AM EDT Mai Ceballos MD LAB BLOOD ORDERABLES Silva l Result Performing Organization Address [facility] de Phone Number [facility] [address] [place] [address] * (ABNORMAL) Magnesium (09/24/2024 2:42 AM EDT) Only the most recent of11 resultswithin the time period is included. Magnesium, Plasma 1.8(L) 1.9 - 2.4 mg/dL 09/24/2024 4:20 AM EDT [facility] Blood Venous blood specimen / Unknown Venipuncture / Unknown 09/24/2024 2:42 AM EDT 09/24/2024 3:49 AM EDT Mai Ceballos MD LAB BLOOD ORDERABLES Silva l Result Performing Organization Address City/[facility] Co de Phone Number [address] [address] * (ABNORMAL) Creatine Kinase (CK), Total (09/23/2024 1:46 AM EDT) Only the most recent of5 resultswithin the time period is included. Creatine Kinase, Plasma 248(H) 37 - 168 U/L 09/23/2024 2:20 AM EDT [facility] Blood Venous blood specimen / Unknown Venipuncture / Unknown 09/23/2024 1:46 AM EDT 09/23/2024 1:52 AM EDT Ese Amin APRN LAB BLOOD ORDERABLES Fin al Result [facility] [address] [place] [address] * (ABNORMAL) Blood gas panel, venous (09/22/2024 1:15 PM EDT) pH, Venous 7.39 7.32 - 7.43 LAB HEMATOLOGY METHOD 09/22/2024 1:24 PM EDT [facility] pCO2, Venous 41 37 - 52 mmHg LAB HEMATOLOGY METHOD 09/22/2024 1:24 PM EDT [facility] pO2, Venous 34 25 - 40 mmHg LAB HEMATOLOGY METHOD 09/22/2024 1:24 PM EDT [facility] SO2, Measured, Venous 66 65 - 80 % LAB HEMATOLOGY METHOD 09/22/2024 1:24 PM EDT [facility] Base Excess, Venous -0.2 -2.0 - 3.0 mmol/L LAB HEMATOLOGY METHOD 09/22/2024 1:24 PM EDT [facility] Bicarbonate, Calculated, Venous 25 22 - 26 mmol/L LAB HEMATOLOGY METHOD 09/22/2024 1:24 PM EDT [facility] Hematocrit, Whole Blood 25.5(L) 34.0 - 45.0 % LAB HEMATOLOGY METHOD 09/22/2024 1:24 PM EDT [facility] Sodium, Whole Blood 136 136 - 145 mmol/L LAB HEMATOLOGY METHOD 09/22/2024 1:24 PM EDT [facility] Potassium, Whole Blood 3.8 3.6 - 4.9 mmol/L LAB HEMATOLOGY METHOD 09/22/2024 1:24 PM EDT [facility] Chloride, Whole Blood 105 97 - 107 mmol/L LAB HEMATOLOGY METHOD 09/22/2024 1:24 PM EDT [facility] Glucose, Whole Blood 95 74 - 99 mg/dL LAB HEMATOLOGY METHOD 09/22/2024 1:24 PM EDT [facility] Lactate, Venous, Whole Blood 0.8 0.5 - 2.2 mmol/L LAB HEMATOLOGY METHOD 09/22/2024 1:24 PM EDT [facility] Ionized Calcium, Whole Blood 4.6 4.6 - 5.1 mg/dL LAB HEMATOLOGY METHOD 09/22/2024 1:24 PM EDT [facility] Blood Venous blood specimen / Unknown Venipuncture / Unknown 09/22/2024 1:15 PM EDT 09/22/2024 1:23 PM EDT us Mai Ceballos MD LAB BLOOD ORDERABLES Silva triny Result [facility] [address] [place] [address] * (ABNORMAL) Blood gas panel with oximetry, mixed venous (09/22/2024 2:16 AM EDT) Only the most recent of5 resultswithin the time period is included. pH, Mixed Venous 7.36 7.32 - 7.43 LAB HEMATOLOGY METHOD 09/22/2024 2:33 AM EDT [facility] pCO2, Mixed Venous 40 37 - 52 mmHg LAB HEMATOLOGY METHOD 09/22/2024 2:33 AM EDT [facility] pO2, Mixed Venous 37 25 - 40 mmHg LAB HEMATOLOGY METHOD 09/22/2024 2:33 AM EDT [facility] SO2, Measured, Mixed Venous 71 65 - 80 % LAB HEMATOLOGY METHOD 09/22/2024 2:33 AM EDT [facility] Bicarbonate, Calculated, Mixed Venous 23 22 - 26 mmol/L LAB HEMATOLOGY METHOD 09/22/2024 2:33 AM EDT [facility] Base Excess, Mixed Venous -2.7(L) -2.0 - 3.0 mmol/L LAB HEMATOLOGY METHOD 09/22/2024 2:33 AM EDT [facility] Hematocrit, Whole Blood 23.8(L) 34.0 - 45.0 % LAB HEMATOLOGY METHOD 09/22/2024 2:33 AM EDT [facility] Sodium, Whole Blood 134(L) 136 - 145 mmol/L LAB HEMATOLOGY METHOD 09/22/2024 2:33 AM EDT [facility] Potassium, Whole Blood 3.9 3.6 - 4.9 mmol/L LAB HEMATOLOGY METHOD 09/22/2024 2:33 AM EDT [facility] Chloride, Whole Blood 106 97 - 107 mmol/L LAB HEMATOLOGY METHOD 09/22/2024 2:33 AM EDT [facility] Ionized Calcium, Whole Blood 4.3(L) 4.6 - 5.1 mg/dL LAB HEMATOLOGY METHOD 09/22/2024 2:33 AM EDT [facility] Glucose, Whole Blood 125(H) 74 - 99 mg/dL LAB HEMATOLOGY METHOD 09/22/2024 2:33 AM EDT [facility] Oxyhemoglobin, Mixed Venous, Whole Blood 69.1 40.0 - 70.0 % LAB HEMATOLOGY METHOD 09/22/2024 2:33 AM EDT [facility] Hemoglobin Reduced, Mixed Venous, Whole Blood 28.7 % LAB HEMATOLOGY METHOD 09/22/2024 2:33 AM EDT [facility] Total Hemoglobin, Mixed Venous, Whole Blood 7.8(L) 11.2 - 15.7 g/dL LAB HEMATOLOGY METHOD 09/22/2024 2:33 AM EDT [facility] Blood Mixed venous blood specimen / Unknown 09/22/2024 2:16 AM EDT 09/22/2024 2:29 AM EDT us Mai Ceballos MD LAB BLOOD ORDERABLES Silva l Result Performing Organization Address City/State/[facility] Co de Phone Number [facility] [address] [place] [address] * DC CRITICAL CARE, E/M 30-74 MINUTES (09/21/2024 4:28 PM EDT) Narrative Deborah Thibodeaux APRN - 09/21/2024 4:28 PM EDT Deborah Thibodeaux APRN 09/21/2024 4:43 PM Critical Care Performed by: Deborah Thibodeaux APRN Authorized by: Deborah Thibodeaux APRN Critical care provider statement: Critical care time (minutes): 50 Critical care was time spent personally by me on the following activities: Ordering and review of radiographic studies, ordering and review of laboratory studies, ordering and performing treatments and interventions, evaluation of patient's response to treatment and examination of patient Comments: The patient is critically ill with: s/p 5vCABG ongoing hemodynamic support with low dose Epi and Milrinone drips. Requires frequent assessment of hemodynamics and volume status, in addition to labs. They require complex decision making. The patient was seen on rounds with critical care physician, Dr. Browne and they are in agreement with the plan of care. Pharmacy, respiratory and nursing services were present on rounds. us Deborah Thibodeaux APRN IN CLINIC/BEDSIDE ORDERABL ES Final Result * (ABNORMAL) Renal function panel (09/21/2024 12:38 PM EDT) Only the most recent of2 resultswithin the time period is included. Glucose, Plasma 213(H) 74 - 99 mg/dL 09/21/2024 1:27 PM EDT [facility] BUN, Plasma 14 8 - 23 mg/dL 09/21/2024 1:27 PM EDT [facility] Creatinine, Plasma 0.50(L) 0.60 - 1.10 mg/dL 09/21/2024 1:27 PM EDT [facility] BUN/Creatinine Ratio 28 09/21/2024 1:27 PM EDT [facility] Sodium, Plasma 134(L) 136 - 145 mmol/L 09/21/2024 1:27 PM EDT [facility] Potassium, Plasma 3.9 3.6 - 4.9 mmol/L 09/21/2024 1:27 PM EDT [facility] Chloride, Plasma 108(H) 97 - 107 mmol/L 09/21/2024 1:27 PM EDT [facility] CO2, Plasma 17(L) 22 - 29 mmol/L 09/21/2024 1:27 PM EDT [facility] Anion Gap 9 6 - 16 mmol/L 09/21/2024 1:27 PM EDT [facility] Total Calcium, Plasma 6.7(L) 8.9 - 10.2 mg/dL 09/21/2024 1:27 PM EDT [facility] Phosphorus, Plasma 1.5(L) 2.5 - 4.5 mg/dL 09/21/2024 1:27 PM EDT [facility] Albumin, Plasma 2.5(L) 3.5 - 5.2 g/dL 09/21/2024 1:27 PM EDT [facility] eGFRcr 106.9 mL/min/1.7 3m*2 09/21/2024 1:27 PM EDT [facility] Comment:Reported eGFRcr in m L/min/1.73m2 is based the CKD-EPI 2020 equation that does not use a race coefficient. Blood Blood sample taken from central line / Unknown Venipuncture / Unknown 09/21/2024 12:38 PM EDT 09/21/2024 12:51 PM EDT Deborah Thibodeaux [employer] LAB BLOOD ORDERABLES Final Result Performing Organization Address City/[facility]/ZIP Co de Phone Number [facility] [address] [place] [address] * Lavender Top (09/21/2024 1:06 AM EDT) Extra Hold for add-ons 09/21/2024 4:02 AM EDT [facility] Comment:Auto resulted. Blood Venous blood specimen / Unknown 09/21/2024 1:06 AM EDT 09/21/2024 1:12 AM EDT Mai Ceballos MD LAB BLOOD ORDERABLES Silva l Result Performing Organization Address [facility] Co de Phone Number [facility] [address] [place] [address] * Light Green Top (09/21/2024 1:06 AM EDT) Only the most recent of2 resultswithin the time period is included. Extra Hold for add-ons 09/21/2024 4:02 AM EDT [facility] Comment:Auto resulted. Blood Venous blood specimen / Unknown 09/21/2024 1:06 AM EDT 09/21/2024 1:12 AM EDT Mai Ceballos MD LAB BLOOD ORDERABLES Silva l Result Performing Organization Address City/[facility] Co de Phone Number [facility] [address] [place] [address] * LACTIC ACID, VENOUS (09/21/2024 1:06 AM EDT) Only the most recent of2 resultswithin the time period is included. Lactate, Venous, Whole Blood 1.0 0.5 - 2.2 mmol/L LAB HEMATOLOGY METHOD 09/21/2024 1:13 AM EDT [facility] Blood Venous blood specimen / Unknown Venipuncture / Unknown 09/21/2024 1:06 AM EDT 09/21/2024 1:12 AM EDT Ese Amin APRN LAB BLOOD ORDERABLES Fin al Result [facility] [address] [place] [address] * DC CRITICAL CARE, E/M 30-74 MINUTES (09/20/2024 2:16 PM EDT) Narrative Ese Amin APRN - 09/20/2024 2:16 PM EDT Ese Amin APRN 09/20/2024 2:20 PM Critical Care Performed by: Ese Amin APRN Authorized by: Ese Amin APRN Critical care provider statement: Critical care time (minutes): 56 Critical care was time spent personally by me on the following activities: Development of treatment plan with patient or surrogate, discussions with consultants, discussions with primary provider, evaluation of patient's response to treatment, examination of patient, ordering and performing treatments and interventions, ordering and review of laboratory studies and ordering and review of radiographic studies Comments: The patient is critically ill with: CAD s/p CABG, on supplemental oxygen, electrolyte abnormality, low cardiac output requiring inotropes, HTN, HLD, hypothyroidism, GERD, obesity, asthma, cardiac volume overload, anemia, leukocytosis, DM2 on insulin drip, SHAHEED, and post-op pain. They require complex decision making. The patient was seen on rounds with critical care physician, Dr. Oni Browne and they are in agreement with the plan of care. Pharmacy, respiratory and nursing services were present on rounds. us Ese Amin APRN IN CLINIC/BEDSIDE ORDERA BLES Final Result * (ABNORMAL) Hemoglobin and hematocrit, blood (09/20/2024 2:07 PM EDT) HGB 8.8(L) 11.2 - 15.7 g/dL LAB HEMATOLOGY METHOD 09/20/2024 3:10 PM EDT [facility] HCT 27.6(L) 34.0 - 45.0 % LAB HEMATOLOGY METHOD 09/20/2024 3:10 PM EDT [facility] Blood Venous blood specimen / Unknown Venipuncture / Unknown 09/20/2024 2:07 PM EDT 09/20/2024 2:58 PM EDT us Ese Amin APRN LAB BLOOD ORDERABLES Fin al Result [facility] [address] [place] [address] * ECG Adult - POD 1 (09/20/2024 4:01 AM EDT) Only the most recent of3 resultswithin the time period is included. EKG DIAGNOSIS CLASS Abnormal MUSE ECG Ventricular Rate 99 BPM MUSE ECG Atrial Rate 99 BPM MUSE ECG DC Interval 194 ms MUSE ECG QRSD Interval 92 ms MUSE ECG QT Interval 380 ms MUSE ECG QTC Interval 487 ms MUSE ECG P [place] 41 degrees MUSE ECG R [place] -12 degrees MUSE ECG T Wave [place] 38 degrees MUSE ECG Diagnosis Normal sinus rhythm MUSE ECG Diagnosis Low voltage QRS MUSE ECG Diagnosis Inferior infarct , age undetermined MUSE ECG Diagnosis QTcB >= 480 msec MUSE ECG Diagnosis Abnormal ECG MUSE ECG Diagnosis MUSE ECG Diagnosis Confirmed by Alexandro Field ([id number]) on 09/20/2024 11:23:11 AM MUSE ECG 09/20/2024 4:01 AM EDT 09/20/2024 11:23 AM EDT us Rodrigo Aldana MD ECG ORDERABLES Final Result Performing Organization Address City/[facility]/ZIP Co de Phone Number MUSE ECG * (ABNORMAL) Blood gas, arterial - Post extubation (09/20/2024 3:54 AM EDT) Only the most recent of4 resultswithin the time period is included. pH, Arterial 7.40 7.31 - 7.42 LAB HEMATOLOGY METHOD 09/20/2024 4:12 AM EDT [facility] pCO2, Arterial 36 35 - 48 mmHg LAB HEMATOLOGY METHOD 09/20/2024 4:12 AM EDT [facility] pO2, Arterial 130 >80 mmHg LAB HEMATOLOGY METHOD 09/20/2024 4:12 AM EDT [facility] SO2, Measured, Arterial 100(H) 94 - 98 % LAB HEMATOLOGY METHOD 09/20/2024 4:12 AM EDT [facility] Base Excess, Arterial -2.5(L) -2.0 - 3.0 mmol/L LAB HEMATOLOGY METHOD 09/20/2024 4:12 AM EDT [facility] Bicarbonate, Calculated, Arterial 22 22 - 26 mmol/L LAB HEMATOLOGY METHOD 09/20/2024 4:12 AM EDT [facility] Hematocrit, Whole Blood 25.4(L) 34.0 - 45.0 % LAB HEMATOLOGY METHOD 09/20/2024 4:12 AM EDT [facility] Sodium, Whole Blood 143 136 - 145 mmol/L LAB HEMATOLOGY METHOD 09/20/2024 4:12 AM EDT [facility] Potassium, Whole Blood 5.0(H) 3.6 - 4.9 mmol/L LAB HEMATOLOGY METHOD 09/20/2024 4:12 AM EDT [facility] Chloride, Whole Blood 115(H) 97 - 107 mmol/L LAB HEMATOLOGY METHOD 09/20/2024 4:12 AM EDT [facility] Glucose, Whole Blood 132(H) 74 - 99 mg/dL LAB HEMATOLOGY METHOD 09/20/2024 4:12 AM EDT [facility] Ionized Calcium, Whole Blood 4.5(L) 4.6 - 5.1 mg/dL LAB HEMATOLOGY METHOD 09/20/2024 4:12 AM EDT [facility] Lactate, Arterial, Whole Blood 1.0 0.5 - 1.6 mmol/L LAB HEMATOLOGY METHOD 09/20/2024 4:12 AM EDT [facility] Blood Arterial blood specimen / Unknown Arterial Line / Unknown 09/20/2024 3:54 AM EDT 09/20/2024 4:11 AM EDT us Rodrigo Aldana MD LAB BLOOD ORDERABLES Final R esult [facility] [address] [place] [address] * (ABNORMAL) Hemoglobin (09/20/2024 3:53 AM EDT) Only the most recent of3 resultswithin the time period is included. HGB 8.8(L) 11.2 - 15.7 g/dL LAB HEMATOLOGY METHOD 09/20/2024 4:38 AM EDT [facility] Blood Arterial blood specimen / Unknown Arterial Line / Unknown 09/20/2024 3:53 AM EDT 09/20/2024 4:27 AM EDT Rodrigo Aldana MD LAB BLOOD ORDERABLES Final R esult Performing Organization Address [facility] de Phone Number [facility] [address] [place] [address] * (ABNORMAL) Hematocrit (09/20/2024 3:53 AM EDT) Only the most recent of3 resultswithin the time period is included. HCT 27.1(L) 34.0 - 45.0 % LAB HEMATOLOGY METHOD 09/20/2024 4:38 AM EDT [facility] Blood Arterial blood specimen / Unknown Arterial Line / Unknown 09/20/2024 3:53 AM EDT 09/20/2024 4:27 AM EDT Rodrigo Aldana MD LAB BLOOD ORDERABLES Final R esult Performing Organization Address City/[facility] Co de Phone Number [facility] [address] [place] [address] * Potassium, Plasma (09/20/2024 3:53 AM EDT) Only the most recent of3 resultswithin the time period is included. Potassium, Plasma 4.3 3.6 - 4.9 mmol/L 09/20/2024 4:55 AM EDT [facility] Blood Arterial blood specimen / Unknown Arterial Line / Unknown 09/20/2024 3:53 AM EDT 09/20/2024 4:24 AM EDT Rodrigo Aldana MD LAB BLOOD ORDERABLES Final R esult Performing Organization Address City/[facility]/[place] [address] * Anuradha auris Surveillance by PCR (09/19/2024 6:24 PM EDT) Anuradha auris PCR Result Not Detected Not Detected 09/20/2024 9:41 AM EDT [facility] Swab (Axilla and Groin) Non-blood Collection / Unknown 09/19/2024 6:24 PM EDT 09/19/2024 6:50 PM EDT Narrative [facility] - 09/20/2024 9:41 AM EDT This PCR assay was developed and its performance characteristics determined by [facility] as appropriate for clinical purposes. This assay has not been cleared or approved by the FDA, but is performed in a CLIA regulated laboratory that is qualified to perform high-complexity testing. Rodrigo Aldana MD LAB MICROBIOLOGY - GENERAL O RDERABLES Final Result Performing Organization Address [facility] [place] [address] * Multi Drug Resistance Test (09/19/2024 6:24 PM EDT) [facility] Culture No Multi Drug Resistant Organisms Isolated 09/21/2024 7:07 AM EDT [facility] Swab (Nares and Brionna Rectal) Non-blood Collection / Unknown 09/19/2024 6:24 PM EDT 09/19/2024 6:50 PM EDT Rodrigo Aldana MD LAB MICROBIOLOGY - GENERAL O RDERABLES Final Result Performing Organization Address City/[facility]/ZIP Co de Phone Number [facility] [address] [place] [address] * APTT (09/19/2024 5:48 PM EDT) Pathologist [facility] aPTT 32 25 - 35 sec LAB COAGULATION METHOD 09/19/2024 6:44 PM EDT [facility] Blood Venous blood specimen / Unknown Venipuncture / Unknown 09/19/2024 5:48 PM EDT 09/19/2024 6:13 PM EDT us Rodrigo Aldana MD LAB BLOOD ORDERABLES Final R esult Performing Organization Address City/[facility]/ZIP Co de Phone Number [facility] [address] [place] [address] * (ABNORMAL) Protime-INR (09/19/2024 5:48 PM EDT) Only the most recent of2 resultswithin the time period is included. Prothrombin Time 16.9(H) 12.0 - 14.3 sec LAB COAGULATION METHOD 09/19/2024 6:44 PM EDT [facility] INR 1.3(H) 0.9 - 1.1 LAB COAGULATION METHOD 09/19/2024 6:44 PM EDT [facility] Blood Venous blood specimen / Unknown Venipuncture / Unknown 09/19/2024 5:48 PM EDT 09/19/2024 6:13 PM EDT Narrative [facility] - 09/19/2024 6:44 PM EDT OPTIMAL INR RANGES FOR PATIENT ON ORAL ANTICOAGULANT THERAPY Prevention of venous thromboembolism INR 2.0 to 3.0 In patients with heart disease: Atrial fibrillation INR 2.0 to 3.0 Valvular heart disease INR 2.0 to 3.0 Tissue heart valves INR 2.0 to 3.0 Mechanical prosthetic valves INR 2.5 to 3.5 Prevention of recurrent CA INR 2.5 to 3.5 us Rodrigo Aldana MD LAB BLOOD ORDERABLES Final R esult Performing Organization Address City/[facility]/ZIP Co de Phone Number [facility] [address] [place] [address] * DC CRITICAL CARE, ADDL 30 MIN (09/19/2024 5:40 PM EDT) Narrative Ese Amin APRN - 09/19/2024 5:40 PM EDT Ese Amin APRN 09/19/2024 5:45 PM Critical Care Performed by: Ese Amin APRN Authorized by: Ese Amin APRN Critical care provider statement: Critical care time (minutes): 58 Critical care was time spent personally by me on the following activities: Development of treatment plan with patient or surrogate, discussions with consultants, discussions with primary provider, evaluation of patient's response to treatment, examination of patient, obtaining history from patient or surrogate, ordering and performing treatments and interventions, ordering and review of laboratory studies, ordering and review of radiographic studies, review of old charts and ventilator management I assumed subsequent critical care for this patient from a provider in my division, on the same day: yes Comments: The patient is critically ill with: CAD s/p CABG, on mechanical ventilator, SHAHEED, electrolyte abnormality, leukocytosis, anemia, GERD, Biventricular failure post-op, on inotropic support and vasopressors, HTN, HLD, GERD, post-op pain, and hypothyroid. They require complex decision making. The patient was seen on rounds with critical care physician, Dr. Oni Browne and they are in agreement with the plan of care. Pharmacy, respiratory and nursing services were present on rounds. Ese Amin APRN IN CLINIC/BEDSIDE ORDERA BLES Final Result * (ABNORMAL) POCT arterial blood gas gem (09/19/2024 4:27 PM EDT) Only the most recent of9 resultswithin the time period is included. pH, Arterial 7.33 7.31 - 7.42 09/19/2024 4:28 PM EDT [facility] pCO2, Arterial 40 35 - 48 mm Hg 09/19/2024 4:28 PM EDT [facility] pO2, Arterial 107 >80 mm Hg 09/19/2024 4:28 PM EDT [facility] SO2, Arterial 99(H) 94 - 98 % 09/19/2024 4:28 PM EDT [facility] Base Excess, Arterial -4.5(L) -2 - 3 mmol/L 09/19/2024 4:28 PM EDT [facility] HCO3, Arterial 21.1(L) 22 - 26 mmol/L 09/19/2024 4:28 PM EDT [facility] Total Hemoglobin, Arterial, Whole Blood 9.4(L) 11.2 - 15.7 g/dL 09/19/2024 4:28 PM EDT [facility] Hematocrit, Arterial 28.0(L) 34.0 - 45.0 % 09/19/2024 4:28 PM EDT [facility] Sodium, Arterial 139 136 - 145 mmol/L 09/19/2024 4:28 PM EDT [facility] Potassium, Arterial 4.2 3.6 - 4.9 mmol/L 09/19/2024 4:28 PM EDT [facility] Chloride, Whole Blood 109(H) 97 - 107 mmol/L 09/19/2024 4:28 PM EDT [facility] Glucose, Arterial 189(H) 74 - 99 mg/dL 09/19/2024 4:28 PM EDT [facility] Ionized Calcium, Arterial 4.7 4.6 - 5.1 mg/dL 09/19/2024 4:28 PM EDT [facility] Lactate, Arterial 1.1 0.5 - 1.6 mmol/L 09/19/2024 4:28 PM EDT [facility] Body Temperature 37.0 Celsius 09/19/2024 4:28 PM EDT [facility] pH, Temp Corrected, Arterial 7.33 7.31 - 7.42 09/19/2024 4:28 PM EDT [facility] pCO2, Temp Corrected, Arterial 40 35 - 48 mm Hg 09/19/2024 4:28 PM EDT [facility] pO2, Temp Corrected, Arterial 107 >80 mm Hg 09/19/2024 4:28 PM EDT [facility] Director Of Healthcare Systems ID Aleksandra Johnston 09/19/2024 4:28 PM EDT [facility] Blood, Arterial Whole blood specimen / Unknown 09/19/2024 4:27 PM EDT 09/19/2024 4:28 PM EDT Mai Ceballos MD LAB POINT OF CARE TEST DOCKED DEVICE UNSOLICITED RESULTS Final Result [facility] [address] [place] [address] * (ABNORMAL) QPLUS (09/19/2024 3:24 PM EDT) Clot Time 148 104 - 166 Seconds 09/19/2024 3:39 PM EDT [facility] Clot Time Ratio 1.0 0.8 - 1.2 3:39 PM EDT [facility] Comment:The Clot Time Ratio (CTR) is a calculated parameter. CTR values of 0.8 1.2 are demonstrated to be typical of n ormal patient samples. Samples with CTR values > 1.4 are indicative of prolongation of the intrinsic pathway clotting time, likely due to the influence of unfractionated heparin. POCT Clot Stiffness 27.2 13.0 - 33.2 hectoPascals 09/19/2024 3:39 PM EDT [facility] Platelet Contribution to Clot Stiffnes 23.2 11.9 - 29.8 hectoPascals 09/19/2024 3:39 PM EDT [facility] Fibrinogen Contribution to Clot Stiffness 4.0(H) 1.0 - 3.7 hectoPascals 09/19/2024 3:39 PM EDT [facility] Heparinase Clot Time 141 103 - 153 Seconds 09/19/2024 3:39 PM EDT [facility] Director Of Healthcare Systems ID Jane Back 09/19/2024 3:39 PM EDT [facility] Device ID [id number] 09/19/2024 3:39 PM EDT [facility] Whole Blood 09/19/2024 3:24 PM EDT 09/19/2024 3:39 PM EDT Mai Ceballos MD LAB POINT OF CARE TEST DOCKED DEVICE UNSOLICITED RESULTS Final Result Performing Organization Address City/State/[facility] Co de Phone Number [facility] [address] [place] [address] * POCT ACT (09/19/2024 3:21 PM EDT) Only the most recent of12 resultswithin the time period is included. ACT+ (HIGH RANGE) 145 68 - 600 Seconds 10/04/2024 10:10 AM EDT [facility] Director Of Healthcare Systems ID Soheila Dolan 10/04/2024 10:10 AM EDT [facility] ACT Device ID [id number] 10/04/2024 10:10 AM EDT [facility] Comment 10/04/2024 10:10 AM EDT [facility] Comment: ACT performed by staff at point of care. Results are reported immediately to the physician or primary caregiver. The activated clotting time is performed on patients with diverse clinical characteristics and treatment histories. Therefore, expected values are variable and results must be interpreted in the context of each individual patient. Blood Venous blood specimen / Unknown 09/19/2024 3:21 PM EDT 10/04/2024 10:10 AM EDT Mai Ceballos MD LAB POINT OF CARE TEST DOCKED DEVICE UNSOLICITED RESULTS Final Result [facility] [address] [facility] [address] [place] [address] * (ABNORMAL) POCT venous blood gas gem (09/19/2024 11:14 AM EDT) pH, Venous 7.38 7.32 - 7.43 09/19/2024 11:15 AM EDT [facility] pCO2, Venous 43 37 - 52 mm Hg 09/19/2024 11:15 AM EDT [facility] pO2, Venous 48(H) 25 - 40 mm Hg 09/19/2024 11:15 AM EDT [facility] SO2, Venous 79 65 - 80 % 09/19/2024 11:15 AM EDT [facility] Base Excess/Deficit, Venous 0.1 -2 - 3 mmol/L 09/19/2024 11:15 AM EDT [facility] HCO3, Venous 25.4 22 - 26 mmol/L 09/19/2024 11:15 AM EDT [facility] Hemoglobin, Venous 11.1(L) 11.2 - 15.7 g/dL 09/19/2024 11:15 AM EDT [facility] Hematocrit, Venous 33.0(L) 34.0 - 45.0 % 09/19/2024 11:15 AM EDT [facility] Sodium, Venous 138 136 - 145 mmol/L 09/19/2024 11:15 AM EDT [facility] Potassium, Venous 4.1 3.6 - 4.9 mmol/L 09/19/2024 11:15 AM EDT [facility] POCT Chloride, Venous 102 97 - 107 mmol/L 09/19/2024 11:15 AM EDT [facility] Glucose, Venous 149(H) 74 - 99 mg/dL 09/19/2024 11:15 AM EDT [facility] Ionized Calcium, Venous 4.8 4.6 - 5.1 mg/dL 09/19/2024 11:15 AM EDT [facility] Lactate, Venous 0.7 0.5 - 2.2 mmol/L 09/19/2024 11:15 AM EDT [facility] Body Temperature 37.0 Celsius 09/19/2024 11:15 AM EDT [facility] pH, Temp Corrected, Venous 7.38 7.32 - 7.43 09/19/2024 11:15 AM EDT [facility] pCO2, Temp Corrected, Venous 43 37 - 52 mm Hg 09/19/2024 11:15 AM EDT [facility] pO2, Temp Corrected, Venous 48(H) 25 - 40 mm Hg 09/19/2024 11:15 AM EDT [facility] Director Of Healthcare Systems ID Soheila Dolan 09/19/2024 11:15 AM EDT [facility] Blood, Venous Whole blood specimen / Unknown 09/19/2024 11:14 AM EDT 09/19/2024 11:15 AM EDT Mai Ceballos MD LAB POINT OF CARE TEST DOCKED DEVICE UNSOLICITED RESULTS Final Result Performing Organization Address City/State/[facility] Co de Phone Number [facility] [address] [place] [id number] * DC AN CENTRAL LINE TRIPLE LUMEN, PB ANESTHESIA NON-TIMED PROCEDURE PLACEHOLDER, ANESTHESIA ULTRASOUND GUIDED, DC INSERT/PLACE FLOW DIRECT CATH, PB POINT OF CARE IMAGING PLACEHOLDER (09/19/2024 9:43 AM EDT) Narrative Jane Back MD - 09/19/2024 9:43 AM EDT Jane Back MD 09/19/2024 12:53 PM Central Venous Line: A central venous line was placed in the OR for the following indication(s): central venous access and CVP monitoring. Sterility preparation included the following: provider hand hygiene performed prior to central venous catheter insertion, all 5 sterile barriers used (gloves, gown, cap, mask, large sterile drape) during central venous catheter insertion, antiseptic used during central venous catheter insertion and skin prep agent completely dried prior to procedure. The patient was placed in Trendelenburg position. Right internal jugular vein was prepped. The site was prepped with Chlorhexidine. A 9 Fr (size), 20 (length), introducer triple lumen was placed. This catheter was an oximetric catheter. During the procedure, the following specific steps were taken: target vein identified, needle advanced into vein and blood aspirated and guidewire advanced into vein. Seldinger technique used Procedure performed using ultrasound guidance Sterile gel and probe cover used in ultrasound-guided central venous catheter insertion. Intravenous verification was obtained by ultrasound and venous blood return. Post insertion care included: all ports aspirated, all ports flushed easily, guidewire removed intact, Biopatch applied, line sutured in place and dressing applied. During the procedure the patient experienced: patient tolerated procedure well with no complications. PA Catheter Placed A oximetric, 8 (size) Pulmonary Artery Catheter (PAC) was placed through the Introducer CVL in the right internal jugular vein. The PAC placement was confirmed by pressure tracing changes and NEYMAR. The patient experienced the following events during the procedure: patient tolerated procedure well with no complications. Staffing Performed: Resident Anesthesiologist: Jane Back MD Resident: Cyril Vergara DO Ultrasound was used to visualize vascular needle entry into the internal jugular vessel AND ultrasound image was retained. Ultrasound was used to visualize vascular needle entry into the internal jugular vein AND ultrasound image was retained. Jane Back MD ANESTHESIA ORDERABLES Final Result * PB ANESTHESIA NON-TIMED PROCEDURE PLACEHOLDER, PB POINT OF CARE IMAGING PLACEHOLDER (09/19/2024 9:41 AM EDT) Narrative Jane Back MD - 09/19/2024 9:41 AM EDT Jane Back MD 09/20/2024 12:26 PM Arterial Line: An arterial line was placed. Procedure performed using ultrasound guidance in the OR for the following indication(s): continuous blood pressure monitoring and blood sampling needed. A 20 gauge (size), 1 and 3/4 inch (length), Arrow (type) catheter was placed into the Right Location: ulnar. and secured by tape. Seldinger technique used Additional notes: First two attempts on right radial artery with freeflowing return of pulsatile arterial blood with inability to thread wire successfully. Final attempt at more medial takeoff successful. Staffing Performed: Anesthesiologist Anesthesiologist: Jane Back MD Resident: Cyril Vergara DO Jane Back MD ANESTHESIA ORDERABLES Edited Result - Final * Peripheral IV (09/19/2024 9:39 AM EDT) Narrative Jane Back MD - 09/19/2024 9:39 AM EDT Jane Back MD 09/19/2024 12:53 PM Peripheral IV Inserted by: Jane Back MD (dunia) Placement Needle size: 16 G (Peds IJ catheter in Right basilic vein) Location: arm Local anesthetic: injectable Site prep: alcohol and chlorhexidine Technique: guidewire Attempts: 3 (Peripherial IV attempts x2 via ultrasound) Jane Back MD ANESTHESIA ORDERABLES Final Result * DC AN ELECTIVE ENDOTRACHEAL AIRWAY, PB ANESTHESIA PLACEHOLDER (09/19/2024 8:23 AM EDT) Narrative Jane Back MD - 09/19/2024 8:23 AM EDT Jane Back MD 09/19/2024 12:53 PM Intubation Date/Time: 09/19/2024 8:23 AM Reason: elective Difficult airway General Information and Staff Patient location during procedure: OR Anesthesiologist: Jane Back MD Resident: Cyril Vergara DO Performed: Anesthesiologist Patient Condition Indications for airway management: anesthesia Patient position: sniffing Final Airway Details Final airway type: endotracheal airway Successful airway: ETT Cuffed: yes Successful intubation technique: direct laryngoscopy Adjuncts used in placement: anterior pressure/BURP and Bougie Endotracheal tube insertion site: oral Blade: Denisse Blade size: #3 ETT size (mm): 7.5 Cormack-Lehane Classification: grade III - view of epiglottis only Placement verified by: chest auscultation and capnometry Measured from: teeth ETT to teeth (cm): 22 Additional Comments Atraumatic. No change to dentition. No oral/pharyngeal soft tissue damage noted. Grade 3 View with DL and BURP. Bougie passed posterior to epiglottic tip, ETT slide over Bougie easily without resistance. Secured with tape. Jane Back MD ANESTHESIA ORDERABLES Final Result * POC Imaging (09/19/2024) Anatomical Region Laterality Modality Pelvis Other 09/19/2024 External Provider IMG POINT OF CARE ULTRASOUND F inal Result * Anti Xa Level by Unfractionated Heparin - Heparin Drip Titration (09/18/2024 2:30 PM EDT) Only the most recent of13 resultswithin the time period is included. Anti Xa Level Unfractionated Heparin 0.40 <1.00 IU/mL LAB COAGULATION METHOD 09/18/2024 3:10 PM EDT [facility] Blood Venous blood specimen / Unknown Venipuncture / Unknown 09/18/2024 2:30 PM EDT 09/18/2024 2:39 PM EDT Narrative [facility] - 09/18/2024 3:10 PM EDT Therapeutic Range: UFH Full Dose and ACS/CA protocols*: 0.30 - 0.70 IU/mL UFH Low Dose protocol*: 0.25 - 0.50 IU/mL UFH prophylaxis: Not established Magdy Kee MD LAB BLOOD ORDERABLES Final Result [facility] [address] [place] [address] * Type and screen (09/18/2024 2:30 PM EDT) ABO/Rh B Positive 09/18/2024 9:23 AM EDT BLOOD BANK Antibody Screen Negative 09/18/2024 9:23 AM EDT BLO[facility] BANK Specimen Expiration 09/21/2024 23:59 09/18/2024 9:23 AM EDT [facility]LO[facility] Blood Venous blood specimen / Unknown Venipuncture / Unknown 09/18/2024 2:30 PM EDT 09/18/2024 2:35 PM EDT us Renetta Diop APRN LAB BLOOD BANK TEST ORDERABLES Final Result BLOOD BANK [address] [place] [address], * (ABNORMAL) Comprehensive metabolic panel (09/18/2024 12:57 AM EDT) Only the most recent of3 resultswithin the time period is included. Pathologist [facility] Glucose, Plasma 106(H) 74 - 99 mg/dL 09/18/2024 2:08 AM EDT [facility] BUN, Plasma 14 8 - 23 mg/dL 09/18/2024 2:08 AM EDT [facility] Creatinine, Plasma 0.68 0.60 - 1.10 mg/dL 09/18/2024 2:08 AM EDT [facility] BUN/Creatinine Ratio 21 09/18/2024 2:08 AM EDT [facility] Sodium, Plasma 140 136 - 145 mmol/L 09/18/2024 2:08 AM EDT [facility] Potassium, Plasma 3.9 3.6 - 4.9 mmol/L 09/18/2024 2:08 AM EDT [facility] Chloride, Plasma 103 97 - 107 mmol/L 09/18/2024 2:08 AM EDT [facility] CO2, Plasma 24 22 - 29 mmol/L 09/18/2024 2:08 AM EDT [facility] Anion Gap 13 6 - 16 mmol/L 09/18/2024 2:08 AM EDT [facility] Total Calcium, Plasma 9.3 8.9 - 10.2 mg/dL 09/18/2024 2:08 AM EDT [facility] Total Protein 6.2(L) 6.3 - 7.9 g/dL 09/18/2024 2:08 AM EDT [facility] Albumin, Plasma 3.5 3.5 - 5.2 g/dL 09/18/2024 2:08 AM EDT [facility] AST, Plasma 60(H) 10 - 35 U/L 09/18/2024 2:08 AM EDT [facility] Comment:Hemolyzed, result ma y be falsely increased. ALT, Plasma 59(H) 10 - 35 U/L 09/18/2024 2:08 AM EDT [facility] Alkaline Phosphatase, Plasma 48 46 - 142 U/L 09/18/2024 2:08 AM EDT [facility] Total Bilirubin, Plasma 0.2 0.2 - 1.1 mg/dL 09/18/2024 2:08 AM EDT [facility] eGFRcr 99.2 mL/min/1.7 3m*2 09/18/2024 2:08 AM EDT [facility] Comment:Reported eGFRcr in m L/min/1.73m2 is based the CKD-EPI 2020 equation that does not use a race coefficient. Blood Venous blood specimen / Unknown Venipuncture / Unknown 09/18/2024 12:57 AM EDT 09/18/2024 1:25 AM EDT Renetta Diop APRN LAB BLOOD ORDERABLES Final Res ult [facility] [address] [place] [address] * CT Chest wo IV Contrast (09/16/2024 4:54 PM EDT) Anatomical Region Laterality Modality Chest Computed Tomogra phy Impressions 09/16/2024 5:46 PM EDT No acute findings in the chest. Coronary artery and aortic leaflets calcification. CRITICAL RESULT: No. COMMUNICATION: Per this written report. Drafted by Mattie Osorio MD on 09/16/2024 5:42 PM Final report signed by Mattie Osorio MD on 09/16/2024 5:46 PM Narrative 09/16/2024 5:46 PM EDT CLINICAL INDICATION: Preop CABG evaluation TECHNIQUE: Multiple axial CT images were obtained from thoracic inlet through upper abdomen without the administration of IV contrast. Reformatted images of the abdomen and pelvis in the coronal and sagittal planes were generated from the axial data set to facilitate diagnostic accuracy. Total DLP (Dose-Length Product): 277.47 mGy.cm. Please note: The reported value represents the total of one or more individual components during the CT acquisition on this date and at this time, and as such, the same value may appear in more than one CT report depending on the interpreting/reporting physicians. COMPARISON: Radiograph September 12, 2024. FINDINGS: Chest: Lymph Nodes and Mediastinum: No lymphadenopathy by CT size criteria. No mediastinal mass lesions. No suspicious thyroid findings. Cardiovascular: The heart and thoracic great vessels are normal in caliber. Tortuous descending thoracic aorta. Coronary artery and aortic leaflets calcification. No pericardial effusion. Lungs and Pleura: Central airways are clear. Mild subsegmental atelectasis in the lingula. No airspace disease or consolidation. No suspicious pulmonary nodules. No pleural effusion. Musculoskeletal and Body Wall: No clearly aggressive bone lesions. Upper Abdomen: Mild hepatic steatosis. Prior gastric bypass. Procedure Note Mattie Osorio MD - 09/16/2024 CLINICAL INDICATION: Preop CABG evaluation TECHNIQUE: Multiple axial CT images were obtained from thoracic inlet through upperabdomen without the administration of IV contrast. Reformatted images ofthe abdomen and pelvis in the coronal and sagittal planes were generatedfrom the axial data set to facilitate diagnostic accuracy. Total DLP (Dose-Length Product): 277.47 mGy.cm. Please note: The reportedvalue represents the total of one or more individual components during theCT acquisition on this date and at this time, and as such, the same valuemay appear in more than one CT report depending on theinterpreting/reporting physicians. COMPARISON: Radiograph September 12, 2024. FINDINGS: Chest: Lymph Nodes and Mediastinum: No lymphadenopathy by CT size criteria. Nomediastinal mass lesions. No suspicious thyroid findings. Cardiovascular: The heart and thoracic great vessels are normal incaliber. Tortuous descending thoracic aorta. Coronary artery and aorticleaflets calcification. No pericardial effusion. Lungs and Pleura: Central airways are clear. Mild subsegmental atelectasisin the lingula. No airspace disease or consolidation. No suspiciouspulmonary nodules. No pleural effusion. Musculoskeletal and Body Wall: No clearly aggressive bone lesions. Upper Abdomen: Mild hepatic steatosis. Prior gastric bypass. IMPRESSION: No acute findings in the chest. Coronary artery and aortic leaflets calcification. CRITICAL RESULT: No. COMMUNICATION: Per this written report. Drafted by Mattie Osorio MD on 09/16/2024 5:42 PM Final report signed by Mattie Osorio MD on 09/16/2024 5:46 PM us Vladimir BERRY IMG CT PROCEDURES Final Resu lt * ECHO, ADULT TRANSTHORACIC COMPLETE (09/14/2024 10:22 AM EDT) BSA 1.92 m2 PARKER ISCV Height 149.9 PARKER ISCV Weight 99.3 PARKER ISCV LVIDd 47 mm PARKER ISCV LVIDs 27 mm PARKER ISCV IVSd 10 mm PARKER ISCV LVPWd 9 mm PARKER ISCV LV MASS(C)D 153 g PARKER ISCV LV RWT 0.40 mm PARKER ISCV MV E Vmax 46.6 cm/s PARKER ISCV MV A Vmax 66.0 cm/s PARKER ISCV MV E/A 0.7 cm/s PARKER ISCV PA acc time 120 msec PARKER ISCV mean PAP 25 mmHg PARKER ISCV MV dec time 250 ms PARKER ISCV MV P1/2t 73 ms PARKER ISCV MVA(P1/2t) 3.0 cm2 PARKER ISCV PA DC(ACCEL) 23.7 mmHg PARKER ISCV LV Lat e' Velocity 6.0 cm/s PARKER ISCV Lat E/e' 7.8 PARKER ISCV Anatomical Region Laterality Modality Echocardiography Narrative 09/14/2024 12:01 PM EDT Left Ventricle: The left ventricle is normal size. There is normal left ventricular myocardial thickness and mass. The LVEF is visually estimated at 50 - 60%. Due to poor image quality, regional wall motion was not interpretable. Right Ventricle: The right ventricle is mildly dilated. The right ventricular systolic function is reduced. Pericardium: No pericardial effusion. There is no recent study available for direct dhnp-dk-qjuv comparison. NSTEMI 4/, BMI 44, mvCAD, scheduled for CABG, h/o gastric bypass Left Ventricle The left ventricle is normal size. There is normal left ventricular myocardial thickness and mass. The LVEF is visually estimated at 50 - 60%. Unable to assess diastolic function due to poor image quality. Due to poor image quality, regional wall motion was not interpretable. Right Ventricle The right ventricle is mildly dilated. The right ventricular systolic function is reduced. Unable to estimate the right ventricular systolic pressure (RVSP) due to inadequate TR signal. Left Atrium The left atrial size is normal. The interatrial septum is intact with no evidence for an atrial septal defect. Right Atrium The right atrium was not well visualized. The right atrial size is normal. IVC/SVC The IVC was not well visualized, and an assumed pressure of 8mmHg was used for calculations. Mitral Valve The mitral valve leaflets are normal in appearance with no evidence of mitral valve prolapse. There is no mitral regurgitation. There is no mitral stenosis. Tricuspid Valve The tricuspid valve was not well visualized. There is no tricuspid regurgitation. There is no tricuspid stenosis. Aortic Valve The aortic valve appears grossly normal. There is no valvular regurgitation. There is no hemodynamically significant valvular aortic stenosis. Pulmonic Valve The pulmonic valve was not well visualized. There is physiologic pulmonic regurgitation. There is no pulmonic stenosis. Pericardium No pericardial effusion. Great Vessels The aortic root is normal in size. The main pulmonary artery is not well visualized. Study Details A complete transthoracic echocardiogram using two-dimensional (2D), m-mode, color and spectral flow Doppler imaging was performed. Overall the study quality was poor. The study was technically difficult. The study was technically difficult due to patient's body habitus. Height: 149.9 cm. Weight: 99.3 kg. BSA: 1.92 m2. Study Recommendation There is no recent study available for direct fjjm-vt-xkkr comparison. us Vladimir BERRY CV ECHO PROCEDURES Final Res ult * VAS US Carotid Duplex Bilateral (09/13/2024 11:15 AM EDT) Anatomical Region Laterality Modality Head, Neck, Vascular Ultrasound Impressions 09/13/2024 12:44 PM EDT Right: No significant carotid plaque is demonstrated. Flow is present in the CCA, ICA, and ECA. Elevated velocities are demonstrated in the distal CCA due to tortuosity of the vessel. ICA velocities do not demonstrate evidence of a hemodynamically significant stenosis (less than 50%). Left: Mild heterogenous plaque is demonstrated in the in the carotid bifurcation and proximal ICA. Flow is present in the CCA, ICA, and ECA. ICA velocities do not demonstrate evidence of a hemodynamically significant stenosis (less than 50%). Vertebral artery flow is antegrade, bilaterally. Subclavian artery flow is multiphasic, bilaterally. COMMUNICATION: Per this written report. Preliminary report signed by Taisha Escobedo on 09/13/2024 12:04 PM By electronically signing this report, I, the attending physician, attest that I have personally reviewed the images/data for the above examination(s) and I agree with the final edited report. Drafted by Taisha Escobedo on 09/13/2024 11:27 AM Final report signed by Mark Manriquez MD on 09/13/2024 12:44 PM Narrative 09/13/2024 12:44 PM EDT CLINICAL INDICATION: Surveillance for carotid artery stenosis. TECHNIQUE: Non-invasive, real time duplex exam of the extracranial carotid circulation with Doppler ultrasonic waveform and spectral analysis was performed. COMPARISON: None. FINDINGS: Right: CCA: 159cm/s ECA: 67cm/s ICA: 67/27cm/s Vertebral A: 31cm/s Subclavian A: 126cm/s Left: CCA: 89cm/s ECA: 69cm/s ICA: 87/27cm/s; ICA/CCA ratio 0.9 Vertebral A: 51cm/s Subclavian A: 154cm/s Procedure Note Mark Manriquez MD - 09/13/2024 CLINICAL INDICATION: Surveillance for carotid artery stenosis. TECHNIQUE: Non-invasive, real time duplex exam of the extracranial carotidcirculation with Doppler ultrasonic waveform and spectral analysis wasperformed. COMPARISON: None. FINDINGS: Right: CCA: 159cm/s ECA: 67cm/s ICA: 67/27cm/s Vertebral A: 31cm/s Subclavian A: 126cm/s Left: CCA: 89cm/s ECA: 69cm/s ICA: 87/27cm/s; ICA/CCA ratio 0.9 Vertebral A: 51cm/s Subclavian A: 154cm/s IMPRESSION: Right: No significant carotid plaque is demonstrated. Flow is present inthe CCA, ICA, and ECA. Elevated velocities are demonstrated in the distalCCA due to tortuosity of the vessel. ICA velocities do not demonstrateevidence of a hemodynamically significant stenosis (less than 50%). Left: Mild heterogenous plaque is demonstrated in the in the carotidbifurcation and proximal ICA. Flow is present in the CCA, ICA, and ECA.ICA velocities do not demonstrate evidence of a hemodynamicallysignificant stenosis (less than 50%). Vertebral artery flow is antegrade, bilaterally. Subclavian artery flow is multiphasic, bilaterally. COMMUNICATION: Per this written report. Preliminary report signed by Taisha Escobedo on 09/13/2024 12:04 PM By electronically signing this report, I, the attending physician, attestthat I have personally reviewed the images/data for the aboveexamination(s) and I agree with the final edited report. Drafted by Taisha Escobedo on 09/13/2024 11:27 AM Final report signed by Mark Manriquez MD on 09/13/2024 12:44 PM us Renetta Diop APRN CV VASCULAR PROCEDURES Final R esult * VAS US Venous Duplex Lower Extremity Bilateral (09/13/2024 11:02 AM EDT) Anatomical Region Laterality Modality Lower Extremities Bilateral Ultrasound Impressions 09/13/2024 12:44 PM EDT Right: Normal study. There is no evidence of acute or chronic greater saphenous thrombosis. Greater saphenous dimensions are as described above. Left: Normal study. There is no evidence of acute or chronic greater saphenous thrombosis. Greater saphenous dimensions are as described above. COMMUNICATION: Per this written report. Preliminary report signed by Fuentes Ramsey RVT on 09/13/2024 11:04 AM By electronically signing this report, I, the attending physician, attest that I have personally reviewed the images/data for the above examination(s) and I agree with the final edited report. Drafted by Fuentes Ramsey RVT on 09/13/2024 11:02 AM Final report signed by Mark Manriquez MD on 09/13/2024 12:44 PM Narrative 09/13/2024 12:44 PM EDT CLINICAL INDICATION: preop planning for CABG TECHNIQUE: Non-invasive, real time duplex exam of the lower extremity venous circulation with Doppler ultrasonic waveform and spectral analysis was performed. COMPARISON: None. FINDINGS: Bilateral screening for DVT is negative. Right: The following transverse measurements of the greater saphenous were obtained: At SFJ: 0.70 x 0.84 cm prox thigh: 0.42 x 0.39 cm mid thigh: 0.40 x 0.39 cm distal thigh: 0.40 x 0.39 cm at knee: 0.39 x 0.36 cm prox calf: 0.33 x 0.30 cm mid calf: 0.28 x 0.33 cm distal calf: 0.26 x 0.25 cm Left: The following transverse measurements of the greater saphenous were obtained: At SFJ: 0.85 x 0.89 cm prox thigh: 0.39 x 0.41 cm mid thigh: 0.37 x 0.35 cm distal thigh: 0.34 x 0.35 cm at knee: 0.40 x 0.40 cm prox calf: 0.36 x 0.35 cm mid calf: 0.25 x 0.20 cm distal calf: 0.24 x 0.22 cm Procedure Note Mark Manriquez MD - 09/13/2024 CLINICAL INDICATION: preop planning for CABG TECHNIQUE: Non-invasive, real time duplex exam of the lower extremity venouscirculation with Doppler ultrasonic waveform and spectral analysis wasperformed. COMPARISON: None. FINDINGS: Bilateral screening for DVT is negative. Right: The following transverse measurements of the greater saphenous wereobtained: At SFJ: 0.70 x 0.84 cm prox thigh: 0.42 x 0.39 cm mid thigh: 0.40 x 0.39 cm distal thigh: 0.40 x 0.39 cm at knee: 0.39 x 0.36 cm prox calf: 0.33 x 0.30 cm mid calf: 0.28 x 0.33 cm distal calf: 0.26 x 0.25 cm Left: The following transverse measurements of the greater saphenous wereobtained: At SFJ: 0.85 x 0.89 cm prox thigh: 0.39 x 0.41 cm mid thigh: 0.37 x 0.35 cm distal thigh: 0.34 x 0.35 cm at knee: 0.40 x 0.40 cm prox calf: 0.36 x 0.35 cm mid calf: 0.25 x 0.20 cm distal calf: 0.24 x 0.22 cm IMPRESSION: Right: Normal study. There is no evidence of acute or chronic greatersaphenous thrombosis. Greater saphenous dimensions are as described above. Left: Normal study. There is no evidence of acute or chronic greatersaphenous thrombosis. Greater saphenous dimensions are as described above. COMMUNICATION: Per this written report. Preliminary report signed by Fuentes Ramsey RVT on 09/13/2024 11:04 AM By electronically signing this report, I, the attending physician, attestthat I have personally reviewed the images/data for the aboveexamination(s) and I agree with the final edited report. Drafted by Fuentes Ramsey RVT on 09/13/2024 11:02 AM Final report signed by Mark Manriquez MD on 09/13/2024 12:44 PM us Renetta Diop [employer] CV VASCULAR PROCEDURES Final R esult * (ABNORMAL) Pulmonary function testing (09/13/2024 10:36 AM EDT) DIX5PHCK 1.82(A) 1.97 - 3.27 L VYAIRE PFT PGE5VFX 1.69(A) 1.97 - 3.27 L VYAIRE PFT FVC PRED 2.57 VYAIRE PFT FVC LLN 1.94 VYAIRE PFT FVCPREZSCORE -2.32 VYAIRE PFT FVCPRE%PRED 66 % % VYAIRE PFT FVCPOSTZSCORE -1.98 VYAIRE PFT FVCPOST%PRED 71 % % VYAIRE PFT FVCCHNG 126.00 VYAIRE PFT FVC%CHG 7 % % VYAIRE PFT FVC PREDAUT US_Quanjer GLI (2011) VYAIRE PFT FVC Z-SCORE -2.32 -1.98 VYAIRE PFT CCN84HMQQ 1.34(A) 1.56 - 2.57 L VYAIRE PFT FEV1 PRE 1.13(A) 1.56 - 2.57 L VYAIRE PFT FEV1 PRED 2.05 VYAIRE PFT FEV1 LLN 1.54 VYAIRE PFT NFE0CUFHBOIUB -2.94 VYAIRE PFT FEV1_Pre%Pred 55 % % VYAIRE PFT JIF9RQTJMJPZTH -2.30 VYAIRE PFT FUM2HCKE%PRED 65 % % VYAIRE PFT HCE8UCLX 208.43 VYAIRE PFT FEV1%CHG 19 % % VYAIRE PFT FEV1 PREDAUTBee[facility] Cent[facility] (2011) VYAIRE PFT FEV1 Z-SCORE -2.94 -2.30 VYAIRE PFT JIL7MLD8WOVM 73.40 67.66 - 90.36 % VYAIRE PFT FEV1/FVC PRE 66.55(A) 67.66 - 90.36 % VYAIRE PFT QMJ1RDXJAKC 80 VYAIRE PFT BLE0QXKALA 68 VYAIRE PFT BPP0MYMFMODPMAWQ -1.78 VYAIRE PFT SZU1MVWHBD%PRED 83 % % VYAIRE PFT EHJ8TZMGCORKPOGBA -0.92 VYAIRE PFT HKR6ELSQKIS%PRED 92 % % VYAIRE PFT SXU4HQQEUPK 6,849 VYAIRE PFT CXY9PLD%CHG 10 % % VYAIRE PFT HTC4YYDEKDQO [facility] (2011) VYAIRE PFT UMH8ZHXSUMKYY -2 -1 VYAIRE PFT ECT58-34%_POST 0.96(A) 1.01 - 3.30 L/s VYAIRE PFT LXR37-01% PRE 0.62(A) 1.01 - 3.30 L/s VYAIRE PFT GUL10-17%_Pred 1.97 VYAIRE PFT JRS1517%LLN 1.00 VYAIRE PFT KLU0797%PREZSCORE -2.51 VYAIRE PFT XZY1624%PRE%PRED 32 % % VYAIRE PFT AZQ2253%POSTZSCORE -1.71 VYAIRE PFT VUQ5099%POST%PRED 49 % % VYAIRE PFT HGZ1930%CHNG 342.85 VYAIRE PFT BLZ6729%%CHG 55 % % VYAIRE PFT MRI5203%PREDAUTJackson[facility]ison [facility] (2011) VYAIRE PFT SXY2HMWM 3.26(A) 4.05 - 6.95 L/s VYAIRE PFT PEF PRE 3.45(A) 4.05 - 6.95 L/s VYAIRE PFT PEF PRED 5.45 VYAIRE PFT PEF LLN 4.01 VYAIRE PFT PEFPREZSCORE -2.29 VYAIRE PFT PEFPRE%PRED 63 % % VYAIRE PFT PEFPOSTZSCORE -2.51 VYAIRE PFT PEFPOST%PRED 60 % % VYAIRE PFT PEFCHNG -186.00 VYAIRE PFT PEF%CHG -5 % % VYAIRE PFT PEF PREDAUT [facility] (1998) VYAIRE PFT JNMGNXBJQUODOGHT4MWF 17.85 13.19 - 22.16 ml/(min* mmHg) VYAIRE PFT DLCOSINGLEBREATH PRED 17.08 VYAIRE PFT DLCOSINGLEBREATH LLN 13.07 VYAIRE PFT DLCOSINGLEBREATH Z-SCORE 0.28 VYAIRE PFT DLCOSINGLEBREATH % PRED 104.5 % VYAIRE PFT DLCOSINGLEBREATH PRED[facility] TLCO GLI (2019) VYAIRE PFT DLCOSINGLEBREATH Z-SCORE 0.28 09/13/2024 10:33 AM EDT VYAIRE PFT TRCNSQSBXZSFAKFPW5TU E 18.02 13.19 - 22.16 ml/(min* mmHg) VYAIRE PFT DLCOCSINGLEBREATH PRED 17.08 VYAIRE PFT DLCOCSINGLEBREATH LLN 13.07 VYAIRE PFT DLCOCSINGLEBREATH Z-SCORE 0.34 VYAIRE PFT DLCOCSINGLEBREATH % PRED 105.5 % VYAIRE PFT DLCOCSINGLEBREATH PREDUNC [facility] TL[facility] GLI (2019) VYAIRE PFT FADQXU0LQB 5.41 3.43 - 5.59 ml/(min* mmHg*L) VYAIRE PFT DLCOVAPRED 4.46 VYAIRE PFT DLCOVALLN 3.44 VYAIRE PFT DLCOVAZSCORE 1.38 VYAIRE PFT DLCOVA%PRED 121.5 % VYAIRE PFT DLCOVAPREDCARLSBAD [facility]ICAL [facility]ENTER [facility] TLCO GLI (2019) VYAIRE PFT DLCOVAZSCORE 1.38 09/13/2024 10:33 AM EDT VYAIRE PFT SYXHFPWTJ0FVE 5.47 3.43 - 5.59 ml/(min* mmHg*L) VYAIRE PFT DLCOC SB/VA PRED 4.46 VYAIRE PFT DLCOC SB/VA LLN 3.44 VYAIRE PFT DLCOC SB/VA Z-SCORE 1.45 VYAIRE PFT DLCOC SB/VA % PRED 122.7 % VYAIRE PFT DLCOC SB/VA [facility]ED[facility] (2019) VYAIRE PFT DLCOC SB/VA Z-SCORE 1.45 09/13 10:33 AM EDT VYAIRE PFT WMNDAXOXJVMFPA3BCF 3.30 3.16 - 4.74 L VYAIRE PFT VASINGLEBREATH PRED 3.86 VYAIRE PFT VASINGLEBREATH LLN 3.12 VYAIRE PFT VASINGLEBREATH Z-SCORE -1.25 VYAIRE PFT VASINGLEBREATH % PRED 85.3 % VYAIRE PFT VASINGLEBREATH PREDEC[facility] GL[facility] (2019) VYAIRE PFT VASINGLEBREATH Z-SCORE -1.25 09/13/2024 10:33 AM EDT VYAIRE PFT PHVIEVJADQANAJA8OZQ 2.01 1.97 - 3.27 L VYAIRE PFT IVCSINGLEBREATH PRED 2.57 VYAIRE PFT IVCSINGLEBREATH LLN 1.94 VYAIRE PFT IVCSINGLEBREATH Z-SCORE -1.46 VYAIRE PFT IVCSINGLEBREATH % PRED 78.1 % VYAIRE PFT IVCSINGLEBREATH PREDCARLS[facility] US_[facility]anjer GLI (2011) VYAIRE PFT NORA% VCMAX PRE 100.00 % VYAIRE PFT TLC SB PRE 3.41(A) 3.43 - 5.17 L VYAIRE PFT TLCSINGLEBREATH PRED 4.20 VYAIRE PFT TLCSINGLEBREATH LLN 3.39 VYAIRE PFT TLCSINGLEBREATH Z-SCORE -1.58 VYAIRE PFT TLCSINGLEBREATH % PRED 81.4 % VYAIRE PFT TLCSINGLEBREATH PREDMount [facility] Lung volumes GLI (2019)__ VYAIRE PFT HB PRE 13.10 g(Hb)/dL VYAIRE PFT CKK3UES 3.32(A) 3.43 - 5.17 L VYAIRE PFT TLCPRED 4.20 VYAIRE PFT TLCLLN 3.39 VYAIRE PFT TLCULN 5.10 VYAIRE PFT TLCZSCORE -1.79 VYAIRE PFT TLC%PRED 79.1 % VYAIRE PFT TLCPREDMount [facility] Hospital Lung volumes GLI (2019)__ VYAIRE PFT VC0PRE 1.69(A) 1.97 - 3.27 L VYAIRE PFT VCPRED 2.57 VYAIRE PFT VCLLN 1.94 VYAIRE PFT VCULN 3.23 VYAIRE PFT VCZSCORE -2.32 VYAIRE PFT VC%PRED 65.8 % VYAIRE PFT VCPREDAUT US_[facility]anjer GLI (2011) VYAIRE PFT IC0PRE 1.40 1.40 - 2.76 L VYAIRE PFT ICPRED 2.05 VYAIRE PFT ICLLN 1.38 VYAIRE PFT ICULN 2.73 VYAIRE PFT IC Z-SCORE -1.59 VYAIRE PFT IC%PRED 68.4 % VYAIRE PFT ICPREDAUTOhio[facility] Lung volumes GLI (2019)__ VYAIRE PFT YWTMJOFU0UVO 1.92 1.56 - 3.00 L VYAIRE PFT FRCPLETH PRED 2.17 VYAIRE PFT FRCPLETH LLN 1.54 VYAIRE PFT FRCPLETH ULN 2.96 VYAIRE PFT FRCPLETH Z-SCORE -0.60 VYAIRE PFT FRCPLETH % PRED 88.5 % VYAIRE PFT FRCPLETH PREDMount [facility] Hospital Lung volumes GLI (2019)__ VYAIRE PFT NJH3HDT 0.29 0.22 - 1.30 L VYAIRE PFT ERVPRED 0.64 VYAIRE PFT ERVLLN 0.22 VYAIRE PFT ERVULN 1.27 VYAIRE PFT ERV Z-SCORE -1.29 VYAIRE PFT ERV%PRED 45.2 % VYAIRE PFT ERVPREDAUTH [facility] Lung volumes GLI (2019)__ VYAIRE PFT RV0PRE 1.63 0.89 - 2.21 L VYAIRE PFT RVPRED 1.45 VYAIRE PFT RVLLN 0.88 VYAIRE PFT RVULN 2.18 VYAIRE PFT RVZSCORE 0.44 VYAIRE PFT RV%PRED 112.4 % VYAIRE PFT RVPREDAUTH [facility] Lung volumes GLI (2019)__ VYAIRE PFT RV%RBS5PXM 49.03(A) 22.91 - 45.59 % VYAIRE PFT RV%TLCPRED 34 VYAIRE PFT RV%TLCLLN 23 VYAIRE PFT RV%TLCULN 46 VYAIRE PFT RV%TLCZSCORE 2.11 VYAIRE PFT RV%TLC%PRED 144.8 % VYAIRE PFT RV%TLCPREDAUTH [facility] Lung volumes GLI (2019)__ VYAIRE PFT Anatomical Region Laterality Modality PFT 09/13/2024 9:45 AM EDT Narrative 09/16/2024 9:20 AM EDT Pulmonary Function Testing Report Avelina Parsons 59 y.o. underwent pulmonary function testing today at the [facility]. The patient underwent spirometry, lung volumes by body plethysmography, and diffusion capacity testing. All tests were appropriately administered via ATS/ERS criteria. Spirometry: Test quality: A. Test is acceptable and useable for interpretation. No airflow obstruction based on post-FEV1. Patient did have a significant response to inhaled bronchodilator. Lung Volumes: Test Quality: Appropriate QA standards were met. Mild restrictive defect. Elevated RV/TLC which is suggestive of air trapping. Diffusion Capacity: Test Quality: A. Data meets the highest standards for acceptability. Diffusion capacity corrected for Hb is normal. Trend: There are no prior studies for comparison. us Renetta Diop APRN PFT ORDERABLES Final Result * Light Blue Top (09/12/2024 9:50 PM EDT) Extra Hold for add-ons 09/13/2024 12:02 AM EDT [facility] Comment:Auto resulted. Blood Venous blood specimen / Unknown 09/12/2024 9:50 PM EDT 09/12/2024 9:56 PM EDT us Rodrigo Aldana MD LAB BLOOD ORDERABLES Final R esult Performing Organization Address [facility]/[place] [address] * N-Terminal Probnp (09/12/2024 9:50 PM EDT) Pathologist [facility] N-Terminal, PROBNP, Plasma 537 0 - 899 pg/mL 09/12/2024 10:26 PM EDT [facility] Blood Venous blood specimen / Unknown Venipuncture / Unknown 09/12/2024 9:50 PM EDT 09/12/2024 9:55 PM EDT us Magdy Kee MD LAB BLOOD ORDERABLES Final Result Performing Organization Address [facility] [place] [address] * (ABNORMAL) Hemoglobin A1c (09/12/2024 9:50 PM EDT) Pathologist [facility] Hemoglobin A1c 6.6(H) <5.7 % 09/13/2024 4:47 AM EDT [facility] Blood Venous blood specimen / Unknown Venipuncture / Unknown 09/12/2024 9:50 PM EDT 09/12/2024 9:55 PM EDT Narrative [facility] - 09/13/2024 4:47 AM EDT HA1C Interpretive Data: Diagnosis of Diabetes: Diabetic > or = 6.5% Pre-diabetic 5.7 to 6.4% Non-diabetic < or = 5.6% Glycemic Targets for Type I and Type II Diabetics: Non- Adults <7.0% Adults <6.0% Children and Adolescents <7.5% Source: [place] [employer]. Standards of medical care in diabetes,2017. Diabetes Care.2017:40 (suppl 1):S1-S135. HbA1c assay performed by an ion-exchange chromatography method that is certified traceable to the DCCT. us Magdy Kee MD LAB BLOOD ORDERABLES Final Result [facility] [address] [place] [address] from Last 3 Months Insurance [facility] Advance Directives * Full Code (Latest Code Status on File) Date Activated Date Inactivated Comments 09/19/2024 8:30 AM 09/24/2024 4:51 PM * Full Code Date Activated Date Inactivated Comments 09/12/2024 9:35 PM 09/19/2024 8:30 AM Care Teams Bed Laster Relationship Specialty Start Date End Date Morena Williamson DO [address] [place] [address] PCP - General 08/13/24
--- OUTSIDE RECORDS SUMMARY | 2024-11-28 18:07 | XMS_ITS | Encounter Summary ---
Author Organization Healthcare Address [address] [place] [address] Care Team Providers Care Supervisor Scouring Pads Name Role Phone Morena Williamson DO Primary Care Provider [phone] Encounter Details Date Type Department Care Team ([facility] st Contact Info) Description 09/19/2024 Orders Only External Location [address] [place] [address] Provider, External Social History Tobacco Use Types Packs/Day Years [...] week 09/13/2024 How often do you attend [facility] or [employer] services? Never 09/13/2024 Do you belong to any clubs o r organizations such as pentecostalism groups, unions, fraternal or athletic groups, or [...] Recorded Patient Health Questionnaire-2 Score 1 09/13/2024 [facility] - Occupational Stress [...] were you homeless or living in a jail (including now)? No 09/13/2024 Utilities Answer Date Recorded In the past 12 months has th e electric, gas, oil, or water [employer] threatened to shut off services in your home? No 09/13/2024 Comments No Sex and Gender Information Value Date Recorded Sex Assigned at Not on file Legal Sex Female 8:55 PM EDT Gender Identity Not on file Sexual Orientation Not on file documented as of this encounter Functional Status * Calculated C-SSRS Risk Score (Lifetime/Recent) Answer Date of Assessment Author No Risk Indicated 09/22/2024 8:00 PM EDT Meghann Bian RN * Question Answer Date of Assessment Author 1. Wish to be (Past 1 Month) No 025 8:00 PM EDT Tabatha Bain RN 2. Non-Specific Active Suici denzel Thoughts (Past 1 Month) No 09/22/2024 8:00 PM EDT Tabatha Bain RN 6. Suicidal Behavior (Lifetime) No 8:00 PM EDT Tabatha Bain RN documented as of this encounter Plan of Treatment Not on file documented as of this encounter Procedures Procedure Name Priority Date/Time Associated Diagnosis Comments POC ULTRASOUND 09/19/2024 documented in this encounter Results * POC Imaging (09/19/2024) Anatomical Region Laterality Modality Pelvis Other 09/19/2024 us External Provider IMG POINT OF CARE ULTRASOUND F inal Result documented in this encounter Visit Diagnoses Not on filedocumented in this encounter Additional Health Concerns Assessment Noted Time PHQ-9 Depression Total Score: 2 09/14/19 25 1:41 PM EDT A Body Mass Index follow-up plan has been documented for the patient 09/24/2024 12:23 PM EDT documented as of this encounter Care Teams Supervisor Scouring Pads Relationship Specialty Start Date End Date Morena Williamson DO [address] [place] [address] [address] [place], [place] [id number] PCP - General 08/13/24 documented as of this encounter
--- NOTE | 2024-11-28 18:18 | CT_ITS ---
PROCEDURE INFORMATION: Exam: CTA Chest With Contrast Exam date and time: 11/28/2024 7:08 PM Age: 59 years old Clinical indication: Shortness of breath; Additional info: SOA, resp failure TECHNIQUE: Imaging protocol: Computed tomographic angiography of the chest with contrast. Exam focused on the arteries. 3D rendering (Not supervised by radiologist): MIP and/or 3D reconstructed images were created by the technologist. Radiation optimization: All CT scans at this facility use at least one of these dose optimization techniques: automated exposure control; mA and/or kV adjustment per patient size (includes targeted exams where dose is matched to clinical indication); or iterative reconstruction. Contrast material: ISO 370; Contrast volume: 70 ml; Contrast route: INTRAVENOUS (IV); COMPARISON: CR XR CHEST PORTABLE 10/16/2024 3:38 AM FINDINGS: Pulmonary arteries: Normal. No pulmonary emboli. Aorta: Unremarkable. No aortic aneurysm. No aortic dissection. Lungs: Patchy upper lobe right greater than left airspace disease as well as right lower lobe airspace disease. Pleural spaces: Unremarkable. No pneumothorax. No pleural effusion. Heart: Unremarkable. No cardiomegaly. No pericardial effusion. Coronary arteries: Extensive coronary atherosclerosis. Lymph nodes: Prominent right paratracheal lymph nodes measuring up to 10 mm. Stomach: Prior gastric bypass surgery. Bones/joints: Prior median sternotomy and coronary artery bypass grafting. Soft tissues: Unremarkable. IMPRESSION: 1. No evidence of pulmonary embolus. 2. Patchy right-sided airspace disease likely infiltrate. 3. Prior gastric bypass surgery, prior cholecystectomy. 4. Coronary atherosclerosis, status post CABG.
[2024-11-28] MEDS: MAGNESIUM SULFATE IN WATER 2 GM/50 ML PIGGYBACK IV (18:23)
[2024-11-28] MEDS: LACTATED RINGERS 1000ML 1,000 ML 999 ML IV (18:23)
[2024-11-28] MEDS: METHYLPREDNISOLONE SOD SUCC 125MG VIAL 125 MG IV (18:24)
[2024-11-28] MEDS: IPRATROPIUM/ALBUTEROL 3 ML NEB 9 ML IH (18:24)
[2024-11-28 18:28] LABS: Basophils # 0.1 K/mm3 (0-0.2); Basophils % 1.4 % (0.1-2.0); Eosinophils # 0.1 Kmm3 (0.0-0.4); Eosinophils % 1.1 % (0.1-12.0); Hematocrit 35.1 % (37.0-47.0); Hemoglobin 10.7 g/dL (12.2-16.2); Immature Granulocytes # 0.02 10^3uL; Immature Granulocytes % 0.2 %; Lymphocytes # 1.1 K/mm3 (0.7-4.5); Lymphocytes % 13.9 % (10-50); Mean Corpuscular HGB Conc 30.5 g/dL (31.8-35.4); Mean Corpuscular Hemoglobin 23.9 pg (27.0-31.2); Mean Corpuscular Volume 78.5 fl (81-99); Mean Platelet Volume 9.8 fl (7.4-10.4); Monocytes # 0.5 K/mm3 (0.1-1.0); Monocytes % 6.7 % (1.7-9.3); Neutrophils # 6.2 K/mm3 (1.8-7.8); Neutrophils % 76.7 % (37.0-80.0); Nucleated Red Blood Cells # 0 10^3/uL; Nucleated Red Blood Cells % 0 %; Platelet Count 424 K/mm3 (142-424); Red Blood Count 4.47 M/mm3 (4.20-5.40); Red Cell Distribution Width 22.1 % (11.5-17.5); Red Cell Distribution Width-SD 60.4 fL
[2024-11-28 18:32] LABS: Chloride 100 mmol/L (98-107); Potassium 3.3 mmoL/L (3.5-5.1); Sodium 138 mmol/L (136-145)
[2024-11-28 18:35] LABS: Alanine Aminotransferase 28 U/L (12-78); Albumin/Globulin Ratio 1.1 (1.1-1.8); Alkaline Phosphatase 76 U/L (38-126); Anion Gap 15.3 mEq/L (5-15); Aspartate Amino Transferase 43 U/L (14-36); Bilirubin,Total 0.5 mg/dl (0.2-1.3); Blood Urea Nitrogen 10 mg/dl (7-17); Calcium 8.9 mg/dl (8.4-10.2); Carbon Dioxide 26 mmol/L (22.0-30.0); Creatinine Clearance Estimated 40 mL/min (50-200); Estimated Glomerular Filt Rate 85 ml/min (>60); GFR (African American) 103 ML/MIN (>60); Globulin 3.6 g/dL (1.3-3.2); Glucose 120 mg/dl (74-100); Total Protein,Serum 7.6 g/dl (6.3-8.2)
--- NOTE | 2024-11-28 18:38 | HMH.EDCP ---
Discharge Plan Disposition Patient Disposition: Admitted Condition: Fair Clinical Impressions Clinical Impression: Sepsis due to pneumonia, Acute hypoxic respiratory failure, Asthma exacerbation Discharge ED Provider: Ayana Reyes HPI General Chief Complaint: Shortness of Breath/Dyspnea Stated Complaint: Chest Pain Time Seen by Provider: 11/28/24 18:03 Mode of Arrival: Wheelchair Source of Information: Patient Description of Symptoms (Recalled from ER Triage Doc. by RN): Pt reports she is having SOA with pink colored sputumn for approx 3 days. Pt currently denies any pain. Pt also reports having a CABG x 5 approx 3 months ago at [facility]. History of Present Illness HPI narrative: This patient is a 59-year-old female with a history of hypertension, hypothyroidism, morbid obesity, GERD, type 2 diabetes, paroxysmal SVT, CAD status post CABG presented to the emergency department for evaluation with concern for shortness of breath. Patient reports that she has had issues with recurrent pneumonia in the past and has had fevers, chills, cough with sputum production, shortness of breath, and wheezing for 3 days. She states she has tried doing nebulizer treatments and inhalers at home without any improvement. She notes that her was sick at first and then subsequently got her sick. No other concerns or complaints noted at this time. Related Data Home Medications ?Medication ?Instructions ?Recorded ?Confirmed albuterol sulfate 2.5 mg/3 mL 2.5 mg inhalation Q4HP PRN 09/11/24 09/12/24 (0.083 %) solution for nebulization Shortness Of Breath Or Wheezing albuterol sulfate 90 mcg/actuation 2 puff inhalation Q6HP PRN 09/11/24 09/11/24 aerosol inhaler Shortness Of Breath Or Wheezing estradiol 2 mg tablet 2 mg PO DAILY 09/11/24 09/11/24 fluticasone 113 mcg-salmeterol 14 1 puff inhalation BID 09/11/24 09/11/24 mcg/actuation breath activated powdr metformin 500 mg tablet 500 mg PO DAILY 09/11/24 09/11/24 olmesartan 40 mg tablet 40 mg PO DAILY 09/11/24 09/11/24 omeprazole 40 mg capsule,delayed 40 mg PO DAILY 09/11/24 09/11/24 release thyroid (pork) 30 mg tablet (EPIC KALEIDOSCOPE ANALYST 30 mg PO DAILY 09/11/24 09/11/24 Thyroid) Previous Rx's ?Medication ?Instructions ?Recorded IV with Additives 1,000 units/hr IV 09/12/24 IV with Additives 10 mcg/min IV 09/12/24 Allergies Allergy/AdvReac Type Severity Reaction Status Date / Time No Known Allergies Allergy Verified 09/11/24 13:32 [facility] Disclaimer: The information contained in this section may have been updated after the patient was seen, as this information can be updated by other users. Medical History Asthma Bronchitis Pneumonia Migraine Hypothyroid Diabetes mellitus, type 2 Carpal tunnel syndrome on left Surgical History H/O: hysterectomy History of tonsillectomy History of cholecystectomy Gastric bypass status for obesity Family History Other Asthma Diabetes Heart failure Social History Smoking Status: Never smoker alcohol intake: never current occupational status: other Travel in the last 8 weeks?: None Have you lived/traveled outside [place] in past 30 days?: No Contact w/someone who lives/traveled outside US past 30 days?: No Exposure to someone with infectious disease in past 14 days?: No Do you have a fever (greater than 100.4 F or 38 C)?: No Have you tested positive for COVID-19?: No Exposed to someone with COVID-19 in past 14 days?: No Do you have a sore throat?: No Do you have a cough?: No Do you have any weakness?: No Do you have any diarrhea?: No Are you experiencing any unusual bleeding?: No Do you have any muscle aches/pain?: No Do you have any abdominal pain?: No Are you experiencing loss of taste or smell?: No Other Medical History Have you received the Flu Vaccine for this season: No Have you received the Pneumonia Vaccine: No ROS Obtained: Yes All systems reviewed & no additional complaints except as documented Physical Exam General General appearance: alert and obese Comment: In mild respiratory distress Head Head exam: atraumatic and normocephalic Eye Eye exam: Present normal appearance, PERRL and EOMI ENT ENT exam: Present normal exam, normal oropharynx, mucous membranes moist and normal external ear exam Neck Neck exam: Present normal inspection, full ROM and trachea midline; Absent tenderness Chest Chest inspection: Present normal inspection and symmetric chest wall rise; Absent tenderness Respiratory Respiratory exam: Present respiratory distress, wheezes, accessory muscle use and prolonged expiratory phase; Absent stridor Cardiovascular Cardiovascular exam: Present normal rhythm and tachycardia Abdominal Exam Abdominal exam: Present soft; Absent distention, tenderness or guarding Extremities Exam Extremities exam: Present normal inspection, full ROM and normal capillary refill; Absent tenderness or edema Back Exam Back exam: Present normal inspection and full ROM; Absent tenderness Neurological Exam Neurological exam: Present alert, oriented X3, CN II-XII intact and normal gait; Absent motor sensory deficit Psychiatric Psychiatric exam: Present normal affect and normal mood Skin Skin exam: Present warm and dry HEART Score HEART Score HEART Score assessment performed?: Yes History (anamnesis): Slightly suspicious ECG: Normal Age: 45-65 years Risk factors: Atherosclerosis history Troponin: </= normal limit HEART Score: 3 Critical Care Critical Care Time Critical Care Time: Yes Attestation: On 11/28/24, the high probability of a clinically significant, sudden or life threatening deterioration of the following system(s) required my full and direct attention, intervention and personal management. The time I documented below is in addition to time spent performing reported procedures but includes the following listed in this critical care notation. Total Time Total Critical Care Time: 35 Medical Decision Making Hernán Inquiry Pt receiving controlled substance: No Vital Signs Vital Signs: 11/28/24 18:05 11/28/24 19:15 Temperature 100.1 F H Temperature Source Oral Pulse Rate 109 H Pulse Rate [Left] 118 H Respiratory Rate 20 Blood Pressure 144/84 H Blood Pressure [Right Arm] 173/107 H Blood Pressure Mean [Right Arm] 129 Blood Pressure Source [Right Arm] Automatic Cuff 02 Sat by Pulse Oximetry 91 L 89 L Oxygen Delivery Method Room Air Lab Data Labs: Lab Results 11/28/24 18:15: WBC 8.0, RBC 4.47, Hgb 10.7 L, Hct 35.1 L, MCV 78.5 L, MCH 23.9 L, MCHC 30.5 L, RDW 22.1 H, Plt Count 424, MPV 9.8, Neut % (Auto) 76.7, Lymph % (Auto) 13.9, Imperial % (Auto) 6.7, Eos % (Auto) 1.1, Baso % (Auto) 1.4, Neut # (Auto) 6.2, Lymph # (Auto) 1.1, Imperial # (Auto) 0.5, Eos # (Auto) 0.1, Baso # (Auto) 0.1, Sodium 138, Potassium 3.3 L, Chloride 100, Carbon Dioxide 26, Anion Gap 15.3 H, BUN 10, Creatinine 0.70, Estimated Creat Clear 40, Estimated GFR 85, Est GFR ( Amer) 103, Glucose 120 H, Calcium 8.9, Total Bilirubin 0.5, AST 43 H, ALT 28, Alkaline Phosphatase 76, Troponin I 0.02, NT-Pro-B Natriuret Pep 1590 H, Total Protein 7.6, Albumin 4.0, Globulin 3.6 H, Albumin/Globulin Ratio 1.1, TSH 0.67, Thyroxine (T4) 13.9 H 11/28/24 18:52: VBG pH 7.47 H, VBG pCO2 32.8 L, VBG pO2 87.0 H, VBG HCO3 23.1, VBG Total CO2 24.1, VBG O2 Saturation 97.0 H, VBG Base Excess -0.6, VBG Lactic Acid 1.5 11/28/24 18:15 11/28/24 18:15 Response Orders (Tests/Meds): ED MEDICATIONS Generic Name Dose Route Start Last Admin Trade Name Freq PRN Reason Stop Dose Admin Ceftriaxone Sodium 2 gm/ 100 mls @ 200 mls/hr 11/28/24 20:44 Sodium Chloride IV 11/28/24 21:13 ONCE ONE Azithromycin 500 mg/ Sodium 250 mls @ 250 mls/hr 11/28/24 20:45 Chloride IV 11/28/24 20:46 ONCE ONE Discontinued Medications Generic Name Dose Route Start Last Admin Trade Name Freq PRN Reason Stop Dose Admin Albuterol/Ipratropium 9 ml 11/28/24 18:19 11/28/24 18:24 Ipratropium/Albuterol 3 Ml Neb IH 11/28/24 18:20 9 ml ONCE ONE Administration Lactated Ringer's 1,000 mls @ 999 mls/hr 11/28/24 18:19 11/28/24 18:23 Lactated Ringer's 1000 Ml Bag IV 11/28/24 19:19 999 mls/hr .Q1H1M ONE Administration Magnesium Sulfate 2 gm in 50 mls @ 50 mls/hr 11/28/24 18:19 11/28/24 18:23 Magnesium Sulfate 2gm/50ml Premix IV 11/28/24 19:18 50 mls/hr ONCE ONE Administration Iopamidol 70 ml 11/28/24 19:07 11/28/24 19:08 Iopamidol-370 (76%);100ml Bottle IV 11/28/24 19:08 70 ml ONCE ONE Administration Methylprednisolone Sodium Succinate 125 mg 11/28/24 18:19 11/28/24 18:24 Methylprednisolone Sod Succ 125mg Vial IV 11/28/24 18:20 125 mg ONCE ONE Administration Potassium Chloride 40 meq 11/28/24 18:35 11/28/24 19:10 Potassium Chloride 20meq Tab PO 11/28/24 18:36 40 meq ONCE ONE Administration Sodium Chloride 10 ml 11/28/24 19:07 11/28/24 19:08 Sodium Chloride 0.9% 10ml Syr (Rad Only) IV 11/28/24 19:08 10 ml ONCE ONE Administration Sodium Chloride 50 ml 11/28/24 19:07 11/28/24 19:08 0.9 % Sodium Chloride 50 Ml Vial IV 11/28/24 19:08 50 ml ONCE ONE Administration ORDERS Category Date Time Status CTA Chest [CT angio chest PE protocol] Stat Cat Scan 11/28/24 18:18 Completed BNP [NT Pro Brain Natriuretic Pep.] Stat Lab 11/28/24 18:15 Completed CBC w/Auto Diff [Complete Blood Count Auto Diff] Stat Lab 11/28/24 18:15 Completed CMP [Comprehensive Metabolic Panel] Stat Lab 11/28/24 18:15 Completed T4 (Thyroxine) Stat Lab 11/28/24 18:15 Completed TSH [Thyroid Stimulating Hormone] Stat Lab 11/28/24 18:15 Completed Trop I [Troponin I] Stat Lab 11/28/24 18:15 Completed Troponin I Q3H Lab 11/28/24 21:30 Ordered Troponin I Q3H Lab 11/29/24 00:30 Ordered Blood Culture Stat Micro 11/28/24 18:52 Received VBG [Venous Blood Gas] Stat RT 11/28/24 18:52 Completed ECG Data Tracing #1: Attestation: I reviewed this ECG and interpreted as documented below: ECG Narrative: Sinus tachycardia with a ventricular rate of [address] changes concerning for STEMI. Incomplete right bundle branch block. ECG initial impression date: 11/28/24 ECG initial impression time: 18:03 [facility] Narrative Medical Decision Narrative: In summary, this patient is a 59-year-old female presenting to the Emergency Department for evaluation of cough, fever, shortness of breath, sputum production. Differential diagnoses considered include but are not limited to pneumonia, sepsis, viral syndrome, asthma exacerbation, ACS, PE. Ruling out the most morbid conditions drove assessment. It should be noted patient's history includes obesity, hypertension, hyperlipidemia, type 2 diabetes, asthma, CAD status post CABG which they or may not be at goal therapy. This complicates all aspects of care by increasing patient's risk for morbidity. I reviewed patient's past medical records and noted prior evaluation for paroxysmal SVT in the past after recent CABG. On exam, the patient is lying in bed. She is in mild respiratory distress with an O2 saturation of 89 to 90% on room air. She is tachycardic. She has wheezes and rhonchi noted bilaterally. Workup included broad lab evaluation to evaluate for infectious, metabolic, cardiac derangements as well as CTA PE protocol and EKG. She was given DuoNebs x 3, IV methylprednisolone, and IV magnesium. She was given a bolus of IV fluids. I did not administer a full sepsis bolus, as I felt volume overload would be detrimental to her in the setting of acute respiratory failure. I independently interpreted CT scan prior to the radiologist read and noted no PE, but I do see concerns for right sided pneumonia. Please see their read for final interpretation. Labs were obtained that demonstrated mild anemia. She has a respiratory alkalosis. Chemistry demonstrates mild 4 to repletion was ordered. BNP is elevated but not significantly elevated when compared to prior. Troponin negative.. On reassessment, patient had minimal improvement after administration of interventions above and still has increased work of breathing. She also has an O2 saturation of 87 to 88% on room air requiring 2 L nasal cannula. Given this, I feel she would benefit from admission with concern for acute hypoxic respiratory failure, sepsis, pneumonia, asthma exacerbation. I started the patient on IV Rocephin and azithromycin prior to admission.
--- NOTE | 2024-11-28 18:45 | PC.NURSE ---
pt refused covid and flu swab
[2024-11-28 18:48] LABS: NT Pro Brain Natriuretic Pep. 1590 pg/mL (0-125)
[2024-11-28 18:50] LABS: Troponin I 0.02 ng/ml (0.00-0.034)
[2024-11-28 18:53] LABS: T4 (Thyroxine) 13.9 ug/dl (5.53-11.0)
--- NOTE | 2024-11-28 18:54 | PC.NURSE ---
notified RT of VBG in lab
[2024-11-28 19:04] LABS: Lactate Venous 1.5 mmol/L (0.4-2.0); VBG Base Excess -0.6 mmol/L (-2.4-2.3); VBG HCO3 23.1 mmol/L (23-30); VBG PCO2 32.8 mmol/L (35-51); VBG PH 7.47 mmol/L (7.31-7.41); VBG Total CO2 24.1 mmol/L (23-27)
[2024-11-28 19:06] LABS: Thyroid Stimulating Hormone 0.67 uIU/mL (0.465-4.68)
[2024-11-28] MEDS: 0.9 % SODIUM CHLORIDE 50 ML VIAL IV (19:08)
[2024-11-28] MEDS: IOPAMIDOL-370 (76%);100ML BOTTLE 70 ML IV (19:08)
[2024-11-28] MEDS: SODIUM CHLORIDE 0.9% 10ML SYR (RAD ONLY) 10 ML IV (19:08)
[2024-11-28] MEDS: POTASSIUM CHLORIDE 20MEQ TAB 40 MEQ PO (19:10)
--- NOTE | 2024-11-28 21:42 | P.HP_ITS ---
<Statement entered by Suhas Hull MD - 11/30/24 22:23> Evaluated by the patient and agree with plan of care as outlined by the AUDIO VISUAL ENGINEER. History of Present Illness *Admission Date: 11/28/24 *Reason for visit:: Shortness of breath *History of present illness: This is a 59-year-old female with a past medical history of hypertension, hypothyroidism, morbid obesity, GERD, type 2 diabetes, paroxysmal SVT, CAD status post CABG 3 months ago who presents emergency department today with complaints of shortness of breath. She reports she has recurrent issues with pneumonia in the past and developed fever, chills, and productive sputum over the last 3 days. She also reports that her has had upper respiratory infection this week. She states that she has had some mild blood-tinged sputum production and increased wheezing. She has been using her nebulizers at home without improvement in symptoms. She denies any chest pain. Emergency department workup notable for sepsis with Tmax of 100.2, tachycardia and pneumonia on CT imaging. CT chest negative for PE. She is hypoxic on room air to the 80s requiring new oxygen of 2 L nasal cannula. Laboratory evaluation notable for potassium of 3.3, proBNP of 1500. All other labs stable. Given her new oxygen requirement, sepsis and pneumonia she will be admitted to the hospitalist service. [facility] Disclaimer: The information contained in this section may have been updated after the patient was seen, as this information can be updated by other users. Medical History (Updated 11/28/24 @ 20:45 by Ayana Reyes DO) Asthma Bronchitis Pneumonia Migraine Hypothyroid Diabetes mellitus, type 2 Carpal tunnel syndrome on left Surgical History (Updated 11/28/24 @ 21:46 by Jalyn Tadeo RN) History of open heart surgery H/O: hysterectomy History of tonsillectomy History of cholecystectomy Gastric bypass status for obesity Family History Other Asthma Diabetes Heart failure Social History (Updated 11/28/24 @ 21:46 by Jalyn Tadeo RN) Smoking Status: Never smoker alcohol intake: never current occupational status: other Travel in the last 8 weeks?: None Have you lived/traveled outside [place] in past 30 days?: No Contact w/someone who lives/traveled outside US past 30 days?: No Exposure to someone with infectious disease in past 14 days?: No Do you have a fever (greater than 100.4 F or 38 C)?: No Have you tested positive for COVID-19?: No Exposed to someone with COVID-19 in past 14 days?: No Do you have a sore throat?: No Do you have a cough?: No Do you have any weakness?: No Are you experiencing any nausea/vomitting?: No Do you have any diarrhea?: No Are you experiencing any unusual bleeding?: No Do you have any muscle aches/pain?: No Do you have any abdominal pain?: No Are you experiencing loss of taste or smell?: No Other Medical History Have you received the Flu Vaccine for this season: No Have you received the Pneumonia Vaccine: No Review of Systems Review of Systems Review of systems:: pertinent systems reviewed and negative unless documented below Review of systems (narrative): Negative except for HPI Meds Home Medications and Allergies Home Medications ?Medication ?Instructions ?Recorded ?Confirmed ?Type albuterol sulfate 90 mcg/actuation 2 puff inhalation Q 6HP PRN 09/11/24 11/28/24 History aerosol inhaler Shortness Of Breath Or Wheez ing estradiol 2 mg tablet 2 mg PO DAILY 09/11/2411/28 History fluticasone 113 mcg-salmeterol 14 1 puff inhalation DA PITA 09/11/24 11/28/24 History mcg/actuation breath activated powdr metformin 500 mg tablet 500 mg PO DAILY 09/11/24 History omeprazole 40 mg capsule,delayed 40 mg PO DAILY 11/28/24 History release ascorbic acid (vitamin C) 1,000 mg 1,000 mg PO DAILY 0 11/28/24 11/28/24 History tablet aspirin 81 mg capsule 81 mg PO DAILY 11/28/2411/07 History atorvastatin 80 mg tablet 80 mg PO HS 11/28/24 5 History carvedilol 3.125 mg tablet 3.125 mg PO BID 11/28/24 History coenzyme Q10 100 mg capsule 100 mg PO DAILY 11/28/24 0 11/28/24 History ferrous sulfate 325 mg (65 mg 325 mg PO DAILY 11/28/24 11/28/24 History iron) tablet (FeroSul) metoprolol tartrate 25 mg tablet 25 mg PO BID 11/28/24 11/28/24 History multivitamin 1 tab PO DAILY 11/28/24 06/2 08/30 History thyroid (pork) 30 mg tablet (Niva 30 mg PO DAILY 11/2811/28/24 History Thyroid) vitamins-lipotropics tablet 1 tab PO DAILY 11/28/24 History New Prescriptions to Start Prescriptions: Allergies Allergy/AdvReac Type Severity Reaction Status Date / Time No Known Allergies Allergy Verified 09/11/24 13:32 Exam Data for Last 24 hours Vital signs and Labs for Last 24 Hours: Temp Pulse Resp BP Pulse Ox O2 Del Method O2 Flow Rate 98 F 106 H 18 144/84 H 89 L Nasal Cannula 2 11/28/24 21:21 11/28/24 21:21 11/28/24 21:21 11/28/24 21:21 11/28/24 19:15 11/28/24 21:21 11/28/24 21:21 Laboratory Results - last 24 hr 11/28/24 18:15: WBC 8.0, RBC 4.47, Hgb 10.7 L, Hct 35.1 L, MCV 78.5 L, MCH 23.9 L, MCHC 30.5 L, RDW 22.1 H, Plt Count 424, MPV 9.8, Neut % (Auto) 76.7, Lymph % (Auto) 13.9, [place] % (Auto) 6.7, Eos % (Auto) 1.1, Baso % (Auto) 1.4, Neut # (Auto) 6.2, Lymph # (Auto) 1.1, [place] # (Auto) 0.5, Eos # (Auto) 0.1, Baso # (Auto) 0.1, Sodium 138, Potassium 3.3 L, Chloride 100, Carbon Dioxide 26, Anion Gap 15.3 H, BUN 10, Creatinine 0.70, Estimated Creat Clear 40, Estimated GFR 85, Est GFR ( Amer) 103, Glucose 120 H, Calcium 8.9, Total Bilirubin 0.5, AST 43 H, ALT 28, Alkaline Phosphatase 76, Troponin I 0.02, NT-Pro-B Natriuret Pep 1590 H, Total Protein 7.6, Albumin 4.0, Globulin 3.6 H, Albumin/Globulin Ratio 1.1, TSH 0.67, Thyroxine (T4) 13.9 H 11/28/24 18:52: VBG pH 7.47 H, VBG pCO2 32.8 L, VBG pO2 87.0 H, VBG HCO3 23.1, VBG Total CO2 24.1, VBG O2 Saturation 97.0 H, VBG Base Excess -0.6, VBG Lactic Acid 1.5 I & O for Last 24 hours: Intake & Output 11/25/24 11/26/24 11/27/24 11/28/24 23:59 23:59 23:59 23:59 Weight 95.708 kg Constitutional Constitutional: no acute distress *Routine HEENT Exam Head: Present normocephalic Eye: Present EOMI and PERRL ENT: Present mucous membranes moist *Routine Neck Exam Neck: Present supple; Absent lymphadenopathy *Routine Respiratory Exam Respiratory: Present wheezes *Routine Cardiovascular Exam Cardiovascular: Present RRR *Routine Abdominal Exam Abdominal: Present soft and normoactive bowel sounds; Absent tenderness *Routine Rectal Exam Rectal:: deferred *Routine Genitalia Exam Genitalia:: deferred *Routine Extremities Exam Extremities: Absent cyanosis, clubbing or edema *Routine Skin Exam Skin: Present warm; Absent rash *Routine Neurological Exam Neurological: Present alert and oriented X3 Assessment and Plan *Assessment and plan (1) Sepsis due to pneumonia: Status: Acute Category: Medical Code(s): J18.9 - Pneumonia, unspecified organism; A41.9 - Sepsis, unspecified organism (2) Diabetes mellitus, type 2: Status: Acute Category: Medical Code(s): E11.9 - Type 2 diabetes mellitus without complications (3) Hypothyroid: Status: Acute Category: Medical Code(s): E03.9 - Hypothyroidism, unspecified (4) Morbid obesity with BMI of 40.0-44.9, adult: Status: Chronic Category: Medical Code(s): E66.01 - Morbid (severe) obesity due to excess calories; Z68.41 - Body mass index [BMI] 40.0-44.9, adult (5) Hypertension: Status: Chronic Category: Medical Code(s): I10 - Essential (primary) hypertension (6) Acute hypoxic respiratory failure: Status: Acute Category: Medical Code(s): J96.01 - Acute respiratory failure with hypoxia (7) Asthma exacerbation: Status: Acute Category: Medical Code(s): J45.901 - Unspecified asthma with (acute) exacerbation Plan #Sepsis secondary to pneumonia Meets criteria for fever, tachycardia and pneumonia on CT imaging. Patchy right-sided airspace opacity. 30 mL/kg fluids deferred given cardiac disease Lactic acid Follow-up blood culture Follow-up sputum culture Continue azithromycin and Rocephin #Acute hypoxic respiratory failure #Asthma exacerbation Requiring 2 L nasal cannula to maintain oxygen saturations greater than 88%. New oxygen requirement. Continue bronchodilators. Will defer steroid therapy given acute infection Pulmonary toilet Continue mucolytics #Hemoptysis Reports blood-tinged sputum. Continue to monitor. No PE noted. Not on blood thinners at this time. #Morbid obesity Complicates all aspects of care #CAD Status post CABG approximately 3 months ago Continue home aspirin and statin EKG without acute abnormality today #HTN #HLD Continue home medications #T2DM Hold metformin in the acute phase. Continue sliding scale insulin.
[2024-11-28] MEDS: ACETAMINOPHEN 500MG TAB 1000 MG PO (21:52)
[2024-11-28] MEDS: CEFTRIAXONE SODIUM 2 GM in 0.9 % SODIUM CHLORIDE 100 ML IV (21:52)
[2024-11-28] MEDS: guaiFENesin 600 MG TAB.ER.12H PO (21:59)
[2024-11-28 22:15] LABS: Troponin I 0.02 ng/ml (0.00-0.034)
[2024-11-28] MEDS: AZITHROMYCIN 500 MG in 0.9 % SODIUM CHLORIDE 250 ML 250 MG IV (22:27)
[2024-11-29] VITALS (12 sets, daily range): BP systolic 143–168; BP diastolic 86–111; PULSE 78–108; RESP 17–20; TEMP 36.5–36.9; O2SAT 89–97; BMI 42.7
[2024-11-29 01:47] LABS: Troponin I 0.01 ng/ml (0.00-0.034)
--- NOTE | 2024-11-29 05:02 | PC.NURSE ---
Pt. was admitted overnight with sepsis, pneumonia, acute hypoxic resp. failure. Pt. is alert and orientated x 4. Pt. is on oxygen 2 liters per N/C. Pt. states her breathing is better than when she was in the ED. Pt. has a strong cardiac history including a CABG 3 months ago. type 2 diabetes. Pt. is up independently to bathroom . Pt. refused SCUD's states that she get up and is able to ambulate. Incentive spirometer given to patient. Pt. able to explain how to use and demonstrate use. Said she was given one after her CABG. Lung sounds with crackles to bases. Personal items and call banegas in use. saftey measures in place.
[2024-11-29] MEDS: ACETAMINOPHEN 325MG TAB 650 MG PO ×3 (05:32→23:39)
[2024-11-29] MEDS: IPRATROPIUM/ALBUTEROL 3 ML NEB IH ×5 (05:37→22:17)
[2024-11-29 06:00] LABS: POC Glucose,Bedside 197 (70-110)
[2024-11-29] MEDS: humaLOG 100 UNITS/ML 10ML VIAL (SSI) SUBCUT ×2 (06:05→20:34)
[2024-11-29 06:30] LABS: Basophils % 0.4 % (0.1-2.0); Hematocrit 36.5 % (37.0-47.0); Hemoglobin 10.8 g/dL (12.2-16.2); Immature Granulocytes # 0.03 10^3uL; Immature Granulocytes % 0.6 %; Lymphocytes # 0.6 K/mm3 (0.7-4.5); Lymphocytes % 11.5 % (10-50); Mean Corpuscular HGB Conc 29.6 g/dL (31.8-35.4); Mean Corpuscular Hemoglobin 23.6 pg (27.0-31.2); Mean Corpuscular Volume 79.9 fl (81-99); Monocytes # 0.2 K/mm3 (0.1-1.0); Monocytes % 3.2 % (1.7-9.3); Neutrophils # 4.2 K/mm3 (1.8-7.8); Neutrophils % 84.3 % (37.0-80.0); Nucleated Red Blood Cells # 0 10^3/uL; Nucleated Red Blood Cells % 0 %; Platelet Count 420 K/mm3 (142-424); Red Blood Count 4.57 M/mm3 (4.20-5.40); Red Cell Distribution Width 22.2 % (11.5-17.5); Red Cell Distribution Width-SD 62.1 fL
[2024-11-29 06:48] LABS: Chloride 100 mmol/L (98-107); Sodium 137 mmol/L (136-145)
[2024-11-29 06:49] LABS: Potassium 3.9 mmoL/L (3.5-5.1)
[2024-11-29 06:51] LABS: Blood Urea Nitrogen 9 mg/dl (7-17); Creatinine Clearance Estimated 40 mL/min (50-200); Estimated Glomerular Filt Rate 102 ml/min (>60); GFR (African American) 123 ML/MIN (>60)
[2024-11-29 06:52] LABS: Anion Gap 13.9 mEq/L (5-15); Calcium 8.5 mg/dl (8.4-10.2); Carbon Dioxide 27 mmol/L (22.0-30.0); Chol/HDL Ratio 3.4 (1-3.5); Cholesterol 101 mg/dl (140-200); Glucose 193 mg/dl (74-100); HDL Cholesterol 30 mg/dl (40-60); Triglycerides 84 mg/dl (30-150); VLDL Cholesterol 17 mg/dL (0-40)
[2024-11-29 07:03] LABS: Direct LDL Cholesterol 39.48 mg/dL (100-129)
--- NOTE | 2024-11-29 07:29 | HMH.PHAINT1 ---
Pharmacy Intervention Comments: MEDICATION RECONCILIATION COMPLETED ON PATIENT USING EXTERNAL FILL HISTORY FROM PHARMACY. -LESLIE DONOVAN, EDUARD
[2024-11-29] MEDS: guaiFENesin 600 MG TAB.ER.12H PO ×2 (07:56→20:34)
[2024-11-29 10:28] LABS: Human Rhinovirus Not Detected (NotDetected); Influenza A, PCR Not Detected (NotDetected)
[2024-11-29 10:28] LABS: POC Glucose,Bedside 137 (70-110)
[2024-11-29 10:30] LABS: Coronavirus 19, PCR Not Detected (NotDetected); Influenza B, PCR Not Detected (NotDetected); Respiratory Syncytial Virus Not Detected (NotDetected)
--- OUTSIDE RECORDS SUMMARY | 2024-11-29 11:00 | XMS_ITS | Encounter Summary ---
Author Organization Healthcare Address [address] [place] [address] Care Team Providers Care Reducing Machine Operator Name Role Phone Morena Williamson DO Primary Care Provider Encounter Details Date Type Department Care Team [...] How often do you attend chur or christianity services? Never 09/13/2024 Do you belong to any clubs o r organizations such as adventist groups, unions, fraternal or athletic groups, or [...] [facility] - Occupational Stress Questionnaire Answer Date Recorded [...] time in the past 12 m [facility], were you homeless or living in a intermediate (including now)? No 09/13/2024 Utilities Answer Date [...] documented as of this encounter Care Teams Reducing Machine Operator Relationship Specialty Start Date End Date Morena Williamson DO [address] [place] [address] [place] [address] PCP - General 08/13/24 documented as of this encounter
--- NOTE | 2024-11-29 11:01 | EXP.PULM.CON ---
History of Present Illness History of present illness: Ms. Henderson 59-year-old female significant smoking history, history of asthma using fluticasone inhaler at baseline presented to the ER with progressively worsening respiratory distress coughing and pink frothy phlegm and pulmonary was called for further evaluation and management. Admits sick contacts, was sick the last 2 weeks. Patient has not been needing any oxygen supplementation at baseline [facility] Disclaimer: The information contained in this section may have been updated after the patient was seen, as this information can be updated by other users. Medical History (Updated 11/28/24 @ 20:45 by Ayana Reyes DO) Asthma Bronchitis Pneumonia Migraine Hypothyroid Diabetes mellitus, type 2 Carpal tunnel syndrome on left Surgical History (Updated 11/28/24 @ 21:46 by Jalyn Tadeo RN) History of open heart surgery H/O: hysterectomy History of tonsillectomy History of cholecystectomy Gastric bypass status for obesity Family History Other Asthma Diabetes Heart failure Social History (Updated 11/28/24 @ 21:46 by Jalyn Tadeo RN) Smoking Status: Never smoker alcohol intake: never current occupational status: other Travel in the last 8 weeks?: None Have you lived/traveled outside [place] in past 30 days?: No Contact w/someone who lives/traveled outside US past 30 days?: No Exposure to someone with infectious disease in past 14 days?: No Do you have a fever (greater than 100.4 F or 38 C)?: No Have you tested positive for COVID-19?: No Exposed to someone with COVID-19 in past 14 days?: No Do you have a sore throat?: No Do you have a cough?: No Do you have any weakness?: No Are you experiencing any nausea/vomitting?: No Do you have any diarrhea?: No Are you experiencing any unusual bleeding?: No Do you have any muscle aches/pain?: No Do you have any abdominal pain?: No Are you experiencing loss of taste or smell?: No Review of Systems Constitutional Constitutional: Reports anorexia, Reports body ache(s) and Reports fatigue Eyes Eyes: Denies eye discharge, Denies dry eyes, Denies irritation and Denies itchy eyes ENT Ears, Nose, Mouth, and Throat: Denies epistaxis, Denies facial pain, Denies lip swelling and Denies throat swelling *Cardiovascular Cardiovascular: Reports dyspnea and Reports dyspnea on exertion *Respiratory Respiratory: Reports change in phlegm color, Reports chest congestion, Reports cough, Reports dyspnea, Reports dyspnea on exertion, Reports excessive phlegm production, Reports hemoptysis, Denies pain on inspiration, Denies pain with cough and Reports wheezing *Gastrointestinal Gastrointestinal: Denies abdominal pain, Denies belching and Denies cramping *Musculoskeletal Musculoskeletal: Reports back pain, Reports myalgias and Reports other (No small joint swelling or Pain) Psychiatric Psychiatric: Denies homicidal ideation and Denies suicidal ideation Endocrine Endocrine: Reports fatigue and Denies heat intolerance Hematologic/Lymphatic Hematologic/Lymphatic: Denies easy bleeding and Denies lymphadenopathy Allergic/Immunologic Allergic/Immunologic: Denies itchy eyes, Denies lip swelling, Denies throat swelling and Reports wheezing Pulmonology Exam Inpatient Vital signs and Labs for Last 24 Hours: Temp Pulse Resp BP Pulse Ox O2 Del Method O2 Flow Rate 97.7 F 92 H 18 152/92 H 94 L Nasal Cannula 4 11/29/24 08:00 11/29/24 08:00 11/29/24 08:00 11/29/24 08:00 11/29/24 08:00 11/29/24 08:07 11/29/24 08:07 Laboratory Results - last 24 hr 11/28/24 18:15: WBC 8.0, RBC 4.47, Hgb 10.7 L, Hct 35.1 L, MCV 78.5 L, MCH 23.9 L, MCHC 30.5 L, RDW 22.1 H, Plt Count 424, MPV 9.8, Neut % (Auto) 76.7, Lymph % (Auto) 13.9, [place] % (Auto) 6.7, Eos % (Auto) 1.1, Baso % (Auto) 1.4, Neut # (Auto) 6.2, Lymph # (Auto) 1.1, [place] # (Auto) 0.5, Eos # (Auto) 0.1, Baso # (Auto) 0.1, Sodium 138, Potassium 3.3 L, Chloride 100, Carbon Dioxide 26, Anion Gap 15.3 H, BUN 10, Creatinine 0.70, Estimated Creat Clear 40, Estimated GFR 85, Est GFR ( Amer) 103, Glucose 120 H, Calcium 8.9, Total Bilirubin 0.5, AST 43 H, ALT 28, Alkaline Phosphatase 76, Troponin I 0.02, NT-Pro-B Natriuret Pep 1590 H, Total Protein 7.6, Albumin 4.0, Globulin 3.6 H, Albumin/Globulin Ratio 1.1, TSH 0.67, Thyroxine (T4) 13.9 H 11/28/24 18:52: VBG pH 7.47 H, VBG pCO2 32.8 L, VBG pO2 87.0 H, VBG HCO3 23.1, VBG Total CO2 24.1, VBG O2 Saturation 97.0 H, VBG Base Excess -0.6, VBG Lactic Acid 1.5 11/28/24 21:40: Troponin I 0.02 11/29/24 00:39: Troponin I 0.01 11/29/24 05:38: POC Glucose 197 H 11/29/24 05:44: WBC 5.0 D, RBC 4.57, Hgb 10.8 L, Hct 36.5 L, MCV 79.9 L, MCH 23.6 L, MCHC 29.6 L, RDW 22.2 H, Plt Count 420, MPV 10.0, Neut % (Auto) 84.3 H, Lymph % (Auto) 11.5, [place] % (Auto) 3.2, Eos % (Auto) 0.0 L, Baso % (Auto) 0.4, Neut # (Auto) 4.2, Lymph # (Auto) 0.6 L, [place] # (Auto) 0.2, Eos # (Auto) 0.0, Baso # (Auto) 0.0, Sodium 137, Potassium 3.9, Chloride 100, Carbon Dioxide 27, Anion Gap 13.9, BUN 9, Creatinine 0.60, Estimated Creat Clear 40, Estimated GFR 102, Est GFR ( Amer) 123, Glucose 193 H D, Calcium 8.5, Triglycerides 84, Cholesterol 101 L, LDL Cholesterol Direct 39.48 L, VLDL Cholesterol 17, HDL Cholesterol 30 L, Cholesterol/HDL Ratio 3.4 11/29/24 10:18: POC Glucose 137 H I & O for Labs for Last 24 Hours: Intake & Output 11/26/24 11/27/24 11/28/24 11/29/24 23:59 23:59 23:59 23:59 Intake Total 470 / 470 Output Total 0 / 0 0 / 0 Balance 0 / 350 470 / 470 Weight 212 lb 6 oz 212 lb 1 oz Constitutional: Present moderate distress Head: Present normocephalic and atraumatic ENT: Present normal exam, normal oropharynx and mucous membranes moist Neck: Present normal inspection and full ROM Respiratory: Present prolonged expiratory phase, respiratory distress, wheezes and able to speak in complete sentences Cardiac: Present S1/S2, Tachycardia and radial pulses present GI: Present soft and distention; Absent tenderness or guarding Rectal (female): Present deferred (female): Present deferred Skin: Present intact; Absent cyanosis or jaundice Neuro: Present alert, awake and oriented x 3 Extremities: Present normal inspection; Absent clubbing or cyanosis Psychiatric: Present normal affect and cooperative Meds Home Medications and Allergies Home Medications ?Medication ?Instructions ?Recorded ?Confirmed ?Type albuterol sulfate 90 mcg/actuation 2 puff inhalation Q6HP PRN 09/11/24 11/28/24 History aerosol inhaler Shortness Of Breath Or Wheezing estradiol 2 mg tablet 2 mg PO DAILY 09/11/24 11/28/24 History fluticasone 113 mcg-salmeterol 14 1 puff inhalation BID 09/11/24 11/29/24 History mcg/actuation breath activated powdr omeprazole 40 mg capsule,delayed 40 mg PO DAILY 09/11/24 11/28/24 History release ascorbic acid (vitamin C) 1,000 mg 1,000 mg PO DAILY 11/28/24 11/28/24 History tablet aspirin 81 mg capsule 81 mg PO DAILY 11/28/24 11/28/24 History atorvastatin 80 mg tablet 80 mg PO HS 11/28/24 11/28/24 History carvedilol 3.125 mg tablet 3.125 mg PO BID 11/28/24 11/28/24 History coenzyme Q10 100 mg capsule 100 mg PO DAILY 11/28/24 11/28/24 History ferrous sulfate 325 mg (65 mg 325 mg PO DAILY 11/28/24 11/28/24 History iron) tablet (FeroSul) multivitamin 1 tab PO DAILY 11/28/24 11/28/24 History thyroid (pork) 30 mg tablet (Niva 30 mg PO DAILY 11/28/24 11/28/24 History Thyroid) vitamins-lipotropics tablet 1 tab PO DAILY 11/28/24 11/28/24 History metformin 500 mg tablet 500 mg PO DAILY 11/29/24 11/29/24 History New Prescriptions to Start Prescriptions: Allergies Allergy/AdvReac Type Severity Reaction Status Date / Time No Known Allergies Allergy Verified 09/11/24 13:32 Results Laboratory Findings 11/29/24 05:44 11/29/24 05:44 Abnormal lab findings: Abnormal Labs 11/28/24 11/28/24 11/29/24 18:15 18:52 05:38 Hgb 10.7 L Hct 35.1 L MCV 78.5 L MCH 23.9 L MCHC 30.5 L RDW 22.1 H Neut % (Auto) Eos % (Auto) Lymph # (Auto) VBG pH 7.47 H VBG pCO2 32.8 L VBG pO2 87.0 H VBG O2 Saturation 97.0 H Potassium 3.3 L Anion Gap 15.3 H Glucose 120 H POC Glucose 197 H AST 43 H NT-Pro-B Natriuret Pep 1590 H Globulin 3.6 H Cholesterol LDL Cholesterol Direct HDL Cholesterol Thyroxine (T4) 13.9 H 11/29/24 11/29/24 05:44 10:18 Hgb 10.8 L Hct 36.5 L MCV 79.9 L MCH 23.6 L MCHC 29.6 L RDW 22.2 H Neut % (Auto) 84.3 H Eos % (Auto) 0.0 L Lymph # (Auto) 0.6 L VBG pH VBG pCO2 VBG pO2 VBG O2 Saturation Potassium Anion Gap Glucose 193 H D POC Glucose 137 H AST NT-Pro-B Natriuret Pep Globulin Cholesterol 101 L LDL Cholesterol Direct 39.48 L HDL Cholesterol 30 L Thyroxine (T4) Assessment and Plan *Assessment and plan (1) Asthma exacerbation: Status: Acute Category: Medical Code(s): J45.901 - Unspecified asthma with (acute) exacerbation (2) Acute hypoxic respiratory failure: Status: Acute Category: Medical Code(s): J96.01 - Acute respiratory failure with hypoxia (3) Sepsis due to pneumonia: Status: Acute Category: Medical Code(s): J18.9 - Pneumonia, unspecified organism; A41.9 - Sepsis, unspecified organism Plan Ms. Henderson 59-year-old female significant smoking history, history of asthma using fluticasone inhaler at baseline presented to the ER with progressively worsening respiratory distress coughing and pink frothy phlegm and pulmonary was called for further evaluation and management. Admits sick contacts, was sick the last 2 weeks. Patient has not been needing any oxygen supplementation at baseline CTA PE protocol upon admission no evidence of pulmonary embolism. Bilateral right greater than left patchy airspace disease. No pleural effusions. Tmax of 100.1 upon admission. Hemodynamically stable. No evidence of leukocytosis. Plan: Continue oxygen supplementation to maintain O2 saturation goal of 90% and above. Currently on 4 L. Continue ceftriaxone and azithromycin pending sputum culture results and full respiratory viral PCR panel DuoNebs every 4 hours along with Pulmicort every 12 scheduled Methylprednisolone 40 mg IV daily Monitor clinically for any hemoptysis. Patient complains of pink frothy sputum's. H&H stable. Will follow.
--- OUTSIDE RECORDS SUMMARY | 2024-11-29 11:01 | XMS_ITS | Encounter Summary ---
Author Organization Healthcare Address [address] [place] [address] Care Team Providers Care Foxer Name Role Phone Morena Williamson DO Primary Care Provider [phone] Encounter Details Date Type Department Care Team ([facility] st Contact Info) Description 09/19/2024 Orders Only External Location [address] [place] [address] Provider, External Social History Tobacco Use Types [...] week 09/13/2024 How often do you attend [facility] or religion services? Never 09/13/2024 Do you belong to any clubs o r organizations such as religion groups, unions, fraternal or athletic groups, or [...] Recorded Patient Health Questionnaire-2 Score 1 09/13/2024 [facility] of Occupat ional Health - Occupational [...] any time in the past 12 m [facility], were you homeless or living in a residential (including now)? No 09/13/2024 Utilities Answer Date Recorded In the past 12 months has th e electric, gas, oil, or water [employer] threatened to shut off services in your [...] Risk Indicated 09/22/2024 8:00 PM EDT Meghann Bain RN * Question Answer Date of Assessment [...] documented as of this encounter Care Teams Foxer Relationship Specialty Start Date End Date Morena Williamson DO [address] [place] [address] [address] [place], [place] [address] PCP - General 08/13/24 documented as of this encounter
--- OUTSIDE RECORDS SUMMARY | 2024-11-29 11:01 | XMS_ITS | Encounter Summary ---
Author Organization Healthcare Address [address] [id number] Care Team Providers Care Harbor Department Manager Name Role Phone AlvaroMorena reyes DO Primary Care Provider [phone] Encounter Details Date Type Department Care Team (Late st Contact Info) Description 11/03/2024 Telephone [facility] [address], [address] [place] [address] Kemi Sullivan RN [id number] [address] [phone] Social History Tobacco Use Types Packs/Day Years [...] often do you attend chur ch or orthodox services? Never 09/13/2024 Do you belong to any clubs o r organizations such as gnosticist groups, unions, fraternal or athletic groups, or [...] Recorded Patient Health Questionnaire-2 Score 1 09/13/2024 [facility] of Occupat ional Health - Occupational Stress [...] any time in the past 12 m [facility], were you homeless or living in a detention (including now)? No 09/13/2024 Utilities Answer Date [...] documented as of this encounter Care Teams Harbor Department Manager Relationship Specialty Start Date End Date Morena Williamson DO [address] [place], [place] [address] [address] PCP - General 08/13/24 documented as of this encounter
--- OUTSIDE RECORDS SUMMARY | 2024-11-29 11:01 | XMS_ITS | Clinical Summary ---
Author Organization Healthcare Address [address] [place] [address] Care Team Providers Care Bait Digger Name Role Phone Morena Williamson Primary Care Provider Allergies No known active allergies Medications aspirin [...] prn Post-op pain 09/19/2024 Overview (09/19/2024): - [facility] Acute blood loss anemia 09/19/2024 Overview (09/19/2024): [...] Type Department Care Team Description 11/03/2024 Telephone [facility] Cardiothoracic [address], [address] [place] [address] Kemi Sullivan RN 11/01/2024 9:45 AM EDT Office Visit [facility] Cardiothoracic [address], [address] [place] [address] Mai Ceballos MD 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 (CMS/HCC) (Primary Dx) 11/01/2024 8:35 AM EDT - 11/01/2024 11:59 PM EDT Hospital Encounter [facility] Radiology [address], [address] [place] [address] 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 (CMS/HCC) Discharge Disposition: Home or Self Care 11/01/2024 Travel 09/26/2024 Telephone [facility] [address] [place] [address] Keira Oro 09/24/2024 Travel 09/23/2024 Travel 09/22/2024 Travel 09/21/2024 Travel 09/20/2024 Travel 09/19/2024 7:35 AM EDT Anesthesia Event [facility] [address] [place] [address] Jane Back MD McClanahan, Easton D, DO 09/19/2024 7:30 AM EDT - 09/19/2024 2:55 PM EDT Surgery [facility] [address] [place] [address] Mai Ceballos MD CABG, 2 OR MORE VESSELS 09/19/2024 Orders Only External Location [address] [place] [address] Provider, External 09/19/2024 Travel 09/18/2024 Travel 09/16/2024 Travel 09/14/2024 Travel 09/13/2024 Travel 09/12/2024 9:23 PM EDT - 09/24/2024 2:46 PM EDT Hospital Encounter [facility] [address] [place] [address] [facility] Hypomagnesemia (Primary Dx); Type 2 diabetes mellitus with other specified complication, without long-term current use of insulin ([facility]); SHAHEED (obstructive sleep apnea); H/O: pneumonia; Hypercholesteremia; Atrioventricular block, first degree; Angina pectoris; Thrombocytosis; Acquired hypothyroidism; Gastroesophageal reflux disease, unspecified whether esophagitis present; Medically noncompliant; Hyperlipidemia, unspecified hyperlipidemia type; Transaminitis; 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 ([facility]); Class III obesity with body mass index (BMI) of 40.0 or higher ([facility]); Asthma, unspecified asthma severity, unspecified whether complicated, unspecified whether persistent; Class 3 severe obesity due to excess calories with serious comorbidity and body mass index (BMI) of 40.0 to 44.9 in adult; Hypertriglyceridemia; Primary hypertension; Leukocytosis, unspecified type; NSTEMI (non-ST elevated myocardial infarction) ([facility]); Anemia, unspecified type; Post-op pain; Electrolyte abnormality; Low cardiac output syndrome ([facility]); On mechanically assisted ventilation ([facility]); S/P CABG x 5; On supplemental oxygen [...] often do you attend chur ch or yarsanism services? Never 09/13/2024 Do you belong to any clubs o r organizations such as catholic groups, unions, fraternal or athletic groups, or [...] Recorded Patient Health Questionnaire-2 Score 1 09/13/2024 [facility] of Occupat ional Health - Occupational Stress [...] any time in the past 12 m [facility], were you homeless or living in a nursing home (including now)? 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 (CMS/HCC) POCT [...] UNSOLICITED RESULTS Routine 09/21/2024 5:11 PM EDT [facility] CRITICAL CARE, E/M 30-74 MINUTES Routine 09/21/2024 4:28 PM EDT Type 2 diabetes mellitus with other specified complication, without long-term current use of insulin ([facility]) 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 ([facility]) Electrolyte abnormality S/P CABG x 5 On [...] MIXED VENOUS Routine 09/20/2024 2:47 PM EDT [place] CRITICAL CARE, E/M 30-74 MINUTES Routine 09/20/2024 2:16 PM EDT Type 2 diabetes mellitus with other specified complication, without long-term current use of insulin ([facility]) SHAHEED (obstructive sleep apnea) Acquired hypothyroidism Gastroesophageal reflux disease, unspecified whether esophagitis present Hyperlipidemia, unspecified hyperlipidemia type 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 ([facility]) Asthma, unspecified asthma severity, unspecified whether complicated, unspecified whether persistent Class 3 severe obesity due to excess calories with serious comorbidity and body mass index (BMI) of 40.0 to 44.9 in adult Hypertriglyceridemia Primary hypertension Leukocytosis, unspecified type Anemia, unspecified type Post-op pain Electrolyte abnormality Low cardiac output syndrome ([facility]) S/P CABG x 5 On supplemental oxygen [...] W/O DIFFERENTIAL STAT 09/19/2024 5:48 PM EDT WI CRITICAL CARE, ADDL 30 MIN Routine 09/19/2024 5:40 PM EDT Type 2 diabetes mellitus with other specified complication, without long-term current use of insulin ([facility]) SHAHEED (obstructive sleep apnea) Hyperlipidemia, unspecified hyperlipidemia type 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 ([facility]) Class III obesity with body mass index (BMI) of 40.0 or higher ([facility]) Asthma, unspecified asthma severity, unspecified whether complicated, unspecified whether persistent Primary hypertension Leukocytosis, unspecified type Anemia, unspecified type Post-op pain Electrolyte abnormality Low cardiac output syndrome ([facility]) On mechanically assisted ventilation ([facility]) S/P CABG x 5 ECG ADULT STAT [...] IMAGING PLACEHOLDER Routine 09/19/2024 9:43 AM EDT WI INSERT/PLACE FLOW DIRECT CATH Routine 09/19/2024 9:43 AM EDT ANESTHESIA ULTRASOUND GUIDED Routine 09/19/2024 9:43 AM EDT PB ANESTHESIA NON-TIMED PROCEDURE PLACEHOLDER Routine 09/19/2024 9:43 AM EDT WI AN CENTRAL LINE TRIPLE LUMEN Routine 09/19/2024 [...] ANESTHESIA PLACEHOLDER Routine 09/19/2024 8:23 AM EDT WI AN ELECTIVE ENDOTRACHEAL AIRWAY Routine 09/19/2024 8:23 AM EDT PREPARE RBC STAT 09/19/2024 7:49 AM EDT CABG, 2 OR MORE VESSELS 09/19/2024 7:19 AM EDT Hypomagnesemia Type 2 diabetes mellitus with other specified complication, without long-term current use of insulin ([facility]) SHAHEED (obstructive sleep apnea) H/O: pneumonia Hypercholesteremia Atrioventricular block, first degree Angina pectoris Thrombocytosis Acquired hypothyroidism Gastroesophageal reflux disease, unspecified whether esophagitis present Medically noncompliant Hyperlipidemia, unspecified hyperlipidemia type Transaminitis 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 ([facility]) Morbid obesity with body mass index (BMI) of 40.0 or higher ([facility]) Asthma, unspecified asthma severity, unspecified whether complicated, unspecified whether persistent Class 3 severe obesity due to excess calories with serious comorbidity and body mass index (BMI) of 40.0 to 44.9 in adult Hypertriglyceridemia Primary hypertension Leukocytosis, unspecified type NSTEMI (non-ST elevated myocardial infarction) ([facility]) POCT GLUCOSE METER UNSOLICITED RESULTS Routine 09/19/2024 [...] of16 resultswithin the time period is included. [facility] Signature WBC Count 11.80(H) 3.70 - 10.30 10*3/uL LAB HEMATOLOGY METHOD 11/01/2024 9:38 AM EDT [facility] RBC Count 4.10 3.90 - 5.20 10*6/uL LAB HEMATOLOGY METHOD 11/01/2024 9:38 AM EDT [facility] HGB 10.1(L) 11.2 - 15.7 g/dL LAB HEMATOLOGY METHOD 11/01/2024 9:38 AM EDT [facility] HCT 34.0 34.0 - 45.0 % LAB HEMATOLOGY METHOD 11/01/2024 9:38 AM EDT [facility] Platelet Count 684(H) 155 - 369 10*3/uL LAB HEMATOLOGY METHOD 11/01/2024 9:38 AM EDT [facility] MCV 83 79 - 98 fL LAB HEMATOLOGY METHOD 11/01/2024 9:38 AM EDT [facility] MCH 24.6(L) 26.0 - 32.0 pg LAB HEMATOLOGY METHOD 11/01/2024 9:38 AM EDT [facility] MCHC 29.7(L) 30.7 - 35.5 g/dL LAB HEMATOLOGY METHOD 11/01/2024 9:38 AM EDT [facility] RDW 16.7(H) 11.5 - 14.5 % LAB HEMATOLOGY METHOD 11/01/2024 9:38 AM EDT [facility] MPV 10.3 8.8 - 12.5 fL LAB HEMATOLOGY METHOD 11/01/2024 9:38 AM EDT [facility] nRBC 0.0 <=0.0 per 100 WBCs LAB HEMATOLOGY METHOD 11/01/2024 9:38 AM EDT [facility] Blood Venous blood specimen / Unknown Venipuncture / Unknown 11/01/2024 8:54 AM EDT 11/01/2024 8:54 AM EDT us Mai Ceballos MD LAB BLOOD ORDERABLES Silva agosto Result [facility] [address] [place] [address] * (ABNORMAL) Basic Metabolic Panel, Plasma (11/01/2024 8:54 AM EDT) Only the most recent of9 resultswithin the time period is included. Glucose, Plasma 134(H) 74 - 99 mg/dL 11/01/2024 10:32 AM EDT [facility] BUN, Plasma 16 8 - 23 mg/dL 11/01/2024 10:32 AM EDT [facility] Creatinine, Plasma 0.81 0.60 - 1.10 mg/dL 11/01/2024 10:32 AM EDT [facility] BUN/Creatinine Ratio 20 11/01/2024 10:32 AM EDT [facility] Sodium, Plasma 140 136 - 145 mmol/L 11/01/2024 10:32 AM EDT [facility] Potassium, Plasma 3.1(L) 3.6 - 4.9 mmol/L 11/01/2024 10:32 AM EDT [facility] Chloride, Plasma 100 97 - 107 mmol/L 11/01/2024 10:32 AM EDT [facility] CO2, Plasma 25 22 - 29 mmol/L 11/01/2024 10:32 AM EDT [facility] Anion Gap 15 6 - 16 mmol/L 11/01/2024 10:32 AM EDT [facility] Total Calcium, Plasma 9.6 8.9 - 10.2 mg/dL 11/01/2024 10:32 AM EDT [facility] eGFRcr 82.7 mL/min/1.7 3m*2 11/01/2024 10:32 AM EDT [facility] Comment:Reported eGFRcr in m L/min/1.73m2 is based the CKD-EPI 2020 equation that does not use a race coefficient. Blood Venous blood specimen / Unknown Venipuncture / Unknown 11/01/2024 8:54 AM EDT 11/01/2024 8:54 AM EDT us Mai Ceballos MD LAB BLOOD ORDERABLES Silva l Result [facility] [address] [place] [address] * XR Chest 2 Views (11/01/2024 8:44 [...] 99 mg/dL 09/24/2024 12:25 PM EDT [facility] Comment:Accuracy of a glucos e result [...] 09/24/2024 12:25 PM EDT [facility] Steam Press Tender ID Vivian Miranda 12:25 PM EDT [facility] Device ID [id number] 09/24/2024 12:25 PM EDT [facility] Specimen Type POC Capillary 09/24/2024 12:25 PM EDT [facility]ALTH[facility] Blood Capillary blood specimen / Unknown 09/24/2024 12:17 PM EDT 09/24/2024 12:25 PM EDT Mai Ceballos MD LAB POINT OF CARE TEST DOCKED DEVICE UNSOLICITED RESULTS Final Result [facility] [address] [place] [id number] * XR Chest 1 View (09/24/2024 5:42 [...] - 4.5 mg/dL 09/24/2024 4:20 AM EDT [facility] Blood Venous blood specimen / Unknown Venipuncture / Unknown 09/24/2024 2:42 AM EDT 09/24/2024 3:49 AM EDT Mai Ceballos MD LAB BLOOD ORDERABLES Silva l Result Performing Organization Address [facility] de Phone Number [facility] [address] [place] [address] * (ABNORMAL) Magnesium (09/24/2024 2:42 AM EDT) Only the most recent of11 resultswithin the time period is included. Magnesium, Plasma 1.8(L) 1.9 - 2.4 mg/dL 09/24/2024 4:20 AM EDT [facility] Blood Venous blood specimen / Unknown Venipuncture / Unknown 09/24/2024 2:42 AM EDT 09/24/2024 3:49 AM EDT Mai Ceballos MD LAB BLOOD ORDERABLES Silva l Result Performing Organization Address City/[facility] Co de Phone Number [address] [address] * (ABNORMAL) Creatine Kinase (CK), Total (09/23/2024 1:46 AM EDT) Only the most recent of5 resultswithin the time period is included. Creatine Kinase, Plasma 248(H) 37 - 168 U/L 09/23/2024 2:20 AM EDT [facility] Blood Venous blood specimen / Unknown Venipuncture / Unknown 09/23/2024 1:46 AM EDT 09/23/2024 1:52 AM EDT Ese Amin APRN LAB BLOOD ORDERABLES Fin al Result [facility] [address] [place] [address] * (ABNORMAL) Blood gas panel, venous (09/22/2024 1:15 PM EDT) pH, Venous 7.39 7.32 - 7.43 LAB HEMATOLOGY METHOD 09/22/2024 1:24 PM EDT [facility] pCO2, Venous 41 37 - 52 mmHg LAB HEMATOLOGY METHOD 09/22/2024 1:24 PM EDT [facility] pO2, Venous 34 25 - 40 mmHg LAB HEMATOLOGY METHOD 09/22/2024 1:24 PM EDT [facility] SO2, Measured, Venous 66 65 - 80 % LAB HEMATOLOGY METHOD 09/22/2024 1:24 PM EDT [facility] Base Excess, Venous -0.2 -2.0 - 3.0 mmol/L LAB HEMATOLOGY METHOD 09/22/2024 1:24 PM EDT [facility] Bicarbonate, Calculated, Venous 25 22 - 26 mmol/L LAB HEMATOLOGY METHOD 09/22/2024 1:24 PM EDT [facility] Hematocrit, Whole Blood 25.5(L) 34.0 - 45.0 % LAB HEMATOLOGY METHOD 09/22/2024 1:24 PM EDT [facility] Sodium, Whole Blood 136 136 - 145 mmol/L LAB HEMATOLOGY METHOD 09/22/2024 1:24 PM EDT [facility] Potassium, Whole Blood 3.8 3.6 - 4.9 mmol/L LAB HEMATOLOGY METHOD 09/22/2024 1:24 PM EDT [facility] Chloride, Whole Blood 105 97 - 107 mmol/L LAB HEMATOLOGY METHOD 09/22/2024 1:24 PM EDT [facility] Glucose, Whole Blood 95 74 - 99 mg/dL LAB HEMATOLOGY METHOD 09/22/2024 1:24 PM EDT [facility] Lactate, Venous, Whole Blood 0.8 0.5 - 2.2 mmol/L LAB HEMATOLOGY METHOD 09/22/2024 1:24 PM EDT [facility] Ionized Calcium, Whole Blood 4.6 4.6 - 5.1 mg/dL LAB HEMATOLOGY METHOD 09/22/2024 1:24 PM EDT [facility] Blood Venous blood specimen / Unknown Venipuncture / Unknown 09/22/2024 1:15 PM EDT 09/22/2024 1:23 PM EDT us Mai Ceballos MD LAB BLOOD ORDERABLES Silva triny Result [facility] [address] [place] [address] * (ABNORMAL) Blood gas panel with oximetry, mixed venous (09/22/2024 2:16 AM EDT) Only the most recent of5 resultswithin the time period is included. pH, Mixed Venous 7.36 7.32 - 7.43 LAB HEMATOLOGY METHOD 09/22/2024 2:33 AM EDT [facility] pCO2, Mixed Venous 40 37 - 52 mmHg LAB HEMATOLOGY METHOD 09/22/2024 2:33 AM EDT [facility] pO2, Mixed Venous 37 25 - 40 mmHg LAB HEMATOLOGY METHOD 09/22/2024 2:33 AM EDT [facility] SO2, Measured, Mixed Venous 71 65 - 80 % LAB HEMATOLOGY METHOD 09/22/2024 2:33 AM EDT [facility] Bicarbonate, Calculated, Mixed Venous 23 22 - 26 mmol/L LAB HEMATOLOGY METHOD 09/22/2024 2:33 AM EDT [facility] Base Excess, Mixed Venous -2.7(L) -2.0 - 3.0 mmol/L LAB HEMATOLOGY METHOD 09/22/2024 2:33 AM EDT [facility] Hematocrit, Whole Blood 23.8(L) 34.0 - 45.0 % LAB HEMATOLOGY METHOD 09/22/2024 2:33 AM EDT [facility] Sodium, Whole Blood 134(L) 136 - 145 mmol/L LAB HEMATOLOGY METHOD 09/22/2024 2:33 AM EDT [facility] Potassium, Whole Blood 3.9 3.6 - 4.9 mmol/L LAB HEMATOLOGY METHOD 09/22/2024 2:33 AM EDT [facility] Chloride, Whole Blood 106 97 - 107 mmol/L LAB HEMATOLOGY METHOD 09/22/2024 2:33 AM EDT [facility] Ionized Calcium, Whole Blood 4.3(L) 4.6 - 5.1 mg/dL LAB HEMATOLOGY METHOD 09/22/2024 2:33 AM EDT [facility] Glucose, Whole Blood 125(H) 74 - 99 mg/dL LAB HEMATOLOGY METHOD 09/22/2024 2:33 AM EDT [facility] Oxyhemoglobin, Mixed Venous, Whole Blood 69.1 40.0 - 70.0 % LAB HEMATOLOGY METHOD 09/22/2024 2:33 AM EDT [facility] Hemoglobin Reduced, Mixed Venous, Whole Blood 28.7 % LAB HEMATOLOGY METHOD 09/22/2024 2:33 AM EDT [facility] Total Hemoglobin, Mixed Venous, Whole Blood 7.8(L) 11.2 - 15.7 g/dL LAB HEMATOLOGY METHOD 09/22/2024 2:33 AM EDT [facility] Blood Mixed venous blood specimen / Unknown 09/22/2024 2:16 AM EDT 09/22/2024 2:29 AM EDT us Mai Ceballos MD LAB BLOOD ORDERABLES Silva l Result Performing Organization Address City/State/[facility] Co de Phone Number [facility] [address] [place] [address] * [place] CRITICAL CARE, E/M 30-74 MINUTES (09/21/2024 4:28 [...] - 99 mg/dL 09/21/2024 1:27 PM EDT [facility] BUN, Plasma 14 8 - 23 mg/dL 09/21/2024 1:27 PM EDT [facility] Creatinine, Plasma 0.50(L) 0.60 - 1.10 mg/dL 09/21/2024 1:27 PM EDT [facility] BUN/Creatinine Ratio 28 09/21/2024 1:27 PM EDT [facility] Sodium, Plasma 134(L) 136 - 145 mmol/L 09/21/2024 1:27 PM EDT [facility] Potassium, Plasma 3.9 3.6 - 4.9 mmol/L 09/21/2024 1:27 PM EDT [facility] Chloride, Plasma 108(H) 97 - 107 mmol/L 09/21/2024 1:27 PM EDT [facility] CO2, Plasma 17(L) 22 - 29 mmol/L 09/21/2024 1:27 PM EDT [facility] Anion Gap 9 6 - 16 mmol/L 09/21/2024 1:27 PM EDT [facility] Total Calcium, Plasma 6.7(L) 8.9 - 10.2 mg/dL 09/21/2024 1:27 PM EDT [facility] Phosphorus, Plasma 1.5(L) 2.5 - 4.5 mg/dL 09/21/2024 1:27 PM EDT [facility] Albumin, Plasma 2.5(L) 3.5 - 5.2 g/dL 09/21/2024 1:27 PM EDT [facility] eGFRcr 106.9 mL/min/1.7 3m*2 09/21/2024 1:27 PM EDT [facility] Comment:Reported eGFRcr in m L/min/1.73m2 is based the CKD-EPI 2020 equation that does not use a race coefficient. Blood Blood sample taken from central line / Unknown Venipuncture / Unknown 09/21/2024 12:38 PM EDT 09/21/2024 12:51 PM EDT Deborah Thibodeaux CASH CONTROLLER LAB BLOOD ORDERABLES Final Result Performing Organization Address City/[facility]/ZIP Co de Phone Number [facility] [address] [place] [address] * Lavender Top (09/21/2024 1:06 AM EDT) Extra Hold for add-ons 09/21/2024 4:02 AM EDT [facility] Comment:Auto resulted. Blood Venous blood specimen / Unknown 09/21/2024 1:06 AM EDT 09/21/2024 1:12 AM EDT Mai Ceballos MD LAB BLOOD ORDERABLES Silva l Result Performing Organization Address [facility] Co de Phone Number [facility] [address] [place] [address] * Light Green Top (09/21/2024 1:06 AM EDT) Only the most recent of2 resultswithin the time period is included. Extra Hold for add-ons 09/21/2024 4:02 AM EDT [facility] Comment:Auto resulted. Blood Venous blood specimen / Unknown 09/21/2024 1:06 AM EDT 09/21/2024 1:12 AM EDT Mai Ceballos MD LAB BLOOD ORDERABLES Silva l Result Performing Organization Address City/[facility] Co de Phone Number [facility] [address] [place] [address] * LACTIC ACID, VENOUS (09/21/2024 1:06 AM EDT) Only the most recent of2 resultswithin the time period is included. Lactate, Venous, Whole Blood 1.0 0.5 - 2.2 mmol/L LAB HEMATOLOGY METHOD 09/21/2024 1:13 AM EDT [facility] Blood Venous blood specimen / Unknown Venipuncture / Unknown 09/21/2024 1:06 AM EDT 09/21/2024 1:12 AM EDT Ese Amin APRN LAB BLOOD ORDERABLES Fin al Result [facility] [address] [place] [address] * [place] CRITICAL CARE, E/M 30-74 MINUTES (09/20/2024 2:16 [...] LAB HEMATOLOGY METHOD 09/20/2024 3:10 PM EDT [facility] HCT 27.6(L) 34.0 - 45.0 % LAB HEMATOLOGY METHOD 09/20/2024 3:10 PM EDT [facility] Blood Venous blood specimen / Unknown Venipuncture / Unknown 09/20/2024 2:07 PM EDT 09/20/2024 2:58 PM EDT us Ese Amin APRN LAB BLOOD ORDERABLES Fin al Result [facility] [address] [place] [address] * ECG Adult - POD 1 (09/20/2024 4:01 AM EDT) Only the most recent of3 resultswithin the time period is included. EKG DIAGNOSIS CLASS Abnormal MUSE ECG Ventricular Rate 99 BPM MUSE ECG Atrial Rate 99 BPM MUSE ECG WI Interval 194 ms MUSE ECG QRSD Interval 92 ms MUSE ECG QT Interval 380 ms MUSE ECG QTC Interval 487 ms MUSE ECG P [place] 41 degrees MUSE ECG R [place] -12 degrees MUSE ECG T Wave [place] 38 degrees MUSE ECG Diagnosis Normal sinus [...] ECG ORDERABLES Final Result Performing Organization Address City/[facility]/ZIP Co de Phone Number MUSE ECG * (ABNORMAL) Blood gas, arterial - Post extubation (09/20/2024 3:54 AM EDT) Only the most recent of4 resultswithin the time period is included. pH, Arterial 7.40 7.31 - 7.42 LAB HEMATOLOGY METHOD 09/20/2024 4:12 AM EDT [facility] pCO2, Arterial 36 35 - 48 mmHg LAB HEMATOLOGY METHOD 09/20/2024 4:12 AM EDT [facility] pO2, Arterial 130 >80 mmHg LAB HEMATOLOGY METHOD 09/20/2024 4:12 AM EDT [facility] SO2, Measured, Arterial 100(H) 94 - 98 % LAB HEMATOLOGY METHOD 09/20/2024 4:12 AM EDT [facility] Base Excess, Arterial -2.5(L) -2.0 - 3.0 mmol/L LAB HEMATOLOGY METHOD 09/20/2024 4:12 AM EDT [facility] Bicarbonate, Calculated, Arterial 22 22 - 26 mmol/L LAB HEMATOLOGY METHOD 09/20/2024 4:12 AM EDT [facility] Hematocrit, Whole Blood 25.4(L) 34.0 - 45.0 % LAB HEMATOLOGY METHOD 09/20/2024 4:12 AM EDT [facility] Sodium, Whole Blood 143 136 - 145 mmol/L LAB HEMATOLOGY METHOD 09/20/2024 4:12 AM EDT [facility] Potassium, Whole Blood 5.0(H) 3.6 - 4.9 mmol/L LAB HEMATOLOGY METHOD 09/20/2024 4:12 AM EDT [facility] Chloride, Whole Blood 115(H) 97 - 107 mmol/L LAB HEMATOLOGY METHOD 09/20/2024 4:12 AM EDT [facility] Glucose, Whole Blood 132(H) 74 - 99 mg/dL LAB HEMATOLOGY METHOD 09/20/2024 4:12 AM EDT [facility] Ionized Calcium, Whole Blood 4.5(L) 4.6 - 5.1 mg/dL LAB HEMATOLOGY METHOD 09/20/2024 4:12 AM EDT [facility] Lactate, Arterial, Whole Blood 1.0 0.5 - 1.6 mmol/L LAB HEMATOLOGY METHOD 09/20/2024 4:12 AM EDT [facility] Blood Arterial blood specimen / Unknown Arterial Line / Unknown 09/20/2024 3:54 AM EDT 09/20/2024 4:11 AM EDT us Rodrigo Aldana MD LAB BLOOD ORDERABLES Final R esult [facility] [address] [place] [address] * (ABNORMAL) Hemoglobin (09/20/2024 3:53 AM EDT) Only the most recent of3 resultswithin the time period is included. HGB 8.8(L) 11.2 - 15.7 g/dL LAB HEMATOLOGY METHOD 09/20/2024 4:38 AM EDT [facility] Blood Arterial blood specimen / Unknown Arterial Line / Unknown 09/20/2024 3:53 AM EDT 09/20/2024 4:27 AM EDT Rodrigo Aldana MD LAB BLOOD ORDERABLES Final R esult Performing Organization Address [facility] de Phone Number [facility] [address] [place] [address] * (ABNORMAL) Hematocrit (09/20/2024 3:53 AM EDT) Only the most recent of3 resultswithin the time period is included. HCT 27.1(L) 34.0 - 45.0 % LAB HEMATOLOGY METHOD 09/20/2024 4:38 AM EDT [facility] Blood Arterial blood specimen / Unknown Arterial Line / Unknown 09/20/2024 3:53 AM EDT 09/20/2024 4:27 AM EDT Rodrigo Aldana MD LAB BLOOD ORDERABLES Final R esult Performing Organization Address City/[facility] Co de Phone Number [facility] [address] [place] [address] * Potassium, Plasma (09/20/2024 3:53 AM EDT) Only the most recent of3 resultswithin the time period is included. Potassium, Plasma 4.3 3.6 - 4.9 mmol/L 09/20/2024 4:55 AM EDT [facility] Blood Arterial blood specimen / Unknown Arterial Line / Unknown 09/20/2024 3:53 AM EDT 09/20/2024 4:24 AM EDT Rodrigo Aldana MD LAB BLOOD ORDERABLES Final R esult Performing Organization Address City/[facility]/[place] [address] * Anuradha auris Surveillance by PCR (09/19/2024 6:24 PM EDT) Anuradha auris PCR Result Not Detected Not Detected 09/20/2024 9:[address] [facility] Swab (Axilla and Groin) Non-blood Collection / Unknown 09/19/2024 6:24 PM EDT 09/19/2024 6:50 PM EDT Narrative [facility] - 09/20/2024 9:41 AM EDT This PCR assay was developed and its performance characteristics determined by [facility] as appropriate for clinical purposes. This assay has not been cleared or approved by the FDA, but is performed in a CLIA regulated laboratory that is qualified to perform high-complexity testing. Rodrigo Aldana MD LAB MICROBIOLOGY - GENERAL O RDERABLES Final Result Performing Organization Address [facility] [place] [place] [address] * Multi Drug Resistance Test (09/19/2024 6:24 PM EDT) [facility] Culture No Multi Drug Resistant Organisms Isolated 09/21/2024 7:[address] [facility] Swab (Nares and Brionna Rectal) Non-blood Collection / Unknown 09/19/2024 6:24 PM EDT 09/19/2024 6:50 PM EDT Rodrigo Aldana MD LAB MICROBIOLOGY - GENERAL O RDERABLES Final Result Performing Organization Address City/[facility]/ZIP Co de Phone Number [facility] [address] [place] [address] * APTT (09/19/2024 5:48 PM EDT) Pathologist [facility] aPTT 32 25 - 35 sec LAB COAGULATION METHOD 09/19/2024 6:44 PM EDT [facility] Blood Venous blood specimen / Unknown Venipuncture / Unknown 09/19/2024 5:48 PM EDT 09/19/2024 6:13 PM EDT us Rodrigo Aldana MD LAB BLOOD ORDERABLES Final R esult Performing Organization Address City/[facility]/ZIP Co de Phone Number [facility] [address] [place] [address] * (ABNORMAL) Protime-INR (09/19/2024 5:48 PM EDT) Only the most recent of2 resultswithin the time period is included. Prothrombin Time 16.9(H) 12.0 - 14.3 sec LAB COAGULATION METHOD 09/19/2024 6:44 PM EDT [facility] INR 1.3(H) 0.9 - 1.1 LAB COAGULATION METHOD 09/19/2024 6:44 PM EDT [facility] Blood Venous blood specimen / Unknown Venipuncture / Unknown 09/19/2024 5:48 PM EDT 09/19/2024 6:13 PM EDT Narrative [facility] - 09/19/2024 6:44 PM EDT OPTIMAL INR RANGES FOR PATIENT ON ORAL ANTICOAGULANT THERAPY Prevention of venous thromboembolism INR 2.0 to 3.0 In patients with heart disease: Atrial fibrillation INR 2.0 to 3.0 Valvular heart disease INR 2.0 to 3.0 Tissue heart valves INR 2.0 to 3.0 Mechanical prosthetic valves INR 2.5 to 3.5 Prevention of recurrent AR INR 2.5 to 3.5 us Rodrigo Aldana MD LAB BLOOD ORDERABLES Final R esult Performing Organization Address City/[facility]/ZIP Co de Phone Number [facility] [address] [place] [address] * [place] CRITICAL CARE, ADDL 30 MIN (09/19/2024 5:40 [...] 7.31 - 7.42 09/19/2024 4:28 PM EDT [facility] pCO2, Arterial 40 35 - 48 mm Hg 09/19/2024 4:28 PM EDT [facility] pO2, Arterial 107 >80 mm Hg 09/19/2024 4:28 PM EDT [facility] SO2, Arterial 99(H) 94 - 98 % 09/19/2024 4:28 PM EDT [facility] Base Excess, Arterial -4.5(L) -2 - 3 mmol/L 09/19/2024 4:28 PM EDT [facility] HCO3, Arterial 21.1(L) 22 - 26 mmol/L 09/19/2024 4:28 PM EDT [facility] Total Hemoglobin, Arterial, Whole Blood 9.4(L) 11.2 - 15.7 g/dL 09/19/2024 4:28 PM EDT [facility] Hematocrit, Arterial 28.0(L) 34.0 - 45.0 % 09/19/2024 4:28 PM EDT [facility] Sodium, Arterial 139 136 - 145 mmol/L 09/19/2024 4:28 PM EDT [facility] Potassium, Arterial 4.2 3.6 - 4.9 mmol/L 09/19/2024 4:28 PM EDT [facility] Chloride, Whole Blood 109(H) 97 - 107 mmol/L 09/19/2024 4:28 PM EDT [facility] Glucose, Arterial 189(H) 74 - 99 mg/dL 09/19/2024 4:28 PM EDT [facility] Ionized Calcium, Arterial 4.7 4.6 - 5.1 mg/dL 09/19/2024 4:28 PM EDT [facility] Lactate, Arterial 1.1 0.5 - 1.6 mmol/L 09/19/2024 4:28 PM EDT [facility] Body Temperature 37.0 Celsius 09/19/2024 4:28 PM EDT [facility] pH, Temp Corrected, Arterial 7.33 7.31 - 7.42 09/19/2024 4:28 PM EDT [facility] pCO2, Temp Corrected, Arterial 40 35 - 48 mm Hg 09/19/2024 4:28 PM EDT [facility] pO2, Temp Corrected, Arterial 107 >80 mm Hg 09/19/2024 4:28 PM EDT [facility] Steam Press Tender ID Aleksandra Johnston 09/19/2024 4:28 PM EDT [facility] Blood, Arterial Whole blood specimen / Unknown 09/19/2024 4:27 PM EDT 09/19/2024 4:28 PM EDT Mai Ceballos MD LAB POINT OF CARE TEST DOCKED DEVICE UNSOLICITED RESULTS Final Result [facility] [address] [place] [address] * (ABNORMAL) QPLUS (09/19/2024 3:24 PM EDT) [...] - 29.8 hectoPascals 09/19/2024 3:39 PM EDT [facility] Fibrinogen Contribution to Clot Stiffness 4.0(H) 1.0 - 3.7 hectoPascals 09/19/2024 3:39 PM EDT [facility] Heparinase Clot Time 141 103 - 153 Seconds 09/19/2024 3:39 PM EDT [facility] Steam Press Tender ID Jane Back 09/19/2024 3:39 PM EDT [facility] Device ID [id number] 09/19/2024 3:39 PM EDT [facility] Whole Blood 09/19/2024 3:24 PM EDT 09/19/2024 3:39 PM EDT Mai Ceballos MD LAB POINT OF CARE TEST DOCKED DEVICE UNSOLICITED RESULTS Final Result Performing Organization Address City/State/[facility] Co de Phone Number [facility] [address] [place] [address] * POCT ACT (09/19/2024 3:21 PM EDT) Only the most recent of12 resultswithin the time period is included. ACT+ (HIGH RANGE) 145 68 - 600 Seconds 10/04/2024 10:10 AM EDT [facility] Steam Press Tender ID Soheila Dolan 10/04/2024 10:10 AM EDT [facility] ACT Device ID [id number] 10/04/2024 10:10 AM EDT [facility] Comment 10/04/2024 10:10 AM EDT [facility] Comment: ACT performed by [...] TEST DOCKED DEVICE UNSOLICITED RESULTS Final Result [facility] [address] LAB [address] [place] [address] * (ABNORMAL) POCT venous blood gas gem (09/19/2024 11:14 AM EDT) pH, Venous 7.38 7.32 - 7.43 09/19/2024 11:15 AM EDT [facility] pCO2, Venous 43 37 - 52 mm Hg 09/19/2024 11:15 AM EDT [facility] pO2, Venous 48(H) 25 - 40 mm Hg 09/19/2024 11:15 AM EDT [facility] SO2, Venous 79 65 - 80 % 09/19/2024 11:15 AM EDT [facility] Base Excess/Deficit, Venous 0.1 -2 - 3 mmol/L 09/19/2024 11:15 AM EDT [facility] HCO3, Venous 25.4 22 - 26 mmol/L 09/19/2024 11:15 AM EDT [facility] Hemoglobin, Venous 11.1(L) 11.2 - 15.7 g/dL 09/19/2024 11:15 AM EDT [facility] Hematocrit, Venous 33.0(L) 34.0 - 45.0 % 09/19/2024 11:15 AM EDT [facility] Sodium, Venous 138 136 - 145 mmol/L 09/19/2024 11:15 AM EDT [facility] Potassium, Venous 4.1 3.6 - 4.9 mmol/L 09/19/2024 11:15 AM EDT [facility] POCT Chloride, Venous 102 97 - 107 mmol/L 09/19/2024 11:15 AM EDT [facility] Glucose, Venous 149(H) 74 - 99 mg/dL 09/19/2024 11:15 AM EDT [facility] Ionized Calcium, Venous 4.8 4.6 - 5.1 mg/dL 09/19/2024 11:15 AM EDT [facility] Lactate, Venous 0.7 0.5 - 2.2 mmol/L 09/19/2024 11:15 AM EDT [facility] Body Temperature 37.0 Celsius 09/19/2024 11:15 AM EDT [facility] pH, Temp Corrected, Venous 7.38 7.32 - 7.43 09/19/2024 11:15 AM EDT [facility] pCO2, Temp Corrected, Venous 43 37 - 52 mm Hg 09/19/2024 11:15 AM EDT [facility] pO2, Temp Corrected, Venous 48(H) 25 - 40 mm Hg 09/19/2024 11:15 AM EDT [facility] Steam Press Tender ID Soheila Dolan 09/19/2024 11:15 AM EDT [facility] Blood, Venous Whole blood specimen / Unknown 09/19/2024 11:14 AM EDT 09/19/2024 11:15 AM EDT Mai Ceballos MD LAB POINT OF CARE TEST DOCKED DEVICE UNSOLICITED RESULTS Final Result Performing Organization Address City/State/[facility] Co de Phone Number [facility] [address] [place] [address] * WI AN CENTRAL LINE TRIPLE LUMEN, PB ANESTHESIA NON-TIMED PROCEDURE PLACEHOLDER, ANESTHESIA ULTRASOUND GUIDED, WI INSERT/PLACE FLOW DIRECT CATH, PB POINT OF [...] Back MD ANESTHESIA ORDERABLES Final Result * WI AN ELECTIVE ENDOTRACHEAL AIRWAY, PB ANESTHESIA PLACEHOLDER [...] LAB COAGULATION METHOD 09/18/2024 3:[address] [facility] Blood Venous blood specimen / Unknown Venipuncture / Unknown 09/18/2024 2:30 PM EDT 09/18/2024 2:39 PM EDT Narrative [facility] - 09/18/2024 3:10 PM EDT Therapeutic Range: UFH Full Dose and ACS/AR protocols*: 0.30 - 0.70 IU/mL UFH Low Dose protocol*: 0.25 - 0.50 IU/mL UFH prophylaxis: Not established Magdy Kee MD LAB BLOOD ORDERABLES Final Result [facility] [address] [place] [address] * Type and screen (09/18/2024 2:30 PM [...] TEST ORDERABLES Final Result BLOOD BANK [address] [place] [address], * (ABNORMAL) Comprehensive metabolic panel (09/18/2024 12:57 AM EDT) Only the most recent of3 resultswithin the time period is included. Pathologist [facility] Glucose, Plasma 106(H) 74 - 99 mg/dL 09/18/2024 2:08 AM EDT [facility] BUN, Plasma 14 8 - 23 mg/dL 09/18/2024 2:08 AM EDT [facility] Creatinine, Plasma 0.68 0.60 - 1.10 mg/dL 09/18/2024 2:08 AM EDT [facility] BUN/Creatinine Ratio 21 09/18/2024 2:08 AM EDT [facility] Sodium, Plasma 140 136 - 145 mmol/L 09/18/2024 2:08 AM EDT [facility] Potassium, Plasma 3.9 3.6 - 4.9 mmol/L 09/18/2024 2:08 AM EDT [facility] Chloride, Plasma 103 97 - 107 mmol/L 09/18/2024 2:08 AM EDT [facility] CO2, Plasma 24 22 - 29 mmol/L 09/18/2024 2:08 AM EDT [facility] Anion Gap 13 6 - 16 mmol/L 09/18/2024 2:08 AM EDT [facility] Total Calcium, Plasma 9.3 8.9 - 10.2 mg/dL 09/18/2024 2:08 AM EDT [facility] Total Protein 6.2(L) 6.3 - 7.9 g/dL 09/18/2024 2:08 AM EDT [facility] Albumin, Plasma 3.5 3.5 - 5.2 g/dL 09/18/2024 2:08 AM EDT [facility] AST, Plasma 60(H) 10 - 35 U/L 09/18/2024 2:08 AM EDT [facility] Comment:Hemolyzed, result ma y be falsely increased. ALT, Plasma 59(H) 10 - 35 U/L 09/18/2024 2:08 AM EDT [facility] Alkaline Phosphatase, Plasma 48 46 - 142 U/L 09/18/2024 2:08 AM EDT [facility] Total Bilirubin, Plasma 0.2 0.2 - 1.1 mg/dL 09/18/2024 2:08 AM EDT [facility] eGFRcr 99.2 mL/min/1.7 3m*2 09/18/2024 2:08 AM EDT [facility] Comment:Reported eGFRcr in m L/min/1.73m2 is based the CKD-EPI 2020 equation that does not use a race coefficient. Blood Venous blood specimen / Unknown Venipuncture / Unknown 09/18/2024 12:57 AM EDT 09/18/2024 1:25 AM EDT Renetta Diop APRN LAB BLOOD ORDERABLES Final Res ult [facility] [address] [place] [address] * CT Chest wo IV Contrast (09/16/2024 [...] ISCV MVA(P1/2t) 3.0 cm2 PARKER ISCV PA WI(ACCEL) 23.7 mmHg PARKER ISCV LV Lat e' [...] is no recent study available for direct qbnn-tl-pajz comparison. NSTEMI 4/, BMI 44, mvCAD, scheduled [...] is no recent study available for direct lcee-tx-iavs comparison. us Vladimir BERRY CV ECHO PROCEDURES [...] the final edited report. Drafted by Fuentes Ramsye RVT on 09/13/2024 11:02 AM Final report signed by Mark Manriquez MD on 09/13/2024 12:44 PM us Renetta Diop CASH CONTROLLER CV VASCULAR PROCEDURES Final R esult * (ABNORMAL) Pulmonary function testing (09/13/2024 10:36 AM EDT) [id number] 1.82(A) 1.97 - 3.27 L VYAIRE PFT GVM4KWV 1.69(A) 1.97 - 3.27 L VYAIRE PFT FVC PRED 2.57 VYAIRE PFT FVC LLN 1.94 VYAIRE PFT FVCPREZSCORE -2.32 VYAIRE PFT FVCPRE%PRED 66 % % VYAIRE PFT FVCPOSTZSCORE -1.98 VYAIRE PFT FVCPOST%PRED 71 % % VYAIRE PFT FVCCHNG 126.00 VYAIRE PFT FVC%CHG 7 % % VYAIRE PFT FVC PREDAUT US_Quanjer GLI (2011) VYAIRE PFT FVC Z-SCORE -2.32 -1.98 VYAIRE PFT EXG25PIVX 1.34(A) 1.56 - 2.57 L VYAIRE PFT FEV1 PRE 1.13(A) 1.56 - 2.57 L VYAIRE PFT FEV1 PRED 2.05 VYAIRE PFT FEV1 LLN 1.54 VYAIRE PFT ROW0QNYMBTWFX -2.94 VYAIRE PFT FEV1_Pre%Pred 55 % % VYAIRE PFT ZFN1WXWFHSJJZN -2.30 VYAIRE PFT UHX4NZOG%PRED 65 % % VYAIRE PFT DRN7FONL 208.43 VYAIRE PFT FEV1%CHG 19 % % VYAIRE PFT FEV[facility]AUT[facility] (2011) VYAIRE PFT FEV1 Z-SCORE -2.94 -2.30 VYAIRE PFT KLC4GCZ9HPKL 73.40 67.66 - 90.36 % VYAIRE PFT FEV1/FVC PRE 66.55(A) 67.66 - 90.36 % VYAIRE PFT HTU2VAPBGMK 80 VYAIRE PFT CLQ5ABXTXU 68 VYAIRE PFT IVD4QAYNKRFENMKA -1.78 VYAIRE PFT JPD8SFZUYF%PRED 83 % % VYAIRE PFT BMZ9YHLVMTFCTGHVJ -0.92 VYAIRE PFT RBX5GHDFTXB%PRED 92 % % VYAIRE PFT MKS3LEGADPI 6,849 VYAIRE PFT DXC4IKN%CHG 10 % % VYAIRE PFT KLG2VPMHKXNU [facility] (2011) VYAIRE PFT OXF2UBADNXXIO -2 -1 VYAIRE PFT LVI13-81%_POST 0.96(A) 1.01 - 3.30 L/s VYAIRE PFT HTE70-71% PRE 0.62(A) 1.01 - 3.30 L/s VYAIRE PFT OQW64-94%_Pred 1.97 VYAIRE PFT QZQ8517%LLN 1.00 VYAIRE PFT RIO7809%PREZSCORE -2.51 VYAIRE PFT QUW0959%PRE%PRED 32 % % VYAIRE PFT IBH9035%POSTZSCORE -1.71 VYAIRE PFT OPS5110%POST%PRED 49 % % VYAIRE PFT YRT9947%CHNG 342.85 VYAIRE PFT KKM3795%%CHG 55 % % VYAIRE PFT GLW7490%PREDAUTSt. Johns [facility] (2011) VYAIRE PFT ZNN1WQZV 3.26(A) 4.05 - 6.95 L/s VYAIRE PFT PEF PRE 3.45(A) 4.05 - 6.95 L/s VYAIRE PFT PEF PRED 5.45 VYAIRE PFT PEF LLN 4.01 VYAIRE PFT PEFPREZSCORE -2.29 VYAIRE PFT PEFPRE%PRED 63 % % VYAIRE PFT PEFPOSTZSCORE -2.51 VYAIRE PFT PEFPOST%PRED 60 % % VYAIRE PFT PEFCHNG -186.00 VYAIRE PFT PEF%CHG -5 % % VYAIRE PFT PEF PREDAUT [facility]AN[facility] III (1998) VYAIRE PFT FAPCZXKODUQXQPKT1SKC 17.85 13.19 - 22.16 ml/(min* mmHg) VYAIRE PFT DLCOSINGLEBREATH PRED 17.08 VYAIRE PFT DLCOSINGLEBREATH LLN 13.07 VYAIRE PFT DLCOSINGLEBREATH Z-SCORE 0.28 VYAIRE PFT DLCOSINGLEBREATH % PRED 104.5 % VYAIRE PFT DLCOSINGLEBREATH [facility] TLCO GLI (2019) VYAIRE PFT DLCOSINGLEBREATH Z-SCORE 0.28 09/13/2024 10:33 AM EDT VYAIRE PFT FVFYPHZTZVUIHEIPQ0AY E 18.02 13.19 - 22.16 ml/(min* mmHg) VYAIRE PFT DLCOCSINGLEBREATH PRED 17.08 VYAIRE PFT DLCOCSINGLEBREATH LLN 13.07 VYAIRE PFT DLCOCSINGLEBREATH Z-SCORE 0.34 VYAIRE PFT DLCOCSINGLEBREATH % PRED 105.5 % VYAIRE PFT DLCOCSINGLEBREATH PREDCarolinas ContinueCARE [facility]ovic TLCO GLI (2019) VYAIRE PFT RZFGDS1RIV 5.41 3.43 - 5.59 ml/(min* mmHg*L) VYAIRE PFT DLCOVAPRED 4.46 VYAIRE PFT DLCOVALLN 3.44 VYAIRE PFT DLCOVAZSCORE 1.38 VYAIRE PFT DLCOVA%PRED 121.5 % VYAIRE PFT DLCOVAPREDCHINLE [facility] Stanojevic TLCO GLI (2019) VYAIRE PFT DLCOVAZSCORE 1.38 09/13/2024 10:33 AM EDT VYAIRE PFT MSIZGYEFB9LKQ 5.47 3.43 - 5.59 ml/(min* mmHg*L) VYAIRE PFT DLCOC SB/VA PRED 4.46 VYAIRE PFT DLCOC SB/VA LLN 3.44 VYAIRE PFT DLCOC SB/VA Z-SCORE 1.45 VYAIRE PFT DLCOC SB/VA % PRED 122.7 % VYAIRE PFT DLCOC SB/VA [facility]ED[facility] TLCO GLI (2019) VYAIRE PFT DLCOC SB/VA Z-SCORE 1.45 09/13 10:33 AM EDT VYAIRE PFT HGBWOVVBCLRJFD0UFU 3.30 3.16 - 4.74 L VYAIRE PFT VASINGLEBREATH PRED 3.86 VYAIRE PFT VASINGLEBREATH LLN 3.12 VYAIRE PFT VASINGLEBREATH Z-SCORE -1.25 VYAIRE PFT VASINGLEBREATH % PRED 85.3 % VYAIRE PFT VASINGLEBREATH PREDAmerican Healthcare Systemsvic TLCO GLI (2019) VYAIRE PFT VASINGLEBREATH Z-SCORE -1.25 09/13/2024 10:33 AM EDT VYAIRE PFT CMBMYWRXXMGKFBT1WGZ 2.01 1.97 - 3.27 L VYAIRE PFT IVCSINGLEBREATH PRED 2.57 VYAIRE PFT IVCSINGLEBREATH LLN 1.94 VYAIRE PFT IVCSINGLEBREATH Z-SCORE -1.46 VYAIRE PFT IVCSINGLEBREATH % PRED 78.1 % VYAIRE PFT IVCSINGLEBREATH [facility]EDCH[facility] US_Quanjer GLI (2011) VYAIRE PFT NORA% VCMAX PRE 100.00 % VYAIRE PFT TLC SB PRE 3.41(A) 3.43 - 5.17 L VYAIRE PFT TLCSINGLEBREATH PRED 4.20 VYAIRE PFT TLCSINGLEBREATH LLN 3.39 VYAIRE PFT TLCSINGLEBREATH Z-SCORE -1.58 VYAIRE PFT TLCSINGLEBREATH % PRED 81.4 % VYAIRE PFT TLCSINGLEBREATH [facility]Graft[facility] Lung volumes GLI (2019)__ VYAIRE PFT HB PRE 13.10 g(Hb)/dL VYAIRE PFT XWA5MRH 3.32(A) 3.43 - 5.17 L VYAIRE PFT TLCPRED 4.20 VYAIRE PFT TLCLLN 3.39 VYAIRE PFT TLCULN 5.10 VYAIRE PFT TLCZSCORE -1.79 VYAIRE PFT TLC%PRED 79.1 % VYAIRE PFT TLCPREDGrafton [facility] Hospital Lung volumes GLI (2019)__ VYAIRE PFT [...] VYAIRE PFT IC%PRED 68.4 % VYAIRE PFT ICPREDAUTMartins Ferry Hospital Lung volumes GLI (2019)__ VYAIRE PFT FMGUXKAP5FUM 1.92 1.56 - 3.00 L VYAIRE PFT FRCPLETH PRED 2.17 VYAIRE PFT FRCPLETH LLN 1.54 VYAIRE PFT FRCPLETH ULN 2.96 VYAIRE PFT FRCPLETH Z-SCORE -0.60 VYAIRE PFT FRCPLETH % PRED 88.5 % VYAIRE PFT FRCPLETH PREDGrafton State Hospital Lung volumes GLI (2019)__ VYAIRE PFT HNG0PRF 0.29 0.22 - 1.30 L VYAIRE PFT [...] Kelly Lung volumes GLI (2019)__ VYAIRE PFT RV%FHD3UBW 49.03(A) 22.91 - 45.59 % VYAIRE PFT [...] underwent pulmonary function testing today at the [facility]. The patient underwent spirometry, lung volumes by [...] Hold for add-ons 09/13/2024 12:02 AM EDT [facility] Comment:Auto resulted. Blood Venous blood specimen / Unknown 09/12/2024 9:50 PM EDT 09/12/2024 9:56 PM EDT us Rodrigo Aldana MD LAB BLOOD ORDERABLES Final R esult Performing Organization Address [facility]/[place] [address] * N-Terminal Probnp (09/12/2024 9:50 PM EDT) Pathologist [facility] N-Terminal, PROBNP, Plasma 537 0 - 899 pg/mL 09/12/2024 10:[address] [facility] Blood Venous blood specimen / Unknown Venipuncture / Unknown 09/12/2024 9:50 PM EDT 09/12/2024 9:55 PM EDT us Magdy Kee MD LAB BLOOD ORDERABLES Final Result Performing Organization Address [facility] [place] [address] * (ABNORMAL) Hemoglobin A1c (09/12/2024 9:50 PM EDT) Pathologist [facility] Hemoglobin A1c 6.6(H) <5.7 % 09/13/2024 4:[address] [facility] Blood Venous blood specimen / Unknown Venipuncture / Unknown 09/12/2024 9:50 PM EDT 09/12/2024 9:55 PM EDT Narrative [facility] - 09/13/2024 4:47 AM EDT HA1C Interpretive Data: Diagnosis of Diabetes: Diabetic > or = 6.5% Pre-diabetic 5.7 to 6.4% Non-diabetic < or = 5.6% Glycemic Targets for Type I and Type II Diabetics: Non- Adults <7.0% Adults <6.0% Children and Adolescents <7.5% Source: [place] [employer]. Standards of medical care in diabetes,2017. Diabetes Care.2017:40 (suppl 1):S1-S135. HbA1c assay performed by an ion-exchange chromatography method that is certified traceable to the DCCT. us Magdy Kee MD LAB BLOOD ORDERABLES Final Result [facility] [address] [place] [address] from Last 3 Months Insurance [facility] Advance Directives * Full Code (Latest Code Status on File) Date Activated Date Inactivated Comments 09/19/2024 8:30 AM 09/24/2024 4:51 PM * Full Code Date Activated Date Inactivated Comments 09/12/2024 9:35 PM 09/19/2024 8:30 AM Care Teams [employer] Relationship Specialty Start Date End Date Morena Williamson DO [address] [place] [address] PCP - General 08/13/24
[2024-11-29] MEDS: METHYLPREDNISOLONE SOD SUCC 40MG VIAL 40 MG IV (11:48)
[2024-11-29] MEDS: estradioL 1 MG TABLET 2 MG PO (11:49)
[2024-11-29] MEDS: ASPIRIN EC 81MG TABLET 81 MG PO (11:49)
[2024-11-29] MEDS: CARVEDILOL 3.125MG TABLET 3.125 MG PO ×2 (11:49→20:34)
[2024-11-29] MEDS: FERROUS SULFATE 325MG TABLET 325 MG PO (11:49)
[2024-11-29] MEDS: ESTRADIOL 2 MG 2 EACH PO (11:54)
--- NOTE | 2024-11-29 13:32 | P.PN_ITS ---
<Statement entered by Suhas Hull MD - 11/30/24 22:20> Evaluated by the patient and agree with plan of care as outlined by the MAINTENANCE AND REPAIR WORKER. Subjective *Date: 11/29/24 *Time: 15:22 Interval history: Patient awake sitting up in bed, she is quite short of air. She is on 4 L nasal cannula O2 saturation is 94%. Lungs sounds are tight, expiratory wheezes noted. Patient does state that her was sick last week and now she feels she has the same illness. Discussed getting a respiratory panel to determine viral versus bacterial illness. Medical Exam Vital signs and Labs for Last 24 Hours: Vital Signs Temp Pulse Pulse Resp BP BP Pulse Ox 11/29/24 13:05 88 11/29/24 13:05 89 11/29/24 13:00 11/29/24 12:00 98.1 F 96 H 20 164/86 H 96 11/29/24 08:07 11/29/24 08:00 97.7 F 92 H 18 152/92 H 94 L 11/29/24 08:00 11/29/24 07:00 11/29/24 05:38 90 11/29/24 05:38 94 H 11/29/24 05:38 92 L 11/29/24 05:00 11/29/24 04:00 98.0 F 92 H 20 151/97 H 89 L 11/29/24 03:00 11/29/24 01:00 11/29/24 00:02 108 H 11/29/24 00:02 107 H 11/29/24 00:02 92 L 11/29/24 00:00 98.2 F 93 H 18 168/91 H 94 L 11/28/24 23:55 92 L 11/28/24 23:00 11/28/24 22:29 98.3 F 11/28/24 22:05 92 L 11/28/24 21:40 99.1 F 108 H 18 149/94 H 92 L 11/28/24 21:21 98 F 106 H 18 144/84 H 11/28/24 19:15 109 H 144/84 H 89 L 11/28/24 18:05 100.1 F H 118 H 20 173/107 H 91 L O2 Del Method O2 Flow Rate 11/29/24 13:05 11/29/24 13:05 11/29/24 13:00 Nasal Cannula 4 11/29/24 12:00 Nasal Cannula 4 11/29/24 08:07 Nasal Cannula 4 11/29/24 08:00 Nasal Cannula 4 11/29/24 08:00 Nasal Cannula 4 11/29/24 07:00 Nasal Cannula 4 11/29/24 05:38 11/29/24 05:38 11/29/24 05:38 Nasal Cannula 4 11/29/24 05:00 Nasal Cannula 4 11/29/24 04:00 Nasal Cannula 4 11/29/24 03:00 Nasal Cannula 2 11/29/24 01:00 Nasal Cannula 2 11/29/24 00:02 11/29/24 00:02 11/29/24 00:02 Nasal Cannula 2 11/29/24 00:00 Nasal Cannula 2 11/28/24 23:55 Nasal Cannula 2 11/28/24 23:00 Nasal Cannula 2 11/28/24 22:29 11/28/24 22:05 Nasal Cannula 2 11/28/24 21:40 Nasal Cannula 2 11/28/24 21:21 Nasal Cannula 2 11/28/24 19:15 11/28/24 18:05 Room Air Intake and Output 11/28/24 11/29/24 11/29/24 23:59 07:59 15:59 Intake Total 350 / 470 120 / 470 Output Total 0 / 0 0 / 0 0 / 0 Balance 0 / 350 350 / 470 120 / 470 Intake: Intake, Oral Amount 120 / 120 Intake, Total IV Amount 350 / 350 Azithromycin 500 mg In 0.9 % 250 / 250 Sodium Chloride 250 ml @ 250 mls/hr IV Q24H [facility] Rx#:[id number] Ceftriaxone Sodium 2 gm In 0.9 100 / 100 % Sodium Chloride 100 ml @ 200 mls/hr IV Q24H [facility] Rx#:[id number] Output: Output, Urine Amount 0 / 0 0 / 0 0 / 0 Other: Number of Voids 0 Number of Unmeasured Voids 1 1 1 Number of Bowel Movements 1 Weight 96.332 kg 96.19 kg Patient Weight 11/29/24 23:59 Weight 96.19 kg Laboratory Results - last 24 hr 11/28/24 18:15: WBC 8.0, RBC 4.47, Hgb 10.7 L, Hct 35.1 L, MCV 78.5 L, MCH 23.9 L, MCHC 30.5 L, RDW 22.1 H, Plt Count 424, MPV 9.8, Neut % (Auto) 76.7, Lymph % (Auto) 13.9, [place] % (Auto) 6.7, Eos % (Auto) 1.1, Baso % (Auto) 1.4, Neut # (Auto) 6.2, Lymph # (Auto) 1.1, [place] # (Auto) 0.5, Eos # (Auto) 0.1, Baso # (Auto) 0.1, Sodium 138, Potassium 3.3 L, Chloride 100, Carbon Dioxide 26, Anion Gap 15.3 H, BUN 10, Creatinine 0.70, Estimated Creat Clear 40, Estimated GFR 85, Est GFR ( Amer) 103, Glucose 120 H, Calcium 8.9, Total Bilirubin 0.5, AST 43 H, ALT 28, Alkaline Phosphatase 76, Troponin I 0.02, NT-Pro-B Natriuret Pep 1590 H, Total Protein 7.6, Albumin 4.0, Globulin 3.6 H, Albumin/Globulin Ratio 1.1, TSH 0.67, Thyroxine (T4) 13.9 H 11/28/24 18:52: VBG pH 7.47 H, VBG pCO2 32.8 L, VBG pO2 87.0 H, VBG HCO3 23.1, VBG Total CO2 24.1, VBG O2 Saturation 97.0 H, VBG Base Excess -0.6, VBG Lactic Acid 1.5 11/28/24 21:40: Troponin I 0.02 11/29/24 00:39: Troponin I 0.01 11/29/24 05:38: POC Glucose 197 H 11/29/24 05:44: WBC 5.0 D, RBC 4.57, Hgb 10.8 L, Hct 36.5 L, MCV 79.9 L, MCH 23.6 L, MCHC 29.6 L, RDW 22.2 H, Plt Count 420, MPV 10.0, Neut % (Auto) 84.3 H, Lymph % (Auto) 11.5, [place] % (Auto) 3.2, Eos % (Auto) 0.0 L, Baso % (Auto) 0.4, Neut # (Auto) 4.2, Lymph # (Auto) 0.6 L, [place] # (Auto) 0.2, Eos # (Auto) 0.0, Baso # (Auto) 0.0, Sodium 137, Potassium 3.9, Chloride 100, Carbon Dioxide 27, Anion Gap 13.9, BUN 9, Creatinine 0.60, Estimated Creat Clear 40, Estimated GFR 102, Est GFR ( Amer) 123, Glucose 193 H D, Calcium 8.5, Triglycerides 84, Cholesterol 101 L, LDL Cholesterol Direct 39.48 L, VLDL Cholesterol 17, HDL Cholesterol 30 L, Cholesterol/HDL Ratio 3.4 11/29/24 10:18: POC Glucose 137 H I & O for Labs for Last 24 Hours: Intake & Output 11/26/24 11/27/24 11/28/24 11/29/24 23:59 23:59 23:59 23:59 Intake Total 470 / 470 Output Total 0 / 0 0 / 0 Balance 0 / 350 470 / 470 Weight 96.332 kg 96.19 kg Head: Present atraumatic Eyes: Present as per HPI ENT: Present normal exam Neck: Present normal inspection and full ROM Respiratory: Present wheezes (Expiratory) and diminished air movement; Absent able to speak in complete sentences Cardiac: Present Reg Rate and Rhythm, Regular Rate and Regular Rhythm GI: Present soft and distention; Absent tenderness or guarding Rectal (female): Present deferred (female): Present deferred Extremities: Present normal inspection and full ROM Skin: Present intact and dry Neuro: Present alert, awake, oriented x 3 and moves all extremities Assessment and Plan *Assessment and plan (1) Asthma exacerbation: Status: Acute Category: Medical Code(s): J45.901 - Unspecified asthma with (acute) exacerbation (2) Acute hypoxic respiratory failure: Status: Acute Category: Medical Code(s): J96.01 - Acute respiratory failure with hypoxia (3) Sepsis due to pneumonia: Status: Acute Category: Medical Code(s): J18.9 - Pneumonia, unspecified organism; A41.9 - Sepsis, unspecified organism (4) Morbid obesity with BMI of 40.0-44.9, adult: Status: Chronic Category: Medical Code(s): E66.01 - Morbid (severe) obesity due to excess calories; Z68.41 - Body mass index [BMI] 40.0-44.9, adult (5) Diabetes mellitus, type 2: Status: Acute Category: Medical Code(s): E11.9 - Type 2 diabetes mellitus without complications (6) Hypertension: Status: Chronic Category: Medical Code(s): I10 - Essential (primary) hypertension (7) GERD (gastroesophageal reflux disease): Status: Chronic Category: Medical Code(s): K21.9 - Gastro-esophageal reflux disease without esophagitis (8) Hypothyroid: Status: Acute Category: Medical Code(s): E03.9 - Hypothyroidism, unspecified Plan Catina Parker is a 59-year-old female who was admitted from the emergency department due to sepsis secondary to pneumonia. Patient was found to be febrile, tachycardic. CT showed multifocal pneumonia. Patient does have a history of lung disease, asthma. No leukocytosis noted, blood cultures are pending. She has a new oxygen requirement of 4 L nasal cannula to maintain sats greater then 90%. proBNP 1500. Pulmonary consulted for further management recommendations. #Sepsis secondary to pneumonia -Meets criteria for fever, tachycardia and pneumonia on CT imaging. Patchy right-sided airspace opacity. -30 mL/kg fluids deferred given cardiac disease -Lactic acid 1.5. -Follow-up blood culture, pending -Follow-up sputum culture, pending -Continue azithromycin and Rocephin IV. #Acute hypoxic respiratory failure #Asthma exacerbation -Requiring 4 L nasal cannula to maintain oxygen saturations greater than 90%. New oxygen requirement. -Patient's examination positive for expiratory wheezing, reduced air capacity. -Continue bronchodilators: Pulmicort every 12 hours and DuoNebs every 4 hours. -Methylprednisolone 40 mg twice daily IV ordered per pulmonology - Viral respiratory panel pending #Hemoptysis -Upon admission reports blood-tinged sputum. Continue to monitor. No PE noted. Not on blood thinners at this time. -Sputum today is green, yellow. No blood-tinged sputum noted. -Mucinex 600 twice daily #Morbid obesity -Complicates all aspects of care #CAD -Status post CABG approximately September/2024 -Continue home aspirin and statin -EKG without acute abnormality today #HTN #HLD -Continue home medications #T2DM -ACHS fingersticks, sliding scale insulin Full code IPCs and Lovenox 40 subcu?VTE Diabetic diet Ambulate as tolerated
--- NOTE | 2024-11-29 14:35 | PC.NURSE ---
Aox 4, up ad darya, 4L NC, fsbg achs, 20g L AC sl, cardiac diet, consult to pulmonary.
[2024-11-29] MEDS: BUDESONIDE 0.5MG/2ML NEB 0.5 MG IH (17:01)
[2024-11-29] MEDS: PANTOPRAZOLE 40MG TABLET 40 MG PO (20:34)
[2024-11-29] MEDS: ENOXAPARIN 40MG/0.4ML SYRINGE 40 MG SUBCUT (20:34)
[2024-11-29] MEDS: ATORVASTATIN 40MG TABLET 80 MG PO (20:34)
[2024-11-29] MEDS: CEFTRIAXONE SODIUM 2 GM in 0.9 % SODIUM CHLORIDE 100 ML IV (20:34)
[2024-11-29] MEDS: AZITHROMYCIN 500 MG in 0.9 % SODIUM CHLORIDE 250 ML 250 MG IV (22:30)
[2024-11-30] VITALS (11 sets, daily range): BP systolic 150–163; BP diastolic 82–113; PULSE 77–98; RESP 17–20; TEMP 36.4–36.8; O2SAT 93–99; BMI 42.9
[2024-11-30] MEDS: IPRATROPIUM/ALBUTEROL 3 ML NEB IH ×6 (02:06→21:14)
[2024-11-30] MEDS: FLUTICASONE PROP 50MCG NASAL SPRAY 16GM 1 SPRAY NS (03:12)
[2024-11-30 03:26] LABS: POC Glucose,Bedside 188 (70-110)
[2024-11-30] MEDS: BUDESONIDE 0.5MG/2ML NEB 0.5 MG IH (05:59)
--- NOTE | 2024-11-30 06:32 | PC.NURSE ---
Patient alert and oriented. Complained of a headache 5/10 one time, treated per aug. Patient stated she felt congested in her head, states she uses afrin at home, contacted [facility], new nasal ordered and given. Patient on 4L NC, lung sounds wheezing expiratory with tightness noted. IV abx given per aug. No other complaints from patient. Patient independent in room. New IV placed to right AC this shift. Call light in reach.
[2024-11-30 08:37] LABS: Adenovirus,PCR Not Detected (NotDetected); Bordetella Pertussis Not Detected (NotDetected); Chlamydophila Pneumoniae, PCR Not Detected (NotDetected); Coronavirus 19, PCR Not Detected (NotDetected); Coronavirus 229E Not Detected (NotDetected); Coronavirus NL63 Not Detected (NotDetected); Coronavirus OC43 Not Detected (NotDetected); Coronovirus HKU1,PCR Not Detected (NotDetected); Influenza A, PCR Not Detected (NotDetected); Influenza AH1, 2009 Not Detected (NotDetected); Influenza AH1, PCR Not Detected (NotDetected); Influenza AH3,PCR Not Detected (NotDetected); Influenza B, PCR Not Detected (NotDetected); Mycoplasma Pneumoniae, PCR Not Detected (NotDetected); Parainfluenza 1, PCR Not Detected (NotDetected); Parainfluenza 2, PCR Not Detected (NotDetected); Parainfluenza 3, PCR Not Detected (NotDetected); Parainfluenza 4, PCR Not Detected (NotDetected); Respiratory Syncytial Virus Not Detected (NotDetected); Rhinovirus/Enterovirus Not Detected (NotDetected)
[2024-11-30] MEDS: ASPIRIN EC 81MG TABLET 81 MG PO (08:42)
[2024-11-30] MEDS: estradioL 1 MG TABLET 2 MG PO (08:42)
[2024-11-30] MEDS: ENOXAPARIN 40MG/0.4ML SYRINGE 40 MG SUBCUT ×2 (08:42→21:03)
[2024-11-30] MEDS: guaiFENesin 600 MG TAB.ER.12H PO ×2 (08:42→21:03)
[2024-11-30] MEDS: CARVEDILOL 3.125MG TABLET 3.125 MG PO ×2 (08:42→21:03)
[2024-11-30] MEDS: METHYLPREDNISOLONE SOD SUCC 40MG VIAL 40 MG IV (08:42)
[2024-11-30] MEDS: FERROUS SULFATE 325MG TABLET 325 MG PO (08:42)
[2024-11-30] MEDS: NP THYROID 30 MG 1 EACH PO (08:43)
[2024-11-30 08:48] LABS: Basophils # 0.1 K/mm3 (0-0.2); Basophils % 0.5 % (0.1-2.0); Eosinophils % 0.2 % (0.1-12.0); Hemoglobin 10.5 g/dL (12.2-16.2); Immature Granulocytes # 0.02 10^3uL; Immature Granulocytes % 0.2 %; Lymphocytes # 1.5 K/mm3 (0.7-4.5); Lymphocytes % 15.1 % (10-50); Mean Corpuscular Hemoglobin 24.4 pg (27.0-31.2); Mean Corpuscular Volume 81.2 fl (81-99); Mean Platelet Volume 9.8 fl (7.4-10.4); Monocytes # 0.6 K/mm3 (0.1-1.0); Monocytes % 6.2 % (1.7-9.3); Neutrophils # 7.6 K/mm3 (1.8-7.8); Neutrophils % 77.8 % (37.0-80.0); Nucleated Red Blood Cells # 0 10^3/uL; Nucleated Red Blood Cells % 0 %; Platelet Count 434 K/mm3 (142-424); Red Blood Count 4.31 M/mm3 (4.20-5.40); Red Cell Distribution Width 21.9 % (11.5-17.5); Red Cell Distribution Width-SD 63.2 fL; White Blood Count 9.8 K/mm3 (4.8-10.8)
[2024-11-30 09:08] LABS: Chloride 98 mmol/L (98-107); Potassium 3.2 mmoL/L (3.5-5.1); Sodium 139 mmol/L (136-145)
[2024-11-30 09:11] LABS: Anion Gap 15.2 mEq/L (5-15); Blood Urea Nitrogen 14 mg/dl (7-17); Carbon Dioxide 29 mmol/L (22.0-30.0); Creatinine Clearance Estimated 40 mL/min (50-200); Estimated Glomerular Filt Rate 73 ml/min (>60); GFR (African American) 88 ML/MIN (>60); Glucose 172 mg/dl (74-100)
[2024-11-30 09:27] LABS: Magnesium 1.8 mg/dl (1.6-2.3)
[2024-11-30 09:34] LABS: Human Metapneumovirus Detected (NotDetected)
--- NOTE | 2024-11-30 09:44 | P.PN_ITS ---
Subjective *Date: 11/30/24 *Time: 11:24 Interval history: No acute respiratory events overnight. Patient denies any new respiratory complaints. Patient denies any significant improvement in her respiratory distress Pulmonology Exam Inpatient Vital signs and Labs for Last 24 Hours: Temp Pulse Resp BP Pulse Ox O2 Del Method O2 Flow Rate 98.1 F 77 18 160/96 H 98 Nasal Cannula 4 11/30/24 08:27 11/30/24 09:12 11/30/24 08:27 11/30/24 08:27 11/30/24 08:27 11/30/24 08:40 11/30/24 08:40 Laboratory Results - last 24 hr 11/29/24 10:13: SARS-CoV-2 (PCR) Not detected, Influenza Type A (PCR) Not detected, Influenza Type B (PCR) Not detected, RSV (PCR) Not detected, Rhinovirus (PCR) Not detected 11/29/24 10:18: POC Glucose 137 H 11/29/24 10:21: Chlamy pneumoniae PCR Not detected, Adenovirus (PCR) Not detected, B. pertussis DNA (PCR) Not detected, Coronavirus OC43 (PCR) Not detected, Coronavirus HKU1 (PCR) Not detected, Coronavirus 229E (PCR) Not detected, SARS-CoV-2 (PCR) Not detected, Coronavirus NL63 (PCR) Not detected, Human Metapneumovir PCR Detected A, Influenza A (H1) PCR Not detected, Influ A (H1N1/09) PCR Not detected, Influenza A (H3) PCR Not detected, Influenza Type A (PCR) Not detected, Influenza Type B (PCR) Not detected, M. pneumoniae (PCR) Not detected, Parainfluenza 1 (PCR) Not detected, Parainfluenza 2 (PCR) Not detected, Parainfluenza 3 (PCR) Not detected, Parainfluenza 4 (PCR) Not detected, RSV (PCR) Not detected, Entero/Rhino (PCR) Not detected 11/29/24 20:31: POC Glucose 188 H 11/30/24 08:39: WBC 9.8 D, RBC 4.31, Hgb 10.5 L, Hct 35.0 L, MCV 81.2, MCH 24.4 L, MCHC 30.0 L, RDW 21.9 H, Plt Count 434 H, MPV 9.8, Neut % (Auto) 77.8, Lymph % (Auto) 15.1, [place] % (Auto) 6.2, Eos % (Auto) 0.2, Baso % (Auto) 0.5, Neut # (Auto) 7.6, Lymph # (Auto) 1.5, [place] # (Auto) 0.6, Eos # (Auto) 0.0, Baso # (Auto) 0.1, Sodium 139, Potassium 3.2 L, Chloride 98, Carbon Dioxide 29, Anion Gap 15.2 H, BUN 14 D, Creatinine 0.80 D, Estimated Creat Clear 40, Estimated GFR 73, Est GFR ( Amer) 88 D, Glucose 172 H, Calcium 9.0, Magnesium 1.8 Temp Pulse Resp BP Pulse Ox O2 Del Method O2 Flow Rate 97.7 F 92 H 18 152/92 H 94 L Nasal Cannula 4 11/29/24 08:00 11/29/24 08:00 11/29/24 08:00 11/29/24 08:00 11/29/24 08:00 11/29/24 08:07 11/29/24 08:07 Laboratory Results - last 24 hr 11/28/24 18:15: WBC 8.0, RBC 4.47, Hgb 10.7 L, Hct 35.1 L, MCV 78.5 L, MCH 23.9 L, MCHC 30.5 L, RDW 22.1 H, Plt Count 424, MPV 9.8, Neut % (Auto) 76.7, Lymph % (Auto) 13.9, [place] % (Auto) 6.7, Eos % (Auto) 1.1, Baso % (Auto) 1.4, Neut # (Auto) 6.2, Lymph # (Auto) 1.1, [place] # (Auto) 0.5, Eos # (Auto) 0.1, Baso # (Auto) 0.1, Sodium 138, Potassium 3.3 L, Chloride 100, Carbon Dioxide 26, Anion Gap 15.3 H, BUN 10, Creatinine 0.70, Estimated Creat Clear 40, Estimated GFR 85, Est GFR ( Amer) 103, Glucose 120 H, Calcium 8.9, Total Bilirubin 0.5, AST 43 H, ALT 28, Alkaline Phosphatase 76, Troponin I 0.02, NT-Pro-B Natriuret Pep 1590 H, Total Protein 7.6, Albumin 4.0, Globulin 3.6 H, Albumin/Globulin Ratio 1.1, TSH 0.67, Thyroxine (T4) 13.9 H 11/28/24 18:52: VBG pH 7.47 H, VBG pCO2 32.8 L, VBG pO2 87.0 H, VBG HCO3 23.1, VBG Total CO2 24.1, VBG O2 Saturation 97.0 H, VBG Base Excess -0.6, VBG Lactic Acid 1.5 11/28/24 21:40: Troponin I 0.02 11/29/24 00:39: Troponin I 0.01 11/29/24 05:38: POC Glucose 197 H 11/29/24 05:44: WBC 5.0 D, RBC 4.57, Hgb 10.8 L, Hct 36.5 L, MCV 79.9 L, MCH 23.6 L, MCHC 29.6 L, RDW 22.2 H, Plt Count 420, MPV 10.0, Neut % (Auto) 84.3 H, Lymph % (Auto) 11.5, [place] % (Auto) 3.2, Eos % (Auto) 0.0 L, Baso % (Auto) 0.4, Neut # (Auto) 4.2, Lymph # (Auto) 0.6 L, [place] # (Auto) 0.2, Eos # (Auto) 0.0, Baso # (Auto) 0.0, Sodium 137, Potassium 3.9, Chloride 100, Carbon Dioxide 27, Anion Gap 13.9, BUN 9, Creatinine 0.60, Estimated Creat Clear 40, Estimated GFR 102, Est GFR ( Amer) 123, Glucose 193 H D, Calcium 8.5, Triglycerides 84, Cholesterol 101 L, LDL Cholesterol Direct 39.48 L, VLDL Cholesterol 17, HDL Cholesterol 30 L, Cholesterol/HDL Ratio 3.4 11/29/24 10:18: POC Glucose 137 H I & O for Labs for Last 24 Hours: Intake & Output 11/27/24 11/28/24 11/29/24 11/30/24 23:59 23:59 23:59 23:59 Intake Total 870 / 1220 710 / 710 Output Total 0 / 0 200 / 200 200 / 200 Balance 0 / 350 670 / 1020 510 / 510 Weight 212 lb 6 oz 212 lb 1 oz 213 lb Intake & Output 11/26/24 11/27/24 11/28/24 11/29/24 23:59 23:59 23:59 23:59 Intake Total 470 / 470 Output Total 0 / 0 0 / 0 Balance 0 / 350 470 / 470 Weight 212 lb 6 oz 212 lb 1 oz Microbiology Reports for the Last 24 Hours: Microbiology 11/28/24 18:52 Blood Blood Culture - Preliminary NO GROWTH AFTER 24 HOURS 11/28/24 18:41 Blood Blood Culture - Preliminary NO GROWTH AFTER 24 HOURS 11/29/24 07:34 Sputum - Expectorated Sputum Gram Stain - Final Constitutional: Present moderate distress Head: Present normocephalic and atraumatic ENT: Present normal exam, normal oropharynx and mucous membranes moist Neck: Present normal inspection and full ROM Respiratory: Present prolonged expiratory phase, respiratory distress, wheezes and able to speak in complete sentences Cardiac: Present S1/S2, Tachycardia and radial pulses present GI: Present soft and distention; Absent tenderness or guarding Rectal (female): Present deferred (female): Present deferred Skin: Present intact; Absent cyanosis or jaundice Neuro: Present alert, awake and oriented x 3 Extremities: Present normal inspection; Absent clubbing or cyanosis Psychiatric: Present normal affect and cooperative Assessment and Plan *Assessment and plan (1) Asthma exacerbation: Status: Acute Category: Medical Code(s): J45.901 - Unspecified asthma with (acute) exacerbation (2) Acute hypoxic respiratory failure: Status: Acute Category: Medical Code(s): J96.01 - Acute respiratory failure with hypoxia (3) Sepsis due to pneumonia: Status: Acute Category: Medical Code(s): J18.9 - Pneumonia, unspecified organism; A41.9 - Sepsis, unspecified organism Plan Ms. Henderson 59-year-old female significant smoking history, history of asthma using fluticasone inhaler at baseline presented to the ER with progressively worsening respiratory distress coughing and pink frothy phlegm and pulmonary was called for further evaluation and management. Admits sick contacts, was sick the last 2 weeks. Patient has not been needing any oxygen supplementation at baseline CTA PE protocol upon admission no evidence of pulmonary embolism. Bilateral right greater than left patchy airspace disease. No pleural effusions. Tmax of 100.1 upon admission. Hemodynamically stable. No evidence of leukocytosis. Interval update: No acute respiratory vents overnight. Improving oxygen requirements. H&H stable. No further episodes of hemoptysis Respiratory viral PCR panel positive for human metapneumovirus. Significant improvement in her wheezing. Plan: Wean nebulization therapies to Trelegy 100 inhaler and steroids to prednisone 40 mg daily Continue oxygen supplementation as needed to maintain O2 saturation above 90% and above. Weaned to room air this morning. Will follow-up Continue ceftriaxone and azithromycin, antibiotics can be weaned to cefdinir to complete a total of 5 days # Thank you for involving pulmonary in this patient care will follow the patient in pulmonary clinic 3 to 4 weeks postdischarge.
[2024-11-30 10:41] LABS: POC Glucose,Bedside 114 (70-110)
[2024-11-30] MEDS: POTASSIUM CHLORIDE 20MEQ TAB 40 MEQ PO ×2 (13:00→13:25)
--- NOTE | 2024-11-30 14:25 | P.PN_ITS ---
<Statement entered by Oni Nesbitt MD - 11/30/24 17:18> Rounded on patient after nurse practitioner. Personally examined and interviewed patient. Agree with exam findings and care plan as documented. Subjective *Date: 11/30/24 *Time: 14:39 Interval history: Patient is sitting up in bed, 2 L nasal cannula. She states she was able to rest some last night but feels just as bad as she did yesterday. Still complains of expiratory wheezing and shortness of breath. O2 saturation remained stable, 96% on 2 L. She does states she was able to eat breakfast okay even though she does not feel very hungry at this time. Medical Exam Vital signs and Labs for Last 24 Hours: Vital Signs Temp Pulse Pulse Resp BP Pulse Ox O2 Del Method 11/30/24 14:04 Room Air 11/30/24 13:30 88 11/30/24 13:30 89 11/30/24 12:20 Room Air 11/30/24 12:00 98.2 F 98 H 18 150/84 H 99 Room Air 11/30/24 10:54 Nasal Cannula 11/30/24 09:12 77 11/30/24 09:12 80 11/30/24 08:40 Nasal Cannula 11/30/24 08:27 98.1 F 97 H 18 160/96 H 98 Nasal Cannula 11/30/24 08:00 Nasal Cannula 11/30/24 06:47 Nasal Cannula 11/30/24 05:59 91 H 11/30/24 05:59 94 H 11/30/24 05:59 98 Nasal Cannula 11/30/24 05:00 Nasal Cannula 11/30/24 04:00 97.6 F 94 H 18 155/113 H 97 Room Air 11/30/24 03:00 Nasal Cannula 11/30/24 02:07 84 11/30/24 02:07 87 11/30/24 02:07 97 Nasal Cannula 11/30/24 01:00 Nasal Cannula 11/29/24 23:59 98.1 F 94 H 17 153/111 H 97 Nasal Cannula 11/29/24 23:00 Nasal Cannula 11/29/24 22:18 85 11/29/24 22:18 87 11/29/24 22:18 96 Nasal Cannula 11/29/24 21:00 Nasal Cannula 11/29/24 20:00 Nasal Cannula 11/29/24 19:51 98.4 F 96 H 20 148/104 H 97 Nasal Cannula 11/29/24 17:57 Nasal Cannula 11/29/24 17:04 80 11/29/24 17:04 78 11/29/24 17:04 94 L Nasal Cannula 11/29/24 16:00 97.9 F 91 H 20 143/106 H 95 Nasal Cannula 11/29/24 15:59 Nasal Cannula 11/29/24 15:00 Nasal Cannula O2 Flow Rate 11/30/24 14:04 11/30/24 13:30 11/30/24 13:30 11/30/24 12:20 11/30/24 12:00 11/30/24 10:54 2 11/30/24 09:12 11/30/24 09:12 11/30/24 08:40 4 11/30/24 08:27 4 11/30/24 08:00 4 11/30/24 06:47 4 11/30/24 05:59 11/30/24 05:59 11/30/24 05:59 3 11/30/24 05:00 4 11/30/24 04:00 11/30/24 03:00 4 11/30/24 02:07 11/30/24 02:07 11/30/24 02:07 4.5 11/30/24 01:00 4 11/29/24 23:59 4 11/29/24 23:00 4 11/29/24 22:18 11/29/24 22:18 11/29/24 22:18 4 11/29/24 21:00 4 11/29/24 20:00 4 11/29/24 19:51 4 11/29/24 17:57 4 11/29/24 17:04 11/29/24 17:04 11/29/24 17:04 4 11/29/24 16:00 11/29/24 15:59 4 11/29/24 15:00 4 Intake and Output 11/29/24 11/30/24 11/30/24 23:59 07:59 15:59 Intake Total 200 / 1220 590 / 737 147 / 737 Output Total 200 / 200 200 / 900 700 / 900 Balance 0 / 1020 390 / -163 -553 / -163 Intake: Intake, Oral Amount 200 / 520 240 / 387 147 / 387 Intake, Total IV Amount 350 / 350 Azithromycin 500 mg In 0.9 % 250 / 250 Sodium Chloride 250 ml @ 250 mls/hr IV Q24H [facility] Rx#:[id number] Ceftriaxone Sodium 2 gm In 0.9 100 / 100 % Sodium Chloride 100 ml @ 200 mls/hr IV Q24H [facility] Rx#:[id number] Output: Output, Urine Amount 200 / 200 200 / 900 700 / 900 Other: Number of Unmeasured Voids 0 0 Number of Bowel Movements 1 Weight 96.615 kg Patient Weight 11/30/24 23:59 Weight 96.615 kg Laboratory Results - last 24 hr 11/29/24 10:13: SARS-CoV-2 (PCR) Not detected, Influenza Type A (PCR) Not detected, Influenza Type B (PCR) Not detected, RSV (PCR) Not detected, Rhinovirus (PCR) Not detected 11/29/24 10:21: Chlamy pneumoniae PCR Not detected, Adenovirus (PCR) Not detected, B. pertussis DNA (PCR) Not detected, Coronavirus OC43 (PCR) Not detected, Coronavirus HKU1 (PCR) Not detected, Coronavirus 229E (PCR) Not detected, SARS-CoV-2 (PCR) Not detected, Coronavirus NL63 (PCR) Not detected, Human Metapneumovir PCR Detected A, Influenza A (H1) PCR Not detected, Influ A (H1N1/09) PCR Not detected, Influenza A (H3) PCR Not detected, Influenza Type A (PCR) Not detected, Influenza Type B (PCR) Not detected, M. pneumoniae (PCR) Not detected, Parainfluenza 1 (PCR) Not detected, Parainfluenza 2 (PCR) Not detected, Parainfluenza 3 (PCR) Not detected, Parainfluenza 4 (PCR) Not detected, RSV (PCR) Not detected, Entero/Rhino (PCR) Not detected 11/29/24 20:31: POC Glucose 188 H 11/30/24 08:39: WBC 9.8 D, RBC 4.31, Hgb 10.5 L, Hct 35.0 L, MCV 81.2, MCH 24.4 L, MCHC 30.0 L, RDW 21.9 H, Plt Count 434 H, MPV 9.8, Neut % (Auto) 77.8, Lymph % (Auto) 15.1, [place] % (Auto) 6.2, Eos % (Auto) 0.2, Baso % (Auto) 0.5, Neut # (Auto) 7.6, Lymph # (Auto) 1.5, [place] # (Auto) 0.6, Eos # (Auto) 0.0, Baso # (Auto) 0.1, Sodium 139, Potassium 3.2 L, Chloride 98, Carbon Dioxide 29, Anion Gap 15.2 H, BUN 14 D, Creatinine 0.80 D, Estimated Creat Clear 40, Estimated GFR 73, Est GFR ( Amer) 88 D, Glucose 172 H, Calcium 9.0, Magnesium 1.8 11/30/24 10:18: POC Glucose 114 H I & O for Labs for Last 24 Hours: Intake & Output 11/27/24 11/28/24 11/29/24 11/30/24 23:59 23:59 23:59 23:59 Intake Total 870 / 1220 737 / 737 Output Total 0 / 0 200 / 200 900 / 900 Balance 0 / 350 670 / 1020 -163 / -163 Weight 96.332 kg 96.19 kg 96.615 kg Microbiology Reports for the Last 24 Hours: Microbiology 11/28/24 18:52 Blood Blood Culture - Preliminary NO GROWTH AFTER 24 HOURS 11/28/24 18:41 Blood Blood Culture - Preliminary NO GROWTH AFTER 24 HOURS 11/29/24 07:34 Sputum - Expectorated Sputum Gram Stain - Final Constitutional: Present no acute distress and cooperative Head: Present atraumatic Eyes: Present as per HPI ENT: Present normal exam Neck: Present normal inspection and full ROM Respiratory: Present rhonchi, wheezes (Expiratory), diminished air movement and symmetric chest movement Cardiac: Present Reg Rate and Rhythm GI: Present soft and distention; Absent tenderness Rectal (female): Present deferred (female): Present deferred Extremities: Present normal inspection and full ROM Skin: Present intact and dry Neuro: Present alert, awake and oriented x 3 Assessment and Plan *Assessment and plan (1) Asthma exacerbation: Status: Acute Category: Medical Code(s): J45.901 - Unspecified asthma with (acute) exacerbation (2) Acute hypoxic respiratory failure: Status: Acute Category: Medical Code(s): J96.01 - Acute respiratory failure with hypoxia (3) Sepsis due to pneumonia: Status: Acute Category: Medical Code(s): J18.9 - Pneumonia, unspecified organism; A41.9 - Sepsis, unspecified organism (4) Human metapneumovirus (hMPV) pneumonia: Status: Acute Category: Medical Code(s): J12.3 - Human metapneumovirus pneumonia (5) Morbid obesity with BMI of 40.0-44.9, adult: Status: Chronic Category: Medical Code(s): E66.01 - Morbid (severe) obesity due to excess calories; Z68.41 - Body mass index [BMI] 40.0-44.9, adult (6) Diabetes mellitus, type 2: Status: Acute Category: Medical Code(s): E11.9 - Type 2 diabetes mellitus without complications (7) Hypothyroid: Status: Acute Category: Medical Code(s): E03.9 - Hypothyroidism, unspecified (8) GERD (gastroesophageal reflux disease): Status: Chronic Category: Medical Code(s): K21.9 - Gastro-esophageal reflux disease without esophagitis (9) Hypertension: Status: Chronic Category: Medical Code(s): I10 - Essential (primary) hypertension Ellen Parker is a 59-year-old female who was admitted from the emergency department due to sepsis secondary to pneumonia. Patient was found to be febrile, tachycardic. CT showed multifocal pneumonia. Patient does have a history of lung disease, asthma. No leukocytosis noted, blood cultures are pending. proBNP 1500. Pulmonary consulted for further management recommendations. Initially she required an increase in oxygen to 4 L, she has been being weaned back to room air satting 99%. #Sepsis secondary to pneumonia ?No leukocytosis noted, WBC 9.8. ?Patient has remained afebrile, normotensive. -Lactic acid 1.5. -Follow-up blood culture, pending, follow-up sputum culture, pending -Continue azithromycin and Rocephin IV. #Acute hypoxic respiratory failure #Asthma exacerbation - Initially requiring 4 L nasal cannula, weaned to room air O2 saturation 99% - Patient's examination positive for expiratory wheezing, reduced air capacity. - Transition from Pulmicort every 12 hours to Trelegy 100 inhaler daily. Transition from methylprednisolone 40 mg IV daily to prednisone 40 daily. - Viral respiratory panel positive for human metapneumovirus. ?CBC, BMP ordered for the a.m. #Hemoptysis, resolved -Upon admission reports blood-tinged sputum. Continue to monitor. No PE noted. Not on blood thinners at this time. -Sputum today is green, yellow. No blood-tinged sputum noted. -Mucinex 600 twice daily #Morbid obesity -Complicates all aspects of care #CAD -Status post CABG approximately September/2024 -Continue home aspirin and statin -EKG without acute abnormality today #HTN #HLD -Continue home medications #T2DM -ACHS fingersticks, sliding scale insulin Full code IPCs and Lovenox 40 subcu?VTE Diabetic diet Ambulate as tolerated
[2024-11-30 16:11] LABS: POC Glucose,Bedside 152 (70-110)
[2024-11-30] MEDS: humaLOG 100 UNITS/ML 10ML VIAL (SSI) SUBCUT (16:45)
--- NOTE | 2024-11-30 17:18 | PC.NURSE ---
Aox 4, up ad darya, on RA 98%, fsbg achs, 20g R AC SL, caridac diet, pulmonary following, on contact for respiratory virus.
[2024-11-30] MEDS: CEFTRIAXONE SODIUM 2 GM in 0.9 % SODIUM CHLORIDE 100 ML IV (21:03)
[2024-11-30] MEDS: PANTOPRAZOLE 40MG TABLET 40 MG PO (21:03)
[2024-11-30] MEDS: ATORVASTATIN 40MG TABLET 80 MG PO (21:03)
[2024-11-30] MEDS: AZITHROMYCIN 500 MG in 0.9 % SODIUM CHLORIDE 250 ML 250 MG IV (21:49)
[2024-12-01] VITALS (7 sets, daily range): BP systolic 145–172; BP diastolic 72–96; PULSE 45–86; RESP 14–17; TEMP 36.3–36.6; O2SAT 94–96; BMI 42.3
[2024-12-01] MEDS: IPRATROPIUM/ALBUTEROL 3 ML NEB IH ×3 (01:41→09:17)
--- NOTE | 2024-12-01 04:00 | PC.NURSE ---
Patient is alert and oriented x4. She was observed to have eyes closed, respirations even and unlabored on room air, and no apparent distress throughout the majority of the night. She has not had any complaints of worsening shortness of breath since being weaned from oxygen; she does, however, report having a nonproductive cough. Oxygen saturations > 90%. Patient stated that since receiving breathing treatments, her sputum production has diminished. Upon auscultation of her lungs, expiratory wheezing and coarse crackles were heard bilaterally. Incentive spirometer use at the bedside. Scheduled medications + breathing treatments by RT were administered per AUG. ACHS glucose checks performed. SCDs refused. Patient ambulates independently in her room/to the bathroom without difficulties. Skin issues documented accordingly. At this time, the patient is resting in bed without any further complaints. No new needs thus far. Call light within reach. Contact precautions for Human Metapneumovirus ongoing. Home medications locked in [facility].
[2024-12-01 05:30] LABS: POC Glucose,Bedside 97 (70-110)
[2024-12-01] MEDS: FLUTICASONE/UMECLIDIN/VILANTER 100/62.5/25MCG INHALER 1 PUFF IH (06:14)
[2024-12-01] MEDS: NP THYROID 30 MG 1 EACH PO (06:23)
[2024-12-01 06:53] LABS: Basophils % 0.3 % (0.1-2.0); Eosinophils % 0.3 % (0.1-12.0); Hematocrit 36.2 % (37.0-47.0); Hemoglobin 10.3 g/dL (12.2-16.2); Immature Granulocytes # 0.03 10^3uL; Immature Granulocytes % 0.4 %; Lymphocytes # 2.4 K/mm3 (0.7-4.5); Lymphocytes % 34.9 % (10-50); Mean Corpuscular HGB Conc 28.5 g/dL (31.8-35.4); Mean Corpuscular Hemoglobin 23.1 pg (27.0-31.2); Mean Corpuscular Volume 81.3 fl (81-99); Mean Platelet Volume 10.2 fl (7.4-10.4); Monocytes # 0.6 K/mm3 (0.1-1.0); Monocytes % 7.9 % (1.7-9.3); Neutrophils # 3.9 K/mm3 (1.8-7.8); Neutrophils % 56.2 % (37.0-80.0); Nucleated Red Blood Cells # 0 10^3/uL; Nucleated Red Blood Cells % 0 %; Platelet Count 449 K/mm3 (142-424); Red Blood Count 4.45 M/mm3 (4.20-5.40); Red Cell Distribution Width 22.4 % (11.5-17.5)
[2024-12-01 06:54] LABS: Chloride 100 mmol/L (98-107); Potassium 3.5 mmoL/L (3.5-5.1); Sodium 140 mmol/L (136-145)
[2024-12-01 06:57] LABS: Blood Urea Nitrogen 12 mg/dl (7-17); Creatinine Clearance Estimated 40 mL/min (50-200); Estimated Glomerular Filt Rate 85 ml/min (>60); GFR (African American) 103 ML/MIN (>60)
[2024-12-01 06:58] LABS: Anion Gap 12.5 mEq/L (5-15); Carbon Dioxide 31 mmol/L (22.0-30.0); Glucose 96 mg/dl (74-100)
[2024-12-01] MEDS: guaiFENesin 600 MG TAB.ER.12H PO (09:33)
[2024-12-01] MEDS: CARVEDILOL 3.125MG TABLET 3.125 MG PO (09:33)
[2024-12-01] MEDS: POTASSIUM CHLORIDE 20MEQ TAB 40 MEQ PO (09:33)
[2024-12-01] MEDS: predniSONE 20MG TAB 40 MG PO (09:33)
[2024-12-01] MEDS: FERROUS SULFATE 325MG TABLET 325 MG PO (09:33)
[2024-12-01] MEDS: ASPIRIN EC 81MG TABLET 81 MG PO (09:33)
[2024-12-01] MEDS: estradioL 1 MG TABLET 2 MG PO (09:34)
[2024-12-01] MEDS: ENOXAPARIN 40MG/0.4ML SYRINGE 40 MG SUBCUT (09:34)
--- NOTE | 2024-12-01 10:04 | P.PN_ITS ---
Subjective *Date: 12/01/24 *Time: 13:00 Interval history: No acute respiratory vents overnight. Patient denies any new respiratory complaints. Pulmonology Exam Inpatient Vital signs and Labs for Last 24 Hours: Temp Pulse Resp BP Pulse Ox O2 Del Method O2 Flow Rate 97.3 F L 63 16 164/72 H 96 Room Air 2 12/01/24 08:00 12/01/24 09:37 12/01/24 08:00 12/01/24 08:00 12/01/24 09:17 12/01/24 09:17 11/30/24 10:54 Laboratory Results - last 24 hr 11/30/24 10:18: POC Glucose 114 H 11/30/24 16:03: POC Glucose 152 H 12/01/24 05:23: POC Glucose 97 12/01/24 05:56: WBC 7.0 D, RBC 4.45, Hgb 10.3 L, Hct 36.2 L, MCV 81.3, MCH 23.1 L, MCHC 28.5 L, RDW 22.4 H, Plt Count 449 H, MPV 10.2, Neut % (Auto) 56.2, Lymph % (Auto) 34.9, [place] % (Auto) 7.9, Eos % (Auto) 0.3, Baso % (Auto) 0.3, Neut # (Auto) 3.9, Lymph # (Auto) 2.4, [place] # (Auto) 0.6, Eos # (Auto) 0.0, Baso # (Au to) 0.0, Sodium 140, Potassium 3.5, Chloride 100, Carbon Dioxide 31 H, Anion Gap 12.5, BUN 12, Creatinine 0.70, Estimated Creat Clear 40, Estimated GFR 85, Est GFR ( Amer) 103, Glucose 96 D, Calcium 9.0 Temp Pulse Resp BP Pulse Ox O2 Del Method O2 Flow Rate 97.7 F 92 H 18 152/92 H 94 L Nasal Cannula 4 11/29/24 08:00 11/29/24 08:00 11/29/24 08:00 11/29/24 08:00 11/29/24 08:00 11/29/24 08:07 11/29/24 08:07 Laboratory Results - last 24 hr 11/28/24 18:15: WBC 8.0, RBC 4.47, Hgb 10.7 L, Hct 35.1 L, MCV 78.5 L, MCH 23.9 L, MCHC 30.5 L, RDW 22.1 H, Plt Count 424, MPV 9.8, Neut % (Auto) 76.7, Lymph % (Auto) 13.9, [place] % (Auto) 6.7, Eos % (Auto) 1.1, Baso % (Auto) 1.4, Neut # (Auto) 6.2, Lymph # (Auto) 1.1, [place] # (Auto) 0.5, Eos # (Auto) 0.1, Baso # (Auto) 0.1, Sodium 138, Potassium 3.3 L, Chloride 100, Carbon Dioxide 26, Anion Gap 15.3 H, BUN 10, Creatinine 0.70, Estimated Creat Clear 40, Estimated GFR 85, Est GFR ( Amer) 103, Glucose 120 H, Calcium 8.9, Total Bilirubin 0.5, AST 43 H, ALT 28, Alkaline Phosphatase 76, Troponin I 0.02, NT-Pro-B Natriuret Pep 1590 H, Total Protein 7.6, Albumin 4.0, Globulin 3.6 H, Albumin/Globulin Ratio 1.1, TSH 0.67, Thyroxine (T4) 13.9 H 11/28/24 18:52: VBG pH 7.47 H, VBG pCO2 32.8 L, VBG pO2 87.0 H, VBG HCO3 23.1, VBG Total CO2 24.1, VBG O2 Saturation 97.0 H, VBG Base Excess -0.6, VBG Lactic Acid 1.5 11/28/24 21:40: Troponin I 0.02 11/29/24 00:39: Troponin I 0.01 11/29/24 05:38: POC Glucose 197 H 11/29/24 05:44: WBC 5.0 D, RBC 4.57, Hgb 10.8 L, Hct 36.5 L, MCV 79.9 L, MCH 23.6 L, MCHC 29.6 L, RDW 22.2 H, Plt Count 420, MPV 10.0, Neut % (Auto) 84.3 H, Lymph % (Auto) 11.5, [place] % (Auto) 3.2, Eos % (Auto) 0.0 L, Baso % (Auto) 0.4, Neut # (Auto) 4.2, Lymph # (Auto) 0.6 L, [place] # (Auto) 0.2, Eos # (Auto) 0.0, Baso # (Auto) 0.0, Sodium 137, Potassium 3.9, Chloride 100, Carbon Dioxide 27, Anion Gap 13.9, BUN 9, Creatinine 0.60, Estimated Creat Clear 40, Estimated GFR 102, Est GFR ( Amer) 123, Glucose 193 H D, Calcium 8.5, Triglycerides 84, Cholesterol 101 L, LDL Cholesterol Direct 39.48 L, VLDL Cholesterol 17, HDL Cholesterol 30 L, Cholesterol/HDL Ratio 3.4 11/29/24 10:18: POC Glucose 137 H I & O for Labs for Last 24 Hours: Intake & Output 11/28/24 11/29/24 11/30/24 12/01/24 23:59 23:59 23:59 23:59 Intake Total 870 / 1220 977 / 1527 1030 / 1030 Output Total 0 / 0 200 / 200 1500 / 1800 300 / 300 Balance 0 / 350 670 / 1020 -523 / -273 730 / 730 Weight 212 lb 6 oz 212 lb 1 oz 213 lb 210 lb 4.8 oz Intake & Output 11/26/24 11/27/24 11/28/24 11/29/24 23:59 23:59 23:59 23:59 Intake Total 470 / 470 Output Total 0 / 0 0 / 0 Balance 0 / 350 470 / 470 Weight 212 lb 6 oz 212 lb 1 oz Microbiology Reports for the Last 24 Hours: Microbiology 11/28/24 18:52 Blood Blood Culture - Preliminary NO GROWTH AFTER 48 HOURS 11/28/24 18:41 Blood Blood Culture - Preliminary NO GROWTH AFTER 48 HOURS Constitutional: Present moderate distress Head: Present normocephalic and atraumatic ENT: Present normal exam, normal oropharynx and mucous membranes moist Neck: Present normal inspection and full ROM Respiratory: Present prolonged expiratory phase, respiratory distress, wheezes and able to speak in complete sentences Cardiac: Present S1/S2, Tachycardia and radial pulses present GI: Present soft and distention; Absent tenderness or guarding Rectal (female): Present deferred (female): Present deferred Skin: Present intact; Absent cyanosis or jaundice Neuro: Present alert, awake and oriented x 3 Extremities: Present normal inspection; Absent clubbing or cyanosis Psychiatric: Present normal affect and cooperative Assessment and Plan *Assessment and plan (1) Asthma exacerbation: Status: Acute Category: Medical Code(s): J45.901 - Unspecified asthma with (acute) exacerbation (2) Acute hypoxic respiratory failure: Status: Acute Category: Medical Code(s): J96.01 - Acute respiratory failure with hypoxia (3) Sepsis due to pneumonia: Status: Acute Category: Medical Code(s): J18.9 - Pneumonia, unspecified organism; A41.9 - Sepsis, unspecified organism Plan Ms. Henderson 59-year-old female significant smoking history, history of asthma using fluticasone inhaler at baseline presented to the ER with progressively worsening respiratory distress coughing and pink frothy phlegm and pulmonary was called for further evaluation and management. Admits sick contacts, was sick the last 2 weeks. Patient has not been needing any oxygen supplementation at baseline CTA PE protocol upon admission no evidence of pulmonary embolism. Bilateral right greater than left patchy airspace disease. No pleural effusions. Tmax of 100.1 upon admission. Hemodynamically stable. No evidence of leukocytosis. Interval update: No acute respiratory vents overnight. Continue to remain on room air since yesterday. Plan: WContinue Trelegy 100 inhaler along with DuoNebs 4 times daily as needed Prednisone 40 mg daily to complete a total of 5-day course Continue ceftriaxone and azithromycin, antibiotics can be weaned to cefdinir to complete a total of 5 days # Thank you for involving pulmonary in this patient care will follow the patient in pulmonary clinic 3 to 4 weeks postdischarge.
--- NOTE | 2024-12-01 10:23 | P.DS_ITS ---
<Statement entered by Oni Nesbitt MD - 12/01/24 19:49> Rounded on patient after nurse practitioner. Personally examined and interviewed patient. Agree with exam findings and care plan as documented. General Admission date:: 11/28/24 Discharge date: 12/01/24 HPI HPI HPI: This is a 59-year-old female with a past medical history of hypertension, hypothyroidism, morbid obesity, GERD, type 2 diabetes, paroxysmal SVT, CAD status post CABG 3 months ago who presents emergency department today with complaints of shortness of breath. She reports she has recurrent issues with pneumonia in the past and developed fever, chills, and productive sputum over the last 3 days. She also reports that her has had upper respiratory infection this week. She states that she has had some mild blood-tinged sputum production and increased wheezing. She has been using her nebulizers at home without improvement in symptoms. She denies any chest pain. Emergency department workup notable for sepsis with Tmax of 100.2, tachycardia and pneumonia on CT imaging. CT chest negative for PE. She is hypoxic on room air to the 80s requiring new oxygen of 2 L nasal cannula. Laboratory evaluation notable for potassium of 3.3, proBNP of 1500. All other labs stable. Given her new oxygen requirement, sepsis and pneumonia she will be admitted to the hospitalist service. Hospital Course Hospital Course Hospital Course: Catina Parker is a 59-year-old female who was admitted from the emergency department due to sepsis secondary to pneumonia. Patient was found to be febrile, tachycardic. CT showed multifocal pneumonia. Patient does have a history of lung disease, asthma. No leukocytosis noted, blood cultures are pending. proBNP 1500. Pulmonary consulted for further management recommendations. Initially she required an increase in oxygen to 4 L, she has been being weaned back to room air satting 99%. #Sepsis secondary to pneumonia ?No leukocytosis noted, WBC 9.8. ?Patient has remained afebrile, normotensive. -Lactic acid 1.5. -Follow-up blood culture, pending, follow-up sputum culture, pending -Continue azithromycin and Rocephin IV. #Acute hypoxic respiratory failure #Asthma exacerbation - Initially requiring 4 L nasal cannula, weaned to room air O2 saturation 99% - Patient's examination positive for expiratory wheezing, reduced air capacity. - Transition from Pulmicort every 12 hours to Trelegy 100 inhaler daily. Tra nsition from methylprednisolone 40 mg IV daily to prednisone 40 daily. - Viral respiratory panel positive for human metapneumovirus. ?CBC, BMP ordered for the a.m. #Hemoptysis, resolved -Upon admission reports blood-tinged sputum. Continue to monitor. No PE noted. Not on blood thinners at this time. -Sputum today is green, yellow. No blood-tinged sputum noted. -Mucinex 600 twice daily #Morbid obesity -Complicates all aspects of care #CAD -Status post CABG approximately September/2024 -Continue home aspirin and statin -EKG without acute abnormality today #HTN #HLD -Continue home medications #T2DM -ACHS fingersticks, sliding scale insulin Exam Data for Last 24 hours Vital signs and Labs for Last 24 Hours: Temp Pulse Resp BP Pulse Ox O2 Del Method O2 Flow Rate 97.3 F L 63 16 164/72 H 96 Room Air 2 12/01/24 08:00 12/01/24 09:37 12/01/24 08:00 12/01/24 08:00 12/01/24 09:17 12/01/24 09:17 11/30/24 10:54 Laboratory Results - last 24 hr 11/30/24 10:18: POC Glucose 114 H 11/30/24 16:03: POC Glucose 152 H 12/01/24 05:23: POC Glucose 97 12/01/24 05:56: WBC 7.0 D, RBC 4.45, Hgb 10.3 L, Hct 36.2 L, MCV 81.3, MCH 23.1 L, MCHC 28.5 L, RDW 22.4 H, Plt Count 449 H, MPV 10.2, Neut % (Auto) 56.2, Lymph % (Auto) 34.9, [place] % (Auto) 7.9, Eos % (Auto) 0.3, Baso % (Auto) 0.3, Neut # (Auto) 3.9, Lymph # (Auto) 2.4, [place] # (Auto) 0.6, Eos # (Auto) 0.0, Baso # (Auto) 0.0, Sodium 140, Potassium 3.5, Chloride 100, Carbon Dioxide 31 H, Anion Gap 12.5, BUN 12, Creatinine 0.70, Estimated Creat Clear 40, Estimated GFR 85, Est GFR ( Amer) 103, Glucose 96 D, Calcium 9.0 I & O for Last 24 hours: Intake & Output 11/28/24 11/29/24 11/30/24 12/01/24 23:59 23:59 23:59 23:59 Intake Total 870 / 1220 977 / 1527 1030 / 1030 Output Total 0 / 0 200 / 200 1500 / 1800 300 / 300 Balance 0 / 350 670 / 1020 -523 / -273 730 / 730 Weight 96.332 kg 96.19 kg 96.615 kg 95.39 kg Microbiology Reports for the Last 24 Hours: Microbiology 11/28/24 18:52 Blood Blood Culture - Preliminary NO GROWTH AFTER 48 HOURS 11/28/24 18:41 Blood Blood Culture - Preliminary NO GROWTH AFTER 48 HOURS Constitutional Constitutional: no acute distress, morbidly obese and cooperative *Routine HEENT Exam Head: Present normocephalic Eye: Present EOMI and PERRL ENT: Present mucous membranes moist *Routine Neck Exam Neck: Present supple and full ROM; Absent JVD *Routine Respiratory Exam Respiratory: Present wheezes (Expiratory), able to speak in complete sentences and symmetric chest movement *Routine Cardiovascular Exam Cardiovascular: Present RRR *Routine Abdominal Exam Abdominal: Present soft and normoactive bowel sounds; Absent tenderness or distended *Routine Extremities Exam Extremities: Present full ROM; Absent edema *Routine Skin Exam Skin: Present intact and dry *Routine Neurological Exam Neurological: Present alert and oriented X3 Routine Psychiatric Exam Psychiatric: Present cooperative Results Data Completed and Pending Labs on day of discharge: Labs from last 24 hours 12/01/24 12/01/24 11/30/24 05:56 05:23 16:03 WBC 7.0 D RBC 4.45 Hgb 10.3 L Hct 36.2 L MCV 81.3 MCH 23.1 L MCHC 28.5 L RDW 22.4 H Plt Count 449 H MPV 10.2 Neut % (Auto) 56.2 Lymph % (Auto) 34.9 Band[place] % (Auto) 7.9 Eos % (Auto) 0.3 Baso % (Auto) 0.3 Neut # (Auto) 3.9 Lymph # (Auto) 2.4 [place] # (Auto) 0.6 Eos # (Auto) 0.0 Baso # (Auto) 0.0 Sodium 140 Potassium 3.5 Chloride 100 Carbon Dioxide 31 H Anion Gap 12.5 BUN 12 Creatinine 0.70 Estimated Creat Clear 40 Estimated GFR 85 Est GFR ( Amer) 103 Glucose 96 D POC Glucose 97 152 H Calcium 9.0 11/30/24 10:18 WBC RBC Hgb Hct MCV MCH MCHC RDW Plt Count MPV Neut % (Auto) Lymph % (Auto) [place] % (Auto) Eos % (Auto) Baso % (Auto) Neut # (Auto) Lymph # (Auto) [place] # (Auto) Eos # (Auto) Baso # (Auto) Sodium Potassium Chloride Carbon Dioxide Anion Gap BUN Creatinine Estimated Creat Clear Estimated GFR Est GFR ( Amer) Glucose POC Glucose 114 H Calcium Preliminary micro results at discharge 11/28/24 18:52 Blood Culture - Preliminary Blood NO GROWTH AFTER 48 HOURS 11/28/24 18:41 Blood Culture - Preliminary Blood NO GROWTH AFTER 48 HOURS DS: Diagnosis Discharge Diagnosis (1) Asthma exacerbation: Status: Acute Code(s): J45.901 - Unspecified asthma with (acute) exacerbation (2) Acute hypoxic respiratory failure: Status: Acute Code(s): J96.01 - Acute respiratory failure with hypoxia (3) Sepsis due to pneumonia: Status: Acute Code(s): J18.9 - Pneumonia, unspecified organism; A41.9 - Sepsis, unspecified organism (4) Human metapneumovirus (hMPV) pneumonia: Status: Acute Code(s): J12.3 - Human metapneumovirus pneumonia (5) Morbid obesity with BMI of 40.0-44.9, adult: Status: Chronic Code(s): E66.01 - Morbid (severe) obesity due to excess calories; Z68.41 - Body mass index [BMI] 40.0-44.9, adult Meds Home Medications and Allergies Home Medications ?Medication ?Instructions ?Recorded ?Confirmed ?Type albuterol sulfate 90 mcg/actuation 2 puff inhalation Q 6HP PRN 09/11/24 11/28/24 History aerosol inhaler Shortness Of Breath Or Wheez ing estradiol 2 mg tablet 2 mg PO DAILY 09/11/2411/28 History omeprazole 40 mg capsule,delayed 40 mg PO DAILY 11/28/24 History release ascorbic acid (vitamin C) 1,000 mg 1,000 mg PO DAILY 0 11/28/24 11/28/24 History tablet aspirin 81 mg capsule 81 mg PO DAILY 11/28/2411/07 History atorvastatin 80 mg tablet 80 mg PO HS 11/28/24 5 History carvedilol 3.125 mg tablet 3.125 mg PO BID 11/28/24 History coenzyme Q10 100 mg capsule 100 mg PO DAILY 11/28/24 0 11/28/24 History ferrous sulfate 325 mg (65 mg 325 mg PO DAILY 11/28/24 11/28/24 History iron) tablet (FeroSul) multivitamin 1 tab PO DAILY 11/28/2411/07 History thyroid (pork) 30 mg tablet (Niva 30 mg PO DAILY 11/2811/28/24 History Thyroid) vitamins-lipotropics tablet 1 tab PO DAILY 11/28/24 History metformin 500 mg tablet 500 mg PO DAILY 11/29/24 History azithromycin 250 mg tablet 500 mg (2 x 250 mg) PO HS 2 days 12/01/24 Rx #4 tabs cefdinir 300 mg capsule 300 mg PO BID 2 days #4 caps 12/01/24 Rx fluticasone fur. 100 mcg-umeclid 1 inh inhalation MARICEL Y 30 days #1 12/01/24 Rx 62.5 mcg-vilant 25 mcg ea inhalat.powder (Trelegy Ellipta) fluticasone propionate 50 1 spray intranasal BIDP PRN 12/01/24 Rx mcg/actuation nasal Congestion #16 grams spray,suspension ipratropium 0.5 mg-albuterol 3 mg 3 ml inhalation Q6HP PRN Shortness 12/01/24 Rx (2.5 mg base)/3 mL nebulization Of Breath Or Wheezing 30 days #1 mL soln prednisone 20 mg tablet 40 mg (2 x 20 mg) PO DAILY 4 days 12/01/24 Rx #8 tabs New Prescriptions to Start Prescriptions: ipratropium-albuterol Xenia Mccurdy azithromycin Kaz,Xenia cefdinir Kaz,Xenia fluticasone propionate Kaz,Xenia [id number] [Trelegy Ellipta] Kaz,Xenia prednisone Xenia Mccurdy Allergies Allergy/AdvReac Type Severity Reaction Status Date / Time No Known Allergies Allergy Verified 09/11/24 13:32 Discharge Plan Disposition Patient Disposition: Home, Self-Care Condition: Fair Follow up Plan Follow up with: Morena Williamson [Primary Care Provider, Medical] - Enter time for follow up Barbara Candelaria MD [Physician, Pulmonology] - Enter time for follow up Prescriptions/Medication Reconciliation: New fluticasone propionate 50 mcg/actuation [place],Suspension 1 spray intranasal BIDP PRN (Reason: Congestion) Qty: 16 0RF Trelegy Ellipta 100-62.5-25 mcg Blister With Device 1 inh inhalation DAILY 30 Days Qty: 1 2RF ipratropium-albuterol 0.5 mg-3 mg(2.5 mg base)/3 mL Solution For Nebulization 3 ml inhalation Q6HP PRN (Reason: Shortness Of Breath Or Wheezing) 30 Days Qty: 1 1RF azithromycin 250 mg Tablet 500 mg PO HS 2 Days Qty: 4 0RF prednisone 20 mg tablet 40 mg PO DAILY 4 Days Qty: 8 0RF cefdinir 300 mg capsule 300 mg PO BID 2 Days Qty: 4 0RF Continued omeprazole 40 mg capsule,delayed release(DR/EC) 40 mg PO DAILY Patient Comments: TAKE 1 CAPSULE BY MOUTH ONCE DAILY estradiol 2 mg tablet 2 mg PO DAILY Patient Comments: TAKE 1 TABLET BY MOUTH ONCE DAILY albuterol sulfate 90 mcg/actuation HFA aerosol inhaler 2 puff INHALATION Q6HP PRN (Reason: Shortness Of Breath Or Wheezing) Patient Comments: INHALE 2 PUFFS BY MOUTH EVERY 6 HOURS multivitamin Tablet 1 tab PO DAILY atorvastatin 80 mg Tablet 80 mg PO HS ascorbic acid (vitamin C) 1,000 mg tablet 1,000 mg PO DAILY Patient Comments: TAKE 1 TABLET BY MOUTH ONCE DAILY carvedilol 3.125 mg tablet 3.125 mg PO BID Patient Comments: TAKE 1 TABLET BY MOUTH TWICE DAILY ferrous sulfate [FeroSul] 325 mg (65 mg iron) tablet 325 mg PO DAILY Patient Comments: TAKE 1 TABLET BY MOUTH ONCE DAILY vitamins-lipotropics Tablet 1 tab PO DAILY coenzyme Q10 100 mg Capsule 100 mg PO DAILY thyroid (pork) [Niva Thyroid] 30 mg Tablet 30 mg PO DAILY aspirin 81 mg Capsule 81 mg PO DAILY metformin 500 mg tablet 500 mg PO DAILY Patient Comments: TAKE 1 TABLET BY MOUTH ONCE DAILY Discontinued fluticasone propion-salmeterol 113-14 mcg/actuation aerosol powdr breath activated 1 puff INHALATION BID Patient Comments: INHALE 1 PUFF TWICE DAILY Problem Reconciliation Problems Reviewed?: Yes Patient Discharge Instructions ACTIVITY: Continue current activity DIET: continue same diet Patient Instructions: DI for Asthma -- Adult, DI for Pneumonia -- Adult, DI for Sepsis -- Adult, Stop Light Pneumonia Print Language: Swedish Providers Primary Care Provider: Morena Williamson Admit Provider: Suhas Hull Attending Provider: Suhas Hull
[2024-12-01 10:33] LABS: Magnesium 1.8 mg/dl (1.6-2.3)
[2024-12-02 08:14] LABS: POC Glucose,Bedside 127 (70-110)
[2024-12-02 08:17] LABS: POC Glucose,Bedside 125 (70-110)
[2024-12-02 08:19] LABS: POC Glucose,Bedside 111 (70-110)
[2024-12-02 08:20] LABS: POC Glucose,Bedside 147 (70-110)
--- NOTE | 2024-12-02 12:48 | SW/DCPLANNER ---
Spoke with patient on the phone. Patient stated that she is doing well. Patient stated that she done the meds to bed and that she has already taken her new medicine. Patient stated that she is aware of her upcoming appointments. Patient stated that she has no concerns or questions at this time. Randell Wong
--- NOTE | 2024-12-05 13:15 | SW/DCPLANNER ---
Phoned patient x2. Left patient name and call back number Randell Wong
--- NOTE | 2024-12-05 15:01 | SW/DCPLANNER ---
Spoke with patient on the phone. Patient stated that she is doing well just a little coughing but nothing like she was before. Patient stated that she is aware of her upcoming appointments. Patient stated that she done the meds to bed and thats how she got her new medicine. Patient stated that she has no concerns or questions at this time. Randell Wong
== END 2024-12-01 12:56 | disposition home or self-care (01) | DRG 193 ==
LOC: ER 18:38 → 2ND 20:45
PROVIDERS: Internal Medicine Adolescent Medicine; Internal Medicine Pulmonary Disease; Nurse Practitioner Acute Care; Admitting Provider Student in an Organized Health Care Education/Training Program; Emergency Provider Emergency Medicine; PCP Family Medicine; Visit Provider Student in an Organized Health Care Education/Training Program
DX: J12.3 Human metapneumovirus pneumonia (principal); J96.01 Acute respiratory failure with hypoxia; J45.901 Unspecified asthma with (acute) exacerbation; Z68.41 Body mass index [BMI] 40.0-44.9, adult; I47.19 Other supraventricular tachycardia; R04.2 Hemoptysis; E03.9 Hypothyroidism, unspecified; E66.01 Morbid (severe) obesity due to excess calories; K21.9 Gastro-esophageal reflux disease without esophagitis; I10 Essential (primary) hypertension; I45.19 Other right bundle-branch block; E78.5 Hyperlipidemia, unspecified; E11.9 Type 2 diabetes mellitus without complications; I25.10 Atherosclerotic heart disease of native coronary artery without angina pectoris; Z95.1 Presence of aortocoronary bypass graft; Z87.01 Personal history of pneumonia (recurrent); Z79.899 Other long term (current) drug therapy; Z79.890 Hormone replacement therapy; Z79.82 Long term (current) use of aspirin; Z79.84 Long term (current) use of oral hypoglycemic drugs; Z90.710 Acquired absence of both cervix and uterus; Z90.49 Acquired absence of other specified parts of digestive tract; Z90.89 Acquired absence of other organs; Z98.84 Bariatric surgery status; Z83.3 Family history of diabetes mellitus; Z82.49 Family history of ischemic heart disease and other diseases of the circulatory system; Z82.5 Family history of asthma and other chronic lower respiratory diseases; Z28.21 Immunization not carried out because of patient refusal
CPT/HCPCS: 36415; 71275; 80048; 80053; 80061; 82803; 82962; 83735; 83880; 84436; 84443; 84484; 85025; 87040; 87070; 87205; 87631; 87633; 93005; 94640; 94760; 94761; J0456; J0696; J1650; J2919; J3475; J7050; J7120; Q9967